=== PATIENT | female | born 1940 | race Caucasian/White ===

== ENCOUNTER 2016-04-16 18:49 | Inpatient (IN) | payer OTHER ==
[~2016-04-16] VITALS: Ht 165.1 cm; Wt 101.0 kg
[2016-04-16] MEDS ORDERED: ONDANSETRON INJ 2 MG/ML 2 ML VIAL IV STA (20:57)
[2016-04-16] MEDS ORDERED: SIMETHICONE 80 MG CHEW PO ONE (21:00)
[2016-04-16] MEDS ORDERED: OXYC-57 PO (21:07)
[2016-04-16] MEDS ORDERED: CYAN10004 PO (21:07)
[2016-04-16] MEDS ORDERED: FRRS300 PO (21:07)
[2016-04-16] MEDS ORDERED: ESCI10TA17 PO (21:07)
[2016-04-16] MEDS ORDERED: LEVE500T13 PO (21:07)
[2016-04-16] MEDS ORDERED: PANT40TA PO (21:07)
[2016-04-16] MEDS ORDERED: ATOR-24 PO (21:07)
[2016-04-16] MEDS ORDERED: FLUT0.15 NAE (21:07)
[2016-04-16] MEDS ORDERED: OXYC1TAB3 PO (21:07)
[2016-04-16] MEDS ORDERED: GABA-112 PO (21:07)
[2016-04-16] MEDS ORDERED: MCRK20 PO (21:07)
[2016-04-16] MEDS ORDERED: ASPI81TA28 PO (21:07)
[2016-04-16] MEDS ORDERED: CALC-393 PO (21:07)
[2016-04-16] MEDS ORDERED: DILT240C57 PO (21:07)
[2016-04-16] MEDS ORDERED: CALC0.5C2 PO (21:07)
[2016-04-16] MEDS ORDERED: CHOL100010 PO (21:07)
[2016-04-16] MEDS ORDERED: METO2.5T PO (21:20)
[2016-04-16] MEDS ORDERED: TRAZ50TA35 PO (21:33)
[2016-04-16] MEDS ORDERED: ANT25 PO (21:33)
[2016-04-16] MEDS ORDERED: NYST100010 TOP (21:33)
[2016-04-16] MEDS ORDERED: FRS/40 PO (21:33)
[2016-04-16] MEDS ORDERED: AMOX875T PO (21:33)
[2016-04-16] MEDS ORDERED: LEVO75TA PO (21:33)
[2016-04-16] MEDS ORDERED: NTRGSL/4 UT (21:33)
[2016-04-16] MEDS ORDERED: NITR1CAP33 PO (21:33)
[2016-04-16] MEDS ORDERED: HYDR25SU20 PR (21:33)
[2016-04-16] MEDS ORDERED: LEVO150T PO (21:33)
[2016-04-16] MEDS ORDERED: IPRA1AER2 INH (21:33)
--- NOTE | 2016-04-16 22:16 | DIAGNOSTIC IMAGING REPORT ---
ABDOMEN AND PELVIS CT WITHOUT CONTRAST CT DOSE: 1038.45 mGy.cm HISTORY: bloating, nausea TECHNIQUE: Multiaxial CT images of the abdomen and pelvis were performed without contrast. COMPARISON STUDY: None. FINDINGS: The heart is enlarged. There are poststernotomy changes. There is a trace right and small left pleural effusion. Bibasilar densities likely represent atelectasis. No pneumoperitoneum. No pneumatosis. There is a right hip prosthesis. Mild body wall edema. The unenhanced liver, spleen, adrenal glands, and pancreas are unremarkable. Mild inflammatory change/edema surrounding the gallbladder. No definite gallbladder wall thickening. Trace perihepatic and perisplenic fluid. There are punctate bilateral renal calculi. A 1.2 cm exophytic hypodense lesion within the left kidney. This is incompletely characterized on this noncontrast study but favors a cyst. No hydronephrosis. No retroperitoneal lymphadenopathy. There is engorgement of the right ovarian vein. Mild edema surrounding the bilateral ovaries. There is trace ascites. The visualized bladder and uterus are within normal limits. Suboptimal evaluation for bowel pathology due to the lack of intravenous and oral contrast. However, there is no definite bowel wall thickening or obstruction. Colonic diverticulosis. Normal caliber appendix. Density at the tip of the appendix may be due to old barium contrast. IMPRESSION: 1. Trace right and small left pleural effusions. There is also body wall edema and trace ascites. 2. Mild inflammatory change/edema surrounding the gallbladder. No definite gallbladder wall thickening. This could be due to the patient's edematous state or possibly developing cholecystitis. Clinical correlation recommended to assess for right upper quadrant pain. 3. Bilateral nephrolithiasis. No hydronephrosis. 4. Cardiomegaly. 5. Colonic diverticulosis. 6. No definite bowel wall thickening or obstruction. Electronically signed by: Cristian Vazquez M.D. 04/16/2016 10:14 PM Dictated Date/Time: 04/16/2016 10:03 PM
[2016-04-16 22:34] LABS: BASO % 0.1 %; BASO ABS # 0.01 K/uL (0-0.2); COMPLETE YES; EOS % 0.1 %; HEMATOCRIT 31.9 % (37-47); IG% 0.4 %; LYMPH % 8.9 %; LYMPH ABS # 1.49 K/uL (1.2-3.4); MEAN CELL VOLUME 88.1 fL (80-100); MEAN CORPUSCULAR HEMOGLOBIN 27.9 pg (25-34); MEAN CORPUSCULAR HGB CONC 31.7 g/dl (32-36); MEAN PLATELET VOLUME 11.2 fL (7.4-10.4); MONO % 4.3 %; NEUT % 86.2 %; PLATELET COUNT 363 K/uL (130-400); RED BLOOD COUNT 3.62 M/uL (4.2-5.4); WHITE BLOOD COUNT 16.71 K/uL (4.8-10.8)
[2016-04-16 22:50] LABS: BUN/CREATININE RATIO 29.7 (10-20); CALCIUM 6.5 mg/dl (8.5-10.1); CREATININE 1.4 mg/dl (0.60-1.20); POTASSIUM 4.2 mmol/L (3.5-5.1)
[2016-04-16 22:51] LABS: PARTIAL THROMBOPLASTIN RATIO 1.2; PROTHROMBIN TIME (PATIENT) 42.2 SECONDS (9.0-12.0)
[2016-04-16 22:52] LABS: INR 3.7 (0.9-1.1)
[2016-04-16 22:59] LABS: CKMB/CK RATIO 0.8 (0-3.0); THYROID STIMULATING HORMONE 0.868 uIu/ml (0.300-4.500)
[2016-04-16 23:56] LABS: URINE APPEARANCE CLOUDY (CLEAR); URINE BILIRUBIN NEG (NEG); URINE COLOR DK YELLOW; URINE EPITHELIAL CELL AUTO >30 /lpf (0-5); URINE NITRITE NEG (NEG); URINE SPECIFIC GRAVITY 1.016 (1.000-1.030); UROBILINOGEN NEG (NEG)
[2016-04-16 23:57] LABS: MANUAL MICROSCOPIC REQUIRED? NO; REVIEW REQ? YES
[2016-04-17] VITALS (10 sets, daily range): BP systolic 104–133; BP diastolic 59–76; PULSE 78–96; TEMP 36.5–36.8; O2SAT 94–97; Ht 165.1 cm; Wt 101.0 kg
--- NOTE | 2016-04-17 01:00 | EMERGENCY ROOM VISIT NOTE ---
History Report prepared by Nehemias: Helio Pimentel Under the Supervision of: Dr. Isaac Walker D.O. First contact with patient: 20:32 Chief Complaint: REFERRED BY DOCTOR Stated Complaint: REFERRED BY DOCTOR History of Present Illness The patient is a 76 year old female who presents to the Emergency Room for evaluation of abnormal laboratory studies occurring today. She currently complains of chest pain, nausea, abdominal bloating and shortness of breath. She rates her chest pain as a 6/10 in severity. Per family, the patient has a history of COPD and CHF. She states that the patient has gained 8 or more pounds in a few days this week. The patient was admitted as an inpatient last week for her symptoms and was discharged on Lasix. The patient's family states that the patient was seen by her PCP earlier today for persisting symptoms and had blood work done. The patient was called shortly prior to arrival with the results. The patient's family states that the patient was found to have low potassium levels, elevated INR, elevated white blood cell count, and that her kidneys and liver "are out of whack". She notes that the patient tends to retain fluid in her abdomen rather than her legs. The patient is on Coumadin for a previous stroke. She has persistent aphasia ever since the stroke. She denies any fevers. The patient's family notes that the patient has not been eating much lately. Source of History: patient, family Onset: today Symptom Intensity: elevated INR, elevated white blood cell count, low potassium, abnormal kidney and liver functions Quality: other (abnormal laboratory studies) Associated Symptoms: + SOB, + chest pain (6/10), + nausea, No fevers Note: The patient complains of abdominal bloating. Review of Systems See HPI for pertinent positives & negatives. A total of 10 systems reviewed and were otherwise negative. Past Medical & Surgical Medical Problems: (1) Aphasia (2) CAD (coronary artery disease) (3) CHF (congestive heart failure) (4) COPD (chronic obstructive pulmonary disease) (5) Diabetes (6) GERD (gastroesophageal reflux disease) (7) Hyperlipidemia (8) Hypothyroidism (9) Lumbar degenerative disc disease (10) PAF (paroxysmal atrial fibrillation) (11) Peripheral arterial disease (12) Seizure disorder (13) Stroke Surgical Problems: (1) History of knee replacement (2) S/P aortic valve repair (3) S/P hip replacement Family History No pertinent family history stated. Social History Smoking Status: Former Smoker Housing Status: lives with family Occupation Status: retired Current/Historical Medications Scheduled Amoxicillin & Pot Clavulanate (Augmentin 875-125 mg), 1 TAB PO BID Aspirin (Aspirin Ec), 81 MG PO QAM Atorvastatin (Lipitor), 40 MG PO HS Calcitriol (Rocaltrol), 0.5 MCG PO BID Calcium Carbonate (Calcium), 600 MG PO UD Cholecalciferol (Vitamin D), 1,000 UNIT PO QAM Cyanocobalamin (Vitamin B-12 1000 Mcg), 1,000 MCG PO QAM Diltiazem Hcl Coated Beads (Cardizem Cd), 240 MG PO QAM Escitalopram (Lexapro), 10 MG PO QAM Ferrous Sulfate (Ferrous Sulfate), 325 MG PO BID Furosemide (Lasix), 40 MG PO BID Gabapentin (Neurontin), 100 MG PO UD Ipratropium-Albuterol (Combivent Respimat), 1 PUFFS INH QID Levetiracetam (Keppra), 500 MG PO BID Levothyroxine Sodium (Synthroid), 75 MCG PO THURSDAY Levothyroxine Sodium (Synthroid), 150 MCG PO 6XWK Metolazone (Zaroxolyn), 2.5 MG PO UD Nitrofurantoin Macrocrystals (Macrodantin), 50 MG PO HS Oxycodone Ir (Roxicodone Ir), 5 MG PO Q12 Pantoprazole (Protonix), 40 MG PO QAM Potassium Chloride (Klor-Con M20), 20 MEQ PO QAM Trazodone Hcl (Trazodone), 50 MG PO HS Scheduled PRN Fluticasone Propionate (Nasal) (Flonase Allergy Relief), 2 SPRAYS CASS DAILY PRN for Nasal Congestion Hydrocortisone Acetate (Rectal (Anusol-Hc), 25 MG VT BID PRN for PRN Meclizine HCl (Meclizine HCl), 25 MG PO TID PRN for VERTIGO Nitroglycerin (Nitrostat), 0.4 MG UT PRN PRN for CHEST PAIN Nystatin (Topical) (Nystop), 1 APPLN TOP DAILY PRN for PRN UNDER BREASTS Oxycodone/Acetaminophen 5MG/325MG (Percocet 5MG/325MG), 2 TABLETS PO Q8 PRN for Pain Allergies Coded Allergies: No Known Allergies (Unverified , 04/16/16) Physical Exam Vital Signs Date Time Temp Pulse Resp B/P Pulse Ox O2 Delivery O2 Flow Rate FiO2 04/17/16 01:25 92 20 121/74 97 Nasal Cannula 2.0 04/16/16 23:26 76 16 128/97 95 Nasal Cannula 2.0 04/16/16 22:23 83 16 118/75 96 Nasal Cannula 2.0 04/16/16 21:31 77 20 118/64 92 Nasal Cannula 2.0 04/16/16 21:00 76 16 121/78 92 Nasal Cannula 2.0 04/16/16 20:55 95 Nasal Cannula 2.0 04/16/16 20:43 80 04/16/16 19:34 78 16 116/78 95 Nasal Cannula 2.0 04/16/16 18:54 36.4 81 20 118/69 96 Room Air Physical Exam CONSTITUTIONAL/VITAL SIGNS: Reviewed / noted above. GENERAL: Non-toxic in appearance. INTEGUMENTARY: Warm, dry, and [place]. HEAD: Normocephalic. EYES: without scleral icterus or trauma. ENT/OROPHARYNX: clear and moist. LYMPHADENOPATHY/NECK: Is supple without lymphadenopathy or meningismus. RESPIRATORY: Lungs clear and equal. CARDIOVASCULAR: Regular rate and rhythm. GI/ABDOMEN: Distended with hyperactive bowel sounds. No organomegaly or pulsatile mass. No rebound or guarding. EXTREMITIES: Warm and well perfused. BACK: No CVA tenderness. NEUROLOGICAL: Intact without focal deficits. PSYCHIATRIC: normal affect. MUSCULOSKELETAL: Normally developed with good muscle tone. Medical Decision & Procedures ER Provider Diagnostic Interpretation: CT results as stated below per my review and radiologist interpretation: ABDOMEN AND PELVIS CT WITHOUT CONTRAST FINDINGS: The heart is enlarged. There are poststernotomy changes. There is a trace right and small left pleural effusion. Bibasilar densities likely represent atelectasis. No pneumoperitoneum. No pneumatosis. There is a right hip prosthesis. Mild body wall edema. The unenhanced liver, spleen, adrenal glands, and pancreas are unremarkable. Mild inflammatory change/edema surrounding the gallbladder. No definite gallbladder wall thickening. Trace perihepatic and perisplenic fluid. There are punctate bilateral renal calculi. A 1.2 cm exophytic hypodense lesion within the left kidney. This is incompletely characterized on this noncontrast study but favors a cyst. No hydronephrosis. No retroperitoneal lymphadenopathy. There is engorgement of the right ovarian vein. Mild edema surrounding the bilateral ovaries. There is trace ascites. The visualized bladder and uterus are within normal limits. Suboptimal evaluation for bowel pathology due to the lack of intravenous and oral contrast. However, there is no definite bowel wall thickening or obstruction. Colonic diverticulosis. Normal caliber appendix. Density at the tip of the appendix may be due to old barium contrast. IMPRESSION: 1. Trace right and small left pleural effusions. There is also body wall edema and trace ascites. 2. Mild inflammatory change/edema surrounding the gallbladder. No definite gallbladder wall thickening. This could be due to the patient's edematous state or possibly developing cholecystitis. Clinical correlation recommended to assess for right upper quadrant pain. 3. Bilateral nephrolithiasis. No hydronephrosis. 4. Cardiomegaly. 5. Colonic diverticulosis. 6. No definite bowel wall thickening or obstruction. Electronically signed by: Cristian Vazquez M.D. One View Chest X-ray interpreted by me: cardiomegaly. No acute disease. No pneumothorax. US results per statrad and my review. Laboratory Results 04/16/16 21:30 Red Blood Count 3.62, Mean Corpuscular Volume 88.1, Mean Corpuscular Hemoglobin 27.9, Mean Corpuscular Hemoglobin Concent 31.7, Mean Platelet Volume 11.2, Neutrophils (%) (Auto) 86.2, Lymphocytes (%) (Auto) 8.9, Monocytes (%) (Auto) 4.3, Eosinophils (%) (Auto) 0.1, Basophils (%) (Auto) 0.1, Neutrophils # (Auto) 14.42, Lymphocytes # (Auto) 1.49, Monocytes # (Auto) 0.72, Eosinophils # (Auto) 0.01, Basophils # (Auto) 0.01 04/16/16 21:30 Test 04/16/16 21:30 04/16/16 23:02 White Blood Count 16.71 K/uL (4.8-10.8) Red Blood Count 3.62 M/uL (4.2-5.4) Hemoglobin 10.1 g/dL (12.0-16.0) Hematocrit 31.9 % (37-47) Mean Corpuscular Volume 88.1 fL (80-100) Mean Corpuscular Hemoglobin 27.9 pg (25-34) Mean Corpuscular Hemoglobin Concent 31.7 g/dl (32-36) Platelet Count 363 K/uL (130-400) Mean Platelet Volume 11.2 fL (7.4-10.4) Neutrophils (%) (Auto) 86.2 % Lymphocytes (%) (Auto) 8.9 % Monocytes (%) (Auto) 4.3 % Eosinophils (%) (Auto) 0.1 % Basophils (%) (Auto) 0.1 % Neutrophils # (Auto) 14.42 K/uL (1.4-6.5) Lymphocytes # (Auto) 1.49 K/uL (1.2-3.4) Monocytes # (Auto) 0.72 K/uL (0.11-0.59) Eosinophils # (Auto) 0.01 K/uL (0-0.5) Basophils # (Auto) 0.01 K/uL (0-0.2) RDW Standard Deviation 55.2 fL (36.4-46.3) RDW Coefficient of Variation 16.8 % (11.5-14.5) Immature Granulocyte % (Auto) 0.4 % Immature Granulocyte # (Auto) 0.06 K/uL (0.00-0.02) Nucleated RBC Absolute Count (auto) 0.08 K/uL (0-0) Nucleated Red Blood Cells % 0.5 % Prothrombin Time 42.2 SECONDS (9.0-12.0) Prothromb Time International Ratio 3.7 (0.9-1.1) Activated Partial Thromboplast Time 30.8 SECONDS (21.0-31.0) Partial Thromboplastin Ratio 1.2 Anion Gap 14.0 mmol/L (3-11) Est Creatinine Clear Calc Drug Dose 38.0 ml/min Estimated GFR () 41.6 Estimated GFR (Non- 35.9 BUN/Creatinine Ratio 29.7 (10-20) Calcium Level 6.5 mg/dl (8.5-10.1) Total Bilirubin 1.8 mg/dl (0.2-1) Direct Bilirubin 1.3 mg/dl (0-0.2) Aspartate Amino Transf (AST/SGOT) 44 U/L (15-37) Alanine Aminotransferase (ALT/SGPT) 47 U/L (12-78) Alkaline Phosphatase 224 U/L (45-117) Total Creatine Kinase 301 U/L (26-192) Creatine Kinase MB 2.4 ng/ml (0.5-3.6) Creatine Kinase MB Ratio 0.8 (0-3.0) Troponin I 0.022 ng/ml (0-0.045) Pro-B-Type Natriuretic Peptide 32943 pg/ml (0-1800) Total Protein 6.8 gm/dl (6.4-8.2) Albumin 3.6 gm/dl (3.4-5.0) Lipase 991 U/L (73-393) Thyroid Stimulating Hormone (TSH) 0.868 uIu/ml (0.300-4.500) Urine Color DK YELLOW Urine Appearance CLOUDY (CLEAR) Urine pH 5.0 (4.5-7.5) Urine Specific [place] 1.016 (1.000-1.030) Urine Protein 1+ (NEG) Urine Glucose (UA) NEG (NEG) Urine Ketones NEG (NEG) Urine Occult Blood TRACE (NEG) Urine Nitrite NEG (NEG) Urine Bilirubin NEG (NEG) Urine Urobilinogen NEG (NEG) Urine Leukocyte Esterase MODERATE (NEG) Urine WBC (Auto) >30 /hpf (0-5) Urine RBC (Auto) 0-4 /hpf (0-4) Urine Hyaline Casts (Auto) 0 /lpf (0-5) Urine Epithelial Cells (Auto) >30 /lpf (0-5) Urine Bacteria (Auto) NEG (NEG) Urine Pathogenic Casts /lpf (0) Laboratory results as stated above per my review. Medications Administered Medications (Trade) Dose Ordered Sig/Desire Route Start Time Stop Time Status Last Admin Dose Admin Ondansetron HCl (Zofran Inj) 4 mg NOW STAT IV 04/16/16 20:57 04/16/16 20:59 DC 04/16/16 21:38 4 MG Simethicone (Mylicon Chew Tab) 80 mg ONE ONCE PO 04/16/16 21:00 04/16/16 21:01 DC 04/16/16 21:38 80 MG ECG Indication: chest pain Rate (beats per minute): 83 Rhythm: atrial fibrillation Findings: PVC, T-wave inversion (Anterior) ED Course 2034: Previous medical records were reviewed. The patient was evaluated in room C6. A complete history and physical examination was performed. 2056: Ordered Zofran Inj 4 mg IV. 2099: Ordered Mylicon Chew Tab 80 mg PO. 0036: On reevaluation, the patient is resting comfortably. I discussed the results and findings with her. She verbalized agreement of the treatment plan. [facility] The patient will be evaluated for further management and care. Medical Decision Differential considered: pancreatitis, hepatitis, or acute cholecystitis, AAA, UTI, pyelonephritis, kidney stones, appendicitis, diverticulitis, shingles, bowel obstruction mesenteric ischemia, intussusception,hernia. This is a 76-year-old female who presents to the ED with a chief complaint of abnormal laboratory studies as an outpatient. The patient states that her symptoms started last week. She has had some weight gain. She apparently has a history of abdominal edema and ascites. The patient was admitted to [facility] last week for the symptoms. The patient was discharged. The patient was seen by her PCP today who ran some laboratory studies and a chest x-ray. The laboratory studies were abnormal and the patient was referred here. The patient had an elevated INR of 5. The BUN was 43 and a creatinine was 1.3. The glucose was 199 and hemoglobin was 9.8. White blood cell count was 17.1. Bilirubin was 2. The patient does have some baseline anemia with a previous hemoglobin of 9.6 on April 11. The white blood cell count on April 11 was 14. Previous bilirubin was not available. The patient's evaluation included some tenderness the epigastric area. The patient's white blood cell count here today was 16.7. Her hemoglobin is 10.1. INR is 3.7. BUN is 42 and creatinine is 1.4. Calcium is low at 6.5. This has been lower on previous labs in April 11. It was 6.1 at that time. Urine appears to be contaminated but does not show obvious infection. Total bilirubin is 1.8 tonight. This is slightly lower than it was earlier today. Lipase is 991. CT scan of the abdomen and pelvis reveals some body wall edema as well some mild infiltrate around the gallbladder. Clinical correlation was required. She does not have tenderness over the gallbladder at this time. Chest x-ray did not show any acute disease. I spoke with the hospitalist, who will see the patient for further inpatient care. Consults Time Called: 32 Consulting Physician: Dr. Erika Contreras Returned Call: [phone] Discussed the patient's case. The patient will be evaluated for further treatment and disposition. Impression Primary Impression: Pancreatitis Additional Impression: Nausea Scribe Attestation The scribe's documentation has been prepared under my direction and personally reviewed by me in its entirety. I confirm that the note above accurately reflects all work, treatment, procedures, and medical decision making performed by me. Departure Information Dispostion Being Evaluated By Hospitalist Referrals Gene Belcher (PCP) Patient Instructions A Signature Page, My [facility] Problem Qualifiers
[2016-04-17] MEDS ORDERED: ONDANSETRON INJ 2 MG/ML 2 ML VIAL IV PRN (01:45)
[2016-04-17] MEDS ORDERED: OXYCODONE/ACETAMINOPHEN 5-325 TAB PO PRN (02:00)
[2016-04-17] MEDS ORDERED: NITROGLYCERIN 0.4 MG SL PER TAB CHARGE UT PRN (02:00)
[2016-04-17] MEDS ORDERED: FLUTICASONE PROPIONATE NA SPR 16 GM BTL NAE PRN (02:00)
[2016-04-17] MEDS ORDERED: PIPERACILL/TAZOBAC IV 4.5 GM in DEXTROSE 5% 100ML 100 ML IV ONE (02:03)
[2016-04-17] MEDS ORDERED: PIPERACILLIN/TAZOBACTAM 4.5 GM/100ML D5W IV STA (02:07)
[2016-04-17] MEDS ORDERED: GLUCOSE 10 TABS/TUBE PO PRN (02:45)
[2016-04-17] MEDS ORDERED: GLUCOSE 40% GEL 15 GM TUBE PO PRN (02:45)
[2016-04-17] MEDS ORDERED: GLUCAGON FOR INJ 1 MG VIAL SQ PRN (02:45)
[2016-04-17] MEDS ORDERED: DEXTROSE 50% 50 ML SYR IV PRN (02:45)
[2016-04-17] MEDS: SODIUM CHLORIDE 0.9% 1000ML 1,000 ML IV SCH ×2 (03:00→16:52)
[2016-04-17] MEDS ORDERED: PIPERACILL/TAZOBAC CONSULT ACTIVE PRN (03:15)
--- NOTE | 2016-04-17 05:59 | HISTORY & PHYSICAL EXAMINATION ---
DATE OF ADMISSION: 04/17/2016 PRIMARY CARE PHYSICIAN: Dr. Belchre from [place]. CHIEF COMPLAINT: Epigastric burning pain with tightness, nausea for the last few days. HISTORY OF PRESENT COMPLAINT: She is a 76-year-old female with significant complicated past medical history including chronic AFib, status post aortic valve replacement, esophageal reflux, seizure disorder with history of stroke in the past, CHF, obesity, hyperlipidemia and also history of recurrent UTI. Apparently has been complaining of increasing weight gain that happened about 2 weeks ago. She saw her primary care physician and was given diuretics including metolazone and Lasix to improve the weight. Following that, she has had abnormality in the labs and with that she was admitted to [facility] from 07 of April to 11 of April. She was treated for acute on chronic congestive heart failure with electrolyte imbalance and also she was noted to have rectal bleeding due to hemorrhoids. She went home on and since discharge, her symptoms have been there. She feels generally weak and lethargic, occasional shortness of breath and abdominal bloatiness and also epigastric discomfort and pain has been there. She was seen by her primary care physician today and again she was noted to have abnormality in the labs including high BNP and high creatinine and also high white count. From that point, she was advised to come to the Emergency Room at [facility] for continuation of care. In the ER, she was still having epigastric burning pain, moderate shortness of breath at rest and apparent test showed that her white count was elevated to 17,000. Her creatinine was 1.40 with abnormal liver function tests and also ProBNP was elevated to 16,000 and lipase noted to be 991. From that point, she was admitted to telemetry unit for continuation of care. She denies to have any fever, chills or rigors. She denies to have any burning during micturition, does not have any problem with her bowel habit. No chest pain and no palpitation. Does have shortness of breath on exertion. She does not have any swelling of the legs and no rash and/or enlargement of lymph nodes. No headache, no blurred vision, no numbness or tingling involving any of the extremities. PAST MEDICAL HISTORY: Significant for history of stroke with mild aphasia, atrial fibrillation status post aortic valve replacement, on anticoagulation, CAD, diastolic heart failure, esophageal reflux, impaired glucose tolerance, chronic back pain, seizure disorder, hyperlipidemia,Hypothyroidism, obesity, vitamin D deficiency and also history of recurrent UTI. PAST SURGICAL HISTORY: Ablation for AFib, angioplasty and stenting of the right superficial femoral and popliteal arteries, aortic valve replacement in 2006 with #23 Barber II valve, CABG with prosthetic valve, delivery, thyroid surgery, cataract surgery on both sides, total knee replacement and shoulder surgery and also total hip replacement on the right side. FAMILY HISTORY: Father had heart disorder. Mother had heart disorder. Sister with hypertension. Daughter has thyroid disorder. SOCIAL HISTORY: She is a . She has 6 children. She lives with her granddaughter. She does not smoke. She drinks very occasionally and she has been reasonably ambulant. ALLERGIES: NKDA. MEDICATIONS: She has been on Augmentin 1 tablet twice daily, aspirin 81 mg daily, Lipitor 40 mg at night, vitamin D 1000 units daily, Vitamin B12 1000 mcg daily, diltiazem 240 mg daily, Lexapro 10 mg daily, ferrous sulfate 325 mg daily, nasal spray 2 sprays as directed, Lasix 40 mg twice daily, Neurontin 100 mg as directed, Anusol-HC 25 mg suppository twice daily as directed, Combivent Respules 2 puffs q.i.d., Keppra 500 mg b.i.d., Synthroid 75 mcg daily on Sundays and 150 mcg on other days, meclizine 25 mg t.i.d. as needed, Zaroxolyn 2.5 mg daily as directed, nitrofurantoin 50 mg at night, Nitrostat 0.4 mg as directed, nystatin topical powder as directed, oxycodone IR 5 mg q. 12 hours, oxycodone 5 mg/325 two tablets q. 8 hourly as needed, Protonix 40 mg daily, Klor-Con 20 mEq daily, trazodone 50 mg at night, Rocaltrol 0.5 mcg twice daily and calcium carbonate 600 mg as directed. Coumadin dose is unknown. REVIEW OF SYSTEMS: As in history of present illness and other review of systems unremarkable. PHYSICAL EXAMINATION: GENERAL: On examination in the Emergency Room, she was having minimal shortness of breath at rest but no acute distress. VITAL SIGNS: Temperature afebrile, pulse of 92, blood pressure 121/74, saturation 97% on 2 liters nasal cannula. HEENT: Unremarkable. NECK: Supple. No JVD. No bruit. CHEST: Decreased breath sounds with minimal bibasilar crackles, more on the right side than the left. HEART: S1, S2 with prosthetic valve sounds and 2/6 systolic murmur over aortic area. ABDOMEN: Distended, soft. Tender in the epigastrium and right upper quadrant nontender. Taylor sign negative. Bowel sounds present. EXTREMITIES: 1+ edema bilaterally. MUSCULOSKELETAL SYSTEM: Examination did not show any acute arthritis. CENTRAL NERVOUS SYSTEM: She was alert, awake, oriented x3. No focal sensory deficit appreciated. She has aphasia. LABORATORY DATA: Noted today, white count was 16.71, H\T\H 10.1/31.9, platelet was 363. Sodium 133, potassium 4.2, chloride 94, carbon dioxide 25, BUN 42, creatinine 1.40. On 6th, her creatinine was 1.22, random glucose 192, total bilirubin 1.8, AST 44, ALT 47, alkaline phosphatase 224, total CK 301, troponin 0.022. BNP was 16,678. Lipase was 991. TSH 0.868, INR was 3.7. UA examination is moderate leuk esterase, white count more than 30 and bacteria negative. Chest x-ray not been reported yet but shows cardiomegaly with congestive changes. Gallbladder ultrasound pending. CT scan of the abdomen and pelvis without contrast, trace right and small left pleural effusion. There is also body wall edema and trace ascites, mild inflammatory change, edema surrounding the gallbladder but no definite gallbladder wall thickening, possibility of cholecystitis, bilateral nephrolithiasis but no hydronephrosis, cardiomegaly, chronic diverticulosis. No definite bowel wall thickening or obstruction. EKG was in atrial fibrillation, rate of 83 per minute, partial right bundle branch block with associated T-wave changes and with very few PVCs, no significant change compared with prior EKG. IMPRESSION AND PLAN: 1. Acute pancreatitis. The patient presented with epigastric burning pain and abdominal bloating. The pancreatitis is most likely secondary to edema of the gut and surrounding areas. The patient will be kept n.p.o except oral Medications. Minimal amount of IV fluid given with caution as the patient has CHF. Ultrasound of the gallbladder has been done to R/O Gallstones pancreatitis as LFTs are mildly elevated, though this could be due to hepatic congestion as well.Continue Oral Protonix. May need HIDA scan to r/o Gall bladder disease.Monitor LFTs. 2. Acute on chronic diastolic heart failure. She had an echo done in 2016 that did show EF of 60%, LV wall thickening, diastolic dysfunction, enlarged left and right atria. We will hold her Lasix and metolazone for the time being and check her PRP.Will need to put back on Diuretics. 3. Acute renal failure may be secondary to intravascular dehydration from Lasix and metolazone use. We will hold Lasix and metolazone for now and administer small amount of IV fluid and monitor PRP. 4. Atrial fibrillation. Status post aortic valve replacement. No acute issues at this time. Continue with current medications of Cardizem and continue with anticoagulation. 5. Glucose intolerance. We will put her on diabetic diet and blood sugar check with sliding scale insulin coverage. 6. History of chronic obstructive pulmonary disease. Continue with her bronchodilators, no acute exacerbation at this time. 7. Leukocytosis that could be secondary to pancreatitis or ongoing infection, especially urinary tract. We will send urine for culture. The patient has been on Augmentin and nitrofurantoin.Will start IV Zosyn for now. 8. Esophageal reflux. Continue PPI. 9. Deep venous thrombosis prophylaxis, has been on Coumadin. 10. History of cerebrovascular accident with aphasia, but no other acute deficiency at this time. 11.Hypothyroidism-continue replacement 12. Code status. Discussed with the granddaughter. She will be a full code. In my clinical judgment, the beneficiary meets criteria as per CMS for 2-midnight stay in the hospital. QUAN
[2016-04-17] MEDS: PIPERACILL/TAZOBAC IV 4.5 GM in DEXTROSE 5% 100ML 100 ML IV SCH ×3 (06:13→21:30)
[2016-04-17] MEDS: LEVOTHYROXINE 150 MCG TAB PO SCH (06:13)
--- NOTE | 2016-04-17 07:08 | DIAGNOSTIC IMAGING REPORT ---
ABDOMINAL ULTRASOUND, RIGHT UPPER QUADRANT HISTORY: Abdominal pain.. COMPARISON: CT of the abdomen and pelvis April 16, 2016. FINDINGS: There is slight coarsening of hepatic echotexture. No hepatic lesions are identified. There is a small amount of perihepatic ascites. There is mild gallbladder wall thickening. A 5 mm suspected gallbladder polyp is noted. No definite gallstones are identified. There is sludge within the gallbladder and suspected adenomyomatosis. No sonographic Taylor sign was elicited. No biliary ductal dilatation was present. There is no right hydronephrosis. There is trace pericholecystic fluid. IMPRESSION: 1. Mild nonspecific gallbladder wall thickening. Gallbladder sludge with no definite stones. Suspected gallbladder polyp. No sonographic Taylor's sign. A hepatobiliary scan could be obtained as indicated. 2. No biliary ductal dilatation. 3. Trace perihepatic ascites. 4. Slight coarsening of hepatic echotexture. Electronically signed by: Zach Garvin M.D. 04/17/2016 7:06 AM Dictated Date/Time: 04/17/2016 7:00 AM
--- NOTE | 2016-04-17 07:11 | DIAGNOSTIC IMAGING REPORT ---
CHEST ONE VIEW PORTABLE CLINICAL HISTORY: Abdominal pain. COMPARISON STUDY: No previous studies for comparison. FINDINGS: There are median sternotomy wires. Moderate to marked cardiomegaly is noted. There is a small left pleural effusion. There may be a trace right pleural effusion. Mild interstitial thickening suggest pulmonary edema. Left basilar opacity favors atelectasis. There is no pneumothorax. IMPRESSION: 1. Suspected mild pulmonary edema. 2. Moderate to marked cardiomegaly with trace bilateral pleural effusions. Electronically signed by: Zach Garvin M.D. 04/17/2016 7:09 AM Dictated Date/Time: 04/17/2016 7:08 AM
[2016-04-17] MEDS: ASPIRIN 81 MG ECTAB PO SCH (07:48)
[2016-04-17] MEDS: IPRATROPIUM BROMIDE/ALBUTEROL respimat INH INH SCH ×4 (07:50→21:23)
[2016-04-17] MEDS: GABAPENTIN 100 MG CAP PO SCH ×3 (07:51→21:24)
[2016-04-17] MEDS: LEVETIRACETAM 500 MG TAB PO SCH ×2 (07:52→21:25)
[2016-04-17] MEDS: CALCIUM 600MG + VIT D 400 IU TAB PO SCH ×2 (07:52→13:48)
[2016-04-17] MEDS: ESCITALOPRAM OXALATE 10 MG TAB PO SCH (07:53)
[2016-04-17] MEDS: CHOLECALCIFEROL 1000 INTER.UNIT TAB PO SCH (07:53)
[2016-04-17] MEDS: CYANOCOBALAMIN 500 MCG TAB (VIT B-12) PO SCH (07:54)
[2016-04-17] MEDS: FERROUS SULFATE 325 MG TAB PO SCH ×2 (07:54→21:25)
[2016-04-17] MEDS: DILTIAZEM HCL 240 MG CAPCR PO SCH (07:55)
[2016-04-17] MEDS: PANTOprazole SOD 40 MG TAB PO SCH (07:55)
[2016-04-17] MEDS: POTASSIUM CHLORIDE 20 MEQ TABCR PO SCH (07:56)
[2016-04-17] MEDS: CALCITRIOL 0.25 MCG CAP PO SCH ×2 (07:56→21:26)
[2016-04-17] MEDS: INSULIN ASPART 100 UNITS/ML 3 ML PEN SC SCH ×4 (08:02→21:30)
[2016-04-17] MEDS: CALCIUM GLUCONATE 10% 1,000 MG in SODIUM CHLORIDE 0.9% 50ML 50 ML IV SCH ×4 (08:44→20:11)
[2016-04-17] MEDS ORDERED: FUROSEMIDE 40 MG TAB PO SCH (09:00)
[2016-04-17 10:45] LABS: HEMATOCRIT 30.7 % (37-47); MEAN CORPUSCULAR HEMOGLOBIN 28.1 pg (25-34); MEAN CORPUSCULAR HGB CONC 31.9 g/dl (32-36); MEAN PLATELET VOLUME 10.6 fL (7.4-10.4); PLATELET COUNT 312 K/uL (130-400); RED BLOOD COUNT 3.49 M/uL (4.2-5.4); WHITE BLOOD COUNT 14.08 K/uL (4.8-10.8)
--- NOTE | 2016-04-17 11:07 | ECHOCARDIOGRAM REPORT ---
*NOTICE TO RECEIVING CONSTITUTION PARTY AGENCY This information is strictly Confidential and protected under [place] law. [place] law prohibits you from making any further disclosure of this information unless further disclosure is expressly permitted by the written consent of the person to whom it pertains or is authorized by law. A general authorization for the release of medical or other information is not sufficient for this purpose. Hospital accepts no responsibility if the information is made available to any other person, INCLUDING THE PATIENT. Interpretation Summary * Name: CIRO OMER Study Date: 04/17/2016 10:07 AM BP: 120/76 mmHg * Patient Location: C.2T\S\S237\S\1 HR: 80 * : 1940 (M/d/yyy) Gender: Female Height: 65 in * Age: 76 yrs Ethnicity: CA Weight: 205 lb * Ordering Physician: Vita James * Referring Physician: Gene Belcher * Performed By: Li Mccarthy RCS * * Reason For Study: CHF * BSA: 2.0 m2 * -- Conclusions -- * Flattened septum is consistent with RV pressure/volume overload. * The LV wall motion is otherwise normal. * The right ventricle is moderately dilated. * The right ventricular systolic function is moderate to severely reduced. * The left atrium is severely dilated. * The right atrium is moderately dilated. * Aortic valve sclerosis mild, without significant aortic valvular stenosis. * There is severe mitral annular calcification. * There is mild mitral regurgitation. * There is mild mitral stenosis. * There is mild tricuspid regurgitation. * The pulmonary artery systolci pressure is calculated to be 37 mm Hg (upper limit of normal). * Compared to the report of the outpatient study performed at [facility], on 09/10/15, there has been interval development of right ventricular chamber enlargement and RV pressure volume overload, RV systolic dysfunction. Procedure Details * A complete two-dimensional transthoracic echocardiogram was performed (2D, M-mode, Doppler and color flow Doppler). Left Ventricle * The left ventricle is normal in size. * There is normal left ventricular wall thickness. * Flattened septum is consistent with RV pressure/volume overload. * The LV wall motion is otherwise normal. Right Ventricle * The right ventricle is moderately dilated. * The right ventricular systolic function is moderate to severely reduced. Atria * The left atrium is severely dilated. * The right atrium is moderately dilated. * There is no evidence of atrial septal defect, but resolution does not allow assessment for a patent foramen ovale. Mitral Valve * There is severe mitral annular calcification. * Calcified mitral apparatus. * There is mild mitral stenosis. * There is mild mitral regurgitation. Tricuspid Valve * The tricuspid valve is normal. * There is no tricuspid stenosis. * There is mild tricuspid regurgitation. Aortic Valve * The aortic valve is trileaflet. * Aortic valve sclerosis mild, without significant aortic valvular stenosis. * Aortic stenosis is absent. * There is no significant aortic regurgitation. Pulmonic Valve * The pulmonary valve is not well seen, but the Doppler examination is normal without significant regurgitation or stenosis. Great Vessels * The aortic root and proximal ascending aorta are normal sized. Pericardium/Pleural * There is no pericardial effusion. Great Vessels * The inferior vena cava is midly dilated, but collapses with inspiration , consisent with an intermediate right atrial pressure of 8 mm Hg. MMode 2D Measurements and Calculations IVSd 1.3 cm IVSs 1.8 cm LVIDd 5.7 cm LVIDs 4.1 cm LVPWd 1.4 cm LVPWs 1.4 cm IVS/LVPW 0.93 FS 28.3 % EDV(Teich) 162.8 ml ESV(Teich) 75.0 ml EF(Teich) 53.9 % EDV(cubed) 189.3 ml ESV(cubed) 69.8 ml EF(cubed) 63.1 % % IVS thick 42.9 % % LVPW thick 2.7 % LV mass(C)d 330.3 grams LV mass(C)dI 165.2 grams/m\S\2 LV mass(C)s 269.0 grams LV mass(C)sI 134.6 grams/m\S\2 SV(Teich) 87.8 ml SI(Teich) 43.9 ml/m\S\2 SV(cubed) 119.5 ml SI(cubed) 59.8 ml/m\S\2 LVOT diam 2.0 cm LVOT area 3.3 cm\S\2 LVAd ap4 28.4 cm\S\2 LVLd ap4 7.0 cm EDV(MOD-sp4) 92.4 ml EDV(sp4-el) 97.4 ml LVAs ap4 20.5 cm\S\2 LVLs ap4 6.5 cm ESV(MOD-sp4) 53.1 ml ESV(sp4-el) 54.3 ml EF(MOD-sp4) 42.6 % EF(sp4-el) 44.3 % LVAd ap2 33.3 cm\S\2 LVLd ap2 7.2 cm EDV(MOD-sp2) 126.5 ml EDV(sp2-el) 131.1 ml LVAs ap2 21.5 cm\S\2 LVLs ap2 6.5 cm ESV(MOD-sp2) 59.5 ml ESV(sp2-el) 60.1 ml EF(MOD-sp2) 53.0 % EF(sp2-el) 54.2 % LVLd %diff 2.3 % EDV(MOD-bp) 109.1 ml LVLs %diff -0.08 % ESV(MOD-bp) 55.6 ml EF(MOD-bp) 49.0 % SV(MOD-sp4) 39.4 ml SI(MOD-sp4) 19.7 ml/m\S\2 SV(MOD-sp2) 67.0 ml SI(MOD-sp2) 33.5 ml/m\S\2 SV(MOD-bp) 53.5 ml SI(MOD-bp) 26.8 ml/m\S\2 SV(sp4-el) 43.2 ml SI(sp4-el) 21.6 ml/m\S\2 SV(sp2-el) 71.0 ml SI(sp2-el) 35.5 ml/m\S\2 Doppler Measurements and Calculations MV E max lane 215.5 cm/sec MV P1/2t max lane 228.3 cm/sec MV P1/2t 77.7 msec MVA(P1/2t) 2.8 cm\S\2 MV dec slope 860.9 cm/sec\S\2 MV dec time 0.[address] 509[address]4 cm/sec MR max PG 104.3 mmHg PA V2 max 101.2 cm/sec PA max PG 4.[address] 236.6 cm/sec PI max PG 22.4 mmHg PI dec slope 302.9 cm/sec\S\2 PI P1/2t 228.[address] 284.3 cm/sec
[2016-04-17 11:13] LABS: ESTIMATED AVERAGE GLUCOSE 157 mg/dl; HA1C FLAG Normal (Normal)
[2016-04-17 11:48] LABS: BUN/CREATININE RATIO 29.3 (10-20); CALCIUM 6.9 mg/dl (8.5-10.1); CREATININE 1.3 mg/dl (0.60-1.20); MAGNESIUM 2.4 mg/dl (1.8-2.4); POTASSIUM 4.2 mmol/L (3.5-5.1)
--- NOTE | 2016-04-17 11:57 | Progress Note ---
Medicine Progress Note Date & Time of Visit: Apr 17, 2016 at 11:30. Subjective 76 yo F presents with weakness and a persistent burning in her chest with epigastric abdominal pain. Recently discharged after hospitalization in [place] for diastolic CHF exacerbation. She also describes some nonspecific malaise, and reports not feeling well when leaving the hospital a few days ago. She initially denied vomiting and diarrhea, reporting only low appetite. She also has had some epigastric discomfort "with certain foods" which is also related to the burning pain in her esophagus. I was called later tonight to assess her for hand cramping that spontaneously resolved, and then moved to her hips and calves. Ca was notably low on admission and she was already given 2gm IV today and taking Caltrate. However, she reported some vomiting earlier and it is unclear how much of anything she was able to keep down. Another 2gm IV was ordered along with morphine which took her pain to a 1/10 and she was able to fall asleep. Calcium gluconate infusion was ordered overnight, and will continue until she is reliably taking oral supplementation. Objective Last 8 Hrs Date Time Temp Pulse Resp B/P Pulse Ox O2 Delivery O2 Flow Rate FiO2 04/17/16 07:35 36.7 90 20 120/76 95 Nasal Cannula 2.0 04/17/16 04:00 95 Nasal Cannula 2.0 04/17/16 04:00 36.8 96 20 122/74 95 Nasal Cannula 2.0 Physical Exam: GEN: WNWD, appears emotionally stressed, alert and appropriate, sitting in a chair at bedside HEENT: NC/AT, normal sclerae CARDIO: reg rate, S1/2 heard without m/g/r LUNGS: CTA bilaterally, no crackles, rales or wheezes, good diaphragmatic excursion ABD: soft, TTP in epigastric region only, non-distended, +BS EXTREMITY: RP and DP palpable 2+ bilat, no LE swelling or edema, extremities are warm and well-perfused NEURO: CN 2-12 intact, sensation intact throughout MUSC: moves all extremities equally, no gross focal deficits. SKIN: warm and dry Laboratory Results: Last 24 Hours Test 04/16/16 21:30 04/16/16 23:02 04/17/16 06:38 04/17/16 10:25 White Blood Count 16.71 K/uL 14.08 K/uL Red Blood Count 3.62 M/uL 3.49 M/uL Hemoglobin 10.1 g/dL 9.8 g/dL Hematocrit 31.9 % 30.7 % Mean Corpuscular Volume 88.1 fL 88.0 fL Mean Corpuscular Hemoglobin 27.9 pg 28.1 pg Mean Corpuscular Hemoglobin Concent 31.7 g/dl 31.9 g/dl Platelet Count 363 K/uL 312 K/uL Mean Platelet Volume 11.2 fL 10.6 fL Neutrophils (%) (Auto) 86.2 % Lymphocytes (%) (Auto) 8.9 % Monocytes (%) (Auto) 4.3 % Eosinophils (%) (Auto) 0.1 % Basophils (%) (Auto) 0.1 % Neutrophils # (Auto) 14.42 K/uL Lymphocytes # (Auto) 1.49 K/uL Monocytes # (Auto) 0.72 K/uL Eosinophils # (Auto) 0.01 K/uL Basophils # (Auto) 0.01 K/uL RDW Standard Deviation 55.2 fL 54.4 fL RDW Coefficient of Variation 16.8 % 16.9 % Immature Granulocyte % (Auto) 0.4 % Immature Granulocyte # (Auto) 0.06 K/uL Nucleated RBC Absolute Count (auto) 0.08 K/uL 0.06 K/uL Nucleated Red Blood Cells % 0.5 % 0.4 % Prothrombin Time 42.2 SECONDS Prothromb Time International Ratio 3.7 Activated Partial Thromboplast Time 30.8 SECONDS Partial Thromboplastin Ratio 1.2 Sodium Level 133 mmol/L Potassium Level 4.2 mmol/L Chloride Level 94 mmol/L Carbon Dioxide Level 25 mmol/L Anion Gap 14.0 mmol/L Blood Urea Nitrogen 42 mg/dl Creatinine 1.40 mg/dl Est Creatinine Clear Calc Drug Dose 38.0 ml/min Estimated GFR () 41.6 Estimated GFR (Non- 35.9 BUN/Creatinine Ratio 29.7 Random Glucose 192 mg/dl Calcium Level 6.5 mg/dl Total Bilirubin 1.8 mg/dl Direct Bilirubin 1.3 mg/dl Aspartate Amino Transf (AST/SGOT) 44 U/L Alanine Aminotransferase (ALT/SGPT) 47 U/L Alkaline Phosphatase 224 U/L Total Creatine Kinase 301 U/L Creatine Kinase MB 2.4 ng/ml Creatine Kinase MB Ratio 0.8 Troponin I 0.022 ng/ml Pro-B-Type Natriuretic Peptide 01814 pg/ml Total Protein 6.8 gm/dl Albumin 3.6 gm/dl Lipase 991 U/L Thyroid Stimulating Hormone (TSH) 0.868 uIu/ml Urine Color DK YELLOW Urine Appearance CLOUDY Urine pH 5.0 Urine Specific [place] 1.016 Urine Protein 1+ Urine Glucose (UA) NEG Urine Ketones NEG Urine Occult Blood TRACE Urine Nitrite NEG Urine Bilirubin NEG Urine Urobilinogen NEG Urine Leukocyte Esterase MODERATE Urine WBC (Auto) >30 /hpf Urine RBC (Auto) 0-4 /hpf Urine Hyaline Casts (Auto) 0 /lpf Urine Epithelial Cells (Auto) >30 /lpf Urine Bacteria (Auto) NEG Urine Pathogenic Casts /lpf Bedside Glucose 190 mg/dl Estimated Average Glucose 157 mg/dl Hemoglobin A1c 7.1 % Ionized Calcium 0.84 mmol/l 25-Hydroxy Vitamin D Total 44.1 ng/ml Parathyroid Hormone (Intact) 30.7 pg/mL Assessment & Plan 76 yo F with multiple medical problems presents with some nonspecific issues including a burning sensation in her chest that is worse with exertion and with certain types of food. Also, she has some weakness. She was recently hospitalized and discharged just a few days ago-she doesn't report feeling any better at discharge. 1. Acute pancreatitis-symptoms of abdominal pain, intolerance to PO, lipase all consistent with pancreatitis. Uncertain etiology at this point-some GB sludging seen on imaging but no stones, may be 2/2 edema in gut/body wall seen on imaging?. Supportive care with IVF overnight, hold diuretics, NPO. Denies nausea or vomiting. Her pain is very central/epigastric-no hayes sign. Will try TUMS with lunch and GI cocktail if that doesn't work. She states this pain is controlled with antacids and has been ongoing for several weeks. Will cont IVF for now until she is reliably able to tolerate PO. Clears ordered for lunch. Cont Protonix 2. Acute right heart failure-recent admission to [facility] for acute decompensation with recent discharge. She had an echo done in 2016 that did show EF of 60%, LV wall thickening, diastolic dysfunction, enlarged left and right atria. Appears compensated, however, RV systolic function is decreased on TTE today which is an acute difference from recent TTE at the outside hospital. Hold diuretics while giving IVF. Consult Cardiology for assistance with management. 3. 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 She is on calcitriol and Ca supplementation and has been long-term since her thyroid removal 30 years ago. Was 6.1 at recent discharge a few days ago, is 6.5 today. Symptoms are nonspecific but does report some intermittent facial numbness? She appears to be emotionally distressed, and later in the day she had severe cramping and spasming in her skeletal muscles. IV infusion CA gluconate ordered until she is reliably tolerating the PO supplementation. Last seen by Endo in 2013. 4. Chronic UTI-reports 6 months of antibiotics recently and was supposed to go for re-evaluation to see if changes could be made. She is not familiar with her meds and tells me to speak with her granddaughter about those. She reports chronic dysuria, incomplete voiding and chronic urinary urgency. Denies flank pain (no CVA tenderness), suprapubic pain (corroborated with exam), flank pain, fevers or chills and UA revealed no bact, however, did have some mod LE and WBC> 30 (epis>30, also-contaminated sample?). On Zosyn empirically. 5. WILLIAM-held metolazone, Lasix continued but will hold this now. Trend PRP. 6. Chronic atrial fibrillation-warfarin on hold for INR 3.5. Trend INR daily for goal 2-3. S/p AV replacements. Cont Cardizem which was increased during recent hospitalization. Pt also noted to be on Toprol XL 50 BID but this is not on her profile. Will discuss with granddaughter. 7. Glucose intolerance. -ISS with coverage, A1C ordered 8. History of chronic obstructive pulmonary disease. Continue with her bronchodilators, no acute exacerbation at this time. Cont home oxygen at 2L NC 9. Leukocytosis that could be secondary to pancreatitis or ongoing infection, especially urinary tract. We will send urine for culture. The patient has been on Augmentin and nitrofurantoin. Will cont IV Zosyn for now. 10. Esophageal reflux. Continue PPI. 11. History of cerebrovascular accident with aphasia, but no other acute deficiency at this time. 12. Hypothyroidism-iatrogenic, continue replacement DVT proph-coumadin Full code DO Tamiko Hickman Hospitalist Current Inpatient Medications: Current Inpatient Medications Medications (Trade) Dose Ordered Sig/Desire Route Start Time Stop Time Status Last Admin Dose Admin Sodium Chloride (Nss 1000ml) 1,000 ml @ 75 mls/hr [id number] IV 04/17/16 03:00 04/17/16 16:19 04/17/16 03:00 75 MLS/HR Ondansetron HCl (Zofran Inj) 4 mg Q6H PRN IV 04/17/16 01:45 05/17/16 01:44 Aspirin (Ecotrin Tab) 81 mg QAM PO 04/17/16 09:00 05/17/16 08:59 04/17/16 07:48 81 MG Atorvastatin Calcium (Lipitor Tab) 40 mg HS PO 04/17/16 21:00 05/17/16 20:59 Cholecalciferol (Vitamin D Tab) 1,000 inter.unit QAM PO 04/17/16 09:00 05/17/16 08:59 04/17/16 07:53 1,000 INTER.UNIT Cyanocobalamin (Vitamin B-12 Tab) 1,000 mcg QAM PO 04/17/16 09:00 05/17/16 08:59 04/17/16 07:54 1,000 MCG Diltiazem HCl (Cardizem Cd Cap) 240 mg QAM PO 04/17/16 09:00 05/17/16 08:59 04/17/16 07:55 240 MG Escitalopram Oxalate (Lexapro Tab) 10 mg QAM PO 04/17/16 09:00 05/17/16 08:59 04/17/16 07:53 10 MG Ferrous Sulfate (Feosol Tab) 325 mg BID PO 04/17/16 09:00 05/17/16 08:59 04/17/16 07:54 325 MG Fluticasone Propionate (Flonase Nasal [place]) 2 sprays DAILY PRN CASS 04/17/16 02:00 05/17/16 01:59 Furosemide (Lasix tab) 40 mg BID17 PO 04/17/16 09:00 05/17/16 08:59 04/17/16 07:54 40 MG Gabapentin (Neurontin Cap) 100 mg BID@0800,1400 PO 04/17/16 08:00 05/17/16 07:59 04/17/16 07:51 100 MG Albuterol/ Ipratropium (Combivent Respimat Inh) 1 puffs QID INH 04/17/16 09:00 05/17/16 08:59 04/17/16 07:50 1 PUFFS Levetiracetam (Keppra Tab) 500 mg BID PO 04/17/16 09:00 05/17/16 08:59 04/17/16 07:52 500 MG Levothyroxine Sodium (Synthroid Tab) 150 mcg DAILYBB PO 04/17/16 06:00 05/17/16 06:59 04/17/16 06:13 150 MCG Nitroglycerin (Nitrostat Tab) 0.4 mg PRN PRN UT 04/17/16 02:00 05/17/16 01:59 Oxycodone/ Acetaminophen (Percocet 5-325MG Tab) 1 tab Q6H PRN PO 04/17/16 02:00 05/01/16 01:59 Pantoprazole Sodium (Protonix Tab) 40 mg QAM PO 04/17/16 09:00 05/17/16 08:59 04/17/16 07:55 40 MG Potassium Chloride (Klor-Con Tab) 20 meq QAM PO 04/17/16 09:00 05/17/16 08:59 04/17/16 07:56 20 MEQ Trazodone HCl (Desyrel Tab) 50 mg HS PO 04/17/16 21:00 05/17/16 20:59 Calcitriol (Rocaltrol Cap) 0.5 mcg BID PO 04/17/16 09:00 05/17/16 08:59 04/17/16 07:56 0.5 MCG Calcium/Vitamin D 1 tab 1 tab BID@0800,1400 PO 04/17/16 08:00 05/17/16 07:59 04/17/16 07:52 1 TAB Piperacillin Sod/ Tazobactam Sod/ Dextrose (Zosyn Iv/D5 100ml) 120 ml @ 28 mls/hr Q8H IV 04/17/16 06:30 04/22/16 06:29 04/17/16 06:13 28 MLS/HR Insulin Aspart (novoLOG ASPART) SLIDING SCALE G... ACHS SC 04/17/16 07:00 05/17/16 06:59 04/17/16 08:02 3 UNITS Glucose (Glucose 40% Gel) 15-30 GRAMS 15 GRAMS... UD PRN PO 04/17/16 02:45 05/17/16 02:44 Glucose (Glucose Chew Tab) 4-8 Tablets 4 Tabl... UD PRN PO 04/17/16 02:45 05/17/16 02:44 Dextrose (Dextrose 50% 50ML Syringe) 25-50ML OF 50% DW IV FOR... UD PRN IV 04/17/16 02:45 05/17/16 02:44 Glucagon (Glucagon Inj) 1 mg UD PRN SQ 04/17/16 02:45 05/17/16 02:44 Gabapentin (Neurontin Cap) 200 mg HS PO 04/17/16 21:00 05/17/16 20:59 Calcium/Vitamin D (Caltrate Plus Tab) 2 tab HS PO 04/17/16 21:00 05/17/16 20:59 Piperacillin Sod/ Tazobactam Sod (Consult) 1 ea UD PRN N/A 04/17/16 03:15 05/17/16 03:14
[2016-04-17] MEDS ORDERED: MoRPHine SULFATE 4 MG/ML 1 ML CARP\\VIAL IV STA (18:36)
[2016-04-17] MEDS ORDERED: MoRPHine SULFATE 2 MG/ML CARP IV PRN (18:45)
[2016-04-17] MEDS ORDERED: CALCIUM 600MG + VIT D 400 IU TAB PO SCH (21:00)
[2016-04-17] MEDS: TRAZODONE HCL 50 MG TAB PO SCH (21:25)
[2016-04-17] MEDS: ATORVASTATIN 20 MG TAB PO SCH (21:26)
[2016-04-17] MEDS ORDERED: NURSING VERBAL MED ORDER ONE (21:45)
[2016-04-17] MEDS ORDERED: CALCIUM GLUCONATE 10% 11,000 MG in SODIUM CHLORIDE 0.9% 1000ML 1,000 ML IV SCH (22:00)
[2016-04-17 22:27] LABS: URINE APPEARANCE CLOUDY (CLEAR); URINE BILIRUBIN NEG (NEG); URINE COLOR YELLOW; URINE EPITHELIAL CELL AUTO >30 /lpf (0-5); URINE NITRITE NEG (NEG); URINE SPECIFIC GRAVITY 1.015 (1.000-1.030); UROBILINOGEN NEG (NEG)
[2016-04-17 22:33] LABS: MANUAL MICROSCOPIC REQUIRED? NO; REVIEW REQ? YES
[2016-04-17 22:54] LABS: ZZUR CULT IF INDIC CLEAN CATCH YES
[2016-04-18] VITALS (12 sets, daily range): BP systolic 106–157; BP diastolic 58–84; PULSE 79–135; TEMP 36.6–36.8; O2SAT 92–98
[2016-04-18] MEDS: PIPERACILL/TAZOBAC IV 4.5 GM in DEXTROSE 5% 100ML 100 ML IV SCH ×3 (06:05→23:22)
[2016-04-18] MEDS: LEVOTHYROXINE 150 MCG TAB PO SCH (06:05)
[2016-04-18 06:19] LABS: COMPLETE YES; EOS % 0.2 %; HEMATOCRIT 29.6 % (37-47); IG% 0.2 %; LYMPH % 9.3 %; LYMPH ABS # 1.18 K/uL (1.2-3.4); MEAN CELL VOLUME 87.6 fL (80-100); MEAN CORPUSCULAR HEMOGLOBIN 27.5 pg (25-34); MEAN CORPUSCULAR HGB CONC 31.4 g/dl (32-36); MONO % 5.1 %; NEUT % 85.2 %; PLATELET COUNT 273 K/uL (130-400); RED BLOOD COUNT 3.38 M/uL (4.2-5.4); WHITE BLOOD COUNT 12.67 K/uL (4.8-10.8)
[2016-04-18 06:24] LABS: INR 2.9 (0.9-1.1); PROTHROMBIN TIME (PATIENT) 32.4 SECONDS (9.0-12.0)
[2016-04-18 06:54] LABS: BUN/CREATININE RATIO 20.9 (10-20); CALCIUM 7.6 mg/dl (8.5-10.1); POTASSIUM 3.2 mmol/L (3.5-5.1)
[2016-04-18] MEDS: ASPIRIN 81 MG ECTAB PO SCH (07:07)
[2016-04-18] MEDS: DILTIAZEM HCL 240 MG CAPCR PO SCH (07:07)
[2016-04-18] MEDS: IPRATROPIUM BROMIDE/ALBUTEROL respimat INH INH SCH ×4 (07:07→20:49)
[2016-04-18] MEDS: GABAPENTIN 100 MG CAP PO SCH ×3 (07:07→20:51)
[2016-04-18] MEDS: CHOLECALCIFEROL 1000 INTER.UNIT TAB PO SCH (07:08)
[2016-04-18] MEDS: FERROUS SULFATE 325 MG TAB PO SCH ×2 (07:08→20:51)
[2016-04-18] MEDS: ESCITALOPRAM OXALATE 10 MG TAB PO SCH (07:08)
[2016-04-18] MEDS: PANTOprazole SOD 40 MG TAB PO SCH (07:08)
[2016-04-18] MEDS: CALCITRIOL 0.25 MCG CAP PO SCH ×2 (07:08→20:51)
[2016-04-18] MEDS: LEVETIRACETAM 500 MG TAB PO SCH ×2 (07:08→20:51)
[2016-04-18] MEDS: POTASSIUM CHLORIDE 20 MEQ TABCR PO SCH (07:08)
[2016-04-18] MEDS: CYANOCOBALAMIN 500 MCG TAB (VIT B-12) PO SCH (07:08)
[2016-04-18] MEDS: CALCIUM CARBONATE 1250MG TAB PO SCH ×3 (07:08→20:51)
[2016-04-18] MEDS: INSULIN ASPART 100 UNITS/ML 3 ML PEN SC SCH ×4 (08:28→20:58)
[2016-04-18] MEDS ORDERED: POTASSIUM CHLORIDE 20 MEQ TABCR PO ONE (09:45)
[2016-04-18] MEDS: POTASSIUM CHLR 10 MEQ / WTR 10 MEQ in PREMIXED WATER 100 ML IV SCH ×4 (10:35→16:12)
[2016-04-18 10:59] LABS: CKMB/CK RATIO 1.9 (0-3.0)
--- NOTE | 2016-04-18 11:42 | CARDIOLOGY CONSULTATION ---
DATE OF CONSULTATION: 04/18/2016 HISTORY OF PRESENT ILLNESS: Yandy Hussein is a 76-year-old female, seen in cardiology consultation per the request of Dr. Atkinson for the evaluation of acute on chronic biventricular heart failure with a history of coronary artery disease and bioprosthetic aortic valve replacement. Based on records, it appears that her primary digital technician is Dr. Sunday Velasquez, whom she had last seen as an outpatient on 03/24/2016. She has also been followed by [facility] cardiology during her recent hospital stay and followup has already been arranged in their office. The patient's recent history is notable for admission to [facility] from 04/07/2016 until 04/11/2016 with complaints including paresthesias and epigastric burning discomfort. She was found to have hypocalcemia and had received replacement during that hospital stay. It was also felt that she had an acute on chronic decompensation of diastolic heart failure and she received IV diuretic therapy. Per review of her outside records, it appears that her chronic furosemide dose has been 40 mg 1 tablet by mouth 2 times per day. She was ultimately discharged on this dose. Other medications included a previous dose of diltiazem at 180 mg by mouth daily as noted in her March 2016 outpatient cardiology notes and this has been increased to 240 mg daily for further rate control of atrial fibrillation. She has also been on metoprolol succinate 50 mg b.i.d. per her March 2016 cardiology note, but it appears that this medication was not on her recent medication list and she is not on metoprolol here in the hospital at this time. She has an apparent history of past thyroidectomy that took place in 1994 and suspected resultant hypoparathyroidism with chronic hypocalcemia. Review of her outpatient records reveals that she had had convulsions in the past dating back to 2003 and had initially been treated for seizure disorder and then it was felt that these events were due to hypocalcemia. The patient presented to [facility] on 04/16/2016 with complaints of epigastric burning as well as paresthesias in her legs, face and arms. Her initial calcium on her presenting chemistry panel was low at 6.5 mg/dL. A subsequent ionized calcium was low at 0.84 mmol/L. The patient has received IV and oral calcium replacement. Most recently, her calcium has improved to 7.6. Dryness calcium has improved to 0.99 mmol/L. Last evening, the patient had significant problems with muscle spasm, cramping, and paresthesias in her lower legs and face that improved with calcium supplementation. Serial EKGs were performed overnight and one included a QT interval that was over 500 milliseconds, which subsequently normalized after additional calcium supplementation. PAST MEDICAL HISTORY: 1. Two-vessel coronary artery disease on last cardiac catheterization dated 09/11/2014 at [facility], at which time she received a 2.5 x 23 mm bare-metal stent to the right coronary artery. 2. She had an 80% residual circumflex stenosis identified, for which medical management was recommended. 3. History of aortic valve disease with bioprosthetic aortic valve replacement on 2 separate occasions. The most recent was a #21 Barber II bioprosthetic aortic valve performed in 2012 at [facility]. 4. Heavy mitral annular calcification and calcified mitral apparatus with resultant moderate mitral stenosis by previous echoes in [place]. 5. History of paroxysmal atrial fibrillation with a history of ablation. In March 2016, she was apparently in sinus rhythm, but has reverted to atrial fibrillation this month and it was noted in the discharge summary from [place] in April 2016 that her diltiazem dose had been increased due to need for better rate control of her atrial fibrillation. 6. Hypertension. 7. Dyslipidemia. 8. Chronic diastolic heart failure. 9. Peripheral vascular disease, for which the patient underwent a femoral popliteal stenting and angioplasty performed at [facility] in 2013. 10. Hypothyroidism. 11. Chronic low calcium as outlined above. SURGICAL HISTORY: 1. Aortic valve replacement on 2 separate occasions, most recent of which took place in 2012 with prior Bio-AVR on 04/14/2016. Cardiac catheterization, most recently 2014 with stenting as noted above. 2. Atrial fibrillation ablation in 2000. 3. Total hip replacement in 2004 for the right side. 4. Right total knee replacement in 2000. 5. Peripheral angiogram with stenting of the right superficial femoral and popliteal arteries in 2013. FAMILY HISTORY: Father with heart disease, details unknown. Otherwise noncontributory. SOCIAL HISTORY: The patient is . She has 6 children. She lives with her granddaughter. She does not smoke. ALLERGIES: No known drug allergies. CURRENT INPATIENT MEDICATIONS: Include, 1. Albuterol/ipratropium 1 puff q.i.d. 2. Aspirin 81 mg daily. 3. Atorvastatin 40 mg daily. 4. Calcitriol 0.5 mg p.o. b.i.d. 5. Calcium carbonate 1250 mg p.o. t.i.d. 6. Calcium gluconate infusion 50 mL per hour. 7. Vitamin B12 at 1000 mg p.o. daily. 8. Diltiazem CD 240 mg daily. 9. Lexapro 10 mg by mouth daily. 10. Neurontin 100 mg p.o. b.i.d. and 200 mg at bedtime. 11. Insulin aspart sliding scale. 12. Keppra 500 mg p.o. b.i.d. 13. Levothyroxine daily. 14. Piperacillin/tazobactam 4.5 mg IV q. 8 hours. 15. Potassium chloride 20 mEq p.o. daily. 16. Desyrel 50 mg by mouth daily. Her home dose of furosemide 40 mg b.i.d. has been placed on hold. Recently added metolazone has been placed on hold. She has not been receiving these during this hospital stay. COMPREHENSIVE REVIEW OF SYSTEMS: Negative with the exception of that noted in HPI. PHYSICAL EXAMINATION: VITAL SIGNS: Temperature 36.6, heart rate 81, blood pressure 112/61, and pulse oximetry 98% on 2 liters nasal cannula. GENERAL APPEARANCE: Awake and oriented x3, chronically ill. NECK: No bruits. CARDIOVASCULAR: Irregular rhythm. No murmurs. ABDOMEN: Mildly distended, nontender on palpation, EXTREMITIES: No edema. NEUROLOGIC: No focal deficits. DIAGNOSTIC DATA: EKG performed on presentation on 04/12/2016 at 2104 hours revealed atrial fibrillation with incomplete right bundle-branch block and T-wave inversions with ST depression noted specifically in lead V2, which has compared to prior EKG tracings performed at [facility] on 04/01/2016 and again on 04/07/2016. The atrial fibrillation is a chronic finding ,right bundle-branch block is a chronic finding, no ST changes; however, noted in leads V1 and V2. Corrected QT interval had been in excess of 500 milliseconds, but has improved on the most recent EKG tracing performed 04/18/2016 at 06:45, which includes a corrected QT interval of 459 milliseconds and the previously noted ST changes in the anteroseptal leads have resolved. A single set of cardiac enzymes was performed thus far in this hospital stay including a troponin of 0.022 on 04/16/2016. Echocardiogram performed yesterday on 04/17/2016 reviewed independently by the undersigned: The interventricular septum was flat and inconsistent with right ventricular pressure/volume overload. The left ventricular wall motion was otherwise normal. The right ventricle was noted to be moderately dilated. The right ventricular systolic function was moderately to severely reduced. The left atrium was severely dilated. The right atrium was severely dilated. No hemodynamically significant aortic valve stenosis was noted. Severe mitral annular calcification was noted with mild mitral stenosis by Doppler criteria and mild mitral regurgitation. Tricuspid regurgitation was present with a pulmonary artery systolic pressure calculated to be 37 mmHg, which is the upper limit of normal. Compared to the report of the prior outpatient stay performed at the [facility] dated 09/10/2015, there has been interval development of right ventricular chamber enlargement and RV pressure volume overload consistent with RV systolic dysfunction. FINAL IMPRESSION: A 76-year-old female with. 1. Chronic biventricular heart failure including left ventricular diastolic dysfunction, right ventricular systolic and diastolic dysfunction with new right ventricular dysfunction noted compared to 7 months ago. 2. History of coronary artery disease, status post bare-metal stenting to the complicated mid right coronary artery lesion in 2014, residual 70%-80% circumflex obtuse marginal stenosis was treated medically as the lesion was technically complex. 3. History of bioprosthetic aortic valve replacement x2, most recently 2012. 4. Electrolyte disturbances with hypocalcemia and hypokalemia with resultant transient QT prolongation. DISCUSSION AND RECOMMENDATIONS: When asked the patient what complaint brought to the hospital, she describes an epigastric burning that radiates to under her esophagus and up to her throat. I am not certain what her previous anginal equivalent was. I note that she had a complex RCA intervention performed in 2014 and a repeat stress test was performed in September 2015 with no evidence of inducible ischemia at that time. She had transient EKG changes including QT prolongation as well as anteroseptal repolarization changes in this hospital stay that seem to have improved with improving her electrolytes. I have requested a repeat set of cardiac enzymes. In terms of volume status, her abdomen is slightly distended. I do not think she is overtly volume overloaded. Given her electrolyte abnormalities, I agree with holding her diuretic therapy for the time being as I am not convinced that the acute heart failure decompensation explains her presenting complaint. I think that we need to monitor her to make sure this is not angina. Pancreatitis is of course a possibility, but her lipase was only elevated to somewhat mild degree. We can, however, give her aggressive IV fluid replacement due to she will become volume overloaded. Regarding the atrial fibrillation, It appears that she has reverted to atrial fibrillation in sometime over the last 1 month's time. Recently, her metoprolol was discontinued and the diltiazem was increased. Given her issues with hypocalcemia, I recommend that we discontinue her long acting diltiazem and simplify her regimen. She has already received a diltiazem today. I am going to start metoprolol succinate 50 mg b.i.d., which she had been on in the past, tomorrow with plans to increase that as tolerated. In summary, 1. Continue to hold diuretics. 2. Focus on normalizing her electrolytes. I discussed this with Dr. Atkinson and the calcium and potassium are being addressed. 3. Her epigastric discomfort could be an anginal equivalent given her past history and this needs to be monitored closely. A repeat set of enzymes has been requested and I am going to repeat an EKG tomorrow. Dr. Pimentel will be rounding for the weekend. QUAN
[2016-04-18] MEDS ORDERED: SODIUM CHLORIDE 0.65% NA SOLN 45 ML (OCEAN) ONE (16:15)
[2016-04-18] MEDS ORDERED: WARFARIN SOD 2 MG TAB PO ONE (16:30)
[2016-04-18] MEDS: ATORVASTATIN 20 MG TAB PO SCH (20:51)
[2016-04-18] MEDS: TRAZODONE HCL 50 MG TAB PO SCH (20:51)
--- NOTE | 2016-04-18 22:57 | Progress Note ---
Medicine Progress Note Date & Time of Visit: Apr 18, 2016 at 16:11. Subjective Doing well today-denies any chest pain, epigastric burning pain, shortness fo breath STill some perioral numbness but she is improved Objective Last 8 Hrs Date Time Temp Pulse Resp B/P Pulse Ox O2 Delivery O2 Flow Rate FiO2 04/18/16 16:10 36.8 92 20 130/74 97 Nasal Cannula 2.0 04/18/16 12:37 36.8 79 20 106/58 98 Nasal Cannula 2.0 04/18/16 12:21 96 Nasal Cannula 2.0 04/18/16 09:39 81 22 112/61 98 Physical Exam: GEN: WNWD, in no acute distress, alert and appropriate HEENT: NC/AT, normal sclerae CARDIO: reg rate, S1/2 heard without m/g/r LUNGS: CTA bilaterally, no crackles, rales or wheezes, good diaphragmatic excursion ABD: soft, TTP in epigastric region only, non-distended, +BS EXTREMITY: RP and DP palpable 2+ bilat, no LE swelling or edema, extremities are warm and well-perfused NEURO: CN 2-12 intact, sensation intact throughout MUSC: moves all extremities equally, no gross focal deficits. SKIN: warm and dry Laboratory Results: Last 24 Hours Test 04/17/16 19:59 04/18/16 05:31 04/18/16 06:54 04/18/16 09:50 Bedside Glucose 146 mg/dl 164 mg/dl White Blood Count 12.67 K/uL Red Blood Count 3.38 M/uL Hemoglobin 9.3 g/dL Hematocrit 29.6 % Mean Corpuscular Volume 87.6 fL Mean Corpuscular Hemoglobin 27.5 pg Mean Corpuscular Hemoglobin Concent 31.4 g/dl Platelet Count 273 K/uL Mean Platelet Volume 11.0 fL Neutrophils (%) (Auto) 85.2 % Lymphocytes (%) (Auto) 9.3 % Monocytes (%) (Auto) 5.1 % Eosinophils (%) (Auto) 0.2 % Basophils (%) (Auto) 0.0 % Neutrophils # (Auto) 10.79 K/uL Lymphocytes # (Auto) 1.18 K/uL Monocytes # (Auto) 0.65 K/uL Eosinophils # (Auto) 0.02 K/uL Basophils # (Auto) 0.00 K/uL RDW Standard Deviation 53.4 fL RDW Coefficient of Variation 16.6 % Immature Granulocyte % (Auto) 0.2 % Immature Granulocyte # (Auto) 0.03 K/uL Nucleated RBC Absolute Count (auto) 0.02 K/uL Nucleated Red Blood Cells % 0.2 % Prothrombin Time 32.4 SECONDS Prothromb Time International Ratio 2.9 Sodium Level 138 mmol/L Potassium Level 3.2 mmol/L Chloride Level 98 mmol/L Carbon Dioxide Level 27 mmol/L Anion Gap 13.0 mmol/L Blood Urea Nitrogen 21 mg/dl Creatinine 1.00 mg/dl Est Creatinine Clear Calc Drug Dose 52.3 ml/min Estimated GFR () 62.5 Estimated GFR (Non- 53.9 BUN/Creatinine Ratio 20.9 Random Glucose 136 mg/dl Calcium Level 7.6 mg/dl Ionized Calcium 0.99 mmol/l Creatine Kinase MB Ratio Test 04/18/16 10:22 04/18/16 10:52 Total Creatine Kinase 119 U/L Creatine Kinase MB 2.3 ng/ml Creatine Kinase MB Ratio 1.9 Troponin I 0.030 ng/ml Bedside Glucose 153 mg/dl Assessment & Plan 76 yo F with multiple medical problems presents with some nonspecific issues including a burning sensation in her chest that is worse with exertion and with certain types of food. Also, she has some weakness, paresthesias and muscle cramping consistent with symptomatic hypocalcemia. She was recently hospitalized and discharged just a few days ago-she doesn't report feeling any better at discharge. 1. Symptomatic Hypocalcemia-chronic 2/2 surgical hypoparathyroidism after benign goiter removal in 1994. Recent intolerance of PO with vomiting, Lasix use 40mg BID and intolerance of PO supplementation in setting of some vomiting today. She is on calcitriol and Ca supplementation and has been long-term since her thyroid removal 30 years ago. Was 6.1 at recent discharge a few days ago, is 6.5 on admission to this hospital. Symptoms were initially unclear, however, overnight she has had facial numbness and tetany/spasms in her hands and legs that has improved with the calcium infusion overnight. IV infusion CA gluconate ordered until she is reliably tolerating the PO supplementation. Last seen by [facility] in 2013. 1. Acute pancreatitis-appears to be resolving with the ability to tolerate clears and no epigatric tenderness on exam today. Uncertain etiology at this point-some GB sludging seen on imaging but no stones, may be 2/2 edema in gut/ body wall seen on imaging?. Cont to hold diuretics. Advance to full liquid diet 2. Reports no chest pain/heartburn with walking around the room today or resting in bed. Cont Protonix. Troponin ordered and ACS definitively ruled out. h/o CABG but uncertain if this is her anginal equivalent. She has has this pain intermittently for the past 5 years since her valve replacement surgery. Appreciate Cards recs. 4. Acute right heart failure-recent admission to [facility] [address] for acute decompensation with recent discharge. She had an echo done in 2016 that did show EF of 60%, LV wall thickening, diastolic dysfunction, enlarged left and right atria. Appears compensated, however, RV systolic function is decreased on TTE today which is an acute difference from recent TTE at the outside hospital. Hold diuretics while giving IVF. Consult Cardiology for assistance with management. 5. Chronic UTI-reports 6 months of antibiotics recently and was supposed to go for re-evaluation to see if changes could be made. She is not familiar with her meds and tells me to speak with her granddaughter about those. She reports chronic dysuria, incomplete voiding and chronic urinary urgency. Denies flank pain (no CVA tenderness), suprapubic pain (corroborated with exam), flank pain, fevers or chills and UA revealed no bact, however, did have some mod LE and WBC> 30 (epis>30, also-contaminated sample?). On Zosyn empirically. Stopped this on 04/18 and switched to Macrobid. 6. WILLIAM-held metolazone, Lasix continued but will hold this now. Trend PRP. 7. Chronic atrial fibrillation-Warfarin 2mg started today Trend INR daily for goal 2-3. S/p AV replacements. Cont Cardizem which was increased during recent hospitalization. Pt also noted to be on Toprol XL 50 BID but this is not on her profile. Will discuss with granddaughter. 7. Glucose intolerance. -ISS with coverage, A1C ordered 8. History of chronic obstructive pulmonary disease. Continue with her bronchodilators, no acute exacerbation at this time. Cont home oxygen at 2L NC 9. Leukocytosis that could be secondary to pancreatitis or ongoing infection, especially urinary tract. We will send urine for culture. The patient has been on Augmentin and nitrofurantoin. Will cont IV Zosyn for now. 10. Esophageal reflux. Continue PPI. 11. History of cerebrovascular accident with aphasia, but no other acute deficiency at this time. 12. Hypothyroidism-iatrogenic, continue replacement 13. Hemorrhoids-new report of hemorrhoids that cause some rectal bleeding; this has gone on for about 1 year. Last time she saw blood was 4 days ago. DVT proph-coumadin Full code Tessie Atkinson DO [facility] Hospitalist Current Inpatient Medications: Current Inpatient Medications Medications (Trade) Dose Ordered Sig/Desire Route Start Time Stop Time Status Last Admin Dose Admin Ondansetron HCl (Zofran Inj) 4 mg Q6H PRN IV 04/17/16 01:45 05/17/16 01:44 Aspirin (Ecotrin Tab) 81 mg QAM PO 04/17/16 09:00 05/17/16 08:59 04/18/16 07:07 81 MG Atorvastatin Calcium (Lipitor Tab) 40 mg HS PO 04/17/16 21:00 05/17/16 20:59 04/17/16 21:26 40 MG Cholecalciferol (Vitamin D Tab) 1,000 inter.unit QAM PO 04/17/16 09:00 05/17/16 08:59 04/18/16 07:08 1,000 INTER.UNIT Cyanocobalamin (Vitamin B-12 Tab) 1,000 mcg QAM PO 04/17/16 09:00 05/17/16 08:59 04/18/16 07:08 1,000 MCG Escitalopram Oxalate (Lexapro Tab) 10 mg QAM PO 04/17/16 09:00 05/17/16 08:59 04/18/16 07:08 10 MG Ferrous Sulfate (Feosol Tab) 325 mg BID PO 04/17/16 09:00 05/17/16 08:59 04/18/16 07:08 325 MG Fluticasone Propionate (Flonase Nasal [place]) 2 sprays DAILY PRN CASS 04/17/16 02:00 05/17/16 01:59 Furosemide (Lasix tab) 40 mg BID17 PO 04/17/16 09:00 05/17/16 08:59 Future Hold 04/17/16 07:54 40 MG Gabapentin (Neurontin Cap) 100 mg BID@0800,1400 PO 04/17/16 08:00 05/17/16 07:59 04/18/16 12:28 100 MG Albuterol/ Ipratropium (Combivent Respimat Inh) 1 puffs QID INH 04/17/16 09:00 05/17/16 08:59 04/18/16 12:28 1 PUFFS Levetiracetam (Keppra Tab) 500 mg BID PO 04/17/16 09:00 05/17/16 08:59 04/18/16 07:08 500 MG Levothyroxine Sodium (Synthroid Tab) 150 mcg DAILYBB PO 04/17/16 06:00 05/17/16 06:59 04/18/16 06:05 150 MCG Nitroglycerin (Nitrostat Tab) 0.4 mg PRN PRN UT 04/17/16 02:00 05/17/16 01:59 Oxycodone/ Acetaminophen (Percocet 5-325MG Tab) 1 tab Q6H PRN PO 04/17/16 02:00 05/01/16 01:59 Pantoprazole Sodium (Protonix Tab) 40 mg QAM PO 04/17/16 09:00 05/17/16 08:59 04/18/16 07:08 40 MG Potassium Chloride (Klor-Con Tab) 20 meq QAM PO 04/17/16 09:00 05/17/16 08:59 04/18/16 07:08 20 MEQ Trazodone HCl (Desyrel Tab) 50 mg HS PO 04/17/16 21:00 05/17/16 20:59 04/17/16 21:25 50 MG Calcitriol 0.5 mcg 0.5 mcg BID PO 04/17/16 09:00 05/17/16 08:59 04/18/16 07:08 0.5 MCG Piperacillin Sod/ Tazobactam Sod/ Dextrose (Zosyn Iv/D5 100ml) 120 ml @ 28 mls/hr Q8H IV 04/17/16 06:30 04/22/16 06:29 04/18/16 06:05 28 MLS/HR Insulin Aspart (novoLOG ASPART) SLIDING SCALE G... ACHS SC 04/17/16 07:00 05/17/16 06:59 04/18/16 12:34 7 UNITS Glucose (Glucose 40% Gel) 15-30 GRAMS 15 GRAMS... UD PRN PO 04/17/16 02:45 05/17/16 02:44 Glucose (Glucose Chew Tab) 4-8 Tablets 4 Tabl... UD PRN PO 04/17/16 02:45 05/17/16 02:44 Dextrose (Dextrose 50% 50ML Syringe) 25-50ML OF 50% DW IV FOR... UD PRN IV 04/17/16 02:45 05/17/16 02:44 Glucagon (Glucagon Inj) 1 mg UD PRN SQ 04/17/16 02:45 05/17/16 02:44 Gabapentin (Neurontin Cap) 200 mg HS PO 04/17/16 21:00 05/17/16 20:59 04/17/16 21:24 200 MG Piperacillin Sod/ Tazobactam Sod (Consult) 1 ea UD PRN N/A 04/17/16 03:15 05/17/16 03:14 Morphine Sulfate (MoRPHine SULFATE INJ) 2 mg Q2H PRN IV 04/17/16 18:45 05/01/16 18:44 Calcium Carbonate 1250 mg 1,250 mg TID PO 04/18/16 09:00 05/18/16 08:59 04/18/16 12:28 1,250 MG Calcium Gluconate/ Sodium Chloride (Calcium Gluconate 10%/Nss 1000ml) 1,110 ml @ 50 mls/hr [id number] IV 04/17/16 22:00 04/18/16 20:11 04/17/16 22:45 50 MLS/HR Metoprolol Succinate (Toprol Xl Tab) 50 mg BID PO 04/19/16 09:00 05/19/16 08:59 Warfarin Sodium (Coumadin Tab) 2 mg DAILY@16 PO 04/19/16 16:00 05/19/16 15:59 UNV Warfarin Sodium (Coumadin Tab) 2 mg TODAY@1630 ONCE PO 04/18/16 16:30 04/18/16 16:31
[2016-04-19] VITALS (11 sets, daily range): BP systolic 105–146; BP diastolic 57–78; PULSE 98–122; TEMP 36.5–37.2; O2SAT 91–96
[2016-04-19] MEDS ORDERED: ALBUTEROL 0.083% NEBU SOLN 3 ML VIAL INH STA (03:46)
--- NOTE | 2016-04-19 03:52 | Progress Note ---
Progress Note Attended Code Purple Patient became less responsive Denies any pain Not conversing -very tired Hemodynamically stable Chest -decreased breath sound bilaterally with bibasilar crackles Heart-Irregular Abdomen-benign Labs -Pending EKG -AF, rate controlled CXR-Pulmonary Edema Plan-Lasix 20mg IV now Albuterol Nebs x1 Follow labs. Dr James
[2016-04-19 04:07] LABS: HEMATOCRIT 30.1 % (37-47); MEAN CELL VOLUME 87.5 fL (80-100); MEAN CORPUSCULAR HEMOGLOBIN 27.9 pg (25-34); MEAN CORPUSCULAR HGB CONC 31.9 g/dl (32-36); MEAN PLATELET VOLUME 10.6 fL (7.4-10.4); PLATELET COUNT 264 K/uL (130-400); RED BLOOD COUNT 3.44 M/uL (4.2-5.4); WHITE BLOOD COUNT 14.86 K/uL (4.8-10.8)
[2016-04-19] MEDS ORDERED: FUROSEMIDE INJ 20 MG in SYRINGE 0 ML IV STA (04:26)
[2016-04-19 04:37] LABS: BUN/CREATININE RATIO 12.2 (10-20); CALCIUM 9.2 mg/dl (8.5-10.1); CREATININE 0.82 mg/dl (0.60-1.20); MAGNESIUM 2.2 mg/dl (1.8-2.4); POTASSIUM 3.8 mmol/L (3.5-5.1)
[2016-04-19] MEDS: LEVOTHYROXINE 150 MCG TAB PO SCH (06:12)
[2016-04-19] MEDS: PIPERACILL/TAZOBAC IV 4.5 GM in DEXTROSE 5% 100ML 100 ML IV SCH ×2 (06:18→13:12)
[2016-04-19 06:49] LABS: PROTHROMBIN TIME (PATIENT) 34.1 SECONDS (9.0-12.0)
[2016-04-19] MEDS: IPRATROPIUM BROMIDE/ALBUTEROL respimat INH INH SCH ×4 (07:04→20:59)
[2016-04-19] MEDS: ASPIRIN 81 MG ECTAB PO SCH (07:04)
[2016-04-19] MEDS: GABAPENTIN 100 MG CAP PO SCH ×3 (07:04→21:00)
[2016-04-19] MEDS: FERROUS SULFATE 325 MG TAB PO SCH ×2 (07:04→21:00)
[2016-04-19] MEDS: LEVETIRACETAM 500 MG TAB PO SCH ×2 (07:05→21:01)
[2016-04-19] MEDS: PANTOprazole SOD 40 MG TAB PO SCH (07:05)
[2016-04-19] MEDS: POTASSIUM CHLORIDE 20 MEQ TABCR PO SCH (07:05)
[2016-04-19] MEDS: ESCITALOPRAM OXALATE 10 MG TAB PO SCH (07:05)
[2016-04-19] MEDS: CALCIUM CARBONATE 1250MG TAB PO SCH ×3 (07:05→21:00)
[2016-04-19] MEDS: CALCITRIOL 0.25 MCG CAP PO SCH ×2 (07:06→21:10)
[2016-04-19] MEDS: CHOLECALCIFEROL 1000 INTER.UNIT TAB PO SCH (07:06)
[2016-04-19] MEDS: METOPROLOL SUCC 50MG EXT REL TAB PO SCH ×2 (07:06→21:01)
[2016-04-19] MEDS: CYANOCOBALAMIN 500 MCG TAB (VIT B-12) PO SCH (07:06)
--- NOTE | 2016-04-19 08:02 | DIAGNOSTIC IMAGING REPORT ---
CHEST ONE VIEW PORTABLE CLINICAL HISTORY: Shortness of breath. COMPARISON STUDY: 04/17/2016 FINDINGS: There are postsurgical changes of a midline sternotomy. The cardiac silhouette remains enlarged. There is radiographic evidence of congestive failure and pulmonary edema. Small pleural effusions are suspected. There is a persistent left basilar opacity, likely atelectatic.[ There is splaying of the malina suggesting left atrial enlargement. IMPRESSION: Persistent enlargement of the cardiac silhouette. Radiographic evidence of congestive failure with mild interstitial edema. Small pleural effusions are suspected. Electronically signed by: Hector Venegas M.D. 04/19/2016 8:00 AM Dictated Date/Time: 04/19/2016 7:59 AM
--- NOTE | 2016-04-19 08:25 | DIAGNOSTIC IMAGING REPORT ---
CT HEAD WITHOUT CONTRAST (CT) CLINICAL HISTORY: Acute change in neurological status. Suspected stroke. COMPARISON STUDY: 08/21/2012 TECHNIQUE: Axial CT of the brain is performed from the vertex to the skull base. IV contrast was not administered for this examination. CT DOSE: 614.27 mGy.cm FINDINGS: No intra or extra-axial mass lesions are visualized. There is no CT evidence of acute cortical infarction. There is no evidence of midline shift. There is no acute hemorrhage. No calvarial fractures are visualized. There are patchy white matter hypodensities likely on a small vessel basis. There is an old left parietal lobe infarct. There is no evidence of pathologic ventricular dilatation. There is no evidence of acute sinusitis IMPRESSION: Old left posterior parietal lobe infarct. No acute intracranial findings. Electronically signed by: Hector Venegas M.D. 04/19/2016 8:23 AM Dictated Date/Time: 04/19/2016 8:22 AM
[2016-04-19] MEDS: INSULIN ASPART 100 UNITS/ML 3 ML PEN SC SCH ×4 (08:37→21:06)
[2016-04-19] MEDS ORDERED: NITROFURANTOIN MONOHYDRATE 100 MG CAP PO SCH (09:00)
--- NOTE | 2016-04-19 12:29 | PROGRESS NOTE ---
DATE: 04/19/2016 SUBJECTIVE: Yandy Hussein is a 76-year-old female who usually follows with the cardiology practice in [place] where she has received most of her medical care. She has a very complex medical and cardiac history as outlined in Dr. Flor's original consult. Since her hospital admission her epigastric discomfort has resolved and she is now sitting in a chair today eating lunch. She did have an event earlier this morning when she was found unresponsive for a brief time. She was hemodynamically stable at that time and I do note in medical record that she did receive an OxyContin around the time of this event. It is hard to say what happened, but she is fully recovered at this point. I do not believe from the record that it appeared to be a seizure, although she has been noted to have this problem in the past with low calcium levels. OBJECTIVE: VITAL SIGNS: Blood pressure is 105/60, pulse is regular at 90 beats per minute. She is afebrile. GENERAL: She is alert and oriented in no acute distress. HEENT: She is normocephalic. Pupils are equal and reactive to light. Extraocular muscles are intact bilaterally. NECK: The neck veins are flat. Carotids have good upstrokes bilaterally without bruits. Thyroid is nonpalpable. RESPIRATORY: Breath sounds equal bilaterally and clear to auscultation. CARDIOVASCULAR: Heart has a regular rhythm. Normal S1, S2. No S3, S4. No cardiac rubs or murmurs. GASTROINTESTINAL: Abdomen is soft, nontender without organomegaly. EXTREMITIES: Free of edema, digit clubbing, or cyanosis. NEUROLOGIC: Grossly intact. SKIN: Warm to touch. LYMPH NODES: Negative to palpation. LABORATORY DATA: Potassium is 3.8, magnesium is 2.2, calcium is 9.2. IMPRESSION: 1. Medically complex patient. 2. Atypical epigastric discomfort. 3. Known ischemic heart disease. 4. A bioprosthetic aortic valve. 5. Paroxysmal atrial fibrillation. RECOMMENDATIONS: The patient's cardiac troponins have been negative, which would lead us away from acute coronary syndrome. At this point, the patient appears to be medically stable. Since she had her events earlier this morning which may have been related to medications. I would at least keep her 1 more night and then if she is medically stable, we could discharge her to outpatient followup. The GI service is also going to see her prior to discharge. We can also while we keep her, monitor her calcium levels 1 more day.
[2016-04-19] MEDS ORDERED: FUROSEMIDE 40 MG TAB PO ONE (13:30)
--- NOTE | 2016-04-19 14:04 | GASTROINTESTINAL CONSULTATION ---
DATE OF CONSULTATION: 04/19/2016 DATE OF CONSULTATION: 04/19/2016. PROVIDER: Dr. Tessie Atkinson. CHIEF COMPLAINT: History of hematochezia. HISTORY OF PRESENT ILLNESS: Yandy Hussein is a 76-year-old female who has a history of chronic atrial fibrillation, aortic valve replacement who presented to the Emergency Room for problems with weight gain going ongoing for approximately 2 weeks. She has been in the hospital for several days for management of electrolyte disturbance. Gastroenterology is consulted for a history of hematochezia. The patient states that approximately 5 days ago she had a single episode of hematochezia with bowel movement. She reports that she does have hard bowel movements over the past few months. She did have a prior admission to [facility] about 2 months ago for hematochezia. At that time they had deferred colonoscopy as she had had a prior examination 1.5 years ago notable for diverticulosis of the colon and hemorrhoids. At that time her blood count remained stable and she did have a significant hypercoagulable state, which was thought to be the etiology to her bleeding. Today, the patient denies having any bleeding or abdominal discomfort. She states that her last hematochezia was about 4-5 days ago. She describes having intermittent bowel movements that are hard and somewhat difficult to pass. PAST MEDICAL HISTORY: 1. Prior CVA. 2. Atrial fibrillation. 3. Aortic valve replacement. 4. Diastolic heart failure. 5. Gastroesophageal reflux. 6. Diabetes. 7. Chronic back pain. 8. Seizure disorder. 9. Hypercholesterolemia. 10. Hypothyroidism. 11. Obesity. PAST SURGICAL HISTORY: 1. Ablation for Afib. 2. Angioplasty. 3. Aortic valve replacement in 2006. 4. CABG. 5. section. 6. Thyroidectomy. 7. Total knee replacement. 8. Total hip replacement on the right. FAMILY HISTORY: Father with heart disease. Mother with heart disease. Sister has hypertension. SOCIAL HISTORY: The patient is a , has 6 children and lives with her granddaughter. She does not smoke. Denies drinking alcohol currently. ALLERGIES: No drug allergies. OUTPATIENT MEDICATIONS: 1. Aspirin 81 mg per day. 2. Lipitor 40 mg at bedtime. 3. Vitamin D. 4. Vitamin B12. 5. Diltiazem 240 mg daily. 6. Lexapro 10 mg daily. 7. Iron sulfate 325 mg daily. 8. Lasix 40 mg twice daily. 9. Neurontin 100 mg daily. 10. Anusol suppositories twice daily. 11. Combivent 2 puffs q.i.d. 12. Keppra 500 mg twice daily. 13. Synthroid 75 mcg daily. 14. Meclizine 25 mg t.i.d. as needed. 15. Zaroxolyn 2.5 mg daily. 16. Nitroglycerin 50 mg at bedtime. 17. Hydrostatic p.r.n. 18. Oxycodone IR 5 mg q. 12 hours. 19. Oxycodone 2 tablets q. 8 hours p.r.n. 20. Protonix 40 mg per day. 21. Potassium chloride 20 mEq daily. 22. Trazodone 50 mg daily. 23. Calcium carbonate 600 mg daily. REVIEW OF SYSTEMS: GENERAL: The patient denies fever or chills. CARDIAC: The patient does have intermittent chest discomfort. PULMONARY: The patient does note having some shortness of breath with minimal exertion. GASTROINTESTINAL: The patient with history of hematochezia several days ago. No recurrence. GENITOURINARY: No dysuria noted today. MUSCULOSKELETAL: No muscle pains noted by patient. NEUROLOGIC: The patient with no headache today. No double vision. PSYCHIATRIC: The patient without a history of depression. EARS, NOSE, THROAT: No difficulty swallowing or pain with swallowing. DERMATOLOGY: No rashes. No itching. PHYSICAL EXAMINATION: GENERAL: Pleasant appearing female in no obvious distress. VITAL SIGNS: Temperature 36.9, pulse 98, blood pressure is 105/57, pulse ox is 94% on room air. HEAD, EYES, EARS, NOSE, AND THROAT: No scleral icterus noted. No JVD noted. PULMONARY: Clear to auscultation bilaterally without crackles or wheezes today. CARDIAC: Mechanical sounds heard. Systolic murmur heard, regular rhythm today. ABDOMEN: Soft, nontender, no Taylor signs. No peritoneal signs. EXTREMITIES: Trace edema bilaterally. NEUROLOGICAL: Cranial nerves grossly intact, motor grossly intact. LABORATORY DATA: White blood cell count 14.8 today, hemoglobin is 9.6, hematocrit 30.1, platelet count is 264. PT is 34.1, INR 3.0. Chemistries: Sodium is 139, potassium 3.8, chloride is 101, bicarbonate is 29, BUN 10, creatinine is 0.82, glucose is 134. IMPRESSION: A 76-year-old female with a history of hematochezia on several different occasions. This is most likely anorectal in etiology given her prior colonoscopy. As it has recurred several times, we could plan for an outpatient colonoscopy in 4-6 weeks after the patient has recovered from her present cardiac problem. RECOMMENDATIONS FOR THE PRESENT: 1. MiraLax 17 grams per day. 2. Add a fiber supplement. 3. Outpatient colonoscopy to be scheduled. 4. Please call with any questions or concerns. If the patient has overt bleeding she may need to have her anticoagulation discontinued and we could plan for inpatient endoscopy. Please call with any questions.
[2016-04-19] MEDS: WARFARIN SOD 2 MG TAB PO SCH (17:53)
[2016-04-19] MEDS: TRAZODONE HCL 50 MG TAB PO SCH (20:59)
[2016-04-19] MEDS: ATORVASTATIN 20 MG TAB PO SCH (21:00)
[2016-04-19] MEDS: CEPHALEXIN MONOHYDRATE 500 MG CAP PO SCH (21:01)
[2016-04-20] VITALS (12 sets, daily range): BP systolic 106–124; BP diastolic 55–75; PULSE 89–112; TEMP 36.5–37.2; O2SAT 91–98
[2016-04-20] MEDS: LEVOTHYROXINE 150 MCG TAB PO SCH (06:09)
[2016-04-20 06:36] LABS: BASO % 0.1 %; BASO ABS # 0.01 K/uL (0-0.2); COMPLETE YES; EOS % 1.7 %; HEMATOCRIT 31.2 % (37-47); IG% 0.5 %; LYMPH % 4.8 %; LYMPH ABS # 0.64 K/uL (1.2-3.4); MEAN CELL VOLUME 89.7 fL (80-100); MEAN CORPUSCULAR HGB CONC 30.1 g/dl (32-36); MEAN PLATELET VOLUME 10.6 fL (7.4-10.4); MONO % 10.7 %; NEUT % 82.2 %; PLATELET COUNT 273 K/uL (130-400); RED BLOOD COUNT 3.48 M/uL (4.2-5.4); WHITE BLOOD COUNT 13.27 K/uL (4.8-10.8)
[2016-04-20 06:54] LABS: INR 2.8 (0.9-1.1); PROTHROMBIN TIME (PATIENT) 31.6 SECONDS (9.0-12.0)
[2016-04-20] MEDS: ASPIRIN 81 MG ECTAB PO SCH (07:02)
[2016-04-20] MEDS: FERROUS SULFATE 325 MG TAB PO SCH ×2 (07:02→21:37)
[2016-04-20] MEDS: CEPHALEXIN MONOHYDRATE 500 MG CAP PO SCH ×2 (07:02→20:56)
[2016-04-20] MEDS: GABAPENTIN 100 MG CAP PO SCH ×3 (07:02→20:56)
[2016-04-20] MEDS: CALCIUM POLYCARBOPHIL 1 TAB PO SCH (07:02)
[2016-04-20] MEDS: LEVETIRACETAM 500 MG TAB PO SCH ×2 (07:02→20:57)
[2016-04-20] MEDS: IPRATROPIUM BROMIDE/ALBUTEROL respimat INH INH SCH ×4 (07:02→20:51)
[2016-04-20 07:03] LABS: BUN/CREATININE RATIO 10.7 (10-20); CALCIUM 8.7 mg/dl (8.5-10.1); CREATININE 0.89 mg/dl (0.60-1.20); POTASSIUM 3.6 mmol/L (3.5-5.1)
[2016-04-20] MEDS: PANTOprazole SOD 40 MG TAB PO SCH (07:03)
[2016-04-20] MEDS: CALCITRIOL 0.25 MCG CAP PO SCH ×2 (07:03→20:56)
[2016-04-20] MEDS: ESCITALOPRAM OXALATE 10 MG TAB PO SCH (07:03)
[2016-04-20] MEDS: FUROSEMIDE 40 MG TAB PO SCH (07:03)
[2016-04-20] MEDS: POTASSIUM CHLORIDE 20 MEQ TABCR PO SCH (07:03)
[2016-04-20] MEDS: CALCIUM CARBONATE 1250MG TAB PO SCH ×3 (07:03→20:56)
[2016-04-20] MEDS: CHOLECALCIFEROL 1000 INTER.UNIT TAB PO SCH (07:04)
[2016-04-20] MEDS: METOPROLOL SUCC 50MG EXT REL TAB PO SCH (07:04)
[2016-04-20] MEDS: CYANOCOBALAMIN 500 MCG TAB (VIT B-12) PO SCH (07:04)
[2016-04-20] MEDS: POLYETHYLENE (MIRALAX) 17 GM PACK PO SCH (07:08)
[2016-04-20] MEDS: INSULIN ASPART 100 UNITS/ML 3 ML PEN SC SCH ×4 (08:14→21:06)
--- NOTE | 2016-04-20 08:25 | Progress Note ---
Medicine Progress Note Date & Time of Visit: Apr 19, 2016 at 12:21. Subjective Feels back to baseline today Denies perioral numbness today Some bilateral hand cramping, but also has chronic joint pains No rectal bleeding overnight No chest pain overnight Tolerating full liquids. Objective Last 8 Hrs Date Time Temp Pulse Resp B/P Pulse Ox O2 Delivery O2 Flow Rate FiO2 04/19/16 11:39 36.9 98 18 105/57 94 Nasal Cannula 04/19/16 08:37 91 Nasal Cannula 2.0 04/19/16 07:17 36.6 122 19 120/68 91 Nasal Cannula 3.0 Physical Exam: GEN: WNWD, in no acute distress, alert and appropriate HEENT: NC/AT, normal sclerae CARDIO: reg rate, S1/2 heard without m/g/r LUNGS: CTA bilaterally, no crackles, rales or wheezes, good diaphragmatic excursion ABD: soft, non-tender, non-distended, +BS EXTREMITY: RP and DP palpable 2+ bilat, no LE swelling or edema, extremities are warm and well-perfused NEURO: CN 2-12 intact, sensation intact throughout MUSC: moves all extremities equally, no gross focal deficits. SKIN: warm and dry Laboratory Results: Last 24 Hours Test 04/18/16 17:29 04/18/16 20:45 04/19/16 03:39 04/19/16 03:50 Bedside Glucose 254 mg/dl 101 mg/dl 132 mg/dl White Blood Count 14.86 K/uL Red Blood Count 3.44 M/uL Hemoglobin 9.6 g/dL Hematocrit 30.1 % Mean Corpuscular Volume 87.5 fL Mean Corpuscular Hemoglobin 27.9 pg Mean Corpuscular Hemoglobin Concent 31.9 g/dl RDW Standard Deviation 53.2 fL RDW Coefficient of Variation 16.6 % Platelet Count 264 K/uL Mean Platelet Volume 10.6 fL Sodium Level 139 mmol/L Potassium Level 3.8 mmol/L Chloride Level 101 mmol/L Carbon Dioxide Level 29 mmol/L Anion Gap 9.0 mmol/L Blood Urea Nitrogen 10 mg/dl Creatinine 0.82 mg/dl Est Creatinine Clear Calc Drug Dose 63.8 ml/min Estimated GFR () 79.4 Estimated GFR (Non- 68.5 BUN/Creatinine Ratio 12.2 Random Glucose 134 mg/dl Calcium Level 9.2 mg/dl Magnesium Level 2.2 mg/dl Test 04/19/16 06:18 04/19/16 06:38 04/19/16 11:15 04/19/16 11:55 Prothrombin Time 34.1 SECONDS Prothromb Time International Ratio 3.0 Ionized Calcium 1.20 mmol/l Bedside Glucose 156 mg/dl 224 mg/dl 158 mg/dl Assessment & Plan 76 yo F with multiple medical problems presents with some nonspecific issues including a burning sensation in her chest that is worse with exertion and with certain types of food. Also, she has some weakness, paresthesias and muscle cramping consistent with symptomatic hypocalcemia. She was recently hospitalized and discharged just a few days ago-she doesn't report feeling any better at discharge. 1. Symptomatic Hypocalcemia-resolved. 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 Recent intolerance of PO with vomiting, Lasix use 40mg BID and intolerance of PO supplementation in setting of some vomiting today. She is on calcitriol and Ca supplementation and has been long- term since her thyroid removal 30 years ago. Was 6.1 at recent discharge a few days ago, is 6.5 on admission to this hospital. Symptoms were initially unclear , however, overnight she has had facial numbness and tetany/spasms in her hands and legs that has improved with the calcium infusion overnight. IV infusion CA gluconate ordered until she is reliably tolerating the PO supplementation. Last seen by Endo in 2013. -numbness has resolved. -Ca level is 9.2 -tolerating PO supplementation -restart Lasix at 50% -monitor Ca in am to ensure stable levels 2. Acute pancreatitis- resolved. tolerating PO, epigastric pain and burning sensation has not returned. Advancing diet to regular now. Diuretics restarted at 50%. 3. CAD- Reports no chest pain/heartburn with walking around the room today or resting in bed. Cont Protonix. Troponin ordered and ACS definitively ruled out. h/o CABG but uncertain if this is her anginal equivalent. She has has this pain intermittently for the past 5 years since her valve replacement surgery. Appreciate Cards recs. 4. Acute right heart failure-recent admission to [facility] for acute decompensation with recent discharge. She had an echo done in 2015 that did show EF of 60%, LV wall thickening, diastolic dysfunction, enlarged left and right atria. Appears compensated, however, RV systolic function is decreased on TTE this admission which is an acute difference from recent TTE at the outside hospital. Restart diuretics at 50%. Consult Cardiology for assistance with management. 5. Chronic UTI-reports 6 months of antibiotics recently and was supposed to go for re-evaluation to see if changes could be made. She is not familiar with her meds and tells me to speak with her granddaughter about those. She reports chronic dysuria, incomplete voiding and chronic urinary urgency. Denies flank pain (no CVA tenderness), suprapubic pain (corroborated with exam), flank pain, fevers or chills and UA revealed no bact, however, did have some mod LE and WBC> 30 (epis>30, also-contaminated sample?). On Zosyn empirically. Stopped this on 04/18 and switched to Macrobid. Switched to Keflex per pharmacy recs 04/19. 6. WILLIAM-resolved 7. Chronic atrial fibrillation-cont warfarin at 2mg PO daily, Trend INR daily for goal 2-3. S/p AV replacement x 2. Per cards, diltiazem was stopped and ToprolXL 50 BID was restarted, however, her HR appears to be higher now. Appreciate Cards recs for improved HR control. 7. Glucose intolerance. -ISS with coverage, A1C 7.1 8. History of chronic obstructive pulmonary disease. Continue with her bronchodilators, no acute exacerbation at this time. Cont home oxygen at 2L NC 9. Leukocytosis that could be secondary to pancreatitis or ongoing infection, especially urinary tract. Still elevated at 15K, clinically improved. Trend CBC in am. 10. Esophageal reflux. Continue PPI. 11. History of cerebrovascular accident with aphasia, but no other acute deficiency at this time. 12. Hypothyroidism-iatrogenic, continue replacement 13. Hemorrhoids-new report of hemorrhoids that cause some rectal bleeding; this has gone on for about 1 year. Last time she saw blood was one week ago. She was admitted for rectal bleeding at [facility] in Feb 2016 and was seen by GI (Dr. Danielson) who thought her bleeding was more significant than just hemorrhoids (diverticular bleed) and at the time colonoscopy was deferred because of elevated INR. He opted for conservative management with the caveat that if further bleeding occurs, she would need a repeat scope. Will consult GI for recs at this point. Of note, mildly anemia but no bleeding since she has been in the hospital, so will cont coumadin at this time. DVT proph-coumadin Full code Tessie Atkinson DO [facility] Hospitalist Current Inpatient Medications: Current Inpatient Medications Medications (Trade) Dose Ordered Sig/Desire Route Start Time Stop Time Status Last Admin Dose Admin Ondansetron HCl (Zofran Inj) 4 mg Q6H PRN IV 04/17/16 01:45 05/17/16 01:44 Aspirin (Ecotrin Tab) 81 mg QAM PO 04/17/16 09:00 05/17/16 08:59 04/19/16 07:04 81 MG Atorvastatin Calcium (Lipitor Tab) 40 mg HS PO 04/17/16 21:00 05/17/16 20:59 04/18/16 20:51 40 MG Cholecalciferol (Vitamin D Tab) 1,000 inter.unit QAM PO 04/17/16 09:00 05/17/16 08:59 04/19/16 07:06 1,000 INTER.UNIT Cyanocobalamin (Vitamin B-12 Tab) 1,000 mcg QAM PO 04/17/16 09:00 05/17/16 08:59 04/19/16 07:06 1,000 MCG Escitalopram Oxalate (Lexapro Tab) 10 mg QAM PO 04/17/16 09:00 05/17/16 08:59 04/19/16 07:05 10 MG Ferrous Sulfate (Feosol Tab) 325 mg BID PO 04/17/16 09:00 05/17/16 08:59 04/19/16 07:04 325 MG Fluticasone Propionate (Flonase Nasal [place]) 2 sprays DAILY PRN CASS 04/17/16 02:00 05/17/16 01:59 Furosemide (Lasix tab) 40 mg BID17 PO 04/17/16 09:00 05/17/16 08:59 Future Hold 04/17/16 07:54 40 MG Gabapentin (Neurontin Cap) 100 mg BID@0800,1400 PO 04/17/16 08:00 05/17/16 07:59 04/19/16 07:04 100 MG Albuterol/ Ipratropium (Combivent Respimat Inh) 1 puffs QID INH 04/17/16 09:00 05/17/16 08:59 04/19/16 07:04 1 PUFFS Levetiracetam (Keppra Tab) 500 mg BID PO 04/17/16 09:00 05/17/16 08:59 04/19/16 07:05 500 MG Levothyroxine Sodium (Synthroid Tab) 150 mcg DAILYBB PO 04/17/16 06:00 05/17/16 06:59 04/19/16 06:12 150 MCG Nitroglycerin (Nitrostat Tab) 0.4 mg PRN PRN UT 04/17/16 02:00 05/17/16 01:59 Oxycodone/ Acetaminophen (Percocet 5-325MG Tab) 1 tab Q6H PRN PO 04/17/16 02:00 05/01/16 01:59 04/19/16 04:01 1 TAB Pantoprazole Sodium (Protonix Tab) 40 mg QAM PO 04/17/16 09:00 05/17/16 08:59 04/19/16 07:05 40 MG Potassium Chloride (Klor-Con Tab) 20 meq QAM PO 04/17/16 09:00 05/17/16 08:59 04/19/16 07:05 20 MEQ Trazodone HCl (Desyrel Tab) 50 mg HS PO 04/17/16 21:00 05/17/16 20:59 04/18/16 20:51 50 MG Calcitriol 0.5 mcg 0.5 mcg BID PO 04/17/16 09:00 05/17/16 08:59 04/19/16 07:06 0.5 MCG Piperacillin Sod/ Tazobactam Sod/ Dextrose (Zosyn Iv/D5 100ml) 120 ml @ 28 mls/hr Q8H IV 04/17/16 06:30 04/22/16 06:29 04/19/16 06:18 28 MLS/HR Insulin Aspart (novoLOG ASPART) SLIDING SCALE G... ACHS SC 04/17/16 07:00 05/17/16 06:59 04/19/16 08:37 12 UNITS Glucose (Glucose 40% Gel) 15-30 GRAMS 15 GRAMS... UD PRN PO 04/17/16 02:45 05/17/16 02:44 Glucose (Glucose Chew Tab) 4-8 Tablets 4 Tabl... UD PRN PO 04/17/16 02:45 05/17/16 02:44 Dextrose (Dextrose 50% 50ML Syringe) 25-50ML OF 50% DW IV FOR... UD PRN IV 04/17/16 02:45 05/17/16 02:44 Glucagon (Glucagon Inj) 1 mg UD PRN SQ 04/17/16 02:45 05/17/16 02:44 Gabapentin (Neurontin Cap) 200 mg HS PO 04/17/16 21:00 05/17/16 20:59 04/18/16 20:51 200 MG Piperacillin Sod/ Tazobactam Sod (Consult) 1 ea UD PRN N/A 04/17/16 03:15 05/17/16 03:14 Morphine Sulfate (MoRPHine SULFATE INJ) 2 mg Q2H PRN IV 04/17/16 18:45 05/01/16 18:44 Calcium Carbonate (oS-Darrin 500 TAB) 1,250 mg TID PO 04/18/16 09:00 05/18/16 08:59 04/19/16 07:05 1,250 MG Metoprolol Succinate (Toprol Xl Tab) 50 mg BID PO 04/19/16 09:00 05/19/16 08:59 04/19/16 07:06 50 MG Warfarin Sodium (Coumadin Tab) 2 mg DAILY@16 PO 04/19/16 16:00 05/19/16 15:59 Nitrofurantoin Macrocrystals (Macrobid Cap) 100 mg BID PO 04/19/16 09:00 04/24/16 08:59 04/19/16 07:05 100 MG
--- NOTE | 2016-04-20 11:16 | Progress Note ---
Medicine Progress Note Date & Time of Visit: Apr 20, 2016 at 11:07. Subjective Doing well today Toelrating regular diet HR in low 100s-asymptomatic Denies chest pain or abdominal pain Denies SOB New nonproductive cough overnight No fevers or chills. Denies any numbness or cramps Some persistent joint pain in her hands that is improved from yesterday Objective Last 8 Hrs Date Time Temp Pulse Resp B/P Pulse Ox O2 Delivery O2 Flow Rate FiO2 04/20/16 08:22 91 Nasal Cannula 2.0 04/20/16 07:57 36.8 105 18 111/67 96 Nasal Cannula 2.0 04/20/16 04:00 91 Nasal Cannula 2.0 04/20/16 04:00 36.5 93 20 106/55 91 Room Air Physical Exam: GEN: WNWD, in no acute distress, alert and appropriate HEENT: NC/AT, normal sclerae CARDIO: reg rate, irreg rhythm, S1/2 heard without m/g/r LUNGS: CTA bilaterally, no crackles, rales or wheezes, good diaphragmatic excursion ABD: soft, non-tender, non-distended, +BS EXTREMITY: RP and DP palpable 2+ bilat, no LE swelling or edema, extremities are warm and well-perfused NEURO: CN 2-12 grossly intact, sensation intact throughout MUSC: moves all extremities equally, no gross focal deficits. SKIN: warm and dry Laboratory Results: Last 24 Hours Test 04/19/16 11:15 04/19/16 11:55 04/19/16 16:00 04/19/16 19:52 Bedside Glucose 224 mg/dl 158 mg/dl 125 mg/dl 152 mg/dl Test 04/20/16 04:42 04/20/16 06:15 04/20/16 06:37 Bedside Glucose 144 mg/dl 161 mg/dl White Blood Count 13.27 K/uL Red Blood Count 3.48 M/uL Hemoglobin 9.4 g/dL Hematocrit 31.2 % Mean Corpuscular Volume 89.7 fL Mean Corpuscular Hemoglobin 27.0 pg Mean Corpuscular Hemoglobin Concent 30.1 g/dl Platelet Count 273 K/uL Mean Platelet Volume 10.6 fL Neutrophils (%) (Auto) 82.2 % Lymphocytes (%) (Auto) 4.8 % Monocytes (%) (Auto) 10.7 % Eosinophils (%) (Auto) 1.7 % Basophils (%) (Auto) 0.1 % Neutrophils # (Auto) 10.91 K/uL Lymphocytes # (Auto) 0.64 K/uL Monocytes # (Auto) 1.42 K/uL Eosinophils # (Auto) 0.23 K/uL Basophils # (Auto) 0.01 K/uL RDW Standard Deviation 55.5 fL RDW Coefficient of Variation 16.7 % Immature Granulocyte % (Auto) 0.5 % Immature Granulocyte # (Auto) 0.06 K/uL Prothrombin Time 31.6 SECONDS Prothromb Time International Ratio 2.8 Sodium Level 137 mmol/L Potassium Level 3.6 mmol/L Chloride Level 95 mmol/L Carbon Dioxide Level 33 mmol/L Anion Gap 9.0 mmol/L Blood Urea Nitrogen 10 mg/dl Creatinine 0.89 mg/dl Est Creatinine Clear Calc Drug Dose 59.3 ml/min Estimated GFR () 71.9 Estimated GFR (Non- 62.1 BUN/Creatinine Ratio 10.7 Random Glucose 155 mg/dl Calcium Level 8.7 mg/dl Ionized Calcium 1.18 mmol/l Assessment & Plan 76 yo F with multiple medical problems presents with some nonspecific issues including a burning sensation in her chest that is worse with exertion and with certain types of food. Also, she has some weakness, paresthesias and muscle cramping consistent with symptomatic hypocalcemia. She was recently hospitalized and discharged just a few days ago-multiple hospitalizations in the past 3-4 months. 1. Chronic atrial fibrillation-cont warfarin at 2mg PO daily, Trend INR daily for goal 2-3. S/p AV replacement x 2. Per cards, diltiazem was stopped and ToprolXL 50 BID was restarted, however, her HR appears to be higher now. Will change to Lopressor and increase to 50mg PO TID-reviewed plan with Cards who is ok with this. Consider adding Diltiazem back in am if uncontrolled. 2. Symptomatic Hypocalcemia-resolved. 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 Recent intolerance of PO with vomiting, Lasix use 40mg BID and intolerance of PO supplementation in setting of some vomiting today. She is on calcitriol and Ca supplementation and has been long- term since her thyroid removal 30 years ago. Was 6.1 at recent discharge a few days ago, is 6.5 on admission to this hospital. Symptoms were initially unclear , however, overnight she has had facial numbness and tetany/spasms in her hands and legs that has improved with the calcium infusion overnight. IV infusion CA gluconate ordered until she is reliably tolerating the PO supplementation. Last seen by Endo in 2013. -numbness has resolved. -Ca level is 9.2 yest-->8.7 today -tolerating PO supplementation -restart Lasix 04/19 at 50% -monitor Ca in am to ensure stable levels 3. Acute right heart failure-recent admission to [facility] for acute decompensation with recent discharge. She had an echo done in 2015 that did show EF of 60%, LV wall thickening, diastolic dysfunction, enlarged left and right atria. Appears compensated, however, RV systolic function is decreased on TTE this admission which is an acute difference from recent TTE at the outside hospital. Restart diuretics at 50% on 04/19. Consult Cardiology for assistance with management. 4. Acute pancreatitis- resolved. tolerating PO, epigastric pain and burning sensation has not returned. Advancing diet to regular now. Diuretics restarted at 50%. 5. Acute on Chronic UTI-reports 6 months of antibiotics recently and was supposed to go for re-evaluation to see if changes could be made. She is not familiar with her meds and tells me to speak with her granddaughter about those. She reports chronic dysuria, incomplete voiding and chronic urinary urgency. Denies flank pain (no CVA tenderness), suprapubic pain (corroborated with exam), flank pain, fevers or chills and UA revealed no bact, however, did have some mod LE and WBC>30 (epis>30, also-contaminated sample?). On Zosyn empirically. Stopped this on 04/18 and switched to Macrobid. Switched to Keflex per pharmacy recs 04/19. 6. Cough-new overnight, no increased work of breathing, nonproductive. Flu PCR and CXR ordered. 7. Hemorrhoids-new report of hemorrhoids that cause some rectal bleeding; this has gone on for about 1 year. Last time she saw blood was one week ago. She was admitted for rectal bleeding at [facility] in Feb 2016 and was seen by GI (Dr. Danielson) who thought her bleeding was more significant than just hemorrhoids (diverticular bleed) and at the time colonoscopy was deferred because of elevated INR. He opted for conservative management with the caveat that if further bleeding occurs, she would need a repeat scope. Will consult GI for recs at this point. Of note, mildly anemia but no bleeding since she has been in the hospital, so will cont coumadin at this time 8. CAD- Reports no chest pain/heartburn with walking around the room today or resting in bed. Cont Protonix. Troponin ordered and ACS definitively ruled out. h/o CABG but uncertain if this is her anginal equivalent. She has has this pain intermittently for the past 5 years since her valve replacement surgery. Appreciate Cards recs. 9. Glucose intolerance. -ISS with coverage, A1C 7.1 10. History of chronic obstructive pulmonary disease. Continue with her bronchodilators, no acute exacerbation at this time. Cont home oxygen at 2L NC 11. Leukocytosis that could be secondary to pancreatitis or ongoing infection, especially urinary tract. Improved, clinically improved. Trend CBC in am. 12. Esophageal reflux. Continue PPI. 13. History of cerebrovascular accident with aphasia, but no other acute deficiency at this time. 14. Hypothyroidism-iatrogenic, continue replacement DVT proph-coumadin Full code Tessie Atkinson DO [facility] Hospitalist Current Inpatient Medications: Current Inpatient Medications Medications (Trade) Dose Ordered Sig/Desire Route Start Time Stop Time Status Last Admin Dose Admin Ondansetron HCl (Zofran Inj) 4 mg Q6H PRN IV 04/17/16 01:45 05/17/16 01:44 Aspirin (Ecotrin Tab) 81 mg QAM PO 04/17/16 09:00 05/17/16 08:59 04/20/16 07:02 81 MG Atorvastatin Calcium (Lipitor Tab) 40 mg HS PO 04/17/16 21:00 05/17/16 20:59 04/19/16 21:00 40 MG Cholecalciferol (Vitamin D Tab) 1,000 inter.unit QAM PO 04/17/16 09:00 05/17/16 08:59 04/20/16 07:04 1,000 INTER.UNIT Cyanocobalamin (Vitamin B-12 Tab) 1,000 mcg QAM PO 04/17/16 09:00 05/17/16 08:59 04/20/16 07:04 1,000 MCG Escitalopram Oxalate (Lexapro Tab) 10 mg QAM PO 04/17/16 09:00 05/17/16 08:59 04/20/16 07:03 10 MG Ferrous Sulfate (Feosol Tab) 325 mg BID PO 04/17/16 09:00 05/17/16 08:59 04/20/16 07:02 325 MG Fluticasone Propionate (Flonase Nasal [place]) 2 sprays DAILY PRN CASS 04/17/16 02:00 05/17/16 01:59 Furosemide (Lasix tab) 40 mg BID17 PO 04/17/16 09:00 05/17/16 08:59 Future Hold 04/17/16 07:54 40 MG Gabapentin (Neurontin Cap) 100 mg BID@0800,1400 PO 04/17/16 08:00 05/17/16 07:59 04/20/16 07:02 100 MG Albuterol/ Ipratropium (Combivent Respimat Inh) 1 puffs QID INH 04/17/16 09:00 05/17/16 08:59 04/20/16 07:02 1 PUFFS Levetiracetam (Keppra Tab) 500 mg BID PO 04/17/16 09:00 05/17/16 08:59 04/20/16 07:02 500 MG Levothyroxine Sodium (Synthroid Tab) 150 mcg DAILYBB PO 04/17/16 06:00 05/17/16 06:59 04/20/16 06:09 150 MCG Nitroglycerin (Nitrostat Tab) 0.4 mg PRN PRN UT 04/17/16 02:00 05/17/16 01:59 Oxycodone/ Acetaminophen (Percocet 5-325MG Tab) 1 tab Q6H PRN PO 04/17/16 02:00 05/01/16 01:59 04/19/16 04:01 1 TAB Pantoprazole Sodium (Protonix Tab) 40 mg QAM PO 04/17/16 09:00 05/17/16 08:59 04/20/16 07:03 40 MG Potassium Chloride (Klor-Con Tab) 20 meq QAM PO 04/17/16 09:00 05/17/16 08:59 04/20/16 07:03 20 MEQ Trazodone HCl (Desyrel Tab) 50 mg HS PO 04/17/16 21:00 05/17/16 20:59 04/19/16 20:59 50 MG Calcitriol (Rocaltrol Cap) 0.5 mcg BID PO 04/17/16 09:00 05/17/16 08:59 04/20/16 07:03 0.5 MCG Insulin Aspart (novoLOG ASPART) SLIDING SCALE G... ACHS SC 04/17/16 07:00 05/17/16 06:59 04/20/16 08:14 11 UNITS Glucose (Glucose 40% Gel) 15-30 GRAMS 15 GRAMS... UD PRN PO 04/17/16 02:45 05/17/16 02:44 Glucose (Glucose Chew Tab) 4-8 Tablets 4 Tabl... UD PRN PO 04/17/16 02:45 05/17/16 02:44 Dextrose (Dextrose 50% 50ML Syringe) 25-50ML OF 50% DW IV FOR... UD PRN IV 04/17/16 02:45 05/17/16 02:44 Glucagon (Glucagon Inj) 1 mg UD PRN SQ 04/17/16 02:45 05/17/16 02:44 Gabapentin (Neurontin Cap) 200 mg HS PO 04/17/16 21:00 05/17/16 20:59 04/19/16 21:00 200 MG Morphine Sulfate (MoRPHine SULFATE INJ) 2 mg Q2H PRN IV 04/17/16 18:45 05/01/16 18:44 Calcium Carbonate (oS-Darrin 500 TAB) 1,250 mg TID PO 04/18/16 09:00 05/18/16 08:59 04/20/16 07:03 1,250 MG Metoprolol Succinate (Toprol Xl Tab) 50 mg BID PO 04/19/16 09:00 05/19/16 08:59 04/20/16 07:04 50 MG Warfarin Sodium (Coumadin Tab) 2 mg DAILY@16 PO 04/19/16 16:00 05/19/16 15:59 04/19/16 17:53 2 MG Furosemide (Lasix tab) 40 mg QAM PO 04/20/16 09:00 05/20/16 08:59 04/20/16 07:03 40 MG Cephalexin Monohydrate (Keflex Cap) 500 mg BID PO 04/19/16 21:00 04/29/16 20:59 04/20/16 07:02 500 MG Polyethylene (Miralax Powder Packet) 17 gm DAILY PO 04/20/16 09:00 05/20/16 08:59 04/20/16 07:08 17 GM Calcium Polycarbophil (Fibercon Tab) 1 tab QAM PO 04/20/16 09:00 05/20/16 08:59 04/20/16 07:02 1 TAB
[2016-04-20] MEDS: METOPROLOL TARTRATE 50 MG TAB PO SCH ×2 (12:43→20:56)
--- NOTE | 2016-04-20 13:33 | PROGRESS NOTE ---
DATE: 04/20/2016 FOLLOWUP VISIT SUBJECTIVE: The patient is a 76-year-old with a complex medical and cardiac history. She has been stable the last several days. Her diltiazem was discontinued and her heart rates have been a little bit high. She is difficult to manage due to low blood pressures. The metoprolol has been increased and will be increased again today. OBJECTIVE: GENERAL: She is alert and oriented, in no acute distress. VITAL SIGNS: Blood pressure is 100/60, pulse is regular at 90 beats per minute. She is afebrile. HEENT: She is normocephalic. Pupils are equal and reactive to light. Extraocular muscles are intact bilaterally. NECK: The neck veins are flat. Carotids have good upstrokes bilaterally without bruits. Thyroid is nonpalpable. RESPIRATORY: Breath sounds equal bilaterally and clear to auscultation. CARDIOVASCULAR: Heart has a regular rhythm. Normal S1, S2. No S3, S4. No cardiac rubs or murmurs. GASTROINTESTINAL: Abdomen is soft, nontender without organomegaly. EXTREMITIES: Free of edema, digital clubbing, or cyanosis. NEUROLOGIC: Grossly intact. SKIN: Warm to touch. LYMPH NODES: Negative to palpation. IMPRESSION: 1. Atypical epigastric discomfort. 2. Status post aortic valve replacement. 3. Atrial fibrillation. RECOMMENDATIONS: As outlined above, the patient will have her beta michelle increased again today. Hopefully, her heart rate will be controlled and then she will be able to be discharged to outpatient followup.
--- NOTE | 2016-04-20 13:56 | DIAGNOSTIC IMAGING REPORT ---
TWO VIEW CHEST CLINICAL HISTORY: Cough. FINDINGS: PA and lateral chest radiographs are compared to study dated 04/19/2016. The PA view is degraded by patient rotation. The patient is status post midline sternotomy and cardiac valve surgery. The heart is enlarged and there is atherosclerotic calcification of the thoracic aorta. There is pulmonary vascular congestion. Mild interstitial edema is suspected. Linear atelectasis is noted in the left midlung. There are small pleural effusions with bibasilar consolidative change. There is no pneumothorax. The skeletal structures are osteopenic. Degenerative changes noted throughout the thoracic spine. IMPRESSION: 1. Cardiomegaly with evidence of congestive failure and mild interstitial edema. This is similar in appearance to yesterday. 2. Small pleural effusions and bibasilar consolidation. This likely represents atelectasis. Clinical correlation will be required. Electronically signed by: Italo Gutierrez M.D. 04/20/2016 1:54 PM Dictated Date/Time: 04/20/2016 1:52 PM
[2016-04-20 14:23] LABS: INFLUENZA A PCR Neg for Influ A (NEG); INFLUENZA B PCR Neg for Influ B (NEG)
[2016-04-20] MEDS: WARFARIN SOD 2 MG TAB PO SCH (16:00)
[2016-04-20] MEDS ORDERED: HYDROCODONE/HOMATROPINE SYRUP 5MG/1.5MG 5ML UDP PO STA (20:09)
[2016-04-20] MEDS: TRAZODONE HCL 50 MG TAB PO SCH (20:52)
[2016-04-20] MEDS: ATORVASTATIN 20 MG TAB PO SCH (20:56)
[2016-04-21] VITALS (9 sets, daily range): BP systolic 102–123; BP diastolic 66–88; PULSE 59–115; TEMP 36.4–36.9; O2SAT 91–98
[2016-04-21 06:25] LABS: HEMATOCRIT 33.2 % (37-47); MEAN CORPUSCULAR HEMOGLOBIN 27.1 pg (25-34); MEAN CORPUSCULAR HGB CONC 30.4 g/dl (32-36); MEAN PLATELET VOLUME 10.9 fL (7.4-10.4); PLATELET COUNT 313 K/uL (130-400); RED BLOOD COUNT 3.73 M/uL (4.2-5.4)
[2016-04-21] MEDS: LEVOTHYROXINE 150 MCG TAB PO SCH (06:27)
[2016-04-21 06:39] LABS: INR 2.8 (0.9-1.1); PROTHROMBIN TIME (PATIENT) 31.5 SECONDS (9.0-12.0)
[2016-04-21 06:45] LABS: BUN/CREATININE RATIO 16.1 (10-20); CALCIUM 9.3 mg/dl (8.5-10.1); CREATININE 1.1 mg/dl (0.60-1.20); POTASSIUM 4.5 mmol/L (3.5-5.1)
[2016-04-21] MEDS: CALCIUM CARBONATE 1250MG TAB PO SCH ×3 (08:16→21:20)
[2016-04-21] MEDS: ESCITALOPRAM OXALATE 10 MG TAB PO SCH (08:16)
[2016-04-21] MEDS: CYANOCOBALAMIN 500 MCG TAB (VIT B-12) PO SCH (08:16)
[2016-04-21] MEDS: IPRATROPIUM BROMIDE/ALBUTEROL respimat INH INH SCH (08:16)
[2016-04-21] MEDS: POLYETHYLENE (MIRALAX) 17 GM PACK PO SCH (08:16)
[2016-04-21] MEDS: ASPIRIN 81 MG ECTAB PO SCH (08:17)
[2016-04-21] MEDS: FUROSEMIDE 40 MG TAB PO SCH (08:17)
[2016-04-21] MEDS: CALCITRIOL 0.25 MCG CAP PO SCH ×2 (08:18→21:21)
[2016-04-21] MEDS: METOPROLOL TARTRATE 50 MG TAB PO SCH (08:18)
[2016-04-21] MEDS: PANTOprazole SOD 40 MG TAB PO SCH (08:19)
[2016-04-21] MEDS: GABAPENTIN 100 MG CAP PO SCH ×3 (08:19→21:21)
[2016-04-21] MEDS: LEVETIRACETAM 500 MG TAB PO SCH ×2 (08:19→21:18)
[2016-04-21] MEDS: CHOLECALCIFEROL 1000 INTER.UNIT TAB PO SCH (08:19)
[2016-04-21] MEDS: POTASSIUM CHLORIDE 20 MEQ TABCR PO SCH (08:19)
[2016-04-21] MEDS: CEPHALEXIN MONOHYDRATE 500 MG CAP PO SCH ×2 (08:19→21:18)
[2016-04-21] MEDS: FERROUS SULFATE 325 MG TAB PO SCH ×2 (08:20→21:19)
[2016-04-21] MEDS: CALCIUM POLYCARBOPHIL 1 TAB PO SCH (08:20)
[2016-04-21] MEDS: INSULIN ASPART 100 UNITS/ML 3 ML PEN SC SCH ×4 (08:25→21:25)
--- NOTE | 2016-04-21 08:43 | Gastroenterology Progress Note ---
Progress Note Date of Service: Apr 21, 2016 Subjective Pt evaluation today including: conversation w/ patient, physical exam, chart review, lab review Patient was seen and examined this morning. She was laying down in bed with her breakfast tray next to her. She states that she had a few bites of food but just is not hungry and is slightly nauseated. She denies any vomiting. She reports that she is exhausted and has not slept over the past three nights. She states that she used to take a medication for sleep a while ago but is unsure what it was. She denies any fever, chills, chest pain, SOB, abdominal pain, diarrhea, black/bloody stools. Review of Systems Constitutional: No chills, No fever Respiratory: No cough, No shortness of breath Cardiac: No chest pain, No edema Abdomen: + nausea, No GI bleeding, No constipation, No diarrhea, No pain, No vomiting Medications Current Inpatient Medications Medications (Trade) Dose Ordered Sig/Desire Route Start Time Stop Time Status Last Admin Dose Admin Ondansetron HCl (Zofran Inj) 4 mg Q6H PRN IV 04/17/16 01:45 05/17/16 01:44 Aspirin (Ecotrin Tab) 81 mg QAM PO 04/17/16 09:00 05/17/16 08:59 04/21/16 08:17 81 MG Atorvastatin Calcium (Lipitor Tab) 40 mg HS PO 04/17/16 21:00 05/17/16 20:59 04/20/16 20:56 40 MG Cholecalciferol (Vitamin D Tab) 1,000 inter.unit QAM PO 04/17/16 09:00 05/17/16 08:59 04/21/16 08:19 1,000 INTER.UNIT Cyanocobalamin (Vitamin B-12 Tab) 1,000 mcg QAM PO 04/17/16 09:00 05/17/16 08:59 04/21/16 08:16 1,000 MCG Escitalopram Oxalate (Lexapro Tab) 10 mg QAM PO 04/17/16 09:00 05/17/16 08:59 04/21/16 08:16 10 MG Ferrous Sulfate (Feosol Tab) 325 mg BID PO 04/17/16 09:00 05/17/16 08:59 04/21/16 08:20 325 MG Fluticasone Propionate (Flonase Nasal [place]) 2 sprays DAILY PRN CASS 04/17/16 02:00 05/17/16 01:59 Furosemide (Lasix tab) 40 mg BID17 PO 04/17/16 09:00 05/17/16 08:59 Future Hold 04/17/16 07:54 40 MG Gabapentin (Neurontin Cap) 100 mg BID@0800,1400 PO 04/17/16 08:00 05/17/16 07:59 04/21/16 08:19 100 MG Albuterol/ Ipratropium (Combivent Respimat Inh) 1 puffs QID INH 04/17/16 09:00 05/17/16 08:59 04/21/16 08:16 1 PUFFS Levetiracetam (Keppra Tab) 500 mg BID PO 04/17/16 09:00 05/17/16 08:59 04/21/16 08:19 500 MG Levothyroxine Sodium (Synthroid Tab) 150 mcg DAILYBB PO 04/17/16 06:00 05/17/16 06:59 04/21/16 06:27 150 MCG Nitroglycerin (Nitrostat Tab) 0.4 mg PRN PRN [place] 04/17/16 02:00 05/17/16 01:59 Oxycodone/ Acetaminophen (Percocet 5-325MG Tab) 1 tab Q6H PRN PO 04/17/16 02:00 05/01/16 01:59 04/19/16 04:01 1 TAB Pantoprazole Sodium (Protonix Tab) 40 mg QAM PO 04/17/16 09:00 05/17/16 08:59 04/21/16 08:19 40 MG Potassium Chloride (Klor-Con Tab) 20 meq QAM PO 04/17/16 09:00 05/17/16 08:59 04/21/16 08:19 20 MEQ Trazodone HCl (Desyrel Tab) 50 mg HS PO 04/17/16 21:00 05/17/16 20:59 04/19/16 20:59 50 MG Calcitriol (Rocaltrol Cap) 0.5 mcg BID PO 04/17/16 09:00 05/17/16 08:59 04/21/16 08:18 0.5 MCG Insulin Aspart (novoLOG ASPART) SLIDING SCALE G... ACHS SC 04/17/16 07:00 05/17/16 06:59 04/21/16 08:25 6 UNITS Glucose (Glucose 40% Gel) 15-30 GRAMS 15 GRAMS... UD PRN PO 04/17/16 02:45 05/17/16 02:44 Glucose (Glucose Chew Tab) 4-8 Tablets 4 Tabl... UD PRN PO 04/17/16 02:45 05/17/16 02:44 Dextrose (Dextrose 50% 50ML Syringe) 25-50ML OF 50% DW IV FOR... UD PRN IV 04/17/16 02:45 05/17/16 02:44 Glucagon (Glucagon Inj) 1 mg UD PRN SQ 04/17/16 02:45 05/17/16 02:44 Gabapentin (Neurontin Cap) 200 mg HS PO 04/17/16 21:00 05/17/16 20:59 04/20/16 20:56 200 MG Morphine Sulfate (MoRPHine SULFATE INJ) 2 mg Q2H PRN IV 04/17/16 18:45 05/01/16 18:44 04/20/16 20:00 2 MG Calcium Carbonate (oS-Darrin 500 TAB) 1,250 mg TID PO 04/18/16 09:00 05/18/16 08:59 04/21/16 08:16 1,250 MG Warfarin Sodium (Coumadin Tab) 2 mg DAILY@16 PO 04/19/16 16:00 05/19/16 15:59 04/20/16 16:00 2 MG Furosemide (Lasix tab) 40 mg QAM PO 04/20/16 09:00 05/20/16 08:59 04/21/16 08:17 40 MG Cephalexin Monohydrate (Keflex Cap) 500 mg BID PO 04/19/16 21:00 04/29/16 20:59 04/21/16 08:19 500 MG Polyethylene (Miralax Powder Packet) 17 gm DAILY PO 04/20/16 09:00 05/20/16 08:59 04/21/16 08:16 17 GM Calcium Polycarbophil (Fibercon Tab) 1 tab QAM PO 04/20/16 09:00 05/20/16 08:59 04/21/16 08:20 1 TAB Metoprolol Tartrate (Lopressor Tab) 50 mg TID PO 04/20/16 14:00 05/20/16 13:59 04/21/16 08:18 50 MG Hydrocodone Bit/ Homatropine Methylb (Hycodan Syrup) 5 ml Q6H PRN PO 04/21/16 02:00 05/05/16 01:59 Objective Vital Signs Date Time Temp Pulse Resp B/P Pulse Ox O2 Delivery O2 Flow Rate FiO2 04/21/16 07:41 36.4 98 22 102/68 93 Nasal Cannula 2.0 04/21/16 04:00 96 Nasal Cannula 2.0 04/21/16 03:06 36.7 115 19 116/88 96 Nasal Cannula 2.0 04/21/16 00:00 92 Nasal Cannula 2.0 04/20/16 23:45 36.8 110 18 106/63 92 Nasal Cannula 2.0 04/20/16 20:00 98 Nasal Cannula 2.0 04/20/16 18:43 36.7 112 22 124/74 98 Nasal Cannula 2.0 Humidified Oxygen 04/20/16 16:01 91 Nasal Cannula 2.0 04/20/16 15:33 37.0 90 20 120/75 91 Nasal Cannula 2.0 Humidified Oxygen 04/20/16 12:35 91 Nasal Cannula 2.0 04/20/16 11:40 37.2 89 20 118/65 94 Nasal Cannula 2.0 Physical Exam General Appearance: + mild distress (patient appears restless in bed) Eyes: PERRL ENT: hearing grossly normal Neck: supple, trachea midline Respiratory/Chest: lungs clear, normal breath sounds, no respiratory distress, no accessory muscle use Cardiovascular: regular rate, rhythm, no edema, no gallop, no JVD, no murmur Abdomen: normal bowel sounds, non tender, soft, no organomegaly Neurologic/Psych: alert, normal mood/affect, oriented x 3 Skin: normal color, no jaundice, warm/dry, no rash Laboratory Results Last 24 Hours Test 04/20/16 11:09 04/20/16 13:00 04/20/16 16:04 04/20/16 20:04 Bedside Glucose 140 mg/dl 194 mg/dl 168 mg/dl Influenza Type A (RT-PCR) Neg for Influ A Influenza Type B (RT-PCR) Neg for Influ B Test 04/21/16 05:40 04/21/16 05:45 04/21/16 06:42 Sodium Level 135 mmol/L Potassium Level 4.5 mmol/L Chloride Level 93 mmol/L Carbon Dioxide Level 33 mmol/L Anion Gap 9.0 mmol/L Blood Urea Nitrogen 18 mg/dl Creatinine 1.10 mg/dl Est Creatinine Clear Calc Drug Dose 48.4 ml/min Estimated GFR () 55.7 Estimated GFR (Non- 48.1 BUN/Creatinine Ratio 16.1 Random Glucose 167 mg/dl Calcium Level 9.3 mg/dl White Blood Count 14.00 K/uL Red Blood Count 3.73 M/uL Hemoglobin 10.1 g/dL Hematocrit 33.2 % Mean Corpuscular Volume 89.0 fL Mean Corpuscular Hemoglobin 27.1 pg Mean Corpuscular Hemoglobin Concent 30.4 g/dl RDW Standard Deviation 55.4 fL RDW Coefficient of Variation 17.0 % Platelet Count 313 K/uL Mean Platelet Volume 10.9 fL Prothrombin Time 31.5 SECONDS Prothromb Time International Ratio 2.8 Ionized Calcium 1.22 mmol/l Bedside Glucose 165 mg/dl Assessment and Plan Patient is a 76 year old female with a history of BRBPR associated with constipation. She has not had any episodes of bloody/black stools during this admission. Her HGB has been stable during admission at 10.1 Repeated LFTs and Bilirubin to assess for any biliary obstruction given continued nausea and recent US imaging suggestive of sludge with mildly elevated lipase (900's) MiraLax 17 grams per day + fiber supplement. Outpatient colonoscopy to be scheduled (4-6 weeks) Monitor stools for black/bloody BM - if bleeding occurs can consider inpatient procedure Patient mentions she is restless and unable to sleep - primary team please work up and consider treatment GI to sign off. Please call with any questions. I performed a history and physical examination of the patient. I have discussed the patient's case, impression and plan with FADI Farris. Her note reflects my findings and plan. Chaka Danielson MD
[2016-04-21] MEDS ORDERED: METOPROLOL SUCC 50MG EXT REL TAB PO STA (09:32)
[2016-04-21] MEDS ORDERED: ONDANSETRON INJ 2 MG/ML 2 ML VIAL IV. SCH (10:33)
[2016-04-21] MEDS ORDERED: LEVOFLOXACIN / D5W 500 MG in PREMIXED IN D5W 100 ML IV ONE (12:00)
[2016-04-21] MEDS: METHYLPREDNISOLONE IV 40 MG in SYRINGE 0 ML IV SCH ×2 (12:26→21:18)
[2016-04-21 13:39] LABS: INFLUENZA A PCR Neg for Influ A (NEG); INFLUENZA B PCR Neg for Influ B (NEG)
--- NOTE | 2016-04-21 13:54 | DIAGNOSTIC IMAGING REPORT ---
CHEST ONE VIEW PORTABLE CLINICAL HISTORY: Wheezing on exam. COMPARISON STUDY: Chest radiograph April 20, 2016. FINDINGS: Median sternotomy wires and a prosthetic cardiac valve are noted. Moderate cardiomegaly is unchanged. There is no pneumothorax. There may be a trace left pleural effusion. There is mild left lower lung opacity. Interstitial thickening has improved. IMPRESSION: 1. Interval improvement in mild edema. 2. Mild left basilar opacities which could reflect atelectasis or less likely consolidation. 3. Trace left pleural effusion. Electronically signed by: Zach Garvin M.D. 04/21/2016 1:52 PM Dictated Date/Time: 04/21/2016 1:51 PM
[2016-04-21] MEDS: IPRATROPIUM BROMIDE NEB SOLN 0.02% 2.5 ML VIAL INH SCH ×2 (14:26→19:47)
[2016-04-21] MEDS: LEVALBUTEROL 1.25MG/0.5ML NEB INH SCH ×2 (14:26→19:47)
--- NOTE | 2016-04-21 14:37 | Cardiology Follow-Up ---
Subjective General Date of Service: Apr 21, 2016. Chief Complaint: follow up CHF, AF Pt evaluation today including: conversation w/ patient, physical exam History of Present Illness The patient is a 76 year old female seen in follow up. Patient note fatigue, very tired. Telemetry reveals AF, mildly elevated rates 110 bpm. Allergies Coded Allergies: No Known Allergies (Unverified , 04/16/16) Social History Smoking Status: Never Smoker Hx Tobacco Use In Past Year?: No Hx Alcohol Use - Type And Amou: No Hx Substance Use - Type And Am: No Physical Exam Vital Signs Last Vital Signs Documentation Date Time Temp Pulse Resp B/P Pulse Ox O2 Delivery O2 Flow Rate FiO2 04/21/16 14:05 85 16 91 Nasal Cannula 2.0 04/21/16 12:17 36.9 115/66 Physical Exam Constitutional: Level of Distress: acutely ill, chronically ill Neck: supple Lungs: Auscultation: no wheezing, no rales/crackles Cardiovascular: Heart Auscultation: no murmurs, tachycardia, irregular rate rhythm Extremities: no edema Neurologic: Gait & Station: pertinent finding (no focal deficit, no somnolence ) Assessment and Plan Assessment and Plan Impression: 76 year old female 1. Epigastric discomfort, negative serial EKGs, occurs at rest atypical for angina 2. h/o CAD, PCI to RCA 3. H/o bio AVR 4. Persistent AF 5. electrolyte abnormalities, hypocalcemia, improved. 6. Chronic diastolic LV heart failure, new RV systolic dysfunction this admit. Plan: change to metoprolol succinate 100 mg BID. Diltiazem CD discontinued due to severe hypocalcemia, to symplify medication therapy. Continue coumadin. Not ready for DC. Does not appear volume overloaded Laboratory Results Last 24 Hours Test 04/20/16 16:04 04/20/16 20:04 04/21/16 00:00 04/21/16 05:40 Bedside Glucose 194 mg/dl 168 mg/dl Influenza Type A (RT-PCR) Neg for Influ A Influenza Type B (RT-PCR) Neg for Influ B Sodium Level 135 mmol/L Potassium Level 4.5 mmol/L Chloride Level 93 mmol/L Carbon Dioxide Level 33 mmol/L Anion Gap 9.0 mmol/L Blood Urea Nitrogen 18 mg/dl Creatinine 1.10 mg/dl Est Creatinine Clear Calc Drug Dose 48.4 ml/min Estimated GFR () 55.7 Estimated GFR (Non- 48.1 BUN/Creatinine Ratio 16.1 Random Glucose 167 mg/dl Calcium Level 9.3 mg/dl Test 04/21/16 05:45 04/21/16 06:42 04/21/16 11:15 04/21/16 11:30 White Blood Count 14.00 K/uL Red Blood Count 3.73 M/uL Hemoglobin 10.1 g/dL Hematocrit 33.2 % Mean Corpuscular Volume 89.0 fL Mean Corpuscular Hemoglobin 27.1 pg Mean Corpuscular Hemoglobin Concent 30.4 g/dl RDW Standard Deviation 55.4 fL RDW Coefficient of Variation 17.0 % Platelet Count 313 K/uL Mean Platelet Volume 10.9 fL Prothrombin Time 31.5 SECONDS Prothromb Time International Ratio 2.8 Ionized Calcium 1.22 mmol/l Bedside Glucose 165 mg/dl 181 mg/dl Total Bilirubin 1.5 mg/dl Direct Bilirubin 0.9 mg/dl Aspartate Amino Transf (AST/SGOT) 35 U/L Alanine Aminotransferase (ALT/SGPT) 47 U/L Alkaline Phosphatase 177 U/L Total Protein 6.4 gm/dl Albumin 3.1 gm/dl
[2016-04-21] MEDS ORDERED: LEVALBUTEROL/IPRATROPIUM NEB INH SCH (15:00)
[2016-04-21] MEDS: WARFARIN SOD 2 MG TAB PO SCH (15:41)
[2016-04-21] MEDS: ONDANSETRON INJ 2 MG/ML 2 ML VIAL IV. SCH ×2 (15:42→21:21)
--- NOTE | 2016-04-21 17:10 | Progress Note ---
Medicine Progress Note Date & Time of Visit: Apr 21, 2016 at 10:27. Subjective feels worse today RE: sore throat, persistent coughing, "i just feel bad" +nausea with vomiting and dry heaves overnight--> schedule Zofran for 24 hours +wheezing on exam-->poss pulm source with symptoms, but also has recent RV dysfunction on TTE. -repeat CXR -repeat flu swab -start methylpred 40 IV q8 -duonebs (Xopenex) q6hR -Levaquin 500mg x 1; then 250mg IV x 6 days -cont Lasix PO-->may need to switch to IV if cannot tolerate PO-->holding on maintenance IVF in heart failure, but may need to start later/bolus PRN tachy-2/2 new infxn? vs stopping dilt the other day-->adjusted Toprol XL to 100BID today not going today Objective Last 8 Hrs Date Time Temp Pulse Resp B/P Pulse Ox O2 Delivery O2 Flow Rate FiO2 04/21/16 07:41 36.4 98 22 102/68 93 Nasal Cannula 2.0 04/21/16 04:00 96 Nasal Cannula 2.0 04/21/16 03:06 36.7 115 19 116/88 96 Nasal Cannula 2.0 Physical Exam: GEN: WNWD, in mild distress, alert and appropriate, lying in bed and doesn't want to sit up. Coughing HEENT: NC/AT, normal sclerae CARDIO: tachy rate, irreg rhythm, S1/2 heard without m/g/r LUNGS: wheezing throughout all lung harper. ABD: soft, non-tender, non-distended, +BS EXTREMITY: RP and DP palpable 2+ bilat, no LE swelling or edema, extremities are warm and well-perfused NEURO: CN 2-12 grossly intact, sensation intact throughout MUSC: moves all extremities equally, no gross focal deficits. SKIN: warm and dry Laboratory Results: Last 24 Hours Test 04/20/16 11:09 04/20/16 13:00 04/20/16 16:04 04/20/16 20:04 Bedside Glucose 140 mg/dl 194 mg/dl 168 mg/dl Influenza Type A (RT-PCR) Neg for Influ A Influenza Type B (RT-PCR) Neg for Influ B Test 04/21/16 05:40 04/21/16 05:45 04/21/16 06:42 Sodium Level 135 mmol/L Potassium Level 4.5 mmol/L Chloride Level 93 mmol/L Carbon Dioxide Level 33 mmol/L Anion Gap 9.0 mmol/L Blood Urea Nitrogen 18 mg/dl Creatinine 1.10 mg/dl Est Creatinine Clear Calc Drug Dose 48.4 ml/min Estimated GFR () 55.7 Estimated GFR (Non- 48.1 BUN/Creatinine Ratio 16.1 Random Glucose 167 mg/dl Calcium Level 9.3 mg/dl White Blood Count 14.00 K/uL Red Blood Count 3.73 M/uL Hemoglobin 10.1 g/dL Hematocrit 33.2 % Mean Corpuscular Volume 89.0 fL Mean Corpuscular Hemoglobin 27.1 pg Mean Corpuscular Hemoglobin Concent 30.4 g/dl RDW Standard Deviation 55.4 fL RDW Coefficient of Variation 17.0 % Platelet Count 313 K/uL Mean Platelet Volume 10.9 fL Prothrombin Time 31.5 SECONDS Prothromb Time International Ratio 2.8 Ionized Calcium 1.22 mmol/l Bedside Glucose 165 mg/dl Assessment & Plan 76 yo F with multiple medical problems presents with some nonspecific issues including a burning sensation in her chest that is worse with exertion and with certain types of food. Also, she has some weakness, paresthesias and muscle cramping consistent with symptomatic hypocalcemia. She was recently hospitalized and discharged just a few days ago-multiple hospitalizations in the past 3-4 months. 1. Cough-new, no increased work of breathing, not requiring higher levels of oxygen from baseline 2L. nonproductive cough. Flu PCR and CXR reordered today. Some atelectasis noted but otherwise no changes. Possibly a developing HAP, however, would wait to treat at this time as may just be a small cold. Repeat flu swab was negative. Ordered am CXR for 04/22. 2. Nausea & vomiting-initially had this on admission, had resolved and she was tolerating a regular diet yesterday. Became acutely nautious overnight-- uncertain etiology. No epigastric tenderness, no diarrhea. Supportive care for now. Cont to monitor. IVF is persistently vomiting but will hold for now in setting of heart failure. 3. COPD- Appears to be having an acute exacerbation at this time. In conjunction with cough, thinking respiratory illness. Started Duonebs and IV steroids for wheezing. Also started Levaquin. Cont home oxygen at 2L NC. 4. Chronic atrial fibrillation-cont warfarin at 2mg PO daily, Trend INR daily for goal 2-3. S/p AV replacement x 2. Per cards, diltiazem was stopped and ToprolXL 50 BID was restarted, however, her HR appears to be higher now. Changed to Lopressor and increase to 50mg PO TID on 04/20, some improvement, however, Cards changed to Toprol 100BID on 04/21-monitor for response in am. 5. Symptomatic Hypocalcemia-resolved, however, with vomiting there is concern she may not keep her levels up and will need IV supplementation again. Cont PO supplementation for now. Check Ca in am. 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 Recent intolerance of PO with vomiting, Lasix use 40mg BID and intolerance of PO supplementation in setting of some vomiting today. She is on calcitriol and Ca supplementation and has been long-term since her thyroid removal 30 years ago. Was 6.1 at recent discharge a few days ago, is 6.5 on admission to this hospital. Symptoms were initially unclear, however, overnight she has had facial numbness and tetany/spasms in her hands and legs that has improved with the calcium infusion-stable on PO supplementation now for several days. Last seen by Karo in 2013. -numbness has resolved. -Ca reliably stable on PO supplementation -restart Lasix 04/19 at 50%-cont at this dose which is 40 once daily instead of BID -monitor Ca in am to ensure stable levels 6. Acute right heart failure-recent admission to [facility] for acute decompensation with recent discharge. She had an echo done in 2016 that did show EF of 60%, LV wall thickening, diastolic dysfunction, enlarged left and right atria. Appears compensated, however, RV systolic function is decreased on TTE this admission which is an acute difference from recent TTE at the outside hospital. Restart diuretics at 50% on 04/19. Consult Cardiology for assistance with management. 7. Acute pancreatitis- resolved. tolerating PO, epigastric pain and burning sensation has not returned. Advancing diet to regular now. Diuretics restarted at 50%. 8. Acute on Chronic UTI-reports 6 months of antibiotics recently and was supposed to go for re-evaluation to see if changes could be made. She is not familiar with her meds and tells me to speak with her granddaughter about those. She reports chronic dysuria, incomplete voiding and chronic urinary urgency. Denies flank pain (no CVA tenderness), suprapubic pain (corroborated with exam), flank pain, fevers or chills and UA revealed no bact, however, did have some mod LE and WBC>30 (epis>30, also-contaminated sample?). On Zosyn empirically. Stopped this on 04/18 and switched to Macrobid. Switched to Keflex per pharmacy recs 04/19. 9. Hemorrhoids-new report of hemorrhoids that cause some rectal bleeding; this has gone on for about 1 year. Last time she saw blood was one week ago. She was admitted for rectal bleeding at [facility] in Feb 2016 and was seen by GI (Dr. Danielson) who thought her bleeding was more significant than just hemorrhoids (diverticular bleed) and at the time colonoscopy was deferred because of elevated INR. He opted for conservative management with the caveat that if further bleeding occurs, she would need a repeat scope. GI saw her- recommended outpatient scope unless bleeding reoccurs. Of note, mildly anemia but no bleeding since she has been in the hospital, so will cont coumadin at this time. 10. CAD- Reports no chest pain/heartburn with walking around the room today or resting in bed. H/o CABG but uncertain if this is her anginal equivalent. Cont Protonix. Serial enzymes negative. She has has this pain intermittently for the past 5 years since her valve replacement surgery. Appreciate Cards recs. 11. Glucose intolerance. -ISS with coverage, A1C 7.1 12. Leukocytosis-2.2 above. 13. Esophageal reflux. Continue PPI. 14. History of cerebrovascular accident with aphasia, but no other acute deficiency at this time. 15. Hypothyroidism-iatrogenic, continue replacement DVT proph-coumadin Full code Tessie Atkinson DO [facility] Hospitalist Continued [facility] stay due to: inadequate po fluid intake, multiple IV medications needed Consultants: Sangeeta PATINO Current Inpatient Medications: Current Inpatient Medications Medications (Trade) Dose Ordered Sig/Desire Route Start Time Stop Time Status Last Admin Dose Admin Ondansetron HCl (Zofran Inj) 4 mg Q6H PRN IV 04/17/16 01:45 05/17/16 01:44 04/21/16 09:10 4 MG Aspirin (Ecotrin Tab) 81 mg QAM PO 04/17/16 09:00 05/17/16 08:59 04/21/16 08:17 81 MG Atorvastatin Calcium (Lipitor Tab) 40 mg HS PO 04/17/16 21:00 05/17/16 20:59 04/20/16 20:56 40 MG Cholecalciferol (Vitamin D Tab) 1,000 inter.unit QAM PO 04/17/16 09:00 05/17/16 08:59 04/21/16 08:19 1,000 INTER.UNIT Cyanocobalamin (Vitamin B-12 Tab) 1,000 mcg QAM PO 04/17/16 09:00 05/17/16 08:59 04/21/16 08:16 1,000 MCG Escitalopram Oxalate (Lexapro Tab) 10 mg QAM PO 04/17/16 09:00 05/17/16 08:59 04/21/16 08:16 10 MG Ferrous Sulfate (Feosol Tab) 325 mg BID PO 04/17/16 09:00 05/17/16 08:59 04/21/16 08:20 325 MG Fluticasone Propionate (Flonase Nasal [place]) 2 sprays DAILY PRN ACSS 04/17/16 02:00 05/17/16 01:59 Furosemide (Lasix tab) 40 mg BID17 PO 04/17/16 09:00 05/17/16 08:59 Future Hold 04/17/16 07:54 40 MG Gabapentin (Neurontin Cap) 100 mg BID@0800,1400 PO 04/17/16 08:00 05/17/16 07:59 04/21/16 08:19 100 MG Albuterol/ Ipratropium (Combivent Respimat Inh) 1 puffs QID INH 04/17/16 09:00 05/17/16 08:59 04/21/16 08:16 1 PUFFS Levetiracetam (Keppra Tab) 500 mg BID PO 04/17/16 09:00 05/17/16 08:59 04/21/16 08:19 500 MG Levothyroxine Sodium (Synthroid Tab) 150 mcg DAILYBB PO 04/17/16 06:00 05/17/16 06:59 04/21/16 06:27 150 MCG Nitroglycerin (Nitrostat Tab) 0.4 mg PRN PRN UT 04/17/16 02:00 05/17/16 01:59 Oxycodone/ Acetaminophen (Percocet 5-325MG Tab) 1 tab Q6H PRN PO 04/17/16 02:00 05/01/16 01:59 04/19/16 04:01 1 TAB Pantoprazole Sodium (Protonix Tab) 40 mg QAM PO 04/17/16 09:00 05/17/16 08:59 04/21/16 08:19 40 MG Potassium Chloride (Klor-Con Tab) 20 meq QAM PO 04/17/16 09:00 05/17/16 08:59 04/21/16 08:19 20 MEQ Trazodone HCl (Desyrel Tab) 50 mg HS PO 04/17/16 21:00 05/17/16 20:59 04/19/16 20:59 50 MG Calcitriol (Rocaltrol Cap) 0.5 mcg BID PO 04/17/16 09:00 05/17/16 08:59 04/21/16 08:18 0.5 MCG Insulin Aspart (novoLOG ASPART) SLIDING SCALE G... ACHS SC 04/17/16 07:00 05/17/16 06:59 04/21/16 08:25 6 UNITS Glucose (Glucose 40% Gel) 15-30 GRAMS 15 GRAMS... UD PRN PO 04/17/16 02:45 05/17/16 02:44 Glucose (Glucose Chew Tab) 4-8 Tablets 4 Tabl... UD PRN PO 04/17/16 02:45 05/17/16 02:44 Dextrose (Dextrose 50% 50ML Syringe) 25-50ML OF 50% DW IV FOR... UD PRN IV 04/17/16 02:45 05/17/16 02:44 Glucagon (Glucagon Inj) 1 mg UD PRN SQ 04/17/16 02:45 05/17/16 02:44 Gabapentin (Neurontin Cap) 200 mg HS PO 04/17/16 21:00 05/17/16 20:59 04/20/16 20:56 200 MG Morphine Sulfate (MoRPHine SULFATE INJ) 2 mg Q2H PRN IV 04/17/16 18:45 05/01/16 18:44 04/20/16 20:00 2 MG Calcium Carbonate (oS-Darrin 500 TAB) 1,250 mg TID PO 04/18/16 09:00 05/18/16 08:59 04/21/16 08:16 1,250 MG Warfarin Sodium (Coumadin Tab) 2 mg DAILY@16 PO 04/19/16 16:00 05/19/16 15:59 04/20/16 16:00 2 MG Furosemide (Lasix tab) 40 mg QAM PO 04/20/16 09:00 05/20/16 08:59 04/21/16 08:17 40 MG Cephalexin Monohydrate (Keflex Cap) 500 mg BID PO 04/19/16 21:00 04/29/16 20:59 04/21/16 08:19 500 MG Polyethylene (Miralax Powder Packet) 17 gm DAILY PO 04/20/16 09:00 05/20/16 08:59 04/21/16 08:16 17 GM Calcium Polycarbophil (Fibercon Tab) 1 tab QAM PO 04/20/16 09:00 05/20/16 08:59 04/21/16 08:20 1 TAB Hydrocodone Bit/ Homatropine Methylb (Hycodan Syrup) 5 ml Q6H PRN PO 04/21/16 02:00 05/05/16 01:59 Metoprolol Succinate (Toprol Xl Tab) 100 mg BID PO 04/21/16 21:00 05/21/16 20:59
[2016-04-21] MEDS: TRAZODONE HCL 50 MG TAB PO SCH (21:18)
[2016-04-21] MEDS: ATORVASTATIN 20 MG TAB PO SCH (21:19)
[2016-04-21] MEDS: METOPROLOL SUCC 50MG EXT REL TAB PO SCH (21:20)
[2016-04-22] VITALS (12 sets, daily range): BP systolic 103–127; BP diastolic 61–85; PULSE 85–106; TEMP 36.4–37; O2SAT 91–100
[2016-04-22] MEDS: LEVALBUTEROL 1.25MG/0.5ML NEB INH SCH ×4 (01:44→20:24)
[2016-04-22] MEDS: IPRATROPIUM BROMIDE NEB SOLN 0.02% 2.5 ML VIAL INH SCH ×4 (01:44→20:24)
[2016-04-22] MEDS: LEVOTHYROXINE 150 MCG TAB PO SCH (05:07)
[2016-04-22] MEDS: ONDANSETRON INJ 2 MG/ML 2 ML VIAL IV. SCH ×4 (05:08→20:31)
[2016-04-22] MEDS: METHYLPREDNISOLONE IV 40 MG in SYRINGE 0 ML IV SCH ×3 (05:08→20:30)
[2016-04-22 06:13] LABS: HEMATOCRIT 31.9 % (37-47); MEAN CELL VOLUME 89.6 fL (80-100); MEAN CORPUSCULAR HEMOGLOBIN 27.5 pg (25-34); MEAN CORPUSCULAR HGB CONC 30.7 g/dl (32-36); MEAN PLATELET VOLUME 10.7 fL (7.4-10.4); PLATELET COUNT 242 K/uL (130-400); RED BLOOD COUNT 3.56 M/uL (4.2-5.4); WHITE BLOOD COUNT 8.98 K/uL (4.8-10.8)
[2016-04-22 06:52] LABS: BUN/CREATININE RATIO 23.6 (10-20); CALCIUM 9.5 mg/dl (8.5-10.1); CREATININE 0.84 mg/dl (0.60-1.20); MAGNESIUM 2.1 mg/dl (1.8-2.4); POTASSIUM 4.5 mmol/L (3.5-5.1)
--- NOTE | 2016-04-22 07:02 | DIAGNOSTIC IMAGING REPORT ---
CHEST ONE VIEW PORTABLE CLINICAL HISTORY: Suspected pneumonia COMPARISON STUDY: 04/21/2016 FINDINGS: The heart remains enlarged. There is mild pulmonary edema, similar to the prior study given the differences in technique. There is no lobar consolidation. There is no significant pleural fluid.[ IMPRESSION: Cardiomegaly and mild interstitial edema. Electronically signed by: Hector Venegas M.D. 04/22/2016 7:00 AM Dictated Date/Time: 04/22/2016 6:59 AM
[2016-04-22] MEDS: CALCIUM CARBONATE 1250MG TAB PO SCH ×3 (08:10→20:31)
[2016-04-22] MEDS: INSULIN ASPART 100 UNITS/ML 3 ML PEN SC SCH ×4 (08:10→20:45)
[2016-04-22] MEDS: POLYETHYLENE (MIRALAX) 17 GM PACK PO SCH (08:10)
[2016-04-22] MEDS: FUROSEMIDE 40 MG TAB PO SCH (08:11)
[2016-04-22] MEDS: FERROUS SULFATE 325 MG TAB PO SCH ×2 (08:11→20:30)
[2016-04-22] MEDS: CHOLECALCIFEROL 1000 INTER.UNIT TAB PO SCH (08:11)
[2016-04-22] MEDS: ESCITALOPRAM OXALATE 10 MG TAB PO SCH (08:12)
[2016-04-22] MEDS: CALCIUM POLYCARBOPHIL 1 TAB PO SCH (08:12)
[2016-04-22] MEDS: POTASSIUM CHLORIDE 20 MEQ TABCR PO SCH (08:12)
[2016-04-22] MEDS: CALCITRIOL 0.25 MCG CAP PO SCH ×2 (08:12→20:31)
[2016-04-22] MEDS: GABAPENTIN 100 MG CAP PO SCH ×3 (08:13→20:31)
[2016-04-22] MEDS: PANTOprazole SOD 40 MG TAB PO SCH (08:13)
[2016-04-22] MEDS: CYANOCOBALAMIN 500 MCG TAB (VIT B-12) PO SCH (08:14)
[2016-04-22] MEDS: METOPROLOL SUCC 50MG EXT REL TAB PO SCH ×2 (08:14→20:31)
[2016-04-22] MEDS: ASPIRIN 81 MG ECTAB PO SCH (08:14)
[2016-04-22] MEDS: LEVETIRACETAM 500 MG TAB PO SCH ×2 (08:15→20:30)
[2016-04-22] MEDS: CEPHALEXIN MONOHYDRATE 500 MG CAP PO SCH ×2 (08:15→20:30)
[2016-04-22] MEDS ORDERED: BISACODYL 10 MG SUPP PR STA (09:45)
--- NOTE | 2016-04-22 10:14 | Gastrointestinal Consultation ---
Gastrointestinal Consultation Date of Consultation: Apr 22, 2016 Consulting Physician: Dr. Danielson Reason for Consultation: elevated LFT History of Present Illness Patient is a 76 year old female who was seen and evaluated this morning following a repeat LFT Panel. She has no GI complaints today. Pertinent labs are as follows TB: 1.5, DB: 0.9, AST: 35, ALT: 47. AlkP: 177. These values were elevated on previous screening on 04/16/16. Gallbladder US : There is slight coarsening of hepatic echotexture. No hepatic lesions are identified. There is a small amount of perihepatic ascites. There is mild gallbladder wall thickening. A 5 mm suspected gallbladder polyp is noted. No definite gallstones are identified. There is sludge within the gallbladder and suspected adenomyomatosis. No sonographic Taylor sign was elicited. No biliary ductal dilatation was present. There is no right hydronephrosis. There is trace pericholecystic fluid. Social History Smoking Status: Never Smoker Housing Status: lives with family Occupation Status: retired Allergies Coded Allergies: No Known Allergies (Unverified , 04/16/16) Current Medications Home Meds and Scripts Medications Dose Route/Sig Max Daily Dose Days Date Category Dose Instructions Anusol-Hc (Hydrocortisone Acetate (Rectal) 25 Mg Sup 25 Mg OK BID PRN 04/16/16 Reported Meclizine HCl 25 Mg Tab 25 Mg PO TID PRN 04/16/16 Reported Nystop (Nystatin (Topical)) 100,000 Unit/Gm Pow 1 Appln TOP DAILY PRN 04/16/16 Reported Nitrostat (Nitroglycerin) 0.4 Mg Tab 0.4 Mg UT PRN PRN 04/16/16 Reported Synthroid (Levothyroxine Sodium) 150 Mcg Tab 150 Mcg PO [id number] 04/16/16 Reported EXCEPT THURSDAY Synthroid (Levothyroxine Sodium) 75 Mcg Tab 75 Mcg PO CLYDE 04/16/16 Reported Macrodantin (Nitrofurantoin Macrocrystals) 50 Mg Cap 50 Mg PO HS 04/16/16 Reported Combivent Respimat (Ipratropium-Albuterol) 1 Aer Aer 1 Puffs INH QID 04/16/16 Reported Lasix (Furosemide) 40 Mg Tab 40 Mg PO BID 04/16/16 Reported Trazodone (Trazodone HCl) 50 Mg Tab 50 Mg PO HS 04/16/16 Reported Augmentin 875-125 mg (Amoxicillin & Pot Clavulanate) 1 Tab Tab 1 Tab PO BID 04/16/16 Reported Zaroxolyn (Metolazone) 2.5 Mg Tab 2.5 Mg PO UD 04/16/16 Reported 4 hours after the first furosemide dose of the day Flonase Allergy Relief (Fluticasone Propionate (Nasal)) 50 Mcg/Act Spr 2 Sprays CASS DAILY PRN 04/16/16 Reported Aspirin Ec (Aspirin) 81 Mg Tab 81 Mg PO QAM 04/16/16 Reported Cardizem Cd (Diltiazem Hcl Coated Beads) 240 Mg Cap 240 Mg PO QAM 04/16/16 Reported Protonix (Pantoprazole Sodium) 40 Mg Tab 40 Mg PO QAM 04/16/16 Reported Neurontin (Gabapentin) 100 Mg Cap 100 Mg PO UD 04/16/16 Reported TAKE 1 CAP IN THE MORNING, 1 CAP IN THE AFTERNOON, AND 2 CAPS AT NIGHT Lipitor (Atorvastatin Calcium) 40 Mg Tab 40 Mg PO HS 04/16/16 Reported Calcium (Calcium Carbonate) 600 Mg Tab 600 Mg PO UD 04/16/16 Reported TAKE 1 TAB IN THE MORNING, 1 TAB IN THE AFTERNOON, AND 2 TABS AT NIGHT Rocaltrol (Calcitriol) 0.5 Mcg Cap 0.5 Mcg PO BID 04/16/16 Reported Roxicodone Ir (Oxycodone HCl) 5 Mg Tab 5 Mg PO Q12 04/16/16 Reported Percocet 5MG/325MG (Oxycodone/Acetaminophen) Tab 2 Tablets PO Q8 PRN 04/16/16 Reported PAIN Keppra (Levetiracetam) 500 Mg Tab 500 Mg PO BID 04/16/16 Reported Lexapro (Escitalopram Oxalate) 10 Mg Tab 10 Mg PO QAM 04/16/16 Reported Klor-Con M20 (Potassium Chloride) 20 Meq Tabcr 20 Meq PO QAM 04/16/16 Reported Vitamin D (Cholecalciferol) 1,000 Unit Tab 1,000 Unit PO QAM 04/16/16 Reported Ferrous Sulfate 325 Mg Tab 325 Mg PO BID 04/16/16 Reported Vitamin B-12 1000 Mcg (Cyanocobalamin) 1,000 Mcg Tab 1,000 Mcg PO QAM 04/16/16 Reported Review of Systems Constitutional: No chills, No fever ENT: No hearing loss Respiratory: No cough, No shortness of breath Cardiac: No chest pain, No edema Abdomen: No GI bleeding, No constipation, No diarrhea, No nausea, No pain, No vomiting Physical Exam Date Time Temp Pulse Resp B/P Pulse Ox O2 Delivery O2 Flow Rate FiO2 04/22/16 08:12 36.7 91 20 124/85 100 Nasal Cannula 2.0 04/22/16 08:00 Nasal Cannula 2.0 04/22/16 07:21 85 16 98 Nasal Cannula 2.0 04/22/16 04:15 36.4 90 20 127/76 99 Nasal Cannula 2.0 04/22/16 04:00 Nasal Cannula 2.0 04/22/16 01:44 94 16 98 Nasal Cannula 2.0 04/22/16 00:00 Nasal Cannula 2.0 04/22/16 00:00 36.4 94 18 103/61 95 Nasal Cannula 2.0 04/21/16 20:00 Nasal Cannula 2.0 04/21/16 19:48 36.8 93 16 123/77 95 Nasal Cannula 2.0 04/21/16 19:47 89 16 98 Nasal Cannula 2.0 04/21/16 16:00 Nasal Cannula 2.0 04/21/16 15:55 36.4 78 18 118/75 96 04/21/16 14:05 85 16 91 Nasal Cannula 2.0 04/21/16 12:17 36.9 59 20 115/66 94 Nasal Cannula 2.0 04/21/16 12:00 Nasal Cannula 2.0 General Appearance: no apparent distress (patient is OOB and in chair this morning) Eyes: PERRL ENT: hearing grossly normal Neck: supple, trachea midline Respiratory/Chest: lungs clear, normal breath sounds, no respiratory distress, no accessory muscle use Cardiovascular: regular rate, rhythm, no edema, no gallop, no JVD, no murmur Abdomen: normal bowel sounds, non tender, soft, no organomegaly Neurologic/Psych: alert, normal mood/affect, oriented x 3 Skin: normal color, no jaundice, warm/dry, no rash Laboratory Results Last 24 Hours Test 04/21/16 11:15 04/21/16 11:30 04/21/16 17:04 04/21/16 20:23 Bedside Glucose 181 mg/dl 172 mg/dl 193 mg/dl Total Bilirubin 1.5 mg/dl Direct Bilirubin 0.9 mg/dl Aspartate Amino Transf (AST/SGOT) 35 U/L Alanine Aminotransferase (ALT/SGPT) 47 U/L Alkaline Phosphatase 177 U/L Total Protein 6.4 gm/dl Albumin 3.1 gm/dl Test 04/22/16 05:53 White Blood Count 8.98 K/uL Red Blood Count 3.56 M/uL Hemoglobin 9.8 g/dL Hematocrit 31.9 % Mean Corpuscular Volume 89.6 fL Mean Corpuscular Hemoglobin 27.5 pg Mean Corpuscular Hemoglobin Concent 30.7 g/dl RDW Standard Deviation 56.2 fL RDW Coefficient of Variation 17.3 % Platelet Count 242 K/uL Mean Platelet Volume 10.7 fL Nucleated RBC Absolute Count (auto) 0.02 K/uL Nucleated Red Blood Cells % 0.2 % Sodium Level 137 mmol/L Potassium Level 4.5 mmol/L Chloride Level 96 mmol/L Carbon Dioxide Level 30 mmol/L Anion Gap 11.0 mmol/L Blood Urea Nitrogen 20 mg/dl Creatinine 0.84 mg/dl Est Creatinine Clear Calc Drug Dose 63.3 ml/min Estimated GFR () 77.2 Estimated GFR (Non- 66.6 BUN/Creatinine Ratio 23.6 Random Glucose 178 mg/dl Calcium Level 9.5 mg/dl Ionized Calcium 1.22 mmol/l Magnesium Level 2.1 mg/dl Impression Patient is a 76 year old female with a history of rectal bleeding (planning for outpatient scope) with a mildly elevated liver panel. This is likely secondary to decreased right heart function and impaired blood flow. This is unlikely to be secondary to a GI cause or gallbladder sludge. Plan Continue with current medications. GI to sign off. Please call with any questions. I have personally seen and examined this patient with FADI Farris. Her note reflects my findings. I agree with her impression and plan. Mild liver enzymes elevation most consistent with right sided heart failure. Chaka Danielson M.D.
[2016-04-22] MEDS ORDERED: LEVOFLOXACIN / D5W 250 MG in PREMIXED IN D5W 50 ML IV SCH (12:00)
--- NOTE | 2016-04-22 15:39 | Cardiology Follow-Up ---
Subjective General Date of Service: Apr 22, 2016. Chief Complaint: follow up CHF, AF Pt evaluation today including: conversation w/ patient, physical exam History of Present Illness The patient is a 76 year old female seen in follow up. Patient with more energy today. Denies chest pain or shortness of breath. Telemetry reveals continued AF, V -rates improved to the 90 bpm range. Allergies Coded Allergies: No Known Allergies (Unverified , 04/16/16) Social History Smoking Status: Never Smoker Hx Tobacco Use In Past Year?: No Hx Alcohol Use - Type And Amou: No Hx Substance Use - Type And Am: No Physical Exam Vital Signs Last Vital Signs Documentation Date Time Temp Pulse Resp B/P Pulse Ox O2 Delivery O2 Flow Rate FiO2 04/22/16 14:13 94 16 98 Nasal Cannula 2.0 04/22/16 11:26 36.9 115/71 Physical Exam Constitutional: Level of Distress: acutely ill, chronically ill Neck: supple Lungs: Auscultation: no wheezing, no rales/crackles Cardiovascular: Heart Auscultation: no murmurs, tachycardia, irregular rate rhythm Extremities: no edema Neurologic: Gait & Station: pertinent finding (no focal deficit, no somnolence ) Assessment and Plan Assessment and Plan Impression: 76 year old female 1. Epigastric discomfort, negative serial EKGs, occurs at rest atypical for angina 2. h/o CAD, PCI to RCA 3. H/o bio AVR 4. Persistent AF 5. electrolyte abnormalities, hypocalcemia, improved. 6. Chronic diastolic LV heart failure, new RV systolic dysfunction this admit. Plan: Continue metoprolol succinate 100 mg BID. Diltiazem CD discontinued due to severe hypocalcemia, to simplify medication therapy. Continue coumadin. Not ready for DC. Does not appear volume overloaded. Epigastric discomfort for which pt reported on admission and during recent stay at [facility] still present. Associated with supine position and taking her medications. I discussed this with Dr Danielson of GI. Apparently patient did no express this complaint to him. We agree to make the patient NPO after MN tonight to consider EGD for tomorrow if indicated. Pt is optimized from a volume standpoint, stable for sedation from cardio perspective. An Flor DO Laboratory Results Last 24 Hours Test 04/21/16 17:04 04/21/16 20:23 04/22/16 05:53 04/22/16 06:54 Bedside Glucose 172 mg/dl 193 mg/dl 166 mg/dl White Blood Count 8.98 K/uL Red Blood Count 3.56 M/uL Hemoglobin 9.8 g/dL Hematocrit 31.9 % Mean Corpuscular Volume 89.6 fL Mean Corpuscular Hemoglobin 27.5 pg Mean Corpuscular Hemoglobin Concent 30.7 g/dl RDW Standard Deviation 56.2 fL RDW Coefficient of Variation 17.3 % Platelet Count 242 K/uL Mean Platelet Volume 10.7 fL Nucleated RBC Absolute Count (auto) 0.02 K/uL Nucleated Red Blood Cells % 0.2 % Sodium Level 137 mmol/L Potassium Level 4.5 mmol/L Chloride Level 96 mmol/L Carbon Dioxide Level 30 mmol/L Anion Gap 11.0 mmol/L Blood Urea Nitrogen 20 mg/dl Creatinine 0.84 mg/dl Est Creatinine Clear Calc Drug Dose 63.3 ml/min Estimated GFR () 77.2 Estimated GFR (Non- 66.6 BUN/Creatinine Ratio 23.6 Random Glucose 178 mg/dl Calcium Level 9.5 mg/dl Ionized Calcium 1.22 mmol/l Magnesium Level 2.1 mg/dl Test 04/22/16 10:54 Bedside Glucose 223 mg/dl
[2016-04-22] MEDS: WARFARIN SOD 2 MG TAB PO SCH (15:51)
[2016-04-22 16:36] LABS: INR 2.8 (0.9-1.1); PROTHROMBIN TIME (PATIENT) 31.5 SECONDS (9.0-12.0)
--- NOTE | 2016-04-22 18:21 | Progress Note ---
Internal Med Progress Note Date of Service: Apr 22, 2016. Provider Documentation: SUBJECTIVE: resting comfortably 'afebrile ambulated ok has some cough denies sob no nausea today tolerated diet OBJECTIVE: Vital Signs-as noted below Exam: General-alert and oriented ENT-normal hearing Neck-no neck masses Lungs-cta b/l mild b/l exp wheezing no crackles Heart-s1 and s2 heard regular rate and rhythm no murmurs Abdomen-soft bowel sounds present non tender no distension Extremities-no erythema mild pedal edema present Neuro-alert and awake moves extremities Lab data as noted below. ASSESSMENT & PLAN: 76 yo F with multiple medical problems presents with vague symptoms and tretaed for symptomatic hypocalcemia. She was recently hospitalized and discharged just a few days ago-multiple hospitalizations in the past 3-4 months. 1. COPD. mild exacerbation.Cough-new, improved today. continue steroid and Levaquin.Cxr no infiltrate. 2. Nausea & vomiting improved. Appreciate GI inoputs. 4. Chronic atrial fibrillation-. S/p AV replacement x 2. Cardiology stopped diltiazem(hypocalcemia) and cahnged to toprol xl 100mg bid. On coumadin. Inr 2.8 today. 5. 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 Was 6.1 at recent discharge a few days ago, is 6.5 on admission to this hospital. Symptoms on presentations unclear, however, overnight she has had facial numbness and tetany/spasms in her hands and legs that has improved with the calcium infusion-stable on PO supplementation now for several days. Last seen by [facility] in 2013.Needs followup. 6. Acute right heart failure-recent admission to [facility] for acute decompensation with recent discharge. Diuretics held initially. Restart diuretics at 50% on 04/19. Consult Cardiology for assistance with management. . 7. Acute pancreatitis- resolved. tSeen by GI. Advancing diet to regular now. Diuretics restarted at 50%. 8. Acute on Chronic UTI-r Switched to Keflex per pharmacy recs 04/19.F/u with pcp. 9. Hemorrhoids-new report of hemorrhoids that cause some rectal bleeding; this has gone on for about 1 year. Seen by GI -recommended outpatient scope unless bleeding reoccurs. On Coumadin. Will monitor. 10. CAD- H/o CABG . Appreciate Cards recs. 11. Glucose intolerance. -ISS with coverage, A1C 7.1 12.. Esophageal reflux. Continue PPI. 14. History of cerebrovascular accident with aphasia, but no other acute deficiency at this time. 15. Hypothyroidism-iatrogenic, continue replacement DVT proph-Coumadin Full code DISPOSITION pt/ot to be determined Vital Signs: Date Time Temp Pulse Resp B/P Pulse Ox O2 Delivery O2 Flow Rate FiO2 04/22/16 16:05 91 Nasal Cannula 2.0 04/22/16 15:22 36.7 100 24 122/68 97 Nasal Cannula 2.0 04/22/16 14:13 94 16 98 Nasal Cannula 2.0 04/22/16 12:00 Nasal Cannula 2.0 04/22/16 11:26 36.9 85 20 115/71 97 Room Air 04/22/16 08:12 36.7 91 20 124/85 100 Nasal Cannula 2.0 04/22/16 08:00 Nasal Cannula 2.0 04/22/16 07:21 85 16 98 Nasal Cannula 2.0 04/22/16 04:15 36.4 90 20 127/76 99 Nasal Cannula 2.0 04/22/16 04:00 Nasal Cannula 2.0 04/22/16 01:44 94 16 98 Nasal Cannula 2.0 04/22/16 00:00 Nasal Cannula 2.0 04/22/16 00:00 36.4 94 18 103/61 95 Nasal Cannula 2.0 04/21/16 20:00 Nasal Cannula 2.0 04/21/16 19:48 36.8 93 16 123/77 95 Nasal Cannula 2.0 04/21/16 19:47 89 16 98 Nasal Cannula 2.0 Lab Results: Results Past 24 Hours Test 04/21/16 20:23 04/22/16 05:53 04/22/16 06:54 04/22/16 10:54 Range/Units Bedside Glucose 193 166 223 70-90 mg/dl White Blood Count 8.98 4.8-10.8 K/uL Red Blood Count 3.56 4.2-5.4 M/uL Hemoglobin 9.8 12.0-16.0 g/dL Hematocrit 31.9 37-47 % Mean Corpuscular Volume 89.6 80-100 fL Mean Corpuscular Hemoglobin 27.5 25-34 pg Mean Corpuscular Hemoglobin Concent 30.7 32-36 g/dl RDW Standard Deviation 56.2 36.4-46.3 fL RDW Coefficient of Variation 17.3 11.5-14.5 % Platelet Count 242 130-400 K/uL Mean Platelet Volume 10.7 7.4-10.4 fL Nucleated RBC Absolute Count (auto) 0.02 0-0 K/uL Nucleated Red Blood Cells % 0.2 % Sodium Level 137 136-145 mmol/L Potassium Level 4.5 3.5-5.1 mmol/L Chloride Level 96 98-107 mmol/L Carbon Dioxide Level 30 21-32 mmol/L Anion Gap 11.0 3-11 mmol/L Blood Urea Nitrogen 20 7-18 mg/dl Creatinine 0.84 0.60-1.20 mg/dl Est Creatinine Clear Calc Drug Dose 63.3 ml/min Estimated GFR () 77.2 Estimated GFR (Non- 66.6 BUN/Creatinine Ratio 23.6 10-20 Random Glucose 178 70-99 mg/dl Calcium Level 9.5 8.5-10.1 mg/dl Ionized Calcium 1.22 1.12-1.32 mmol/l Magnesium Level 2.1 1.8-2.4 mg/dl Test 04/22/16 15:59 04/22/16 16:15 Range/Units Bedside Glucose 248 70-90 mg/dl Prothrombin Time 31.5 9.0-12.0 SECONDS Prothromb Time International Ratio 2.8 0.9-1.1
[2016-04-22] MEDS: TRAZODONE HCL 50 MG TAB PO SCH (20:30)
[2016-04-22] MEDS: ATORVASTATIN 20 MG TAB PO SCH (20:31)
[2016-04-23] VITALS (17 sets, daily range): BP systolic 101–146; BP diastolic 56–90; PULSE 82–120; TEMP 36.3–36.7; O2SAT 92–99
[2016-04-23] MEDS: HYDROCODONE/HOMATROPINE SYRUP 5MG/1.5MG 5ML UDP PO PRN (01:58)
[2016-04-23] MEDS: IPRATROPIUM BROMIDE NEB SOLN 0.02% 2.5 ML VIAL INH SCH ×4 (03:03→20:12)
[2016-04-23] MEDS: LEVALBUTEROL 1.25MG/0.5ML NEB INH SCH ×4 (03:03→20:12)
[2016-04-23] MEDS: ONDANSETRON INJ 2 MG/ML 2 ML VIAL IV. SCH ×2 (04:15→11:22)
[2016-04-23] MEDS: METHYLPREDNISOLONE IV 40 MG in SYRINGE 0 ML IV SCH ×2 (04:15→11:22)
[2016-04-23] MEDS: LEVOTHYROXINE 150 MCG TAB PO SCH ×2 (05:52→07:39)
[2016-04-23 07:20] LABS: HEMATOCRIT 33.1 % (37-47); MEAN CELL VOLUME 89.7 fL (80-100); MEAN CORPUSCULAR HEMOGLOBIN 27.1 pg (25-34); MEAN CORPUSCULAR HGB CONC 30.2 g/dl (32-36); PLATELET COUNT 283 K/uL (130-400); RED BLOOD COUNT 3.69 M/uL (4.2-5.4); WHITE BLOOD COUNT 14.84 K/uL (4.8-10.8)
[2016-04-23 07:26] LABS: INR 2.5 (0.9-1.1); PROTHROMBIN TIME (PATIENT) 27.7 SECONDS (9.0-12.0)
[2016-04-23] MEDS: INSULIN ASPART 100 UNITS/ML 3 ML PEN SC SCH ×4 (07:35→21:25)
[2016-04-23] MEDS: CALCIUM CARBONATE 1250MG TAB PO SCH ×3 (07:36→21:18)
[2016-04-23] MEDS: CALCITRIOL 0.25 MCG CAP PO SCH ×2 (07:37→21:17)
[2016-04-23] MEDS: CHOLECALCIFEROL 1000 INTER.UNIT TAB PO SCH (07:37)
[2016-04-23] MEDS: CEPHALEXIN MONOHYDRATE 500 MG CAP PO SCH ×2 (07:37→21:16)
[2016-04-23] MEDS: ASPIRIN 81 MG ECTAB PO SCH (07:38)
[2016-04-23] MEDS: GABAPENTIN 100 MG CAP PO SCH ×3 (07:38→21:17)
[2016-04-23] MEDS: LEVETIRACETAM 500 MG TAB PO SCH ×2 (07:38→21:16)
[2016-04-23] MEDS: CALCIUM POLYCARBOPHIL 1 TAB PO SCH (07:38)
[2016-04-23] MEDS: METOPROLOL SUCC 50MG EXT REL TAB PO SCH ×2 (07:39→21:18)
[2016-04-23] MEDS: FUROSEMIDE 40 MG TAB PO SCH (07:39)
[2016-04-23] MEDS: PANTOprazole SOD 40 MG TAB PO SCH (07:39)
[2016-04-23] MEDS: FERROUS SULFATE 325 MG TAB PO SCH ×2 (07:39→21:18)
[2016-04-23] MEDS: ESCITALOPRAM OXALATE 10 MG TAB PO SCH (07:40)
[2016-04-23] MEDS: CYANOCOBALAMIN 500 MCG TAB (VIT B-12) PO SCH (07:40)
[2016-04-23] MEDS: POTASSIUM CHLORIDE 20 MEQ TABCR PO SCH (07:40)
[2016-04-23 07:55] LABS: BUN/CREATININE RATIO 28.6 (10-20); CALCIUM 10.6 mg/dl (8.5-10.1); CREATININE 1.1 mg/dl (0.60-1.20); MAGNESIUM 2.4 mg/dl (1.8-2.4); POTASSIUM 4.9 mmol/L (3.5-5.1)
[2016-04-23] MEDS: POLYETHYLENE (MIRALAX) 17 GM PACK PO SCH (08:35)
--- NOTE | 2016-04-23 09:12 | Progress Note ---
Progress Note Pt is a 76 y/o female previously seen by our service for BRBPR after a constipation episode (resolved) and elevated LFTs suspected to be related to congestive hepatopathy as she has hx of Right HF. She is c/o epigastric abd pain , w/o certain time of the day. Also occasional dysphagia, no n/v. She is currently on Protonix 40mg daily. After discussion between Dr. Flor and Dr. Danielson yesterday, it is decided that pt will undergo EGD evaluation today. Pls keep her NPO. Noted that she did receive Coumadin 2mg and ASA 81mg yesterday , INR 2.5. Dr. Danielson aware. VS, labs reviewed. Pt laying in bed, awake, alert. Bilateral lungs diminished, she is on O2 2L per NC, HR regular, + TTP over epigastric area only. Abd otherwise soft, BS hypoactive. (Antonina Nelson, LEAD [employer]DELING [employer]ER)
[2016-04-23] MEDS ORDERED: LIDOCAINE HCL 2% 2 ML VIAL (20MG/ML) ONE (09:55)
[2016-04-23] MEDS ORDERED: PROPOFOL IV EMULSION 10 MG/ML 20 ML VIAL IV ONE (09:55)
--- NOTE | 2016-04-23 10:26 | GI REPORT ---
Procedure Date: 04/23/2016 9:59 AM Procedure: Upper GI endoscopy Indications: Epigastric abdominal pain Medicines: See the Anesthesia note for documentation of the administered medications Complications: No immediate complications. Estimated Blood Loss: Estimated blood loss: none. Procedure: Pre-Anesthesia Assessment: - Prior to the procedure, a History and Physical was performed, and patient medications, allergies and sensitivities were reviewed. The patient's tolerance of previous anesthesia was reviewed. - The risks and benefits of the procedure and the sedation options and risks were discussed with the patient. All questions were answered and informed consent was obtained. - Patient identification and proposed procedure were verified prior to the procedure by the physician and the nurse. The procedure was verified in the pre-procedure area. - Pre-procedure physical examination revealed no contraindications to sedation. - After reviewing the risks and benefits, the patient was deemed in satisfactory condition to undergo the procedure. After obtaining informed consent, the endoscope was passed under direct vision. Throughout the procedure, the patient's blood pressure, pulse, and oxygen saturations were monitored continuously. The scope was introduced through the mouth, and advanced to the third part of duodenum. The upper GI endoscopy was accomplished without difficulty. The patient tolerated the procedure well. Findings: The esophagus was normal. A small amount of food (residue) was found in the gastric body. The examined duodenum was normal. The cardia and gastric fundus were normal on retroflexion. Impression: - Normal esophagus. - A small amount of food (residue) in the stomach. - No ulcers seen. - Normal examined duodenum. - No specimens collected. Recommendation: - [facility] care. Chaka Danielson M.D. Chaka Danielson MD 04/23/2016 10:25:25 AM This report has been signed electronically. Note Initiated On: 04/23/2016 9:59 AM
[2016-04-23] MEDS: LEVOFLOXACIN 250 MG TAB PO SCH (11:22)
--- NOTE | 2016-04-23 11:56 | Anesthesiology Progress Note ---
Anesthesia Post Op Note Date & Time Apr 23, 2016 at 11:56 Vital Signs Pain Intensity: 0.0 Vital Signs Past 12 Hours Date Time Temp Pulse Resp B/P Pulse Ox O2 Delivery O2 Flow Rate FiO2 04/23/16 11:40 100 20 120/75 96 Nasal Cannula 2.0 04/23/16 11:25 36.7 109 22 118/78 96 Nasal Cannula 2.0 04/23/16 11:04 92 22 148/91 98 Nasal Cannula 2 04/23/16 10:35 90 22 138/90 94 Room Air 3 04/23/16 10:20 90 20 130/67 97 Mask 10 04/23/16 09:49 36.7 90 20 129/71 96 Nasal Cannula 2 04/23/16 08:37 36.6 104 20 132/82 97 Nasal Cannula 2.0 04/23/16 08:00 Nasal Cannula 2.0 04/23/16 07:50 36.6 104 20 132/82 97 2.0 04/23/16 07:18 97 16 97 Nasal Cannula 2.0 04/23/16 04:42 36.4 100 20 113/76 97 Nasal Cannula 2.0 04/23/16 04:00 Nasal Cannula 2.0 04/23/16 03:03 112 16 94 Nasal Cannula 2.0 04/23/16 00:02 36.6 120 18 146/90 93 Nasal Cannula 2.0 04/22/16 23:59 Nasal Cannula 2.0 Notes Mental Status: alert / awake / arousable, participated in evaluation Pt Amnestic to Procedure: Yes Nausea / Vomiting: adequately controlled Pain: adequately controlled Airway Patency, RR, SpO2: stable & adequate BP & HR: stable & adequate Hydration State: stable & adequate Anesthetic Complications: no major complications apparent
--- NOTE | 2016-04-23 15:14 | Cardiology Follow-Up ---
Subjective General Date of Service: Apr 23, 2016. Chief Complaint: follow up CHF, AF Pt evaluation today including: conversation w/ patient, physical exam History of Present Illness The patient is a 76 year old female seen in follow up. Patient tolerated EGD well this am. Allergies Coded Allergies: No Known Allergies (Unverified , 04/16/16) Social History Smoking Status: Never Smoker Hx Tobacco Use In Past Year?: No Hx Alcohol Use - Type And Amou: No Hx Substance Use - Type And Am: No Physical Exam Vital Signs Last Vital Signs Documentation Date Time Temp Pulse Resp B/P Pulse Ox O2 Delivery O2 Flow Rate FiO2 04/23/16 14:19 88 16 97 Nasal Cannula 2.0 04/23/16 12:55 36.7 122/79 Physical Exam Constitutional: Level of Distress: acutely ill, chronically ill Neck: supple Lungs: Auscultation: no wheezing, no rales/crackles Cardiovascular: Heart Auscultation: no murmurs, tachycardia, irregular rate rhythm Extremities: no edema Neurologic: Gait & Station: pertinent finding (no focal deficit, no somnolence ) Assessment and Plan Assessment and Plan Impression: 76 year old female 1. Epigastric discomfort, negative serial EKGs, occurs at rest atypical for angina, negative EGD 2. h/o CAD, PCI to RCA 3. H/o bio AVR 4. Persistent AF 5. electrolyte abnormalities, hypocalcemia, improved. 6. Chronic diastolic LV heart failure, new RV systolic dysfunction this admit. Plan: Continue metoprolol succinate 100 mg BID. Diltiazem CD discontinued due to severe hypocalcemia, to simplify medication therapy. Continue coumadin. Not ready for DC. Not overtly volume overloaded. Continue furosemide 40 mg PO daily. An Flor DO Laboratory Results Last 24 Hours Test 04/22/16 15:59 04/22/16 16:15 04/22/16 20:40 04/23/16 06:30 Bedside Glucose 248 mg/dl 248 mg/dl Prothrombin Time 31.5 SECONDS Prothromb Time International Ratio 2.8 Sodium Level 133 mmol/L Potassium Level 4.9 mmol/L Chloride Level 93 mmol/L Carbon Dioxide Level 33 mmol/L Anion Gap 7.0 mmol/L Blood Urea Nitrogen 32 mg/dl Creatinine 1.10 mg/dl Est Creatinine Clear Calc Drug Dose 48.3 ml/min Estimated GFR () 55.7 Estimated GFR (Non- 48.1 BUN/Creatinine Ratio 28.6 Random Glucose 288 mg/dl Calcium Level 10.6 mg/dl Magnesium Level 2.4 mg/dl Test 04/23/16 06:39 04/23/16 06:48 04/23/16 11:36 White Blood Count 14.84 K/uL Red Blood Count 3.69 M/uL Hemoglobin 10.0 g/dL Hematocrit 33.1 % Mean Corpuscular Volume 89.7 fL Mean Corpuscular Hemoglobin 27.1 pg Mean Corpuscular Hemoglobin Concent 30.2 g/dl RDW Standard Deviation 57.0 fL RDW Coefficient of Variation 17.5 % Platelet Count 283 K/uL Mean Platelet Volume 11.0 fL Prothrombin Time 27.7 SECONDS Prothromb Time International Ratio 2.5 Ionized Calcium 1.32 mmol/l Bedside Glucose 296 mg/dl 248 mg/dl
[2016-04-23] MEDS: WARFARIN SOD 2 MG TAB PO SCH (17:04)
--- NOTE | 2016-04-23 17:55 | Progress Note ---
Internal Med Progress Note Date of Service: Apr 23, 2016. Provider Documentation: SUBJECTIVE: sitting on the chair comfortably s/p egd today denies sob or chest pain has some lower abdominal pain on coughing OBJECTIVE: Vital Signs-as noted below Exam: General-alert and oriented ENT-normal hearing Neck-no neck masses Lungs-cta b/l no wheezing no crackles Heart-s1 and s2 heard regular rate and rhythm no murmurs Abdomen-soft bowel sounds present non tender no distension Extremities-no erythema pedal edema present Neuro-alert and awake moves extremities Lab data as noted below. ASSESSMENT & PLAN: 76 yo F with multiple medical problems presents with vague symptoms and tretaed for symptomatic hypocalcemia. She was recently hospitalized and discharged just a few days ago-multiple hospitalizations in the past 3-4 months. 1. COPD. mild exacerbation.Cough-new, improved today. continue steroid and Levaquin.Cxr no infiltrate.Will taper the steroids 2. Nausea & vomiting improved. Appreciate GI inputs.s/p egd today- unremarkable 4. Chronic atrial fibrillation-. S/p AV replacement x 2. Cardiology stopped diltiazem(hypocalcemia) and changed to Toprol xl 100mg bid. On Coumadin. Inr 2.5 today. 5. 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 Was 6.1 at recent discharge a few days ago, is 6.5 on admission to this hospital. Symptoms on presentations unclear, however, overnight she has had facial numbness and tetany/spasms in her hands and legs that has improved with the calcium infusion-stable on PO supplementation now for several days. Last seen by Karo in 2013.Needs followup.Ca levels somewhat high today. will f/u labs 6. Acute right heart failure-recent admission to [facility] for acute decompensation with recent discharge. Diuretics held initially. Restart diuretics at 50% on 04/19. Consult Cardiology for assistance with management. Labs some hat on dehydration side. will d/w cardiology. 7. Acute pancreatitis- resolved. tSeen by GI. Tolerating regular diet to regular now. Diuretics restarted at 50%. 8. Acute on Chronic UTI-r Switched to Keflex per pharmacy recs 04/19.F/u with pcp. 9. Hemorrhoids-new report of hemorrhoids that cause some rectal bleeding; this has gone on for about 1 year. Seen by GI -recommended outpatient scope unless bleeding reoccurs. On Coumadin. Will monitor. 10. CAD- H/o CABG . Appreciate Cards recs. 11. Glucose intolerance. -ISS with coverage, A1C 7.1 12.. Esophageal reflux. Continue PPI. 14. History of cerebrovascular accident with aphasia, but no other acute deficiency at this time. 15. Hypothyroidism-iatrogenic, continue replacement DVT proph-Coumadin Full code DISPOSITION pt/ot to be determined Vital Signs: Date Time Temp Pulse Resp B/P Pulse Ox O2 Delivery O2 Flow Rate FiO2 04/23/16 16:14 Nasal Cannula 2.0 04/23/16 15:42 36.7 96 24 119/73 95 Nasal Cannula 2.0 04/23/16 14:19 88 16 97 Nasal Cannula 2.0 04/23/16 12:55 36.7 93 20 122/79 99 Nasal Cannula 2.0 04/23/16 12:25 95 20 109/67 95 Nasal Cannula 2.0 04/23/16 12:10 96 20 111/74 97 Nasal Cannula 2.0 04/23/16 12:00 Nasal Cannula 2.0 04/23/16 11:55 98 20 110/72 96 Nasal Cannula 2.0 04/23/16 11:40 100 20 120/75 96 Nasal Cannula 2.0 04/23/16 11:25 36.7 109 22 118/78 96 Nasal Cannula 2.0 04/23/16 11:04 92 22 148/91 98 Nasal Cannula 2 04/23/16 10:35 90 22 138/90 94 Room Air 3 04/23/16 10:20 90 20 130/67 97 Mask 10 04/23/16 09:49 36.7 90 20 129/71 96 Nasal Cannula 2 04/23/16 08:37 36.6 104 20 132/82 97 Nasal Cannula 2.0 04/23/16 08:00 Nasal Cannula 2.0 04/23/16 07:50 36.6 104 20 132/82 97 2.0 04/23/16 07:18 97 16 97 Nasal Cannula 2.0 04/23/16 04:42 36.4 100 20 113/76 97 Nasal Cannula 2.0 04/23/16 04:00 Nasal Cannula 2.0 04/23/16 03:03 112 16 94 Nasal Cannula 2.0 04/23/16 00:02 36.6 120 18 146/90 93 Nasal Cannula 2.0 04/22/16 23:59 Nasal Cannula 2.0 04/22/16 20:24 106 16 97 Nasal Cannula 2.0 04/22/16 20:10 91 Nasal Cannula 2.0 04/22/16 19:45 37.0 100 20 120/67 95 Nasal Cannula 2.0 Lab Results: Results Past 24 Hours Test 04/22/16 20:40 04/23/16 06:30 04/23/16 06:39 04/23/16 06:48 Range/Units Bedside Glucose 248 296 70-90 mg/dl Sodium Level 133 136-145 mmol/L Potassium Level 4.9 3.5-5.1 mmol/L Chloride Level 93 98-107 mmol/L Carbon Dioxide Level 33 21-32 mmol/L Anion Gap 7.0 3-11 mmol/L Blood Urea Nitrogen 32 7-18 mg/dl Creatinine 1.10 0.60-1.20 mg/dl Est Creatinine Clear Calc Drug Dose 48.3 ml/min Estimated GFR () 55.7 Estimated GFR (Non- 48.1 BUN/Creatinine Ratio 28.6 10-20 Random Glucose 288 70-99 mg/dl Calcium Level 10.6 8.5-10.1 mg/dl Magnesium Level 2.4 1.8-2.4 mg/dl White Blood Count 14.84 4.8-10.8 K/uL Red Blood Count 3.69 4.2-5.4 M/uL Hemoglobin 10.0 12.0-16.0 g/dL Hematocrit 33.1 37-47 % Mean Corpuscular Volume 89.7 80-100 fL Mean Corpuscular Hemoglobin 27.1 25-34 pg Mean Corpuscular Hemoglobin Concent 30.2 32-36 g/dl RDW Standard Deviation 57.0 36.4-46.3 fL RDW Coefficient of Variation 17.5 11.5-14.5 % Platelet Count 283 130-400 K/uL Mean Platelet Volume 11.0 7.4-10.4 fL Prothrombin Time 27.7 9.0-12.0 SECONDS Prothromb Time International Ratio 2.5 0.9-1.1 Ionized Calcium 1.32 1.12-1.32 mmol/l Test 04/23/16 11:36 Range/Units Bedside Glucose 248 70-90 mg/dl
[2016-04-23] MEDS: TRAZODONE HCL 50 MG TAB PO SCH (21:15)
[2016-04-23] MEDS: ATORVASTATIN 20 MG TAB PO SCH (21:19)
[2016-04-24] VITALS (15 sets, daily range): BP systolic 114–136; BP diastolic 68–88; PULSE 82–110; TEMP 36.5–36.8; O2SAT 91–98
[2016-04-24] MEDS: LEVALBUTEROL 1.25MG/0.5ML NEB INH SCH ×4 (01:32→19:26)
[2016-04-24] MEDS: IPRATROPIUM BROMIDE NEB SOLN 0.02% 2.5 ML VIAL INH SCH ×4 (01:32→19:26)
[2016-04-24] MEDS: ESCITALOPRAM OXALATE 10 MG TAB PO SCH (07:53)
[2016-04-24] MEDS: FUROSEMIDE 40 MG TAB PO SCH (07:53)
[2016-04-24] MEDS: ASPIRIN 81 MG ECTAB PO SCH (07:54)
[2016-04-24] MEDS: CYANOCOBALAMIN 500 MCG TAB (VIT B-12) PO SCH (07:54)
[2016-04-24] MEDS: CALCIUM CARBONATE 1250MG TAB PO SCH ×2 (07:54→14:24)
[2016-04-24] MEDS: FERROUS SULFATE 325 MG TAB PO SCH ×2 (07:54→20:57)
[2016-04-24] MEDS: POTASSIUM CHLORIDE 20 MEQ TABCR PO SCH (07:55)
[2016-04-24] MEDS: PANTOprazole SOD 40 MG TAB PO SCH (07:55)
[2016-04-24] MEDS: CHOLECALCIFEROL 1000 INTER.UNIT TAB PO SCH (07:55)
[2016-04-24] MEDS: LEVOFLOXACIN 250 MG TAB PO SCH (07:55)
[2016-04-24] MEDS: CALCIUM POLYCARBOPHIL 1 TAB PO SCH (07:55)
[2016-04-24] MEDS: METOPROLOL SUCC 50MG EXT REL TAB PO SCH ×2 (07:55→20:57)
[2016-04-24] MEDS: LEVETIRACETAM 500 MG TAB PO SCH ×2 (07:56→20:57)
[2016-04-24] MEDS: CEPHALEXIN MONOHYDRATE 500 MG CAP PO SCH ×2 (07:56→20:56)
[2016-04-24] MEDS: GABAPENTIN 100 MG CAP PO SCH ×3 (07:57→20:53)
[2016-04-24] MEDS: CALCITRIOL 0.25 MCG CAP PO SCH ×2 (07:58→20:55)
[2016-04-24] MEDS: POLYETHYLENE (MIRALAX) 17 GM PACK PO SCH (08:08)
[2016-04-24] MEDS: INSULIN ASPART 100 UNITS/ML 3 ML PEN SC SCH ×4 (08:11→20:51)
[2016-04-24 10:15] LABS: BLOOD UREA NITROGEN 33 mg/dl (7-18); BUN/CREATININE RATIO 29.7 (10-20); CALCIUM 10.6 mg/dl (8.5-10.1); CARBON DIOXIDE 27 mmol/L (21-32); CHLORIDE 95 mmol/L (98-107); GLUCOSE 271 mg/dl (70-99); SODIUM 132 mmol/L (136-145)
--- NOTE | 2016-04-24 12:12 | DIAGNOSTIC IMAGING REPORT ---
CHEST ONE VIEW PORTABLE CLINICAL HISTORY: Pulmonary vascular congestion COMPARISON STUDY: 04/22/2016 FINDINGS: There are postsurgical changes of a midline sternotomy. The heart is enlarged. There is resolving pulmonary vascular congestion. There is no lobar consolidation. The examination is somewhat limited from a technical standpoint due to the portable nature and body habitus.[ IMPRESSION: Cardiomegaly and resolving interstitial edema. No evidence of focal pulmonary consolidation Electronically signed by: Hector Venegas M.D. 04/24/2016 12:10 PM Dictated Date/Time: 04/24/2016 12:09 PM
--- NOTE | 2016-04-24 15:36 | Progress Note ---
Internal Med Progress Note Date of Service: Apr 24, 2016. Provider Documentation: SUBJECTIVE: sitting on the chair comfortably says have lot of cough lower abdomen hurts when she coughs afebrile eating ok moved bowels OBJECTIVE: Vital Signs-as noted below Exam: General-alert and oriented ENT-normal hearing Neck-no neck masses Lungs-cta b/l no wheezing mild bibasilar crackles Heart-s1 and s2 heard regular rate and rhythm no murmurs Abdomen-soft bowel sounds present non tender no distension Extremities-no erythema pedal edema present Neuro-alert and awake moves extremities Lab data as noted below. ASSESSMENT & PLAN: 76 yo F with multiple medical problems presents with vague symptoms and tretaed for symptomatic hypocalcemia. She was recently hospitalized and discharged just a few days ago-multiple hospitalizations in the past 3-4 months. 1. COPD. mild exacerbation.Cough-new, . continue steroid and Levaquin.repeat Cxr today no infiltrate.Will monitor 2. Nausea & vomiting improved. Appreciate GI inputs.s/p egd - unremarkable 4. Chronic atrial fibrillation-. S/p AV replacement x 2. Cardiology stopped diltiazem(hypocalcemia) and changed to Toprol xl 100mg bid. On Coumadin. Inr 2.5 today. 5. 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 Was 6.1 at recent discharge a few days ago, is 6.5 on admission to this hospital. Symptoms on presentations unclear, however, overnight she has had facial numbness and tetany/spasms in her hands and legs that has improved with the calcium infusion-stable on PO supplementation now for several days. Last seen by Karo in 2013.Needs followup.Ca levels somewhat high now.Will hold supplementaion for now. Discussed and consulted nephrology-await inputs 6. Acute right heart failure-recent admission to [facility] for acute decompensation with recent discharge. Diuretics held initially. Restart diuretics at 50% on 04/19. Consult Cardiology for assistance with management. Labs some hat on dehydration side. will d/w cardiology.To continue current diuretics 7. Acute pancreatitis- resolved. tSeen by GI. Tolerating regular diet to regular now. stable 8. Acute on Chronic UTI-r Switched to Keflex per pharmacy recs 04/19.F/u with pcp. 9. Hemorrhoids-new report of hemorrhoids that cause some rectal bleeding; this has gone on for about 1 year. Seen by GI -recommended outpatient scope unless bleeding reoccurs. On Coumadin. Will monitor. 10. CAD- H/o CABG . Appreciate Cards recs. 11. Glucose intolerance. -ISS with coverage, A1C 7.1 12.. Esophageal reflux. Continue PPI. 14. History of cerebrovascular accident with aphasia, but no other acute deficiency at this time. 15. Hypothyroidism-iatrogenic, continue replacement DVT proph-Coumadin Full code DISPOSITION pt/ot to be determined Vital Signs: Date Time Temp Pulse Resp B/P Pulse Ox O2 Delivery O2 Flow Rate FiO2 04/24/16 12:00 Nasal Cannula 2.0 04/24/16 11:10 36.7 110 24 114/68 92 Nasal Cannula 2.0 04/24/16 08:00 Nasal Cannula 2.0 04/24/16 07:46 36.5 108 24 124/81 91 2.0 04/24/16 07:43 104 16 98 Nasal Cannula 2.0 04/24/16 04:20 36.5 100 18 116/71 95 Nasal Cannula 2.0 04/24/16 04:00 Nasal Cannula 2.0 04/24/16 01:33 82 16 96 Nasal Cannula 2.0 04/24/16 00:00 Nasal Cannula 2.0 04/23/16 23:50 36.3 108 18 122/78 96 Nasal Cannula 04/23/16 20:12 82 16 97 Nasal Cannula 2.0 04/23/16 20:00 Nasal Cannula 04/23/16 19:13 36.4 106 24 101/56 92 Nasal Cannula 2.0 04/23/16 16:14 Nasal Cannula 2.0 04/23/16 15:42 36.7 96 24 119/73 95 Nasal Cannula 2.0 Lab Results: Results Past 24 Hours Test 04/23/16 16:23 04/23/16 20:56 04/24/16 06:45 04/24/16 09:18 Range/Units Bedside Glucose 257 274 235 70-90 mg/dl Sodium Level 132 136-145 mmol/L Potassium Level 3.5-5.1 mmol/L Chloride Level 95 98-107 mmol/L Carbon Dioxide Level 27 21-32 mmol/L Anion Gap 10.0 3-11 mmol/L Blood Urea Nitrogen 33 7-18 mg/dl Creatinine 1.10 0.60-1.20 mg/dl Est Creatinine Clear Calc Drug Dose 48.6 ml/min Estimated GFR () 55.7 Estimated GFR (Non- 48.1 BUN/Creatinine Ratio 29.7 10-20 Random Glucose 271 70-99 mg/dl Calcium Level 10.6 8.5-10.1 mg/dl Test 04/24/16 10:30 04/24/16 11:06 Range/Units Potassium Level 5.3 3.5-5.1 mmol/L Bedside Glucose 250 70-90 mg/dl Microbiology Results 04/24/16 MRSA DNA Surveillance Screen - Final, Complete Specimen Negative for MRSA by DNA Probe
[2016-04-24] MEDS: WARFARIN SOD 2 MG TAB PO SCH (15:43)
--- NOTE | 2016-04-24 18:10 | NEPHROLOGY CONSULTATION ---
DATE OF CONSULTATION: 04/24/2016 ATTENDING OF RECORD: Dr. Cabrera. REASON FOR CONSULTATION: Calcium issues. HISTORY OF PRESENT ILLNESS: This is a 76-year-old female who has significant history of thyroid surgery secondary to goiter, many, many years ago afterwards was placed on thyroid replacement and also was given calcium and calcitriol. The patient was being followed by endocrinology in [place]; however, last seen about 3 years ago. The patient also has atrial fibrillation with an aortic valve replacement as well as signs of right-sided heart failure with worsening lower extremity edema and abdominal bloating and does have underlying seizure disorder as well with a previous stroke causing memory issues. The patient was last seen by Dr. 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 She became hypocalcemic due to surgical hypoparathyroidism shortly after surgery which has persisted over time. Notes indicate previously when she was seeing Dr. Ogden that she absolutely must be on a calcium supplement and calcitriol in order to keep her calcium levels normal. She had been off calcium vitamin D, then restarted in [id number]. She is also on levothyroxine for the surgical hypothyroidism. The patient's calciums were routinely in the 8 and 9s in 2014 and 2015 and then 03/17/2016 went down to 7.2, on April 04 went down to 6.2, April 07 6.1, April 08 6, April 09 6.1, April 16 up to 6.5. The patient's vitamin D levels last checked were 35 on February 2016 with a PTH that is always chronically low secondary to the surgical hypoparathyroidism. Last PTH checked was in 2013, which was low at 17. The patient was recently in [facility] in the beginning of April with shortness of breath and had a calcium level of 6.1 while there. The patient was on calcitriol 0.5 mcg twice a day and calcium 600 mg 3 times a day and vitamin D 1000 units a day. The patient was given calcitriol half mcg p.o. b.i.d. starting on the and calcium carbonate 1250 mg p.o. t.i.d., also received 3 grams of IV calcium gluconate on the and calcium levels on this admission went from 6.5 on the , 6.9 on the 12th to 7.6 on the 13, to 9.2 on the 14 and now recently has been elevated at 10.6 on the 18th and 19. The patient's weights, though unclear how accurate were 93 kilograms on the 12th and now currently 97 kilograms despite being on Lasix 40 mg a day. PAST MEDICAL HISTORY: Stroke with mild aphagia and poor memory, underlying AFib, status post aortic valve replacement on anticoagulation; coronary artery disease, diastolic heart failure, esophageal reflux, impaired glucose tolerance, underlying seizure disorder, hypothyroidism, surgical hypoparathyroidism, vitamin D deficiency. PAST SURGICAL HISTORY: Ablation for AFib, stenting of the femoral and popliteal arteries, aortic valve replacement in 2006, CABG with prosthetic valve, , cataract surgeries, goiter removal resulting in surgical hypothyroidism and surgical hypoparathyroidism, total knee and hip replacement on the right side. FAMILY HISTORY: Significant for heart disease. SOCIAL HISTORY: No tobacco. Occasional alcohol. Lives with granddaughter who takes care of her medications. CURRENT MEDICATIONS: Aspirin 81 mg daily, Lipitor 40 mg at night, calcitriol 0.5 mcg b.i.d., calcium carbonate 1250 mg p.o. t.i.d., Keflex 500 mg p.o. b.i.d., vitamin D 1000 units daily, vitamin B12 1000 mcg daily, Lexapro 10 mg daily, iron 325 mg p.o. b.i.d., Lasix 40 mg daily, Neurontin 100 mg p.o. b.i.d. and 200 mg at night, sliding-scale insulin,, Atrovent and Xopenex inhalers, Keppra 500 mg p.o. b.i.d., Levaquin 250 mg p.o. daily, Synthroid 150 mcg daily, Toprol-XL 100 mg p.o. b.i.d., Protonix 40 mg p.o. daily, MiraLax 17 grams daily, prednisone 40 mg daily, Coumadin 2 mg daily, trazodone 50 mg at night. REVIEW OF SYSTEMS: Significant for abdominal bloating, fatigue, shortness of breath, worsening swelling in the lower extremities. Denies chest pain. Denies nausea, vomiting. Denies headaches. Denies blurry vision. Denies rash or itching. Denies dysuria. No difficulty swallowing. No significant weight gains or weight losses. All other review of systems is otherwise negative. PHYSICAL EXAMINATION: VITAL SIGNS: Temperature is 36.7, pulse 110, respiratory rate is 24, blood pressure is 114/68, satting 92% on 2 liters. GENERAL: Awake, alert, oriented x3 with a poor memory. EYES: No scleral icterus. ENT: Moist mucous membranes. NECK: Supple. PULMONARY: Decreased breath sounds at the bases. CARDIAC: 2/6 systolic murmur, irregularly irregular and tachy. ABDOMEN: Bowel sounds positive, soft. Mild distention. EXTREMITIES: +1 to 2 edema. NEUROLOGICALLY: Nonfocal walks with a walker. DERM: No rash or ulcers noted. LABORATORIES: Sodium level is 132, potassium is 5.3, chloride is 95, bicarbonate is 27, BUN is 33, creatinine is 1.1. Glucose is 271, calcium is 10.6, white count is 14, H\T\H 10 and 33, platelet count is 283 Urine with a pH of 5, specific gravity 1.015, 1+ protein, trace blood, trace leukocyte esterase. INR is 2.5. Urine cultures negative. Chest x-ray shows cardiomegaly with resolving interstitial edema. No evidence of focal pulmonary consolidation. Abdominal pelvis CT on admission showed mild inflammatory changes, edema surrounding the gallbladder with no definite gallbladder wall thickening, bilateral nephrolithiasis with no hydro, cardiomegaly and diverticulosis. CLINICAL COURSE: The patient did undergo an EGD which showed a normal esophagus. No ulcers seen and normal duodenum. IMPRESSION AND PLAN: 1. Hypocalcemia. The patient did have low calcium levels of 6.5 on admission. Unclear if the patient was taking her medications appropriately, although there has been no significant changes to her medications. She had not been feeling well and calcium levels were low at outside hospital as well. Given 3 grams of IV calcium gluconate and restarted on her home medications and calcium levels have improved nicely and now are elevated at 10.6. The patient does need calcitriol, vitamin D and calcium to keep the calcium levels up and they should not be stopped. However, in the setting of a sedentary lifestyle with diuresis may have confounding factors to raise the calcium, I would like to adjust medications, i.e., decrease the calcium carbonate to one a day and continue the calcitriol twice a day and continue the vitamin D as well with a goal calcium of 8-10. Feel worthwhile for the patient to reestablish with endocrinology, last seen by Dr. Dawkins in 2013. The patient does have a complicated clinical course with signs of right-sided heart failure with abdominal bloating and edema of the lower extremities, question if there is any benefit for initiating CPAP or BiPAP. Greatly appreciate cardiology's help in the management of right-sided heart failure as well as GI's help in doing an EGD. The patient has several symptoms. Question if related to morbid obesity/right-sided heart failure. We will defer to cardiology and the primary hospitalist to further investigate the causes. Patient with hypocalcemia from surgical hypoparathyroidism. I feel the patient definitely needs calcitriol, which should not be stopped. However, we can adjust the oral calcium and/or calcitriol doses as needed. For now we will lower the oral calcium to once a day and follow calcium levels. If calcium levels continue to go up, could temporarily stop the oral calcium supplement, but feel the patient would benefit from the continued calcitriol. Appreciate consultation. QUAN
[2016-04-24] MEDS: TRAZODONE HCL 50 MG TAB PO SCH (20:52)
[2016-04-24] MEDS: ATORVASTATIN 20 MG TAB PO SCH (20:53)
[2016-04-25] VITALS (12 sets, daily range): BP systolic 104–131; BP diastolic 65–90; PULSE 77–114; TEMP 36.3–36.5; O2SAT 93–97
[2016-04-25] MEDS: IPRATROPIUM BROMIDE NEB SOLN 0.02% 2.5 ML VIAL INH SCH ×4 (01:45→19:37)
[2016-04-25] MEDS: LEVALBUTEROL 1.25MG/0.5ML NEB INH SCH ×4 (01:45→19:37)
[2016-04-25] MEDS: LEVOTHYROXINE 150 MCG TAB PO SCH (05:58)
[2016-04-25 06:19] LABS: COMPLETE YES; HEMATOCRIT 32.3 % (37-47); IG% 0.4 %; LYMPH % 9.6 %; LYMPH ABS # 1.06 K/uL (1.2-3.4); MEAN CELL VOLUME 89.2 fL (80-100); MEAN CORPUSCULAR HEMOGLOBIN 27.3 pg (25-34); MEAN CORPUSCULAR HGB CONC 30.7 g/dl (32-36); MONO % 5.2 %; NEUT % 84.8 %; PLATELET COUNT 219 K/uL (130-400); RED BLOOD COUNT 3.62 M/uL (4.2-5.4); WHITE BLOOD COUNT 11.08 K/uL (4.8-10.8)
[2016-04-25 06:28] LABS: INR 2.7 (0.9-1.1)
[2016-04-25 06:52] LABS: BUN/CREATININE RATIO 25.7 (10-20); CALCIUM 10.3 mg/dl (8.5-10.1); CREATININE 1.1 mg/dl (0.60-1.20); MAGNESIUM 2.3 mg/dl (1.8-2.4); POTASSIUM 4.6 mmol/L (3.5-5.1)
[2016-04-25] MEDS: CYANOCOBALAMIN 500 MCG TAB (VIT B-12) PO SCH (07:50)
[2016-04-25] MEDS: PANTOprazole SOD 40 MG TAB PO SCH (07:51)
[2016-04-25] MEDS: CALCIUM CARBONATE 1250MG TAB PO SCH (07:51)
[2016-04-25] MEDS: ASPIRIN 81 MG ECTAB PO SCH (07:51)
[2016-04-25] MEDS: POLYETHYLENE (MIRALAX) 17 GM PACK PO SCH (07:52)
[2016-04-25] MEDS: FERROUS SULFATE 325 MG TAB PO SCH ×2 (07:52→20:35)
[2016-04-25] MEDS: METOPROLOL SUCC 50MG EXT REL TAB PO SCH ×2 (07:53→20:34)
[2016-04-25] MEDS: CALCITRIOL 0.25 MCG CAP PO SCH ×2 (07:53→20:35)
[2016-04-25] MEDS: CEPHALEXIN MONOHYDRATE 500 MG CAP PO SCH ×2 (07:54→20:33)
[2016-04-25] MEDS: LEVETIRACETAM 500 MG TAB PO SCH ×2 (07:54→20:32)
[2016-04-25] MEDS: GABAPENTIN 100 MG CAP PO SCH ×3 (07:55→20:34)
[2016-04-25] MEDS: ESCITALOPRAM OXALATE 10 MG TAB PO SCH (07:57)
[2016-04-25] MEDS: CHOLECALCIFEROL 1000 INTER.UNIT TAB PO SCH (07:57)
[2016-04-25] MEDS: CALCIUM POLYCARBOPHIL 1 TAB PO SCH (07:57)
[2016-04-25] MEDS: FUROSEMIDE 40 MG TAB PO SCH (07:58)
[2016-04-25] MEDS: INSULIN ASPART 100 UNITS/ML 3 ML PEN SC SCH ×4 (08:13→20:38)
[2016-04-25 09:28] LABS: URINE APPEARANCE CLEAR (CLEAR); URINE BILIRUBIN NEG (NEG); URINE COLOR YELLOW; URINE NITRITE NEG (NEG); URINE PH 5.5 (4.5-7.5); URINE SPECIFIC GRAVITY 1.016 (1.000-1.030); UROBILINOGEN NEG (NEG); ZZUR CULT IF INDIC CLEAN CATCH NO
[2016-04-25 09:45] LABS: MANUAL MICROSCOPIC REQUIRED? NO; REVIEW REQ? NO
[2016-04-25 10:12] LABS: COMPLETE YES; HEMATOCRIT 31.4 % (37-47); IG% 0.2 %; LYMPH % 9.4 %; LYMPH ABS # 0.97 K/uL (1.2-3.4); MEAN CELL VOLUME 89.7 fL (80-100); MEAN CORPUSCULAR HEMOGLOBIN 27.7 pg (25-34); MEAN CORPUSCULAR HGB CONC 30.9 g/dl (32-36); MEAN PLATELET VOLUME 10.1 fL (7.4-10.4); NEUT % 85.4 %; PLATELET COUNT 185 K/uL (130-400)
[2016-04-25 10:53] LABS: BUN/CREATININE RATIO 25.8 (10-20); CALCIUM 10.1 mg/dl (8.5-10.1); CREATININE 1.1 mg/dl (0.60-1.20); POTASSIUM 4.4 mmol/L (3.5-5.1)
[2016-04-25 10:54] LABS: ALB/GLOB RATIO 1.1 (0.9-2)
[2016-04-25 11:52] LABS: MAGNESIUM 2.3 mg/dl (1.8-2.4)
--- NOTE | 2016-04-25 12:02 | Cardiology Follow-Up ---
Subjective General Date of Service: Apr 25, 2016. Chief Complaint: follow up sustained VT , CHF, AF Pt evaluation today including: conversation w/ patient, physical exam History of Present Illness The patient is a 76 year old female seen in follow up. Patient confused this am, says she is at [facility]. On telemetry , predominant rhythm is AF with occasional isolated PVCs. However this am, 04/25/16 at 7:15 am , a 40 second run of sustained ventricular tachycardia was recorded with rate of 235 bpm. Pt was apparently asymptomatic at time of event and the VT terminated spontaneously. Allergies Coded Allergies: No Known Allergies (Unverified , 04/16/16) Social History Smoking Status: Never Smoker Hx Tobacco Use In Past Year?: No Hx Alcohol Use - Type And Amou: No Hx Substance Use - Type And Am: No Physical Exam Vital Signs Last Vital Signs Documentation Date Time Temp Pulse Resp B/P Pulse Ox O2 Delivery O2 Flow Rate FiO2 04/25/16 11:42 36.3 92 20 104/65 96 04/25/16 08:00 Room Air 04/25/16 07:22 2.0 Physical Exam Constitutional: Level of Distress: acutely ill, chronically ill Neck: supple Lungs: Auscultation: no wheezing, no rales/crackles Cardiovascular: Heart Auscultation: no murmurs, tachycardia, irregular rate rhythm Extremities: no edema Neurologic: Gait & Station: pertinent finding (no focal deficit, no somnolence ) Assessment and Plan Assessment and Plan Impression: 76 year old female 1. Newly recognized 40 second run of sustained rapid ventricular tachycardia at 7:15 am- one isolated event observed with pt having been on telemetry for several days 2. h/o CAD, PCI to RCA 3. H/o bio AVR 4. Persistent AF 5. electrolyte abnormalities, hypocalcemia, improved. 6. Chronic diastolic LV heart failure, new RV systolic dysfunction this admit. 7. Epigastric discomfort, negative serial EKGs, occurs at rest atypical for angina, negative EGD 8. Hypocalcemia on presentation due to undersupplementation of surgical hypoparathyroidism, stemming from remote thyroidectomy Plan: Continue metoprolol succinate 100 mg BID. Add amiodarone 200 Mg TID for VT. Diltiazem CD discontinued earlier this stay due to severe hypocalcemia, to simplify medication therapy. Continue coumadin. Not ready for DC. Not overtly volume overloaded. Continue furosemide 40 mg PO daily. An Flor DO Laboratory Results Last 24 Hours Test 04/24/16 16:06 04/24/16 16:17 04/24/16 20:22 04/25/16 05:43 Bedside Glucose 214 mg/dl 308 mg/dl Potassium Level 5.0 mmol/L 4.6 mmol/L White Blood Count 11.08 K/uL Red Blood Count 3.62 M/uL Hemoglobin 9.9 g/dL Hematocrit 32.3 % Mean Corpuscular Volume 89.2 fL Mean Corpuscular Hemoglobin 27.3 pg Mean Corpuscular Hemoglobin Concent 30.7 g/dl Platelet Count 219 K/uL Mean Platelet Volume 11.0 fL Neutrophils (%) (Auto) 84.8 % Lymphocytes (%) (Auto) 9.6 % Monocytes (%) (Auto) 5.2 % Eosinophils (%) (Auto) 0.0 % Basophils (%) (Auto) 0.0 % Neutrophils # (Auto) 9.40 K/uL Lymphocytes # (Auto) 1.06 K/uL Monocytes # (Auto) 0.58 K/uL Eosinophils # (Auto) 0.00 K/uL Basophils # (Auto) 0.00 K/uL RDW Standard Deviation 57.2 fL RDW Coefficient of Variation 17.7 % Immature Granulocyte % (Auto) 0.4 % Immature Granulocyte # (Auto) 0.04 K/uL Prothrombin Time 30.0 SECONDS Prothromb Time International Ratio 2.7 Sodium Level 134 mmol/L Chloride Level 93 mmol/L Carbon Dioxide Level 32 mmol/L Anion Gap 9.0 mmol/L Blood Urea Nitrogen 28 mg/dl Creatinine 1.10 mg/dl Est Creatinine Clear Calc Drug Dose 48.7 ml/min Estimated GFR () 55.7 Estimated GFR (Non- 48.1 BUN/Creatinine Ratio 25.7 Random Glucose 204 mg/dl Calcium Level 10.3 mg/dl Magnesium Level 2.3 mg/dl Troponin I 0.033 ng/ml Test 04/25/16 07:31 04/25/16 08:00 04/25/16 09:59 04/25/16 11:35 Bedside Glucose 199 mg/dl 202 mg/dl Urine Color YELLOW Urine Appearance CLEAR Urine pH 5.5 Urine Specific [place] 1.016 Urine Protein NEG Urine Glucose (UA) NEG Urine Ketones NEG Urine Occult Blood NEG Urine Nitrite NEG Urine Bilirubin NEG Urine Urobilinogen NEG Urine Leukocyte Esterase NEG White Blood Count 10.30 K/uL Red Blood Count 3.50 M/uL Hemoglobin 9.7 g/dL Hematocrit 31.4 % Mean Corpuscular Volume 89.7 fL Mean Corpuscular Hemoglobin 27.7 pg Mean Corpuscular Hemoglobin Concent 30.9 g/dl Platelet Count 185 K/uL Mean Platelet Volume 10.1 fL Neutrophils (%) (Auto) 85.4 % Lymphocytes (%) (Auto) 9.4 % Monocytes (%) (Auto) 5.0 % Eosinophils (%) (Auto) 0.0 % Basophils (%) (Auto) 0.0 % Neutrophils # (Auto) 8.79 K/uL Lymphocytes # (Auto) 0.97 K/uL Monocytes # (Auto) 0.52 K/uL Eosinophils # (Auto) 0.00 K/uL Basophils # (Auto) 0.00 K/uL RDW Standard Deviation 57.6 fL RDW Coefficient of Variation 17.8 % Immature Granulocyte % (Auto) 0.2 % Immature Granulocyte # (Auto) 0.02 K/uL Sodium Level 135 mmol/L Potassium Level 4.4 mmol/L Chloride Level 94 mmol/L Carbon Dioxide Level 35 mmol/L Anion Gap 6.0 mmol/L Blood Urea Nitrogen 28 mg/dl Creatinine 1.10 mg/dl Est Creatinine Clear Calc Drug Dose 48.7 ml/min Estimated GFR () 55.7 Estimated GFR (Non- 48.1 BUN/Creatinine Ratio 25.8 Random Glucose 233 mg/dl Calcium Level 10.1 mg/dl Magnesium Level 2.3 mg/dl Total Bilirubin 1.2 mg/dl Aspartate Amino Transf (AST/SGOT) 45 U/L Alanine Aminotransferase (ALT/SGPT) 55 U/L Alkaline Phosphatase 188 U/L Troponin I 0.035 ng/ml Total Protein 5.8 gm/dl Albumin 3.0 gm/dl Globulin 2.8 gm/dl Albumin/Globulin Ratio 1.1
[2016-04-25] MEDS: AMIODARONE 200 MG TAB PO SCH ×2 (12:17→18:02)
[2016-04-25] MEDS: LEVOFLOXACIN 250 MG TAB PO SCH (12:17)
--- NOTE | 2016-04-25 16:56 | Progress Note ---
Internal Med Progress Note Date of Service: Apr 25, 2016. Provider Documentation: SUBJECTIVE: patient was confused in the morning had a 40second sustained v tach soon she came back to baseline denies chest pain or sob no nausea did not know what happened afebrile OBJECTIVE: Vital Signs-as noted below Exam: General-alert and oriented ENT-normal hearing Neck-no neck masses Lungs-cta b/l no wheezing mild bibasilar crackles Heart-s1 and s2 heard regular rate and rhythm no murmurs Abdomen-soft bowel sounds present non tender no distension Extremities-no erythema pedal edema present Neuro-alert and awake moves extremities Lab data as noted below. ASSESSMENT & PLAN: 76 yo F with multiple medical problems presents with vague symptoms and tretaed for symptomatic hypocalcemia. She was recently hospitalized and discharged just a few days ago-multiple hospitalizations in the past 3-4 months. 1. COPD. mild exacerbation.Cough-new, . continue steroid and Levaquin.repeat Cxr 04/24/16 no infiltrate.Will monitor 2. Nausea & vomiting improved. Appreciate GI inputs.s/p egd 04/23/16- unremarkable 4. Chronic atrial fibrillation-. S/p AV replacement x 2. Cardiology stopped diltiazem(hypocalcemia) and changed to Toprol xl 100mg bid. On Coumadin. Inr 2.7 today. 5. 40 sec sustained v tach resolved cardiology started on amiodarone labs ok will monitor 6. 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 Was 6.1 at recent discharge a few days ago, is 6.5 on admission to this hospital. Symptoms on presentations unclear, however, overnight she has had facial numbness and tetany/spasms in her hands and legs that has improved with the calcium infusion-stable on PO supplementation now for several days. Last seen by Endo in 2013.Needs followup.Ca levels somewhat high now.Will hold supplementation for now. Discussed and consulted nephrology-appreciate inputs. Will f/u labs 7. Acute right heart failure-recent admission to [facility] for acute decompensation with recent discharge. Diuretics held initially. Restart diuretics at 50% on 04/19. Consult Cardiology for assistance with management.To continue current diuretics as per cardiology. 7. Acute pancreatitis- resolved. Seen by GI. Tolerating regular diet to regular now. stable 8. Acute on Chronic UTI-r Switched to Keflex per pharmacy recs 04/19.F/u with pcp. 9. Hemorrhoids-new report of hemorrhoids that cause some rectal bleeding; this has gone on for about 1 year. Seen by GI -recommended outpatient scope unless bleeding reoccurs. On Coumadin. Will monitor. 10. CAD- H/o CABG . Appreciate Cards recs. 11. Glucose intolerance. -ISS with coverage, A1C 7.1 12.. Esophageal reflux. Continue PPI. 14. History of cerebrovascular accident with aphasia, but no other acute deficiency at this time. 15. Hypothyroidism-iatrogenic, continue replacement DVT proph-Coumadin Full code DISPOSITION pt/ot monitor in tele to be determined Vital Signs: Date Time Temp Pulse Resp B/P Pulse Ox O2 Delivery O2 Flow Rate FiO2 04/25/16 16:00 95 Room Air 04/25/16 15:41 36.3 114 18 129/86 93 Room Air 04/25/16 14:35 90 18 96 Nasal Cannula 2.0 04/25/16 12:00 95 Room Air 04/25/16 11:42 36.3 92 20 104/65 96 04/25/16 08:00 95 Room Air 04/25/16 07:22 93 18 97 Nasal Cannula 2.0 04/25/16 07:07 36.3 100 18 131/90 95 Nasal Cannula 2.0 04/25/16 04:01 Nasal Cannula 2.0 04/25/16 02:55 36.5 77 18 122/72 96 Nasal Cannula 1.0 04/25/16 01:45 100 18 96 Nasal Cannula 2.0 04/25/16 00:00 Nasal Cannula 2.0 04/24/16 23:35 36.6 82 20 120/77 95 Nasal Cannula 1.0 04/24/16 22:39 Nasal Cannula 2.0 04/24/16 22:31 36.8 89 20 120/80 96 Nasal Cannula 2.0 04/24/16 22:04 36.7 101 18 98 2.0 04/24/16 20:58 101 134/73 04/24/16 20:00 98 Nasal Cannula 2.0 04/24/16 19:49 36.7 104 18 122/78 98 Nasal Cannula 2.0 04/24/16 19:27 96 16 96 Nasal Cannula 2.0 Lab Results: Results Past 24 Hours Test 04/24/16 20:22 04/25/16 05:43 04/25/16 07:31 04/25/16 08:00 Range/Units Bedside Glucose 308 199 70-90 mg/dl White Blood Count 11.08 4.8-10.8 K/uL Red Blood Count 3.62 4.2-5.4 M/uL Hemoglobin 9.9 12.0-16.0 g/dL Hematocrit 32.3 37-47 % Mean Corpuscular Volume 89.2 80-100 fL Mean Corpuscular Hemoglobin 27.3 25-34 pg Mean Corpuscular Hemoglobin Concent 30.7 32-36 g/dl Platelet Count 219 130-400 K/uL Mean Platelet Volume 11.0 7.4-10.4 fL Neutrophils (%) (Auto) 84.8 % Lymphocytes (%) (Auto) 9.6 % Monocytes (%) (Auto) 5.2 % Eosinophils (%) (Auto) 0.0 % Basophils (%) (Auto) 0.0 % Neutrophils # (Auto) 9.40 1.4-6.5 K/uL Lymphocytes # (Auto) 1.06 1.2-3.4 K/uL Monocytes # (Auto) 0.58 0.11-0.59 K/uL Eosinophils # (Auto) 0.00 0-0.5 K/uL Basophils # (Auto) 0.00 0-0.2 K/uL RDW Standard Deviation 57.2 36.4-46.3 fL RDW Coefficient of Variation 17.7 11.5-14.5 % Immature Granulocyte % (Auto) 0.4 % Immature Granulocyte # (Auto) 0.04 0.00-0.02 K/uL Prothrombin Time 30.0 9.0-12.0 SECONDS Prothromb Time International Ratio 2.7 0.9-1.1 Sodium Level 134 136-145 mmol/L Potassium Level 4.6 3.5-5.1 mmol/L Chloride Level 93 98-107 mmol/L Carbon Dioxide Level 32 21-32 mmol/L Anion Gap 9.0 3-11 mmol/L Blood Urea Nitrogen 28 7-18 mg/dl Creatinine 1.10 0.60-1.20 mg/dl Est Creatinine Clear Calc Drug Dose 48.7 ml/min Estimated GFR () 55.7 Estimated GFR (Non- 48.1 BUN/Creatinine Ratio 25.7 10-20 Random Glucose 204 70-99 mg/dl Calcium Level 10.3 8.5-10.1 mg/dl Magnesium Level 2.3 1.8-2.4 mg/dl Troponin I 0.033 0-0.045 ng/ml Urine Color YELLOW Urine Appearance CLEAR CLEAR Urine pH 5.5 4.5-7.5 Urine Specific [place] 1.016 1.000-1.030 Urine Protein NEG NEG Urine Glucose (UA) NEG NEG Urine Ketones NEG NEG Urine Occult Blood NEG NEG Urine Nitrite NEG NEG Urine Bilirubin NEG NEG Urine Urobilinogen NEG NEG Urine Leukocyte Esterase NEG NEG Test 04/25/16 09:59 04/25/16 11:35 04/25/16 16:27 Range/Units White Blood Count 10.30 4.8-10.8 K/uL Red Blood Count 3.50 4.2-5.4 M/uL Hemoglobin 9.7 12.0-16.0 g/dL Hematocrit 31.4 37-47 % Mean Corpuscular Volume 89.7 80-100 fL Mean Corpuscular Hemoglobin 27.7 25-34 pg Mean Corpuscular Hemoglobin Concent 30.9 32-36 g/dl Platelet Count 185 130-400 K/uL Mean Platelet Volume 10.1 7.4-10.4 fL Neutrophils (%) (Auto) 85.4 % Lymphocytes (%) (Auto) 9.4 % Monocytes (%) (Auto) 5.0 % Eosinophils (%) (Auto) 0.0 % Basophils (%) (Auto) 0.0 % Neutrophils # (Auto) 8.79 1.4-6.5 K/uL Lymphocytes # (Auto) 0.97 1.2-3.4 K/uL Monocytes # (Auto) 0.52 0.11-0.59 K/uL Eosinophils # (Auto) 0.00 0-0.5 K/uL Basophils # (Auto) 0.00 0-0.2 K/uL RDW Standard Deviation 57.6 36.4-46.3 fL RDW Coefficient of Variation 17.8 11.5-14.5 % Immature Granulocyte % (Auto) 0.2 % Immature Granulocyte # (Auto) 0.02 0.00-0.02 K/uL Sodium Level 135 136-145 mmol/L Potassium Level 4.4 3.5-5.1 mmol/L Chloride Level 94 98-107 mmol/L Carbon Dioxide Level 35 21-32 mmol/L Anion Gap 6.0 3-11 mmol/L Blood Urea Nitrogen 28 7-18 mg/dl Creatinine 1.10 0.60-1.20 mg/dl Est Creatinine Clear Calc Drug Dose 48.7 ml/min Estimated GFR () 55.7 Estimated GFR (Non- 48.1 BUN/Creatinine Ratio 25.8 10-20 Random Glucose 233 70-99 mg/dl Calcium Level 10.1 8.5-10.1 mg/dl Magnesium Level 2.3 1.8-2.4 mg/dl Total Bilirubin 1.2 0.2-1 mg/dl Aspartate Amino Transf (AST/SGOT) 45 15-37 U/L Alanine Aminotransferase (ALT/SGPT) 55 12-78 U/L Alkaline Phosphatase 188 45-117 U/L Troponin I 0.035 0-0.045 ng/ml Total Protein 5.8 6.4-8.2 gm/dl Albumin 3.0 3.4-5.0 gm/dl Globulin 2.8 2.5-4.0 gm/dl Albumin/Globulin Ratio 1.1 0.9-2 Bedside Glucose 202 261 70-90 mg/dl
[2016-04-25] MEDS: WARFARIN SOD 2 MG TAB PO SCH (18:02)
--- NOTE | 2016-04-25 20:22 | Nephrology Progress Note ---
Nephrology Progress Note Date of Service: Apr 25, 2016. Subjective 76 yo female with chronic afib, right sided heart failure, hypoparathyroidism with hypocalcemia who had 40 second run of Bango this morning and doing much better now. no specific complaints for me. Objective Date Time Temp Pulse Resp B/P Pulse Ox O2 Delivery O2 Flow Rate FiO2 04/25/16 20:11 Nasal Cannula 2.0 04/25/16 19:47 36.4 100 16 123/79 96 Nasal Cannula 2.0 04/25/16 19:37 100 16 94 Nasal Cannula 2.0 04/25/16 16:00 95 Room Air 04/25/16 15:41 36.3 114 18 129/86 93 Room Air 04/25/16 14:35 90 18 96 Nasal Cannula 2.0 04/25/16 12:00 95 Room Air 04/25/16 11:42 36.3 92 20 104/65 96 04/25/16 08:00 95 Room Air 04/25/16 07:22 93 18 97 Nasal Cannula 2.0 04/25/16 07:07 36.3 100 18 131/90 95 Nasal Cannula 2.0 04/25/16 04:01 Nasal Cannula 2.0 04/25/16 02:55 36.5 77 18 122/72 96 Nasal Cannula 1.0 04/25/16 01:45 100 18 96 Nasal Cannula 2.0 04/25/16 00:00 Nasal Cannula 2.0 04/24/16 23:35 36.6 82 20 120/77 95 Nasal Cannula 1.0 04/24/16 22:39 Nasal Cannula 2.0 04/24/16 22:31 36.8 89 20 120/80 96 Nasal Cannula 2.0 04/24/16 22:04 36.7 101 18 98 2.0 04/24/16 20:58 101 134/73 Physical Exam: General-aaox3 although memory not great Eyes-no scleral icterus ENT-mmm Neck-supple Lungs-decreased at bases Heart-irregular and tachy Abdomen-bs+, mild bloating, mild distention Extremities-mild edema Neuro-nonfocal Current Inpatient Medications Medications (Trade) Dose Ordered Sig/Desire Route Start Time Stop Time Status Last Admin Dose Admin Aspirin (Ecotrin Tab) 81 mg QAM PO 04/17/16 09:00 05/17/16 08:59 04/25/16 07:51 81 MG Atorvastatin Calcium (Lipitor Tab) 40 mg HS PO 04/17/16 21:00 05/17/16 20:59 04/24/16 20:53 40 MG Cholecalciferol (Vitamin D Tab) 1,000 inter.unit QAM PO 04/17/16 09:00 05/17/16 08:59 04/25/16 07:57 1,000 INTER.UNIT Cyanocobalamin (Vitamin B-12 Tab) 1,000 mcg QAM PO 04/17/16 09:00 05/17/16 08:59 04/25/16 07:50 1,000 MCG Escitalopram Oxalate (Lexapro Tab) 10 mg QAM PO 04/17/16 09:00 05/17/16 08:59 04/25/16 07:57 10 MG Ferrous Sulfate (Feosol Tab) 325 mg BID PO 04/17/16 09:00 05/17/16 08:59 04/25/16 07:52 325 MG Fluticasone Propionate (Flonase Nasal [place]) 2 sprays DAILY PRN CASS 04/17/16 02:00 05/17/16 01:59 Gabapentin (Neurontin Cap) 100 mg BID@0800,1400 PO 04/17/16 08:00 05/17/16 07:59 04/25/16 14:10 100 MG Albuterol/ Ipratropium (Combivent Respimat Inh) 1 puffs QID INH 04/17/16 09:00 05/17/16 08:59 Future Hold 04/21/16 08:16 1 PUFFS Levetiracetam (Keppra Tab) 500 mg BID PO 04/17/16 09:00 05/17/16 08:59 04/25/16 07:54 500 MG Levothyroxine Sodium (Synthroid Tab) 150 mcg DAILYBB PO 04/17/16 06:00 05/17/16 06:59 04/25/16 05:58 150 MCG Nitroglycerin (Nitrostat Tab) 0.4 mg PRN PRN [place] 04/17/16 02:00 05/17/16 01:59 Oxycodone/ Acetaminophen (Percocet 5-325MG Tab) 1 tab Q6H PRN PO 04/17/16 02:00 05/01/16 01:59 1/14/17 04:01 1 TAB Pantoprazole Sodium (Protonix Tab) 40 mg QAM PO 04/17/16 09:00 05/17/16 08:59 04/25/16 07:51 40 MG Potassium Chloride (Klor-Con Tab) 20 meq QAM PO 04/17/16 09:00 05/17/16 08:59 Future Hold 04/24/16 07:55 20 MEQ Trazodone HCl (Desyrel Tab) 50 mg HS PO 04/17/16 21:00 05/17/16 20:59 04/24/16 20:52 50 MG Calcitriol (Rocaltrol Cap) 0.5 mcg BID PO 04/17/16 09:00 05/17/16 08:59 04/25/16 07:53 0.5 MCG Insulin Aspart (novoLOG ASPART) SLIDING SCALE G... ACHS SC 04/17/16 07:00 05/17/16 06:59 04/25/16 18:06 9 UNITS Glucose (Glucose 40% Gel) 15-30 GRAMS 15 GRAMS... UD PRN PO 04/17/16 02:45 05/17/16 02:44 Glucose (Glucose Chew Tab) 4-8 Tablets 4 Tabl... UD PRN PO 04/17/16 02:45 05/17/16 02:44 Dextrose (Dextrose 50% 50ML Syringe) 25-50ML OF 50% DW IV FOR... UD PRN IV 04/17/16 02:45 05/17/16 02:44 Glucagon (Glucagon Inj) 1 mg UD PRN SQ 04/17/16 02:45 05/17/16 02:44 Gabapentin (Neurontin Cap) 200 mg HS PO 04/17/16 21:00 05/17/16 20:59 04/24/16 20:53 200 MG Morphine Sulfate (MoRPHine SULFATE INJ) 2 mg Q2H PRN IV 04/17/16 18:45 05/01/16 18:44 04/20/16 20:00 2 MG Warfarin Sodium (Coumadin Tab) 2 mg DAILY@16 PO 04/19/16 16:00 05/19/16 15:59 04/25/16 18:02 2 MG Furosemide (Lasix tab) 40 mg QAM PO 04/20/16 09:00 05/20/16 08:59 04/25/16 07:58 40 MG Cephalexin Monohydrate (Keflex Cap) 500 mg BID PO 04/19/16 21:00 04/29/16 20:59 04/25/16 07:54 500 MG Polyethylene (Miralax Powder Packet) 17 gm DAILY PO 04/20/16 09:00 05/20/16 08:59 04/25/16 07:52 17 GM Calcium Polycarbophil (Fibercon Tab) 1 tab QAM PO 04/20/16 09:00 05/20/16 08:59 04/25/16 07:57 1 TAB Hydrocodone Bit/ Homatropine Methylb (Hycodan Syrup) 5 ml Q6H PRN PO 04/21/16 02:00 05/05/16 01:59 04/23/16 01:58 5 ML Metoprolol Succinate (Toprol Xl Tab) 100 mg BID PO 04/21/16 21:00 05/21/16 20:59 04/25/16 07:53 100 MG Ipratropium [place] (Atrovent 0.02% 0.5MG/2.5ML Neb) 0.5 mg Q6R INH 04/21/16 15:00 05/21/16 14:59 04/25/16 19:37 0.5 MG Levalbuterol (Xopenex 1.25MG/ 0.5ML Neb) 1.25 mg Q6R INH 04/21/16 15:00 05/21/16 14:59 04/25/16 19:37 1.25 MG Levofloxacin (Levaquin Tab) 250 mg DAILY@11 PO 04/23/16 11:00 04/28/16 10:59 04/25/16 12:17 250 MG Prednisone (PredniSONE TAB) 40 mg DAILY PO 04/24/16 09:00 05/24/16 08:59 04/25/16 07:51 40 MG Calcium Carbonate (oS-Darrin 500 TAB) 1,250 mg DAILY PO 04/25/16 09:00 05/25/16 08:59 04/25/16 07:51 1,250 MG Amiodarone HCl (Cordarone Tab) 200 mg TIDM PO 04/25/16 12:00 05/25/16 11:59 04/25/16 18:02 200 MG Last 24 Hours Test 04/24/16 20:22 04/25/16 05:43 04/25/16 07:31 04/25/16 08:00 Bedside Glucose 308 mg/dl 199 mg/dl White Blood Count 11.08 K/uL Red Blood Count 3.62 M/uL Hemoglobin 9.9 g/dL Hematocrit 32.3 % Mean Corpuscular Volume 89.2 fL Mean Corpuscular Hemoglobin 27.3 pg Mean Corpuscular Hemoglobin Concent 30.7 g/dl Platelet Count 219 K/uL Mean Platelet Volume 11.0 fL Neutrophils (%) (Auto) 84.8 % Lymphocytes (%) (Auto) 9.6 % Monocytes (%) (Auto) 5.2 % Eosinophils (%) (Auto) 0.0 % Basophils (%) (Auto) 0.0 % Neutrophils # (Auto) 9.40 K/uL Lymphocytes # (Auto) 1.06 K/uL Monocytes # (Auto) 0.58 K/uL Eosinophils # (Auto) 0.00 K/uL Basophils # (Auto) 0.00 K/uL RDW Standard Deviation 57.2 fL RDW Coefficient of Variation 17.7 % Immature Granulocyte % (Auto) 0.4 % Immature Granulocyte # (Auto) 0.04 K/uL Prothrombin Time 30.0 SECONDS Prothromb Time International Ratio 2.7 Sodium Level 134 mmol/L Potassium Level 4.6 mmol/L Chloride Level 93 mmol/L Carbon Dioxide Level 32 mmol/L Anion Gap 9.0 mmol/L Blood Urea Nitrogen 28 mg/dl Creatinine 1.10 mg/dl Est Creatinine Clear Calc Drug Dose 48.7 ml/min Estimated GFR () 55.7 Estimated GFR (Non- 48.1 BUN/Creatinine Ratio 25.7 Random Glucose 204 mg/dl Calcium Level 10.3 mg/dl Magnesium Level 2.3 mg/dl Troponin I 0.033 ng/ml Urine Color YELLOW Urine Appearance CLEAR Urine pH 5.5 Urine Specific [place] 1.016 Urine Protein NEG Urine Glucose (UA) NEG Urine Ketones NEG Urine Occult Blood NEG Urine Nitrite NEG Urine Bilirubin NEG Urine Urobilinogen NEG Urine Leukocyte Esterase NEG Test 04/25/16 09:59 04/25/16 11:35 04/25/16 16:27 White Blood Count 10.30 K/uL Red Blood Count 3.50 M/uL Hemoglobin 9.7 g/dL Hematocrit 31.4 % Mean Corpuscular Volume 89.7 fL Mean Corpuscular Hemoglobin 27.7 pg Mean Corpuscular Hemoglobin Concent 30.9 g/dl Platelet Count 185 K/uL Mean Platelet Volume 10.1 fL Neutrophils (%) (Auto) 85.4 % Lymphocytes (%) (Auto) 9.4 % Monocytes (%) (Auto) 5.0 % Eosinophils (%) (Auto) 0.0 % Basophils (%) (Auto) 0.0 % Neutrophils # (Auto) 8.79 K/uL Lymphocytes # (Auto) 0.97 K/uL Monocytes # (Auto) 0.52 K/uL Eosinophils # (Auto) 0.00 K/uL Basophils # (Auto) 0.00 K/uL RDW Standard Deviation 57.6 fL RDW Coefficient of Variation 17.8 % Immature Granulocyte % (Auto) 0.2 % Immature Granulocyte # (Auto) 0.02 K/uL Sodium Level 135 mmol/L Potassium Level 4.4 mmol/L Chloride Level 94 mmol/L Carbon Dioxide Level 35 mmol/L Anion Gap 6.0 mmol/L Blood Urea Nitrogen 28 mg/dl Creatinine 1.10 mg/dl Est Creatinine Clear Calc Drug Dose 48.7 ml/min Estimated GFR () 55.7 Estimated GFR (Non- 48.1 BUN/Creatinine Ratio 25.8 Random Glucose 233 mg/dl Calcium Level 10.1 mg/dl Magnesium Level 2.3 mg/dl Total Bilirubin 1.2 mg/dl Aspartate Amino Transf (AST/SGOT) 45 U/L Alanine Aminotransferase (ALT/SGPT) 55 U/L Alkaline Phosphatase 188 U/L Troponin I 0.035 ng/ml Total Protein 5.8 gm/dl Albumin 3.0 gm/dl Globulin 2.8 gm/dl Albumin/Globulin Ratio 1.1 Bedside Glucose 202 mg/dl 261 mg/dl Assessment & Plan Surgical hypoparathyroidism following thyroidectomy many years ago for a goiter- followed by endocrinology in [place] last seen in 2013. on calcitriol, vitamin d and calcium chronically and needs to always be on it. however did decrease dose of calcium to once a day from tid with the calcium in the 10s. calcium mildly better today. if worsens again, may need to reduce calcitriol dose. for now, no further changes and will continue to follow calcium levels daily.
[2016-04-25] MEDS: ATORVASTATIN 20 MG TAB PO SCH (20:33)
[2016-04-25] MEDS: TRAZODONE HCL 50 MG TAB PO SCH (20:35)
[2016-04-26] VITALS (17 sets, daily range): BP systolic 112–153; BP diastolic 67–95; PULSE 80–108; TEMP 36.4–36.8; O2SAT 91–100
[2016-04-26] MEDS ORDERED: METOPROLOL TARTRATE 1 MG/ML VIAL IV STA (01:06)
[2016-04-26] MEDS ORDERED: MAGNESIUM SULFATE 1GM / D5W 1 GM in PREMIXED IN D5W 100 ML IV SCH (01:15)
[2016-04-26 02:09] LABS: BASO % 0.1 %; BASO ABS # 0.01 K/uL (0-0.2); COMPLETE YES; IG% 0.3 %; LYMPH % 6.8 %; LYMPH ABS # 0.75 K/uL (1.2-3.4); MEAN CELL VOLUME 88.6 fL (80-100); MEAN CORPUSCULAR HEMOGLOBIN 27.4 pg (25-34); MEAN CORPUSCULAR HGB CONC 30.9 g/dl (32-36); MEAN PLATELET VOLUME 10.2 fL (7.4-10.4); MONO % 2.6 %; NEUT % 90.2 %; PLATELET COUNT 168 K/uL (130-400); RED BLOOD COUNT 3.61 M/uL (4.2-5.4); WHITE BLOOD COUNT 11.03 K/uL (4.8-10.8)
[2016-04-26 02:24] LABS: INR 2.6 (0.9-1.1); PROTHROMBIN TIME (PATIENT) 28.7 SECONDS (9.0-12.0)
[2016-04-26 02:37] LABS: CALCIUM 10.1 mg/dl (8.5-10.1); MAGNESIUM 2.3 mg/dl (1.8-2.4); POTASSIUM 4.6 mmol/L (3.5-5.1)
[2016-04-26] MEDS: LEVALBUTEROL 1.25MG/0.5ML NEB INH SCH ×4 (03:09→19:14)
[2016-04-26] MEDS: IPRATROPIUM BROMIDE NEB SOLN 0.02% 2.5 ML VIAL INH SCH ×4 (03:09→19:14)
[2016-04-26] MEDS: LEVOTHYROXINE 150 MCG TAB PO SCH (06:07)
[2016-04-26] MEDS: CYANOCOBALAMIN 500 MCG TAB (VIT B-12) PO SCH (08:12)
[2016-04-26] MEDS: ASPIRIN 81 MG ECTAB PO SCH (08:12)
[2016-04-26] MEDS: CALCIUM CARBONATE 1250MG TAB PO SCH (08:12)
[2016-04-26] MEDS: CHOLECALCIFEROL 1000 INTER.UNIT TAB PO SCH (08:13)
[2016-04-26] MEDS: FERROUS SULFATE 325 MG TAB PO SCH ×2 (08:13→22:27)
[2016-04-26] MEDS: GABAPENTIN 100 MG CAP PO SCH ×3 (08:14→22:34)
[2016-04-26] MEDS: POLYETHYLENE (MIRALAX) 17 GM PACK PO SCH (08:14)
[2016-04-26] MEDS: METOPROLOL SUCC 50MG EXT REL TAB PO SCH ×2 (08:14→22:35)
[2016-04-26] MEDS: LEVETIRACETAM 500 MG TAB PO SCH ×2 (08:15→22:29)
[2016-04-26] MEDS: CALCITRIOL 0.25 MCG CAP PO SCH ×2 (08:15→22:35)
[2016-04-26] MEDS: PANTOprazole SOD 40 MG TAB PO SCH (08:15)
[2016-04-26] MEDS: ESCITALOPRAM OXALATE 10 MG TAB PO SCH (08:15)
[2016-04-26] MEDS: CEPHALEXIN MONOHYDRATE 500 MG CAP PO SCH ×2 (08:16→22:28)
[2016-04-26] MEDS: AMIODARONE 200 MG TAB PO SCH ×2 (08:16→12:47)
[2016-04-26] MEDS: FUROSEMIDE 40 MG TAB PO SCH (08:16)
[2016-04-26] MEDS: INSULIN ASPART 100 UNITS/ML 3 ML PEN SC SCH ×4 (08:22→22:39)
[2016-04-26] MEDS: CALCIUM POLYCARBOPHIL 1 TAB PO SCH (08:23)
[2016-04-26] MEDS: LEVOFLOXACIN 250 MG TAB PO SCH (12:47)
[2016-04-26] MEDS ORDERED: AMIODARONE IV BOLUS / DRIP IV STA (12:48)
[2016-04-26] MEDS ORDERED: AMIODARONE / D5W 100 ML IV SCH ×2 (13:15→13:30)
[2016-04-26] MEDS ORDERED: AMIODARONE / D5W 200 ML IV SCH ×3 (13:15→14:00)
--- NOTE | 2016-04-26 13:44 | Progress Note ---
Internal Med Progress Note Date of Service: Apr 26, 2016. Provider Documentation: SUBJECTIVE: The patient was seen and examined Remains generally weak and lethargic No more V Tach OBJECTIVE: Vital Signs-as noted below Exam: General-No distress at rest Eyes-Normal ENT-normal Neck-supple Lungs-Decreased breath sound bilaterally Minimal crackles at the bases Heart-Irregular Abdomen-Benign Extremities-Trace edema bilaterally Neuro-AA Generally weak No focal Neuro deficit Lab data as noted below. ASSESSMENT & PLAN: Chronic atrial fibrillation-.Runs of V tach on 04/25/16 S/p AV replacement x 2. Cardiology stopped diltiazem(hypocalcemia) and changed to Toprol xl 100mg bid. Started on Amiodarone No more V Tach Appreciate Cardiology input Acute right heart failure-recent admission to [facility] for acute decompensation with recent discharge. CAD- H/o CABG . Appreciate Cards recs Diuretics held initially. Restart diuretics at 50% on 04/19. Appreciate Cardiology in put Acute Pancreatitis-resolved Symptomatic Hypocalcemia-resolved Likely complicated by Acute pancreatitis Received IV calcium Appreciate GI input for ongoing Nausea and Vomiting S/P Negative EGD COPD. Mild exacerbation.Cough-new, . continue steroid and Levaquin.repeat Cxr 04/24/16 no infiltrate.Will monitor Acute on Chronic UTI-r Switched to Keflex per pharmacy recs 04/19.F/u with pcp. Hemorrhoids-new report of hemorrhoids that cause some rectal bleeding; this has gone on for about 1 year. Seen by GI -recommended outpatient scope unless bleeding reoccurs. On Coumadin. Will monitor. . Glucose intolerance. -ISS with coverage, A1C 7.1 Esophageal reflux. Continue PPI. History of cerebrovascular accident with aphasia, but no other acute deficiency at this time. Hypothyroidism-iatrogenic, continue replacement DVT proph-Coumadin Full code DISPOSITION PT/OT evaluation Vital Signs: Date Time Temp Pulse Resp B/P Pulse Ox O2 Delivery O2 Flow Rate FiO2 04/26/16 12:37 36.6 105 16 125/68 100 Nasal Cannula 2.0 04/26/16 08:00 Room Air 04/26/16 07:47 36.5 89 16 130/79 99 Room Air 04/26/16 07:23 87 18 97 Nasal Cannula 2.0 04/26/16 04:00 95 Nasal Cannula 2.0 04/26/16 03:25 36.4 108 20 144/95 95 Nasal Cannula 2.0 04/26/16 03:09 82 18 96 Nasal Cannula 2.0 04/26/16 02:55 126/67 04/26/16 01:34 97 125/82 04/26/16 00:50 107 20 153/88 91 Room Air 04/26/16 00:13 36.4 99 20 112/69 92 2.0 04/26/16 00:10 94 Nasal Cannula 2.0 04/25/16 20:11 Nasal Cannula 2.0 04/25/16 19:47 36.4 100 16 123/79 96 Nasal Cannula 2.0 04/25/16 19:37 100 16 94 Nasal Cannula 2.0 04/25/16 16:00 95 Room Air 04/25/16 15:41 36.3 114 18 129/86 93 Room Air 04/25/16 14:35 90 18 96 Nasal Cannula 2.0 Lab Results: Results Past 24 Hours Test 04/25/16 16:27 04/25/16 20:10 04/26/16 01:55 04/26/16 07:37 Range/Units Bedside Glucose 261 269 210 70-90 mg/dl White Blood Count 11.03 4.8-10.8 K/uL Red Blood Count 3.61 4.2-5.4 M/uL Hemoglobin 9.9 12.0-16.0 g/dL Hematocrit 32.0 37-47 % Mean Corpuscular Volume 88.6 80-100 fL Mean Corpuscular Hemoglobin 27.4 25-34 pg Mean Corpuscular Hemoglobin Concent 30.9 32-36 g/dl Platelet Count 168 130-400 K/uL Mean Platelet Volume 10.2 7.4-10.4 fL Neutrophils (%) (Auto) 90.2 % Lymphocytes (%) (Auto) 6.8 % Monocytes (%) (Auto) 2.6 % Eosinophils (%) (Auto) 0.0 % Basophils (%) (Auto) 0.1 % Neutrophils # (Auto) 9.95 1.4-6.5 K/uL Lymphocytes # (Auto) 0.75 1.2-3.4 K/uL Monocytes # (Auto) 0.29 0.11-0.59 K/uL Eosinophils # (Auto) 0.00 0-0.5 K/uL Basophils # (Auto) 0.01 0-0.2 K/uL RDW Standard Deviation 56.2 36.4-46.3 fL RDW Coefficient of Variation 17.4 11.5-14.5 % Immature Granulocyte % (Auto) 0.3 % Immature Granulocyte # (Auto) 0.03 0.00-0.02 K/uL Prothrombin Time 28.7 9.0-12.0 SECONDS Prothromb Time International Ratio 2.6 0.9-1.1 Sodium Level 135 136-145 mmol/L Potassium Level 4.6 3.5-5.1 mmol/L Chloride Level 93 98-107 mmol/L Carbon Dioxide Level 33 21-32 mmol/L Anion Gap 9.0 3-11 mmol/L Blood Urea Nitrogen 31 7-18 mg/dl Creatinine 1.00 0.60-1.20 mg/dl Est Creatinine Clear Calc Drug Dose 53.5 ml/min Estimated GFR () 62.5 Estimated GFR (Non- 53.9 BUN/Creatinine Ratio 31.0 10-20 Random Glucose 214 70-99 mg/dl Calcium Level 10.1 8.5-10.1 mg/dl Magnesium Level 2.3 1.8-2.4 mg/dl Test 04/26/16 11:37 04/26/16 12:48 Range/Units Bedside Glucose 214 70-90 mg/dl
--- NOTE | 2016-04-26 13:56 | PROGRESS NOTE ---
DATE: 04/26/2016 The patient seen and examined. Chart, medications, telemetry reviewed. SUBJECTIVE: The patient once again notes no abrupt complaints or changes in functional capacity, though it was observed once again to have some extensive run of nonsustained ventricular tachycardia, 45 seconds in duration just prior to 1:00 a.m. this morning. She had had similar episodes day prior and was begun on oral amiodarone. Treatment last night included a single dose of IV metoprolol and 1 gram of IV magnesium. Today the patient denies any current complaints. Notes no dizziness or lightheadedness. Notes no syncope or near syncope. Notes no worsening orthopnea or peripheral edema. Appetite is only fair. Does get wheezy with cough. PHYSICAL EXAMINATION: VITAL SIGNS: Heart rates 90-100, blood pressure is 125/68. NECK: Thick. There is no distinct jugular venous distention. LUNGS: Reveal few scattered wheezes, worse with forced cough. CARDIOVASCULAR: Irregular, irregular with a grade 2/6 systolic murmur. There is no diastolic murmur. ABDOMEN: Obese, soft, nontender. EXTREMITIES: Without cyanosis or clubbing. There is no edema of significance. LABORATORY STUDIES: Sodium is 135, potassium is 4.6, chloride is 93, bicarbonate is 33, BUN is 31, creatinine is 1.0. INR is 2.6. White cell count is 11.0, hemoglobin is 9.9, hematocrit is 32.0. EKG this morning reveals atrial fibrillation with incomplete right bundle-branch block, poor R-wave progression across the anterior precordial leads with more pronounced Q-waves in V2 in comparison to prior studies. The prior tracings are of poor technical quality and in comparison directly to prior studies to earlier this admission, no abrupt change. Chest x-ray was last performed on 04/24/2016 which demonstrated cardiomegaly with improving interstitial edema. INR is 2.6. IMPRESSION: Complex 76-year-old female who per review of records carries a history of aortic valve replacement in 2006 and then repeat 2012, receiving at that time a 21 mm Barber II bioprosthesis. She has a history of ischemic heart disease and has undergone prior coronary intervention to the right coronary artery in September 2014. Underlying medical problems include hypertension, dyslipidemia, hypoparathyroidism and recent hospitalization with diastolic heart failure in early April 2016 at [facility]. At that time she was noted to be in atrial fibrillation of uncertain duration. She remains chronically anticoagulated. Issues as concern right now include recurrent nonsustained ventricular tachycardia very rapid ventricular response. PLAN: The patient will be moved to central telemetries unit, begun on IV amiodarone, electrophysiology will be consulted, electrolytes and magnesium had already been supplemented and optimized. Cardiac enzymes will be ordered, though acute ischemia is not observed by EKG and the patient is asymptomatic. Repeat echocardiogram will be ordered to reassess valve structures. Upon personal review of studies done on 04/17/2016 LV systolic function was preserved, bioprosthesis of the aortic valve was not well visualized but appeared functionally normal. There is heavy calcification of mitral valve annulus with associated mild mitral stenosis and insufficiency, significant right ventricular strain pattern present. Overall goal will be stabilization of rhythms, diltiazem has been discontinued, IV amiodarone initiated, will hold oral amiodarone until IV amiodarone low dose been completed. May ultimately need to reduce metoprolol dosing, but will follow as clinical course progresses. MTDD
--- NOTE | 2016-04-26 14:07 | Cardiology Consultation ---
Cardiology Consultation Date of Consultation: Apr 26, 2016. Requesting Physician: Dr. Weaver Reason for Consultation: WCT Pt evaluation today including: conversation w/ patient, conversation w/ family , physical exam, lab review, review of studies, conversation w/ it consultant, review of inpatient medication list History of Present Illness 76 yo woman with aortic valve replacement X2, last 2012, and long-standing atrial fibrillation with ablation 2000 and recent recurrence, currently in AF. She was admitted with and on telemetry had recurrent wide complex tachycardia, the first episode was around 0714 04/26/2016 and lasted about 40 secondes, very regular, rate of about 160 BPM. She was started on oral amiodarone, but during the night at 0048 she had another episode, very similar, lasting about the same amount of time. Cardiac enzymes negative X2 after her episode 04/25/2016. Echo on 04/17/2016 showed normal LV function, decreased RV function. No significant electrolyte imbalance. Past Medical/Surgical History PAST MEDICAL HISTORY: 1. Two-vessel CAD 09/11/2014 at [facility], with bare-metal stent to the right coronary artery. 2. 80% residual circumflex stenosis identified, medical management 3. Boprosthetic aortic valve replacement X2. Most recent was a #21 Barber II bioprosthetic aortic valve in 2012 at [facility]. 4. Moderate mitral stenosis 5. Atrial fibrillation 6. Hypertension. 7. Dyslipidemia. 8. Chronic diastolic heart failure. 9. Peripheral vascular disease 10. Hypothyroidism. 11. Hypocalcemia SURGICAL HISTORY: 1. Aortic valve replacement 04/14/06 and 2012 2. Atrial fibrillation ablation in 2000. 3. Total hip replacement in 2004 for the right side. 4. Right total knee replacement in 2000. 5. Peripheral angiogram with stenting of the right superficial femoral and popliteal arteries in 2013. Family History Father with heart disease, details unknown. . Social History Smoking Status: Never Smoker History of Alcohol Use: No The patient is . She has 6 children. She lives with her granddaughter. She does not smoke. Review of Systems Respiratory: No cough, No shortness of breath Cardiac: No chest pain, No edema All Other Systems: Reviewed and Negative Allergies Coded Allergies: No Known Allergies (Unverified , 04/16/16) Medications Current Inpatient Medications Medications (Trade) Dose Ordered Sig/Desire Route Start Time Stop Time Status Last Admin Dose Admin Aspirin (Ecotrin Tab) 81 mg QAM PO 04/17/16 09:00 05/17/16 08:59 04/26/16 08:12 81 MG Atorvastatin Calcium (Lipitor Tab) 40 mg HS PO 04/17/16 21:00 05/17/16 20:59 04/25/16 20:33 40 MG Cholecalciferol (Vitamin D Tab) 1,000 inter.unit QAM PO 04/17/16 09:00 05/17/16 08:59 04/26/16 08:13 1,000 INTER.UNIT Cyanocobalamin (Vitamin B-12 Tab) 1,000 mcg QAM PO 04/17/16 09:00 05/17/16 08:59 04/26/16 08:12 1,000 MCG Escitalopram Oxalate (Lexapro Tab) 10 mg QAM PO 04/17/16 09:00 05/17/16 08:59 04/26/16 08:15 10 MG Ferrous Sulfate (Feosol Tab) 325 mg BID PO 04/17/16 09:00 05/17/16 08:59 04/26/16 08:13 325 MG Fluticasone Propionate (Flonase Nasal [place]) 2 sprays DAILY PRN CASS 04/17/16 02:00 05/17/16 01:59 Gabapentin (Neurontin Cap) 100 mg BID@0800,1400 PO 04/17/16 08:00 05/17/16 07:59 04/26/16 08:14 100 MG Albuterol/ Ipratropium (Combivent Respimat Inh) 1 puffs QID INH 04/17/16 09:00 05/17/16 08:59 Future Hold 04/21/16 08:16 1 PUFFS Levetiracetam (Keppra Tab) 500 mg BID PO 04/17/16 09:00 05/17/16 08:59 04/26/16 08:15 500 MG Levothyroxine Sodium (Synthroid Tab) 150 mcg DAILYBB PO 04/17/16 06:00 05/17/16 06:59 04/26/16 06:07 150 MCG Nitroglycerin (Nitrostat Tab) 0.4 mg PRN PRN UT 04/17/16 02:00 05/17/16 01:59 Oxycodone/ Acetaminophen (Percocet 5-325MG Tab) 1 tab Q6H PRN PO 04/17/16 02:00 05/01/16 01:59 04/19/16 04:01 1 TAB Pantoprazole Sodium (Protonix Tab) 40 mg QAM PO 04/17/16 09:00 05/17/16 08:59 04/26/16 08:15 40 MG Potassium Chloride (Klor-Con Tab) 20 meq QAM PO 04/17/16 09:00 05/17/16 08:59 Future Hold 04/24/16 07:55 20 MEQ Trazodone HCl (Desyrel Tab) 50 mg HS PO 04/17/16 21:00 05/17/16 20:59 04/25/16 20:35 50 MG Calcitriol (Rocaltrol Cap) 0.5 mcg BID PO 04/17/16 09:00 05/17/16 08:59 04/26/16 08:15 0.5 MCG Insulin Aspart (novoLOG ASPART) SLIDING SCALE G... ACHS SC 04/17/16 07:00 05/17/16 06:59 04/26/16 12:52 8 UNITS Glucose (Glucose 40% Gel) 15-30 GRAMS 15 GRAMS... UD PRN PO 04/17/16 02:45 05/17/16 02:44 Glucose (Glucose Chew Tab) 4-8 Tablets 4 Tabl... UD PRN PO 04/17/16 02:45 05/17/16 02:44 Dextrose (Dextrose 50% 50ML Syringe) 25-50ML OF 50% DW IV FOR... UD PRN IV 04/17/16 02:45 05/17/16 02:44 Glucagon (Glucagon Inj) 1 mg UD PRN SQ 04/17/16 02:45 05/17/16 02:44 Gabapentin (Neurontin Cap) 200 mg HS PO 04/17/16 21:00 05/17/16 20:59 04/25/16 20:34 200 MG Morphine Sulfate (MoRPHine SULFATE INJ) 2 mg Q2H PRN IV 04/17/16 18:45 05/01/16 18:44 04/20/16 20:00 2 MG Warfarin Sodium (Coumadin Tab) 2 mg DAILY@16 PO 04/19/16 16:00 05/19/16 15:59 04/25/16 18:02 2 MG Furosemide (Lasix tab) 40 mg QAM PO 04/20/16 09:00 05/20/16 08:59 04/26/16 08:16 40 MG Cephalexin Monohydrate (Keflex Cap) 500 mg BID PO 04/19/16 21:00 04/29/16 20:59 04/26/16 08:16 500 MG Polyethylene (Miralax Powder Packet) 17 gm DAILY PO 04/20/16 09:00 05/20/16 08:59 04/26/16 08:14 17 GM Calcium Polycarbophil (Fibercon Tab) 1 tab QAM PO 04/20/16 09:00 05/20/16 08:59 04/26/16 08:23 1 TAB Hydrocodone Bit/ Homatropine Methylb (Hycodan Syrup) 5 ml Q6H PRN PO 04/21/16 02:00 05/05/16 01:59 04/23/16 01:58 5 ML Metoprolol Succinate (Toprol Xl Tab) 100 mg BID PO 04/21/16 21:00 05/21/16 20:59 04/26/16 08:14 100 MG Ipratropium [place] (Atrovent 0.02% 0.5MG/2.5ML Neb) 0.5 mg Q6R INH 04/21/16 15:00 05/21/16 14:59 04/26/16 07:23 0.5 MG Levalbuterol (Xopenex 1.25MG/ 0.5ML Neb) 1.25 mg Q6R INH 04/21/16 15:00 05/21/16 14:59 04/26/16 07:23 1.25 MG Levofloxacin (Levaquin Tab) 250 mg DAILY@11 PO 04/23/16 11:00 04/28/16 10:59 04/26/16 12:47 250 MG Prednisone (PredniSONE TAB) 40 mg DAILY PO 04/24/16 09:00 05/24/16 08:59 04/26/16 08:13 40 MG Calcium Carbonate (oS-Darrin 500 TAB) 1,250 mg DAILY PO 04/25/16 09:00 05/25/16 08:59 04/26/16 08:12 1,250 MG Amiodarone HCl 200 mg 200 mg TIDM PO 04/25/16 12:00 05/25/16 11:59 Future Hold 04/26/16 12:47 200 MG Amiodarone HCL/ Dextrose 100 ml @ 600 mls/hr TODAY@1330 IV 04/26/16 13:30 04/26/16 15:00 Amiodarone HCL/ Dextrose 200 ml @ 33.3 mls/hr Q6H1M IV 04/26/16 14:00 04/26/16 20:00 Amiodarone HCL/ Dextrose (Nexterone / D5w) 200 ml @ 16.7 mls/hr [id number] IV 04/26/16 20:00 05/26/16 19:59 Physical Exam Vital Signs Past 12 Hours Date Time Temp Pulse Resp B/P Pulse Ox O2 Delivery O2 Flow Rate FiO2 04/26/16 12:37 36.6 105 16 125/68 100 Nasal Cannula 2.0 04/26/16 08:00 Room Air 04/26/16 07:47 36.5 89 16 130/79 99 Room Air 04/26/16 07:23 87 18 97 Nasal Cannula 2.0 04/26/16 04:00 95 Nasal Cannula 2.0 04/26/16 03:25 36.4 108 20 144/95 95 Nasal Cannula 2.0 04/26/16 03:09 82 18 96 Nasal Cannula 2.0 04/26/16 02:55 126/67 04/26/16 01:34 97 125/82 Constitutional: Level of Distress: acutely ill, chronically ill Lungs: Auscultation: no wheezing, no rales/crackles Cardiovascular: Heart Auscultation: no murmurs, tachycardia, irregular rate rhythm Extremities: no edema Neurologic: Gait & Station: pertinent finding (no focal deficit, no somnolence ) Data Laboratory Results: Last 24 Hours Test 04/25/16 16:27 04/25/16 20:10 04/26/16 01:55 04/26/16 07:37 Bedside Glucose 261 mg/dl 269 mg/dl 210 mg/dl White Blood Count 11.03 K/uL Red Blood Count 3.61 M/uL Hemoglobin 9.9 g/dL Hematocrit 32.0 % Mean Corpuscular Volume 88.6 fL Mean Corpuscular Hemoglobin 27.4 pg Mean Corpuscular Hemoglobin Concent 30.9 g/dl Platelet Count 168 K/uL Mean Platelet Volume 10.2 fL Neutrophils (%) (Auto) 90.2 % Lymphocytes (%) (Auto) 6.8 % Monocytes (%) (Auto) 2.6 % Eosinophils (%) (Auto) 0.0 % Basophils (%) (Auto) 0.1 % Neutrophils # (Auto) 9.95 K/uL Lymphocytes # (Auto) 0.75 K/uL Monocytes # (Auto) 0.29 K/uL Eosinophils # (Auto) 0.00 K/uL Basophils # (Auto) 0.01 K/uL RDW Standard Deviation 56.2 fL RDW Coefficient of Variation 17.4 % Immature Granulocyte % (Auto) 0.3 % Immature Granulocyte # (Auto) 0.03 K/uL Prothrombin Time 28.7 SECONDS Prothromb Time International Ratio 2.6 Sodium Level 135 mmol/L Potassium Level 4.6 mmol/L Chloride Level 93 mmol/L Carbon Dioxide Level 33 mmol/L Anion Gap 9.0 mmol/L Blood Urea Nitrogen 31 mg/dl Creatinine 1.00 mg/dl Est Creatinine Clear Calc Drug Dose 53.5 ml/min Estimated GFR () 62.5 Estimated GFR (Non- 53.9 BUN/Creatinine Ratio 31.0 Random Glucose 214 mg/dl Calcium Level 10.1 mg/dl Magnesium Level 2.3 mg/dl Test 04/26/16 11:37 04/26/16 12:48 Bedside Glucose 214 mg/dl An echocardiogram done 04/17/2016 shows normal overall left ventricular function with a flattened septum consistent with right ventricular pressure or volume overload, the right ventricle is moderately dilated with moderate to severe right ventricular dysfunction. An electrocardiogram done this morning demonstrates atrial fibrillation with a heart rate of 79 bpm, incomplete right bundle branch block pattern. There is a probable septal infarct of indeterminate age. Telemetry monitoring demonstrates atrial fibrillation with periods of very rapid ventricular tachycardia, rate approaching 300 bpm. Spontaneously terminating. Assessment & Plan 1. WCT: Sustained, very rapid, not at all consistent with supraventricular origin. Almost certainly VT, could be bundle branch re-entry, but that would require LV mapping to identify and probably is not appropriate. It does not seem to be an ischemic arrhythmia, although she had CAD. She has too frequent episodes to use an ICD alone. I would recommend IV amiodarone with transition to oral if it is suppressed, and ICD implant if appropriate. Discussed with patient and family. Thank You
[2016-04-26] MEDS: WARFARIN SOD 2 MG TAB PO SCH (16:02)
[2016-04-26] MEDS: TRAZODONE HCL 50 MG TAB PO SCH (22:26)
[2016-04-26] MEDS: ATORVASTATIN 20 MG TAB PO SCH (22:33)
[2016-04-26] MEDS: AMIODARONE / D5W 200 ML IV SCH (22:49)
[2016-04-27] VITALS (17 sets, daily range): BP systolic 105–134; BP diastolic 69–92; PULSE 74–113; TEMP 36.3–37; O2SAT 81–98
[2016-04-27] MEDS: IPRATROPIUM BROMIDE NEB SOLN 0.02% 2.5 ML VIAL INH SCH ×4 (02:00→19:42)
[2016-04-27] MEDS: LEVALBUTEROL 1.25MG/0.5ML NEB INH SCH ×4 (02:00→19:42)
[2016-04-27] MEDS: LEVOTHYROXINE 150 MCG TAB PO SCH (05:28)
[2016-04-27 06:38] LABS: BASO % 0.1 %; BASO ABS # 0.01 K/uL (0-0.2); COMPLETE YES; EOS % 0.1 %; HEMATOCRIT 36.1 % (37-47); IG% 0.3 %; LYMPH % 10.1 %; LYMPH ABS # 1.82 K/uL (1.2-3.4); MEAN CELL VOLUME 89.6 fL (80-100); MEAN CORPUSCULAR HEMOGLOBIN 27.3 pg (25-34); MEAN CORPUSCULAR HGB CONC 30.5 g/dl (32-36); MEAN PLATELET VOLUME 11.3 fL (7.4-10.4); MONO % 3.5 %; NEUT % 85.9 %; PLATELET COUNT 189 K/uL (130-400); RED BLOOD COUNT 4.03 M/uL (4.2-5.4); WHITE BLOOD COUNT 17.95 K/uL (4.8-10.8)
[2016-04-27 06:51] LABS: INR 2.3 (0.9-1.1)
[2016-04-27] MEDS: INSULIN ASPART 100 UNITS/ML 3 ML PEN SC SCH ×4 (07:00→21:46)
[2016-04-27 07:10] LABS: BUN/CREATININE RATIO 34.2 (10-20); CALCIUM 9.5 mg/dl (8.5-10.1); CREATININE 1.3 mg/dl (0.60-1.20); MAGNESIUM 2.4 mg/dl (1.8-2.4); POTASSIUM 4.4 mmol/L (3.5-5.1)
[2016-04-27] MEDS: AMIODARONE / D5W 200 ML IV SCH (08:03)
[2016-04-27] MEDS: CALCIUM CARBONATE 1250MG TAB PO SCH (08:04)
[2016-04-27] MEDS: FERROUS SULFATE 325 MG TAB PO SCH ×2 (08:04→21:48)
[2016-04-27] MEDS: ASPIRIN 81 MG ECTAB PO SCH (08:04)
[2016-04-27] MEDS: CYANOCOBALAMIN 500 MCG TAB (VIT B-12) PO SCH (08:04)
[2016-04-27] MEDS: METOPROLOL SUCC 50MG EXT REL TAB PO SCH ×2 (08:04→21:48)
[2016-04-27] MEDS: ESCITALOPRAM OXALATE 10 MG TAB PO SCH (08:04)
[2016-04-27] MEDS: CEPHALEXIN MONOHYDRATE 500 MG CAP PO SCH ×2 (08:05→21:47)
[2016-04-27] MEDS: CALCIUM POLYCARBOPHIL 1 TAB PO SCH (08:05)
[2016-04-27] MEDS: PANTOprazole SOD 40 MG TAB PO SCH (08:05)
[2016-04-27] MEDS: CHOLECALCIFEROL 1000 INTER.UNIT TAB PO SCH (08:06)
[2016-04-27] MEDS: CALCITRIOL 0.25 MCG CAP PO SCH ×2 (08:06→21:48)
[2016-04-27] MEDS: GABAPENTIN 100 MG CAP PO SCH ×3 (08:06→21:47)
[2016-04-27] MEDS: FUROSEMIDE 40 MG TAB PO SCH (08:07)
[2016-04-27] MEDS: LEVETIRACETAM 500 MG TAB PO SCH ×2 (08:07→21:47)
[2016-04-27] MEDS: POLYETHYLENE (MIRALAX) 17 GM PACK PO SCH (08:07)
--- NOTE | 2016-04-27 08:44 | Cardiology Follow-Up ---
Subjective Date of Service: Apr 27, 2016. Pt evaluation today including: conversation w/ patient, physical exam, lab review, review of studies, conversation w/ web development consultant, review of inpatient medication list History of Present Illness 76 yo woman with aortic valve replacement X2, last 2012, and long-standing atrial fibrillation with ablation 2000 and recent recurrence, currently in AF. She was admitted with and on telemetry had recurrent wide complex tachycardia, the first episode was around 0714 04/26/2016 and lasted about 40 secondes, very regular, rate of about 160 BPM. She was started on oral amiodarone, but during the night at 0048 she had another episode, very similar, lasting about the same amount of time. Cardiac enzymes negative X2 after her episode 04/25/2016. Echo on 04/17/2016 showed normal LV function, decreased RV function. No significant electrolyte imbalance. Today she has no complaints, she is resting in bed. Tolerating IV amiodarone well. Social History Smoking Status: Never Smoker History of Alcohol Use: No Review of Systems Respiratory: No cough, No shortness of breath Cardiac: No chest pain, No edema Medications Cardiovascular: Item Value Date Time Amiodarone HCL/ 200 ml @ 16.7 mls/hr 04/26/16 2000 Dextrose .[id number] 04/27/16 0803 Metoprolol 100 mg 04/21/16 2100 Succinate BID/PO 04/27/16 0804 (Toprol Xl Tab) Furosemide 40 mg 04/20/16 0900 (Lasix tab) QAM/PO 04/27/16 0807 Warfarin Sodium 2 mg 04/19/16 1600 (Coumadin Tab) DAILY@16/PO 04/26/16 1602 Atorvastatin 40 mg 04/17/16 2100 Calcium HS/PO 04/26/16 2233 (Lipitor Tab) Aspirin 81 mg 04/17/16 0900 (Ecotrin Tab) QAM/PO 04/27/16 0804 Nitroglycerin 0.4 mg 04/17/16 0200 (Nitrostat Tab) PRN PRN/UT Objective Vital Signs Past 12 Hours Date Time Temp Pulse Resp B/P Pulse Ox O2 Delivery O2 Flow Rate FiO2 04/27/16 08:00 92 Nasal Cannula 2.0 04/27/16 07:49 36.4 80 18 134/92 98 Nasal Cannula 2.0 04/27/16 07:45 92 18 93 Nasal Cannula 2.0 04/27/16 04:07 92 Nasal Cannula 2.0 04/27/16 03:25 36.5 85 19 129/83 96 Nasal Cannula 2.0 04/27/16 02:00 82 18 95 Room Air 04/27/16 00:06 36.4 95 20 132/79 94 Nasal Cannula 2.0 04/27/16 00:00 92 Nasal Cannula 2.0 Last Recorded Weight-Kilograms: 98.200 Intake & Output 8-Hour Column 04/26/16 04/27/16 04/27/16 16:00 00:00 08:00 Intake Total 480 ml 231 ml 315 ml Output Total 350 ml 250 ml 400 ml Balance 130 ml -19 ml -85 ml 24-Hour Column 04/27/16 08:00 Intake Total 1026 ml Output Total 1000 ml Balance 26 ml Physical Exam Constitutional: Level of Distress: acutely ill, chronically ill Lungs: Auscultation: no wheezing, no rales/crackles Cardiovascular: Heart Auscultation: no murmurs, tachycardia, irregular rate rhythm Extremities: no edema Data Laboratory Results: Last 24 Hours Test 04/26/16 11:37 04/26/16 14:31 04/26/16 16:09 04/26/16 20:35 Bedside Glucose 214 mg/dl 279 mg/dl 340 mg/dl Troponin I 0.031 ng/ml Test 04/27/16 06:10 04/27/16 06:51 White Blood Count 17.95 K/uL Red Blood Count 4.03 M/uL Hemoglobin 11.0 g/dL Hematocrit 36.1 % Mean Corpuscular Volume 89.6 fL Mean Corpuscular Hemoglobin 27.3 pg Mean Corpuscular Hemoglobin Concent 30.5 g/dl Platelet Count 189 K/uL Mean Platelet Volume 11.3 fL Neutrophils (%) (Auto) 85.9 % Lymphocytes (%) (Auto) 10.1 % Monocytes (%) (Auto) 3.5 % Eosinophils (%) (Auto) 0.1 % Basophils (%) (Auto) 0.1 % Neutrophils # (Auto) 15.43 K/uL Lymphocytes # (Auto) 1.82 K/uL Monocytes # (Auto) 0.62 K/uL Eosinophils # (Auto) 0.01 K/uL Basophils # (Auto) 0.01 K/uL RDW Standard Deviation 58.2 fL RDW Coefficient of Variation 17.8 % Immature Granulocyte % (Auto) 0.3 % Immature Granulocyte # (Auto) 0.06 K/uL Nucleated RBC Absolute Count (auto) 0.03 K/uL Nucleated Red Blood Cells % 0.2 % Prothrombin Time 26.0 SECONDS Prothromb Time International Ratio 2.3 Sodium Level 134 mmol/L Potassium Level 4.4 mmol/L Chloride Level 92 mmol/L Carbon Dioxide Level 31 mmol/L Anion Gap 11.0 mmol/L Blood Urea Nitrogen 45 mg/dl Creatinine 1.30 mg/dl Est Creatinine Clear Calc Drug Dose 41.4 ml/min Estimated GFR () 45.5 Estimated GFR (Non- 39.3 BUN/Creatinine Ratio 34.2 Random Glucose 268 mg/dl Calcium Level 9.5 mg/dl Magnesium Level 2.4 mg/dl Bedside Glucose 89 mg/dl Telemetry reviewed: Remains in atrial fibrillation with a reasonably well- controlled heart rate, no further VT in the past 24 hours Assessment and Plan 1. WCT: Sustained, very rapid, not at all consistent with supraventricular origin. Almost certainly VT, could be bundle branch re-entry, but that would require LV mapping to identify and probably is not appropriate. It does not seem to be an ischemic arrhythmia, although she had CAD. She has too frequent episodes to use an ICD alone. I agree with continuation of IV amiodarone with transition to oral to suppress frequent events, and ICD implant to guard against future events. Discussed with patient and family yesterday and they are agreeable. Thank You
[2016-04-27] MEDS: HYDROCODONE/HOMATROPINE SYRUP 5MG/1.5MG 5ML UDP PO PRN (11:09)
[2016-04-27] MEDS: LEVOFLOXACIN 250 MG TAB PO SCH (11:10)
[2016-04-27] MEDS: AMIODARONE 200 MG TAB PO SCH ×3 (12:47→21:48)
--- NOTE | 2016-04-27 13:10 | PROGRESS NOTE ---
DATE: 04/27/2016 The patient seen and examined. Chart, medications, telemetry reviewed. SUBJECTIVE: The patient notes no abrupt changes, still feels nauseated after medications and meals. Notes no fevers, chills. Notes no chest pains. Notes no tachypalpitations. OBJECTIVE: Telemetry reveals no further ventricular arrhythmias. VITAL SIGNS: Heart rate is 80, blood pressure is 105/89. HEENT: Normocephalic and atraumatic. NECK: Thick. There is no distinct jugular venous distention. LUNGS: Reveal mildly diminished breath sounds and few scattered wheezes with forced cough. CARDIOVASCULAR: Irregularly irregular. There is no S3 gallop. There is a grade 1-2/6 systolic murmur. ABDOMEN: Soft with mild distention. EXTREMITIES: Without cyanosis or clubbing. There is no significant peripheral edema. LABORATORY DATA: Sodium is 134, potassium is 4.4, chloride 92, bicarb is 31, BUN is 45, creatinine is 1.3, troponin yesterday was 0.031 without elevation. White cell count today is 17.9 but on oral corticosteroids, hemoglobin is 11.0, platelet count is 189. INR is 2.3. IMPRESSION: A 76-year-old female admitted with multiple respiratory and abdominal complaints with acute illnesses as previously outlined, history of past diastolic heart failure, chronic atrial fibrillation, prior aortic valve replacement x2 as well as a coronary intervention in 2014. Since admission, she has asymptomatically manifested nonsustained ventricular tachycardia with rapid rates. RECOMMENDATIONS: The patient has received IV amiodarone, will convert this back to oral. Now a full load administered. Will follow up with electrophysiology, hold anticoagulation. This patient will likely warrant prophylactic defibrillator, depending on clinical course.
--- NOTE | 2016-04-27 13:56 | Progress Note ---
Internal Med Progress Note Date of Service: Apr 27, 2016. Provider Documentation: SUBJECTIVE: The patient was seen and examined Remains generally weak and lethargic Remains stable Will involve PT OBJECTIVE: Vital Signs-as noted below Exam: General-No distress at rest Generally weak and lethargic Eyes-Normal ENT-normal Neck-supple Lungs-Decreased breath sound bilaterally Minimal crackles at the bases Heart-Irregular Abdomen-Benign Extremities-Trace edema bilaterally Neuro-AA Generally weak No focal Neuro deficit Lab data as noted below. ASSESSMENT & PLAN: Chronic atrial fibrillation-.Runs of V tach on 04/25/16 S/p AV replacement x 2. Cardiology stopped diltiazem(hypocalcemia) and changed to Toprol xl 100mg bid. Started on Amiodarone-Loaded with IV and continued on Oral No more V Tach Appreciate Cardiology and Weigher Operator input May need Prophylactic Defibrillator placement Acute right heart failure-recent admission to [facility] for acute decompensation with recent discharge. CAD- H/o CABG . Appreciate Cards recs Diuretics held initially. Restart diuretics at 50% on 04/19. Appreciate Cardiology in put Acute Pancreatitis-resolved Symptomatic Hypocalcemia-resolved Likely complicated by Acute pancreatitis Received IV calcium Appreciate GI input for ongoing Nausea and Vomiting S/P Negative EGD COPD. Mild exacerbation.Cough-new, . Continue steroid and Levaquin.repeat Cxr 04/24/16 no infiltrate.Will monitor Acute on Chronic UTI-r Switched to Keflex per pharmacy recs 04/19.F/u with pcp. Hemorrhoids-new report of hemorrhoids that cause some rectal bleeding; this has gone on for about 1 year. Seen by GI -recommended outpatient scope unless bleeding reoccurs. On Coumadin. Will monitor. . Glucose intolerance. -ISS with coverage, A1C 7.1 Esophageal reflux. Continue PPI. History of cerebrovascular accident with aphasia, but no other acute deficiency at this time. Continue current medications Hypothyroidism-iatrogenic, continue replacement DVT proph-Coumadin Full code DISPOSITION PT/OT evaluation Vital Signs: Date Time Temp Pulse Resp B/P Pulse Ox O2 Delivery O2 Flow Rate FiO2 04/27/16 12:00 92 Nasal Cannula 2.0 04/27/16 11:45 92 Nasal Cannula 2.0 04/27/16 11:00 36.4 88 16 105/69 95 Nasal Cannula 2.0 04/27/16 08:00 92 Nasal Cannula 2.0 04/27/16 07:49 36.4 80 18 134/92 98 Nasal Cannula 2.0 04/27/16 07:45 92 18 93 Nasal Cannula 2.0 04/27/16 04:07 92 Nasal Cannula 2.0 04/27/16 03:25 36.5 85 19 129/83 96 Nasal Cannula 2.0 04/27/16 02:00 82 18 95 Room Air 04/27/16 00:06 36.4 95 20 132/79 94 Nasal Cannula 2.0 04/27/16 00:00 92 Nasal Cannula 2.0 04/26/16 20:00 92 Nasal Cannula 2.0 04/26/16 19:38 36.8 80 22 136/86 92 Nasal Cannula 2.0 04/26/16 19:14 82 18 93 Room Air 04/26/16 16:00 92 Nasal Cannula 2.0 04/26/16 15:33 36.6 86 18 116/74 92 Nasal Cannula 2.0 04/26/16 14:07 84 18 95 Nasal Cannula 2.0 Lab Results: Results Past 24 Hours Test 04/26/16 14:31 04/26/16 16:09 04/26/16 20:35 04/27/16 06:10 Range/Units Troponin I 0.031 0-0.045 ng/ml Bedside Glucose 279 340 70-90 mg/dl White Blood Count 17.95 4.8-10.8 K/uL Red Blood Count 4.03 4.2-5.4 M/uL Hemoglobin 11.0 12.0-16.0 g/dL Hematocrit 36.1 37-47 % Mean Corpuscular Volume 89.6 80-100 fL Mean Corpuscular Hemoglobin 27.3 25-34 pg Mean Corpuscular Hemoglobin Concent 30.5 32-36 g/dl Platelet Count 189 130-400 K/uL Mean Platelet Volume 11.3 7.4-10.4 fL Neutrophils (%) (Auto) 85.9 % Lymphocytes (%) (Auto) 10.1 % Monocytes (%) (Auto) 3.5 % Eosinophils (%) (Auto) 0.1 % Basophils (%) (Auto) 0.1 % Neutrophils # (Auto) 15.43 1.4-6.5 K/uL Lymphocytes # (Auto) 1.82 1.2-3.4 K/uL Monocytes # (Auto) 0.62 0.11-0.59 K/uL Eosinophils # (Auto) 0.01 0-0.5 K/uL Basophils # (Auto) 0.01 0-0.2 K/uL RDW Standard Deviation 58.2 36.4-46.3 fL RDW Coefficient of Variation 17.8 11.5-14.5 % Immature Granulocyte % (Auto) 0.3 % Immature Granulocyte # (Auto) 0.06 0.00-0.02 K/uL Nucleated RBC Absolute Count (auto) 0.03 0-0 K/uL Nucleated Red Blood Cells % 0.2 % Prothrombin Time 26.0 9.0-12.0 SECONDS Prothromb Time International Ratio 2.3 0.9-1.1 Sodium Level 134 136-145 mmol/L Potassium Level 4.4 3.5-5.1 mmol/L Chloride Level 92 98-107 mmol/L Carbon Dioxide Level 31 21-32 mmol/L Anion Gap 11.0 3-11 mmol/L Blood Urea Nitrogen 45 7-18 mg/dl Creatinine 1.30 0.60-1.20 mg/dl Est Creatinine Clear Calc Drug Dose 41.4 ml/min Estimated GFR () 45.5 Estimated GFR (Non- 39.3 BUN/Creatinine Ratio 34.2 10-20 Random Glucose 268 70-99 mg/dl Calcium Level 9.5 8.5-10.1 mg/dl Magnesium Level 2.4 1.8-2.4 mg/dl Test 04/27/16 06:51 Range/Units Bedside Glucose 89 70-90 mg/dl
[2016-04-27] MEDS: TRAZODONE HCL 50 MG TAB PO SCH (21:48)
[2016-04-27] MEDS: ATORVASTATIN 20 MG TAB PO SCH (21:49)
[2016-04-28] VITALS (14 sets, daily range): BP systolic 122–129; BP diastolic 75–86; PULSE 68–92; TEMP 36.3–37.1; O2SAT 80–98
[2016-04-28] MEDS: IPRATROPIUM BROMIDE NEB SOLN 0.02% 2.5 ML VIAL INH SCH ×4 (01:31→19:27)
[2016-04-28] MEDS: LEVALBUTEROL 1.25MG/0.5ML NEB INH SCH ×4 (01:31→19:27)
[2016-04-28] MEDS: LEVOTHYROXINE 150 MCG TAB PO SCH (05:50)
[2016-04-28 06:41] LABS: HEMATOCRIT 35.5 % (37-47); MEAN CELL VOLUME 88.5 fL (80-100); MEAN CORPUSCULAR HEMOGLOBIN 26.7 pg (25-34); MEAN CORPUSCULAR HGB CONC 30.1 g/dl (32-36); MEAN PLATELET VOLUME 11.5 fL (7.4-10.4); PLATELET COUNT 160 K/uL (130-400); RED BLOOD COUNT 4.01 M/uL (4.2-5.4); WHITE BLOOD COUNT 10.49 K/uL (4.8-10.8)
[2016-04-28 07:12] LABS: BUN/CREATININE RATIO 40.2 (10-20); CALCIUM 9.2 mg/dl (8.5-10.1); CREATININE 1.1 mg/dl (0.60-1.20); MAGNESIUM 2.4 mg/dl (1.8-2.4); POTASSIUM 4.1 mmol/L (3.5-5.1)
[2016-04-28] MEDS: CALCIUM CARBONATE 1250MG TAB PO SCH (08:12)
[2016-04-28] MEDS: METOPROLOL SUCC 50MG EXT REL TAB PO SCH ×2 (08:12→20:54)
[2016-04-28] MEDS: FUROSEMIDE 40 MG TAB PO SCH ×2 (08:12→17:16)
[2016-04-28] MEDS: FERROUS SULFATE 325 MG TAB PO SCH ×2 (08:13→21:50)
[2016-04-28] MEDS: AMIODARONE 200 MG TAB PO SCH ×4 (08:13→21:49)
[2016-04-28] MEDS: ESCITALOPRAM OXALATE 10 MG TAB PO SCH (08:13)
[2016-04-28] MEDS: PANTOprazole SOD 40 MG TAB PO SCH (08:13)
[2016-04-28] MEDS: ASPIRIN 81 MG ECTAB PO SCH (08:13)
[2016-04-28] MEDS: CYANOCOBALAMIN 500 MCG TAB (VIT B-12) PO SCH (08:14)
[2016-04-28] MEDS: LEVETIRACETAM 500 MG TAB PO SCH ×2 (08:14→20:51)
[2016-04-28] MEDS: CALCIUM POLYCARBOPHIL 1 TAB PO SCH (08:14)
[2016-04-28] MEDS: CALCITRIOL 0.25 MCG CAP PO SCH ×2 (08:14→20:53)
[2016-04-28] MEDS: CHOLECALCIFEROL 1000 INTER.UNIT TAB PO SCH (08:14)
[2016-04-28] MEDS: POLYETHYLENE (MIRALAX) 17 GM PACK PO SCH (08:15)
[2016-04-28] MEDS: GABAPENTIN 100 MG CAP PO SCH ×3 (08:15→20:51)
[2016-04-28] MEDS: CEPHALEXIN MONOHYDRATE 500 MG CAP PO SCH ×2 (08:15→20:52)
[2016-04-28] MEDS: INSULIN ASPART 100 UNITS/ML 3 ML PEN SC SCH ×4 (08:21→20:56)
--- NOTE | 2016-04-28 15:46 | CARDIOLOGY PROGRESS NOTE ---
DATE: 04/28/2016 SUBJECTIVE: The patient is seen and examined at the bedside. She is sleeping upon arrival to the room. She is easily arousable to verbal stimuli. Denies chest pain or unusual shortness of breath. Mild abdominal distention without discomfort noted. Complains of worsening lower extremity edema. No orthopnea or paroxysmal nocturnal dyspnea. Lasix has been cut back to 40 mg daily during hospitalization. She was initially admitted with pancreatitis. The patient developed sustained ventricular tachycardia during hospitalization. She has been evaluated by electrophysiology. Currently, receiving oral amiodarone load. There is a plan for ICD implantation. REVIEW OF SYSTEMS: The pertinent positives noted above and a 4-system review including cardiovascular, pulmonary, gastroenterologic, and endocrinologic systems otherwise negative. LABORATORY DATA: Sodium 137, potassium 4.1, chloride is 92, CO2 is 35, BUN is 44, creatinine is 1.10, and glucose 159. White blood cell count 10.49, hemoglobin is 10.7, platelet count is 160, and MCV 88.5. INR yesterday 2.3. Telemetry demonstrates rate controlled atrial fibrillation. PHYSICAL EXAMINATION: VITAL SIGNS: Temperature is 36.4 degrees centigrade, pulse 76 beats per minute and regular, respiratory rate is 18 breaths per minute, blood pressure 129/75 and SaO2 is 97% on 2 liters. GENERAL: NAD. Awake and alert. HEENT: Mucous membranes are moist. No scleral icterus. Conjunctivae pink. NECK: Supple without JVD or HJR. No carotid bruit. HEART: Irregular with a normal S1 and S2. No murmur or rub. LUNGS: Clear without rales, rhonchi or wheeze. ABDOMEN: Mildly distended without rebound or guarding. Normal bowel sounds. EXTREMITIES: Warm and dry. There is +2 pretibial edema bilaterally. NEUROLOGIC: Demonstrates no focal deficit. FINAL IMPRESSION: 1. Sustained ventricular tachycardia -- no recurrence over the past 24 hours. Currently, receiving amiodarone load. 2. Chronic coronary artery disease, history of PCI to the RCA. 3. History of bioprosthetic aortic valve replacement. 4. Persistent rate controlled atrial fibrillation -- INR is therapeutic on April 27. 5. Chronic diastolic left ventricular heart failure with newly diagnosed right ventricular dysfunction diagnosed this admission in addition to signs of decompensated right-sided heart failure. PLAN AND RECOMMENDATIONS: Continue oral amiodarone load. Await electrophysiology input today regarding ICD implantation. I discussed the plans for ICD implantation with the patient's granddaughter, who is power of ip technology transactions attorney. She is a physician's assistant distribution manager. She is agreeable; however, she would like to discuss further with electrophysiology. Coumadin will be on hold with plans for ICD. Furosemide will be increased to 40 mg twice daily given worsening lower extremity edema. A repeat basic metabolic panel will be performed in the a.m. I will continue to follow closely during hospitalization.
--- NOTE | 2016-04-28 16:47 | Cardiology Follow-Up ---
Subjective Date of Service: Apr 28, 2016. Pt evaluation today including: chart review, lab review, review of studies, review of inpatient medication list History of Present Illness 76 yo woman with aortic valve replacement X2, last 2012, and long-standing atrial fibrillation with ablation 2000 and recent recurrence, currently in AF. She was admitted with and on telemetry had recurrent wide complex tachycardia, the first episode was around 0714 04/26/2016 and lasted about 40 secondes, very regular, rate of about 160 BPM. She was started on oral amiodarone, but during the night at 0048 she had another episode, very similar, lasting about the same amount of time. Cardiac enzymes negative X2 after her episode 04/25/2016. Echo on 04/17/2016 showed normal LV function, decreased RV function. No significant electrolyte imbalance. No further VT on amiodarone therapy. Social History Smoking Status: Never Smoker History of Alcohol Use: No Review of Systems Respiratory: No cough, No shortness of breath Cardiac: No chest pain, No edema Medications Cardiovascular: Item Value Date Time Amiodarone HCl 200 mg 04/27/16 1300 (Cordarone Tab) QID/PO 04/28/16 1210 Furosemide 40 mg 04/28/16 1700 (Lasix Tab) BID@0900,1700/PO Metoprolol 100 mg 04/21/16 2100 Succinate BID/PO 04/28/16 0812 (Toprol Xl Tab) Atorvastatin 40 mg 04/17/16 2100 Calcium HS/PO 04/27/16 2149 (Lipitor Tab) Aspirin 81 mg 04/17/16 0900 (Ecotrin Tab) QAM/PO 04/28/16 0813 Objective Vital Signs Past 12 Hours Date Time Temp Pulse Resp B/P Pulse Ox O2 Delivery O2 Flow Rate FiO2 04/28/16 15:20 36.3 82 18 128/83 98 2.0 04/28/16 15:03 79 18 80 Room Air 04/28/16 12:00 95 Room Air 04/28/16 11:19 36.4 76 18 129/75 97 2.0 04/28/16 08:00 Nasal Cannula 2.0 04/28/16 07:20 36.4 69 20 127/84 98 2.0 04/28/16 07:06 78 18 98 Nasal Cannula 2.0 Last Recorded Weight-Kilograms: 99.500 Intake & Output 8-Hour Column 04/27/16 04/28/16 04/28/16 16:00 00:00 08:00 Intake Total 0 ml 20 ml 0 ml Output Total 250 ml 300 ml 400 ml Balance -250 ml -280 ml -400 ml 24-Hour Column 04/28/16 08:00 Intake Total 20 ml Output Total 950 ml Balance -930 ml Physical Exam Constitutional: Level of Distress: acutely ill, chronically ill Lungs: Auscultation: no wheezing, no rales/crackles Cardiovascular: Heart Auscultation: no murmurs, tachycardia, irregular rate rhythm Extremities: no edema Data Laboratory Results: Last 24 Hours Test 04/27/16 19:57 04/28/16 06:17 04/28/16 06:52 04/28/16 11:04 Bedside Glucose 266 mg/dl 159 mg/dl 204 mg/dl White Blood Count 10.49 K/uL Red Blood Count 4.01 M/uL Hemoglobin 10.7 g/dL Hematocrit 35.5 % Mean Corpuscular Volume 88.5 fL Mean Corpuscular Hemoglobin 26.7 pg Mean Corpuscular Hemoglobin Concent 30.1 g/dl RDW Standard Deviation 56.6 fL RDW Coefficient of Variation 17.4 % Platelet Count 160 K/uL Mean Platelet Volume 11.5 fL Sodium Level 137 mmol/L Potassium Level 4.1 mmol/L Chloride Level 92 mmol/L Carbon Dioxide Level 35 mmol/L Anion Gap 10.0 mmol/L Blood Urea Nitrogen 44 mg/dl Creatinine 1.10 mg/dl Est Creatinine Clear Calc Drug Dose 49.2 ml/min Estimated GFR () 55.7 Estimated GFR (Non- 48.1 BUN/Creatinine Ratio 40.2 Random Glucose 164 mg/dl Calcium Level 9.2 mg/dl Magnesium Level 2.4 mg/dl Test 04/28/16 16:10 Bedside Glucose 235 mg/dl Telemetry reviewed: Atrial fibrillation, no ventricular tachycardia in the past 24 hours. Assessment and Plan 1. WCT: Sustained, very rapid, not at all consistent with supraventricular origin. Almost certainly VT, could be bundle branch re-entry, but that would require LV mapping to identify and probably is not appropriate. It does not seem to be an ischemic arrhythmia, although she had CAD. She has too frequent episodes to use an ICD alone. I agree with continuation of IV amiodarone with transition to oral to suppress frequent events, and ICD implant to guard against future events. 2. Anticoagulant status: She is now off of warfarin but her INR is still over 2 today. Over the next several days she will probably fall to the point where it is reasonable to consider ICD implantation. This could probably be done Thursday or , schedule permitting. We could reverse her warfarin if desired for Thursday, however she may drop low enough that he can be performed then in any case. Thank you for allowing me to participate in her care.
--- NOTE | 2016-04-28 18:12 | Progress Note ---
Internal Med Progress Note Date of Service: Apr 28, 2016. Provider Documentation: SUBJECTIVE: The patient was seen and examined Remains generally weak and lethargic Remains stable Lack of motivation OBJECTIVE: Vital Signs-as noted below Exam: General-No distress at rest Generally weak and lethargic-a little brighter today Eyes-Normal ENT-normal Neck-supple Lungs-Decreased breath sound bilaterally Minimal crackles at the bases Heart-Irregular Abdomen-Benign Extremities-Trace edema bilaterally Neuro-AA Generally weak No focal Neuro deficit Lab data as noted below. ASSESSMENT & PLAN: Chronic atrial fibrillation-.Runs of V tach on 04/25/16 S/p AV replacement x 2. Cardiology stopped diltiazem(hypocalcemia) and changed to Toprol xl 100mg bid. Started on Amiodarone-Loaded with IV and continued on Oral No more V Tach Appreciate Cardiology and Casting Assistant input Waiting for Prophylactic Defibrillator placement Remains stable Acute right heart failure-recent admission to [facility] for acute decompensation with recent discharge. CAD- H/o CABG . Appreciate Cards recs Diuretics held initially. Restarted diuretics at 50% on 04/19. Appreciate Cardiology in put Acute Pancreatitis-resolved Symptomatic Hypocalcemia-resolved Likely complicated by Acute pancreatitis Received IV calcium Appreciate GI input for ongoing Nausea and Vomiting S/P Negative EGD COPD. Mild exacerbation.Cough-new, . Continue steroid and Levaquin. Repeat Cxr 04/24/16 no infiltrate. Will monitor Acute on Chronic UTI-r Switched to Keflex per pharmacy recs 04/19.F/u with pcp. Hemorrhoids-new report of hemorrhoids that cause some rectal bleeding; this has gone on for about 1 year. Seen by GI -recommended outpatient scope unless bleeding reoccurs. On Coumadin-on hold now Will monitor. . Glucose intolerance. -ISS with coverage, A1C 7.1 Esophageal reflux. Continue PPI. History of cerebrovascular accident with aphasia, but no other acute deficiency at this time. Continue current medications Hypothyroidism-iatrogenic, continue replacement DVT proph-Coumadin On hold now for AICD placement Full code DISPOSITION PT/OT evaluation Discussed with the Daughter in detailed Vital Signs: Date Time Temp Pulse Resp B/P Pulse Ox O2 Delivery O2 Flow Rate FiO2 04/28/16 17:16 80 04/28/16 15:20 36.3 82 18 128/83 98 2.0 04/28/16 15:03 79 18 80 Room Air 04/28/16 12:00 95 Room Air 04/28/16 11:19 36.4 76 18 129/75 97 2.0 04/28/16 08:00 Nasal Cannula 2.0 04/28/16 07:20 36.4 69 20 127/84 98 2.0 04/28/16 07:06 78 18 98 Nasal Cannula 2.0 04/28/16 04:00 Nasal Cannula 2.0 04/28/16 03:36 37.1 78 18 122/81 95 Nasal Cannula 2.0 04/28/16 01:31 68 18 94 Nasal Cannula 2.0 04/28/16 00:00 Nasal Cannula 2.0 04/27/16 23:56 37.0 113 18 128/82 96 Nasal Cannula 2.0 04/27/16 20:00 Nasal Cannula 2.0 04/27/16 19:42 90 18 81 Room Air 04/27/16 19:18 36.9 74 18 126/81 93 Mask Lab Results: Results Past 24 Hours Test 04/27/16 19:57 04/28/16 06:17 04/28/16 06:52 04/28/16 11:04 Range/Units Bedside Glucose 266 159 204 70-90 mg/dl White Blood Count 10.49 4.8-10.8 K/uL Red Blood Count 4.01 4.2-5.4 M/uL Hemoglobin 10.7 12.0-16.0 g/dL Hematocrit 35.5 37-47 % Mean Corpuscular Volume 88.5 80-100 fL Mean Corpuscular Hemoglobin 26.7 25-34 pg Mean Corpuscular Hemoglobin Concent 30.1 32-36 g/dl RDW Standard Deviation 56.6 36.4-46.3 fL RDW Coefficient of Variation 17.4 11.5-14.5 % Platelet Count 160 130-400 K/uL Mean Platelet Volume 11.5 7.4-10.4 fL Sodium Level 137 136-145 mmol/L Potassium Level 4.1 3.5-5.1 mmol/L Chloride Level 92 98-107 mmol/L Carbon Dioxide Level 35 21-32 mmol/L Anion Gap 10.0 3-11 mmol/L Blood Urea Nitrogen 44 7-18 mg/dl Creatinine 1.10 0.60-1.20 mg/dl Est Creatinine Clear Calc Drug Dose 49.2 ml/min Estimated GFR () 55.7 Estimated GFR (Non- 48.1 BUN/Creatinine Ratio 40.2 10-20 Random Glucose 164 70-99 mg/dl Calcium Level 9.2 8.5-10.1 mg/dl Magnesium Level 2.4 1.8-2.4 mg/dl Test 04/28/16 16:10 Range/Units Bedside Glucose 235 70-90 mg/dl
[2016-04-28] MEDS: ATORVASTATIN 20 MG TAB PO SCH (20:53)
[2016-04-28] MEDS ORDERED: FUROSEMIDE 40 MG TAB PO SCH (21:00)
[2016-04-28] MEDS: TRAZODONE HCL 50 MG TAB PO SCH (21:50)
[2016-04-29] VITALS (10 sets, daily range): BP systolic 113–130; BP diastolic 61–84; PULSE 61–104; TEMP 36.4–36.9; O2SAT 90–98
[2016-04-29] MEDS: LEVALBUTEROL 1.25MG/0.5ML NEB INH SCH ×4 (01:47→19:13)
[2016-04-29] MEDS: IPRATROPIUM BROMIDE NEB SOLN 0.02% 2.5 ML VIAL INH SCH ×3 (01:47→19:13)
[2016-04-29] MEDS: LEVOTHYROXINE 150 MCG TAB PO SCH (06:01)
[2016-04-29 07:13] LABS: INR 1.8 (0.9-1.1)
[2016-04-29 07:34] LABS: BUN/CREATININE RATIO 36.5 (10-20); CALCIUM 9.6 mg/dl (8.5-10.1); MAGNESIUM 2.3 mg/dl (1.8-2.4); POTASSIUM 4.3 mmol/L (3.5-5.1)
[2016-04-29] MEDS: CALCIUM CARBONATE 1250MG TAB PO SCH (08:04)
[2016-04-29] MEDS: ESCITALOPRAM OXALATE 10 MG TAB PO SCH (08:04)
[2016-04-29] MEDS: METOPROLOL SUCC 50MG EXT REL TAB PO SCH ×2 (08:04→21:10)
[2016-04-29] MEDS: LEVETIRACETAM 500 MG TAB PO SCH ×2 (08:05→21:11)
[2016-04-29] MEDS: GABAPENTIN 100 MG CAP PO SCH ×3 (08:05→21:10)
[2016-04-29] MEDS: FUROSEMIDE 40 MG TAB PO SCH ×2 (08:05→16:15)
[2016-04-29] MEDS: AMIODARONE 200 MG TAB PO SCH ×4 (08:05→21:11)
[2016-04-29] MEDS: CALCIUM POLYCARBOPHIL 1 TAB PO SCH (08:05)
[2016-04-29] MEDS: CYANOCOBALAMIN 500 MCG TAB (VIT B-12) PO SCH (08:06)
[2016-04-29] MEDS: CHOLECALCIFEROL 1000 INTER.UNIT TAB PO SCH (08:06)
[2016-04-29] MEDS: PANTOprazole SOD 40 MG TAB PO SCH (08:06)
[2016-04-29] MEDS: ASPIRIN 81 MG ECTAB PO SCH (08:06)
[2016-04-29] MEDS: CALCITRIOL 0.25 MCG CAP PO SCH ×2 (08:06→21:13)
[2016-04-29] MEDS: POLYETHYLENE (MIRALAX) 17 GM PACK PO SCH (08:07)
[2016-04-29] MEDS: FERROUS SULFATE 325 MG TAB PO SCH ×2 (08:07→21:10)
[2016-04-29] MEDS: CEPHALEXIN MONOHYDRATE 500 MG CAP PO SCH (08:07)
--- NOTE | 2016-04-29 08:45 | Cardiology Follow-Up ---
Subjective Date of Service: Apr 29, 2016. Pt evaluation today including: conversation w/ patient, physical exam, lab review, review of inpatient medication list History of Present Illness 76 yo woman with aortic valve replacement X2, last 2012, and long-standing atrial fibrillation with ablation 2000 and recent recurrence, currently in AF. She was admitted with and on telemetry had recurrent wide complex tachycardia, the first episode was around 0714 04/26/2016 and lasted about 40 secondes, very regular, rate of about 160 BPM. She was started on oral amiodarone, but during the night at 0048 she had another episode, very similar, lasting about the same amount of time. Cardiac enzymes negative X2 after her episode 04/25/2016. Echo on 04/17/2016 showed normal LV function, decreased RV function. No significant electrolyte imbalance. She has had no further VT on amiodarone therapy. Today she feels well, she has no complaints and is tolerating her medications well. Warfarin is on hold pending ICD implantation. Social History Smoking Status: Never Smoker History of Alcohol Use: No Review of Systems Respiratory: No cough, No shortness of breath Cardiac: No chest pain, No edema Medications Cardiovascular: Item Value Date Time Furosemide 40 mg 04/28/16 1700 (Lasix Tab) BID@0900,1700/PO 04/29/16 0805 Amiodarone HCl 200 mg 04/27/16 1300 (Cordarone Tab) QID/PO 04/29/16 0805 Metoprolol 100 mg 04/21/16 2100 Succinate BID/PO 04/29/16 0804 (Toprol Xl Tab) Atorvastatin 40 mg 04/17/16 2100 Calcium HS/PO 04/28/16 2053 (Lipitor Tab) Aspirin 81 mg 04/17/16 0900 (Ecotrin Tab) QAM/PO 04/29/16 0806 Objective Vital Signs Past 12 Hours Date Time Temp Pulse Resp B/P Pulse Ox O2 Delivery O2 Flow Rate FiO2 04/29/16 07:17 36.9 80 18 130/81 96 2.0 04/29/16 04:00 Nasal Cannula 2.0 04/29/16 03:36 36.4 78 18 123/77 97 Nasal Cannula 2.0 04/29/16 01:47 85 18 98 Nasal Cannula 2.0 04/29/16 00:03 36.7 81 19 124/61 95 Nasal Cannula 2.0 1/24/17 00:00 Nasal Cannula 2.0 04/28/16 20:57 87 125/86 Last Recorded Weight-Kilograms: 101.900 Intake & Output 8-Hour Column 04/28/16 04/29/16 04/29/16 16:00 00:00 08:00 Intake Total 850 ml 100 ml 120 ml Output Total 450 ml 450 ml 350 ml Balance 400 ml -350 ml -230 ml 24-Hour Column 04/29/16 08:00 Intake Total 1070 ml Output Total 1250 ml Balance -180 ml Physical Exam Constitutional: Level of Distress: acutely ill, chronically ill Lungs: Auscultation: no wheezing, no rales/crackles Cardiovascular: Heart Auscultation: no murmurs, irregular rate rhythm Extremities: no edema Data Laboratory Results: Last 24 Hours Test 04/28/16 11:04 04/28/16 16:10 04/28/16 20:21 04/28/16 20:22 Bedside Glucose 204 mg/dl 235 mg/dl 293 mg/dl 239 mg/dl Test 04/29/16 06:29 04/29/16 06:34 Bedside Glucose 181 mg/dl Prothrombin Time 20.0 SECONDS Prothromb Time International Ratio 1.8 Sodium Level 136 mmol/L Potassium Level 4.3 mmol/L Chloride Level 91 mmol/L Carbon Dioxide Level 35 mmol/L Anion Gap 10.0 mmol/L Blood Urea Nitrogen 37 mg/dl Creatinine 1.00 mg/dl Est Creatinine Clear Calc Drug Dose 54.9 ml/min Estimated GFR () 62.5 Estimated GFR (Non- 53.9 BUN/Creatinine Ratio 36.5 Random Glucose 169 mg/dl Calcium Level 9.6 mg/dl Magnesium Level 2.3 mg/dl Telemetry reviewed: Atrial fibrillation with a controlled rate, no further ventricular tachycardia. Assessment and Plan 1. WCT: Sustained, very rapid, not at all consistent with supraventricular origin. Almost certainly VT, could be bundle branch re-entry, but that would require LV mapping to identify and probably is not appropriate. It does not seem to be an ischemic arrhythmia, although she had CAD. She has too frequent episodes to use an ICD alone. I agree with continuation of amiodarone to suppress frequent events, and ICD implant to guard against future events. 2. Anticoagulant status: She is now off of warfarin and her INR is 1.8 today. Overnight she will probably fall to the point where it is safe to consider ICD implantation. This could be done tomorrow morning and I've tentatively scheduled her, I will make arrangements talk to her granddaughter about it this afternoon. Thank you for allowing me to participate in her care.
[2016-04-29] MEDS: INSULIN ASPART 100 UNITS/ML 3 ML PEN SC SCH ×4 (09:24→21:24)
[2016-04-29] MEDS ORDERED: SPIRONOLACTONE 25 MG TAB PO ONE (14:38)
--- NOTE | 2016-04-29 14:38 | Cardiology Follow-Up ---
Subjective General Date of Service: Apr 29, 2016. Chief Complaint: follow up sustained VT , CHF, AF Pt evaluation today including: conversation w/ patient, physical exam, chart review, lab review, review of studies, review of inpatient medication list History of Present Illness The patient is a 76 year old female seen in follow up. Complains of CP associated with cough. Currently receiving nebulizer treatment. Denies palpitations, lightheadedness, dizziness, syncope, or near-syncope. PVC's on telemetry without recurrent VT. Allergies Coded Allergies: No Known Allergies (Unverified , 04/16/16) Social History Smoking Status: Never Smoker Hx Tobacco Use In Past Year?: No Hx Alcohol Use - Type And Amou: No Hx Substance Use - Type And Am: No Review of Systems Respiratory: + cough, + dyspnea on exertion, No dyspnea at rest, No hemoptysis , No shortness of breath, No sputum, No wheezing Cardiac: + chest pain, + edema, No PND, No claudication, No orthopnea, No palpitations Physical Exam Vital Signs Last Vital Signs Documentation Date Time Temp Pulse Resp B/P Pulse Ox O2 Delivery O2 Flow Rate FiO2 04/29/16 14:08 94 18 90 Nasal Cannula 2.0 04/29/16 11:07 36.6 130/84 Physical Exam Constitutional: General Apperance: overweight Level of Distress: acutely ill, chronically ill Neck: supple Lungs: Auscultation: no wheezing, no rales/crackles Cardiovascular: Heart Auscultation: no murmurs, irregular rate rhythm Peripheral Pulses: Bruits: none appreciated Abdomen: Bowel Sounds: normal Extremities: edema (2+ pedal edema) Neurologic: Gait & Station: pertinent finding (no focal deficit) Cranial Nerves: grossly intact Assessment and Plan Assessment and Plan FINAL IMPRESSION: 1. Sustained ventricular tachycardia -- no recurrence over the past 48 hours. Tolerating amiodarone load. 2. Chronic coronary artery disease, history of PCI to the RCA. 3. History of bioprosthetic aortic valve replacement. 4. Persistent rate controlled atrial fibrillation - INR trending down - coumadin on hold 5. Acute on chronic diastolic heart failure and right-sided heart failure. PLAN AND RECOMMENDATIONS: Continue oral amiodarone load. Continue lasix 40mg BID. Add low dose aldactone 12.5mg daily. Hold coumadin. Plan for ICD implant in AM. Laboratory Results Last 24 Hours Test 04/28/16 16:10 04/28/16 20:21 04/28/16 20:22 04/29/16 06:29 Bedside Glucose 235 mg/dl 293 mg/dl 239 mg/dl 181 mg/dl Test 04/29/16 06:34 04/29/16 11:20 Prothrombin Time 20.0 SECONDS Prothromb Time International Ratio 1.8 Sodium Level 136 mmol/L Potassium Level 4.3 mmol/L Chloride Level 91 mmol/L Carbon Dioxide Level 35 mmol/L Anion Gap 10.0 mmol/L Blood Urea Nitrogen 37 mg/dl Creatinine 1.00 mg/dl Est Creatinine Clear Calc Drug Dose 54.9 ml/min Estimated GFR () 62.5 Estimated GFR (Non- 53.9 BUN/Creatinine Ratio 36.5 Random Glucose 169 mg/dl Calcium Level 9.6 mg/dl Magnesium Level 2.3 mg/dl Bedside Glucose 211 mg/dl
--- NOTE | 2016-04-29 15:52 | Progress Note ---
Internal Med Progress Note Date of Service: Apr 29, 2016. Provider Documentation: SUBJECTIVE: The patient was seen and examined Remains generally weak and lethargic Remains stable Denies any symptoms OBJECTIVE: Vital Signs-as noted below Exam: General-No distress at rest Generally weak and lethargic-a little brighter today Eyes-Normal ENT-normal Neck-supple Lungs-Decreased breath sound bilaterally Minimal crackles at the bases Heart-Irregular Abdomen-Benign Extremities-Trace edema bilaterally Neuro-AA Generally weak No focal Neuro deficit Lab data as noted below. ASSESSMENT & PLAN: Chronic atrial fibrillation-.Runs of V tach on 04/25/16 S/p AV replacement x 2. Cardiology stopped diltiazem(hypocalcemia) and changed to Toprol xl 100mg bid. Started on Amiodarone-Loaded with IV and continued on Oral No more V Tach Appreciate Cardiology and Senior Cobol Developer input Waiting for Prophylactic Defibrillator placement Likely to have AID placement tomorrow Acute right heart failure-recent admission to [facility] for acute decompensation with recent discharge. CAD- H/o CABG . Appreciate Cards recs Diuretics held initially. Restarted diuretics at 50% on 04/19. Appreciate Cardiology in put Adjusting medications Acute Pancreatitis-resolved Symptomatic Hypocalcemia-resolved Likely complicated by Acute pancreatitis Received IV calcium Appreciate GI input for ongoing Nausea and Vomiting S/P Negative EGD COPD. Mild exacerbation.Cough-new, . Continue steroid and Levaquin. Repeat Cxr 04/24/16 no infiltrate. Will monitor Acute on Chronic UTI-r Switched to Keflex per pharmacy recs 04/19.F/u with pcp. Hemorrhoids-new report of hemorrhoids that cause some rectal bleeding; this has gone on for about 1 year. Seen by GI -recommended outpatient scope unless bleeding reoccurs. On Coumadin-on hold now Will monitor. No acute issue . Glucose intolerance. -ISS with coverage, A1C 7.1 Esophageal reflux. Continue PPI. History of cerebrovascular accident with aphasia, but no other acute deficiency at this time. Continue current medications Hypothyroidism-iatrogenic, continue replacement DVT proph-Coumadin On hold now for AICD placement INR 1.8 today Full code DISPOSITION PT/OT evaluation Discussed with the Daughter in detailed Vital Signs: Date Time Temp Pulse Resp B/P Pulse Ox O2 Delivery O2 Flow Rate FiO2 04/29/16 15:34 36.4 82 20 116/71 98 2.0 04/29/16 15:33 Nasal Cannula 2.0 04/29/16 14:08 94 18 90 Nasal Cannula 2.0 04/29/16 12:00 Nasal Cannula 2.0 04/29/16 11:07 36.6 62 18 130/84 96 2.0 04/29/16 08:00 Nasal Cannula 2.0 04/29/16 07:17 36.9 80 18 130/81 96 2.0 04/29/16 07:05 80 18 98 Nasal Cannula 2.0 04/29/16 04:00 Nasal Cannula 2.0 04/29/16 03:36 36.4 78 18 123/77 97 Nasal Cannula 2.0 04/29/16 01:47 85 18 98 Nasal Cannula 2.0 04/29/16 00:03 36.7 81 19 124/61 95 Nasal Cannula 2.0 04/29/16 00:00 Nasal Cannula 2.0 04/28/16 20:57 87 125/86 04/28/16 20:00 97 Nasal Cannula 2.0 04/28/16 19:32 92 18 97 Nasal Cannula 2.0 04/28/16 19:12 36.4 73 20 124/84 90 Nasal Cannula 2.0 04/28/16 17:16 80 04/28/16 16:00 98 Nasal Cannula Lab Results: Results Past 24 Hours Test 04/28/16 16:10 04/28/16 20:21 04/28/16 20:22 04/29/16 06:29 Range/Units Bedside Glucose 235 293 239 181 70-90 mg/dl Test 04/29/16 06:34 04/29/16 11:20 Range/Units Prothrombin Time 20.0 9.0-12.0 SECONDS Prothromb Time International Ratio 1.8 0.9-1.1 Sodium Level 136 136-145 mmol/L Potassium Level 4.3 3.5-5.1 mmol/L Chloride Level 91 98-107 mmol/L Carbon Dioxide Level 35 21-32 mmol/L Anion Gap 10.0 3-11 mmol/L Blood Urea Nitrogen 37 7-18 mg/dl Creatinine 1.00 0.60-1.20 mg/dl Est Creatinine Clear Calc Drug Dose 54.9 ml/min Estimated GFR () 62.5 Estimated GFR (Non- 53.9 BUN/Creatinine Ratio 36.5 10-20 Random Glucose 169 70-99 mg/dl Calcium Level 9.6 8.5-10.1 mg/dl Magnesium Level 2.3 1.8-2.4 mg/dl Bedside Glucose 211 70-90 mg/dl
[2016-04-29] MEDS: ATORVASTATIN 20 MG TAB PO SCH (21:09)
[2016-04-29] MEDS: TRAZODONE HCL 50 MG TAB PO SCH (21:09)
[2016-04-30] VITALS (14 sets, daily range): BP systolic 101–126; BP diastolic 67–82; PULSE 69–79; TEMP 36.3–36.6; O2SAT 94–99
[2016-04-30] MEDS: IPRATROPIUM BROMIDE NEB SOLN 0.02% 2.5 ML VIAL INH SCH ×4 (01:21→19:53)
[2016-04-30] MEDS: LEVALBUTEROL 1.25MG/0.5ML NEB INH SCH ×4 (01:21→19:53)
[2016-04-30] MEDS: LEVOTHYROXINE 150 MCG TAB PO SCH (05:23)
[2016-04-30] MEDS ORDERED: FENTANYL CITRATE INJ 50 MCG/1 ML 2 ML VIAL ONE (07:13)
[2016-04-30] MEDS ORDERED: MIDAZOLAM HCL 5 MG/ML 1 ML VIAL ONE (07:14)
[2016-04-30] MEDS ORDERED: BACITRACIN 50000 UNIT VIAL ONE (07:14)
[2016-04-30] MEDS ORDERED: BACITRACIN OINT 0.9 GM PKT ONE (07:14)
[2016-04-30] MEDS ORDERED: LIDOCAINE HCL 1% 20 ML VIAL ONE (07:14)
[2016-04-30 07:20] LABS: INR 1.5 (0.9-1.1); PROTHROMBIN TIME (PATIENT) 16.3 SECONDS (9.0-12.0)
[2016-04-30] MEDS ORDERED: KEFZOL SPECIAL PROCEDURE STOCK 1 GM ADDVIAL IV ONE (07:36)
[2016-04-30] MEDS: INSULIN ASPART 100 UNITS/ML 3 ML PEN SC SCH ×4 (08:00→21:54)
--- NOTE | 2016-04-30 09:21 | Procedure Note ---
Pre-Mod Sedation Assessment General Date of Moderate Sedation: Apr 30, 2016. Vital Signs: Vital Signs Past 12 Hours Date Time Temp Pulse Resp B/P Pulse Ox O2 Delivery O2 Flow Rate FiO2 04/30/16 09:10 80 16 116/88 100 Mask 10 04/30/16 08:55 86 16 125/91 100 Mask 10 04/30/16 07:29 36.5 79 17 119/76 94 Nasal Cannula 2.0 04/30/16 07:04 78 16 98 Nasal Cannula 2.0 04/30/16 07:00 36.5 71 18 113/67 99 2.0 04/30/16 04:00 Nasal Cannula 2.0 04/30/16 03:41 36.5 79 17 119/76 94 Nasal Cannula 2.0 04/30/16 01:22 78 16 98 Nasal Cannula 2.0 04/30/16 00:11 36.6 74 19 126/82 96 Nasal Cannula 2.0 04/29/16 23:59 Nasal Cannula 2.0 Review Cardiovascular: regular rate, rhythm Abdomen: normal bowel sounds Lungs: lungs clear Pre-Sedation Airway Assessment Oral Cavity: Dentures Short Thick Neck: Yes Hx of Sleep Apnea: No Smoking Status: Never Smoker Procedure Planning Contraindications-for Mod Sed: None Yes Notes The planned sedation has been discussed with the patient and consent obtained. I have identified the patient, determined the appropriateness of sedation and have assessed the patient immediately prior to the procedure. All medicine(s) and interventions are by my order.
[2016-04-30] MEDS: CYANOCOBALAMIN 500 MCG TAB (VIT B-12) PO SCH (09:22)
[2016-04-30] MEDS: CALCITRIOL 0.25 MCG CAP PO SCH ×2 (09:22→21:02)
[2016-04-30] MEDS: ESCITALOPRAM OXALATE 10 MG TAB PO SCH (09:22)
[2016-04-30] MEDS: FERROUS SULFATE 325 MG TAB PO SCH ×2 (09:22→21:00)
[2016-04-30] MEDS: SPIRONOLACTONE 25 MG TAB PO SCH (09:22)
[2016-04-30] MEDS: CHOLECALCIFEROL 1000 INTER.UNIT TAB PO SCH (09:23)
[2016-04-30] MEDS: ASPIRIN 81 MG ECTAB PO SCH (09:23)
[2016-04-30] MEDS: PANTOprazole SOD 40 MG TAB PO SCH (09:23)
[2016-04-30] MEDS: CALCIUM POLYCARBOPHIL 1 TAB PO SCH (09:23)
[2016-04-30] MEDS: CALCIUM CARBONATE 1250MG TAB PO SCH (09:23)
[2016-04-30] MEDS: METOPROLOL SUCC 50MG EXT REL TAB PO SCH ×2 (09:23→21:00)
[2016-04-30] MEDS: FUROSEMIDE 40 MG TAB PO SCH ×2 (09:23→16:29)
[2016-04-30] MEDS: LEVETIRACETAM 500 MG TAB PO SCH ×2 (09:23→21:01)
[2016-04-30] MEDS: AMIODARONE 200 MG TAB PO SCH ×4 (09:24→21:02)
[2016-04-30] MEDS: POLYETHYLENE (MIRALAX) 17 GM PACK PO SCH (09:24)
[2016-04-30] MEDS: GABAPENTIN 100 MG CAP PO SCH ×3 (09:24→21:01)
--- NOTE | 2016-04-30 09:26 | Cardiology Procedure Brief Nt ---
Preliminary Cardiology Note Procedure Date Apr 30, 2016. Pre-Procedure Diagnosis Sustained VT Post-Procedure Diagnosis Same Procedure(s) Performed L subclavian venogram Single chamber ICD implant Water Filterer Corporate Analyst(s) None Estimated Blood Loss 100 cc Preliminary Findings Good lead position, good measurements More blood loss than usual due to high venous pressures and INR 1.5, not excessive Recommendations Monitor overnight Specimens None Anesthesia Local with sedation Complication(s) None Disposition PCU
--- NOTE | 2016-04-30 09:26 | Procedure Note ---
Post-Mod Sedation Assessment General Date of Moderate Sedation Apr 30, 2016. Vital Signs: Vital Signs Past 12 Hours Date Time Temp Pulse Resp B/P Pulse Ox O2 Delivery O2 Flow Rate FiO2 04/30/16 09:10 80 16 116/88 100 Mask 10 04/30/16 08:55 86 16 125/91 100 Mask 10 04/30/16 07:29 36.5 79 17 119/76 94 Nasal Cannula 2.0 04/30/16 07:04 78 16 98 Nasal Cannula 2.0 04/30/16 07:00 36.5 71 18 113/67 99 2.0 04/30/16 04:00 Nasal Cannula 2.0 04/30/16 03:41 36.5 79 17 119/76 94 Nasal Cannula 2.0 04/30/16 01:22 78 16 98 Nasal Cannula 2.0 04/30/16 00:11 36.6 74 19 126/82 96 Nasal Cannula 2.0 04/29/16 23:59 Nasal Cannula 2.0 Review - Discharge Criteria Vital Signs Stable: Yes Alert/Oriented/Conversant: Yes Returned to Baseline Mental St: Yes Nausea Absent/Minimal: Yes Pain/Discomfort/Absent/Minimal: Yes Normal/Baseline Respirations: Yes Active Bleeding?: No Specific Proced. D/C Criteria Voided Prior To Discharge: N/A Discharged Patients Adult Escort/Transportation: N/A
[2016-04-30] MEDS ORDERED: KETOROLAC TROMETHAMINE 10 MG TAB PO PRN (09:30)
[2016-04-30] MEDS ORDERED: ACETAMINOPHEN 325 MG TAB PO PRN (09:30)
[2016-04-30] MEDS: CEFAZOLIN IV 2,000 MG in DEXTROSE 5% 50ML 50 ML IV SCH ×2 (11:11→21:10)
--- NOTE | 2016-04-30 13:59 | Cardiology Follow-Up ---
Subjective General Date of Service: Apr 30, 2016. Chief Complaint: follow up sustained VT , CHF, AF Pt evaluation today including: conversation w/ patient, physical exam, chart review, lab review, review of studies, conversation w/ instructional design consultant, review of inpatient medication list History of Present Illness The patient is a 76 year old female seen in follow up. Sedated post-ICD implant. Repeat BMP pending. PVC's on telemetry without recurrent VT. Edema unchanged. Allergies Coded Allergies: No Known Allergies (Unverified , 04/16/16) Social History Smoking Status: Never Smoker Hx Tobacco Use In Past Year?: No Hx Alcohol Use - Type And Amou: No Hx Substance Use - Type And Am: No Review of Systems Respiratory: + dyspnea on exertion, No cough, No dyspnea at rest, No hemoptysis , No shortness of breath, No sputum, No wheezing Cardiac: + edema, No PND, No chest pain, No claudication, No orthopnea, No palpitations Physical Exam Vital Signs Last Vital Signs Documentation Date Time Temp Pulse Resp B/P Pulse Ox O2 Delivery O2 Flow Rate FiO2 04/30/16 12:00 Nasal Cannula 2.0 04/30/16 11:00 36.3 76 18 112/71 98 Physical Exam Constitutional: General Apperance: overweight Level of Distress: acutely ill, chronically ill Neck: supple Lungs: Auscultation: no wheezing, no rales/crackles Cardiovascular: Heart Auscultation: no murmurs, irregular rate rhythm Peripheral Pulses: Bruits: none appreciated Abdomen: Bowel Sounds: normal Extremities: edema (2+ pedal edema) Neurologic: Gait & Station: pertinent finding (no focal deficit) Cranial Nerves: grossly intact Assessment and Plan Assessment and Plan FINAL IMPRESSION: 1. Sustained ventricular tachycardia s/p ICD -tolerating amiodarone load -no recurrent VT on monitor 2. Acute on chronic decompensated diastolic and right sided heart failure. 3. Chronic coronary artery disease, history of PCI to the RCA. 4. History of bioprosthetic aortic valve replacement. 5. Persistent rate controlled atrial fibrillation - INR subtherapeutic - coumadin on hold for ICD PLAN AND RECOMMENDATIONS: Restart coumadin 5mg today then 2mg daily. Repeat BMP pending. Consider transition to IV lasix to augment diuresis. Continue oral amiodarone load. Continue lasix 40mg BID and low dose aldactone 12.5mg daily. Will continue to follow. Laboratory Results Last 24 Hours Test 04/29/16 16:07 04/29/16 20:44 04/30/16 06:39 04/30/16 06:57 Bedside Glucose 224 mg/dl 198 mg/dl 156 mg/dl Prothrombin Time 16.3 SECONDS Prothromb Time International Ratio 1.5 Test 04/30/16 11:10 04/30/16 13:33 Bedside Glucose 221 mg/dl
[2016-04-30 14:17] LABS: BUN/CREATININE RATIO 32.3 (10-20); CALCIUM 8.6 mg/dl (8.5-10.1); CREATININE 1.1 mg/dl (0.60-1.20)
[2016-04-30] MEDS ORDERED: WARFARIN SOD 5 MG TAB PO ONE (15:00)
--- NOTE | 2016-04-30 17:30 | Progress Note ---
Internal Med Progress Note Date of Service: Apr 30, 2016. Provider Documentation: SUBJECTIVE: The patient was seen and examined S/P ICD placement Drowsy following surgery Denies any symptoms OBJECTIVE: Vital Signs-as noted below Exam: General-No distress at rest Very drowsy following surgery Eyes-Normal ENT-normal Neck-supple Lungs-Decreased breath sound bilaterally Minimal crackles at the bases Heart-Irregular Abdomen-Benign Extremities-Trace edema bilaterally Neuro-AA Generally weak No focal Neuro deficit Lab data as noted below. ASSESSMENT & PLAN: S/P ICD placement ::04/30/2016 Chronic atrial fibrillation-.Runs of V tach on 04/25/16 S/p AV replacement x 2. Cardiology stopped diltiazem(hypocalcemia) and changed to Toprol xl 100mg bid. Started on Amiodarone-Loaded with IV and continued on Oral No more V Tach Appreciate Cardiology and Special Education Teacher input Remains drowsy following the procedure Acute right heart failure-recent admission to [facility] for acute decompensation with recent discharge. CAD- H/o CABG . Appreciate Cards recs Diuretics held initially. Restarted diuretics at 50% on 04/19. Appreciate Cardiology in put Adjusting medications Acute Pancreatitis-resolved Symptomatic Hypocalcemia-resolved Likely complicated by Acute pancreatitis Received IV calcium Appreciate GI input for ongoing Nausea and Vomiting S/P Negative EGD COPD. Mild exacerbation.Cough-new, . Continue steroid and Levaquin. Repeat Cxr 04/24/16 no infiltrate. No acute symptoms Acute on Chronic UTI-r Switched to Keflex per pharmacy recs 04/19.F/u with pcp. Hemorrhoids-new report of hemorrhoids that cause some rectal bleeding; this has gone on for about 1 year. Seen by GI -recommended outpatient scope unless bleeding reoccurs. On Coumadin-on hold now Will monitor. No acute issue . Glucose intolerance. -ISS with coverage, A1C 7.1 Esophageal reflux. Continue PPI. History of cerebrovascular accident with aphasia, but no other acute deficiency at this time. Continue current medications Hypothyroidism-iatrogenic, continue replacement DVT proph-Coumadin On hold now for AICD placement Full code DISPOSITION PT/OT evaluation Discussed with the Daughter in detailed Will discuss with her again Vital Signs: Date Time Temp Pulse Resp B/P Pulse Ox O2 Delivery O2 Flow Rate FiO2 04/30/16 16:28 36.3 72 16 117/76 99 Nasal Cannula 3.0 04/30/16 15:48 Nasal Cannula 2.0 04/30/16 14:19 72 16 98 Nasal Cannula 2.0 04/30/16 12:00 Nasal Cannula 2.0 04/30/16 11:00 36.3 76 18 112/71 98 2.0 04/30/16 09:52 36.4 72 18 101/67 97 2.0 04/30/16 09:33 Nasal Cannula 2.0 04/30/16 09:10 80 16 116/88 100 Mask 10 04/30/16 08:55 86 16 125/91 100 Mask 10 04/30/16 07:29 36.5 79 17 119/76 94 Nasal Cannula 2.0 04/30/16 07:04 78 16 98 Nasal Cannula 2.0 04/30/16 07:00 36.5 71 18 113/67 99 2.0 04/30/16 04:00 Nasal Cannula 2.0 04/30/16 03:41 36.5 79 17 119/76 94 Nasal Cannula 2.0 04/30/16 01:22 78 16 98 Nasal Cannula 2.0 04/30/16 00:11 36.6 74 19 126/82 96 Nasal Cannula 2.0 04/29/16 23:59 Nasal Cannula 2.0 04/29/16 20:05 36.8 104 20 113/71 93 2.0 04/29/16 20:00 Nasal Cannula 2.0 04/29/16 19:13 61 16 98 Nasal Cannula 2.0 Lab Results: Results Past 24 Hours Test 04/29/16 20:44 04/30/16 06:39 04/30/16 06:57 04/30/16 11:10 Range/Units Bedside Glucose 198 156 221 70-90 mg/dl Prothrombin Time 16.3 9.0-12.0 SECONDS Prothromb Time International Ratio 1.5 0.9-1.1 Test 04/30/16 13:33 04/30/16 16:08 Range/Units Sodium Level 133 136-145 mmol/L Potassium Level 4.0 3.5-5.1 mmol/L Chloride Level 89 98-107 mmol/L Carbon Dioxide Level 33 21-32 mmol/L Anion Gap 11.0 3-11 mmol/L Blood Urea Nitrogen 36 7-18 mg/dl Creatinine 1.10 0.60-1.20 mg/dl Est Creatinine Clear Calc Drug Dose 49.2 ml/min Estimated GFR () 55.7 Estimated GFR (Non- 48.1 BUN/Creatinine Ratio 32.3 10-20 Random Glucose 254 70-99 mg/dl Calcium Level 8.6 8.5-10.1 mg/dl Bedside Glucose 293 70-90 mg/dl
[2016-04-30] MEDS: ATORVASTATIN 20 MG TAB PO SCH (21:00)
[2016-04-30] MEDS: TRAZODONE HCL 50 MG TAB PO SCH (21:02)
[2016-05-01] VITALS (11 sets, daily range): BP systolic 103–118; BP diastolic 59–73; PULSE 60–92; TEMP 36.3–36.9; O2SAT 93–97
[2016-05-01] MEDS: LEVALBUTEROL 1.25MG/0.5ML NEB INH SCH ×4 (03:28→18:58)
[2016-05-01] MEDS: IPRATROPIUM BROMIDE NEB SOLN 0.02% 2.5 ML VIAL INH SCH ×4 (03:28→18:58)
[2016-05-01] MEDS: CEFAZOLIN IV 2,000 MG in DEXTROSE 5% 50ML 50 ML IV SCH (04:05)
[2016-05-01] MEDS: LEVOTHYROXINE 150 MCG TAB PO SCH (05:17)
[2016-05-01 06:46] LABS: HEMATOCRIT 31.6 % (37-47); MEAN CELL VOLUME 88.3 fL (80-100); MEAN CORPUSCULAR HEMOGLOBIN 26.5 pg (25-34); MEAN CORPUSCULAR HGB CONC 30.1 g/dl (32-36); MEAN PLATELET VOLUME 11.3 fL (7.4-10.4); PLATELET COUNT 148 K/uL (130-400); RED BLOOD COUNT 3.58 M/uL (4.2-5.4); WHITE BLOOD COUNT 11.91 K/uL (4.8-10.8)
[2016-05-01 07:12] LABS: BUN/CREATININE RATIO 36.6 (10-20); CALCIUM 8.7 mg/dl (8.5-10.1); CREATININE 0.88 mg/dl (0.60-1.20); MAGNESIUM 2.3 mg/dl (1.8-2.4); PHOSPHORUS 3.5 mg/dl (2.5-4.9)
--- NOTE | 2016-05-01 07:33 | DIAGNOSTIC IMAGING REPORT ---
CHEST 2 VIEWS ROUTINE CLINICAL HISTORY: Pacemaker insertion COMPARISON STUDY: Chest radiograph April 24, 2016. FINDINGS: Median sternotomy wires and a prosthetic cardiac valve, likely aortic, are again noted. Cardiomegaly is unchanged. There has been interval placement of a left subclavian pacer/AICD. There is no pneumothorax. The lead tip projects over the right ventricle. There may be a small left pleural effusion with hazy left basilar opacity. There is no radiographic evidence of pulmonary edema. IMPRESSION: 1. No pneumothorax following placement of a left subclavian pacer/AICD. 2. Small left pleural effusion with hazy left basilar opacity. Electronically signed by: Zach Garvin M.D. 05/01/2016 7:31 AM Dictated Date/Time: 05/01/2016 7:29 AM
[2016-05-01] MEDS: FUROSEMIDE INJ 40 MG in SYRINGE 0 ML IV SCH ×2 (08:26→16:44)
[2016-05-01] MEDS: CALCIUM POLYCARBOPHIL 1 TAB PO SCH (08:27)
[2016-05-01] MEDS: CALCITRIOL 0.25 MCG CAP PO SCH ×2 (08:27→19:56)
[2016-05-01] MEDS: FERROUS SULFATE 325 MG TAB PO SCH ×2 (08:27→19:54)
[2016-05-01] MEDS: METOPROLOL SUCC 50MG EXT REL TAB PO SCH ×2 (08:27→19:55)
[2016-05-01] MEDS: GABAPENTIN 100 MG CAP PO SCH ×3 (08:28→19:55)
[2016-05-01] MEDS: CHOLECALCIFEROL 1000 INTER.UNIT TAB PO SCH (08:28)
[2016-05-01] MEDS: SPIRONOLACTONE 25 MG TAB PO SCH (08:28)
[2016-05-01] MEDS: POLYETHYLENE (MIRALAX) 17 GM PACK PO SCH (08:29)
[2016-05-01] MEDS: CALCIUM CARBONATE 1250MG TAB PO SCH (08:29)
[2016-05-01] MEDS: LEVETIRACETAM 500 MG TAB PO SCH ×2 (08:29→19:56)
[2016-05-01] MEDS: PANTOprazole SOD 40 MG TAB PO SCH (08:29)
[2016-05-01] MEDS: AMIODARONE 200 MG TAB PO SCH ×4 (08:29→19:55)
[2016-05-01] MEDS: ESCITALOPRAM OXALATE 10 MG TAB PO SCH (08:29)
[2016-05-01] MEDS: ASPIRIN 81 MG ECTAB PO SCH (08:29)
[2016-05-01] MEDS: CYANOCOBALAMIN 500 MCG TAB (VIT B-12) PO SCH (08:30)
[2016-05-01] MEDS: INSULIN ASPART 100 UNITS/ML 3 ML PEN SC SCH ×4 (08:32→20:03)
--- NOTE | 2016-05-01 18:01 | Cardiology Follow-Up ---
Subjective General Date of Service: May 01, 2016. Chief Complaint: follow up sustained VT , CHF, AF Pt evaluation today including: conversation w/ patient, physical exam, chart review, lab review, review of studies, review of inpatient medication list History of Present Illness The patient is a 76 year old female seen in follow up. More alert today. Edema improving with IV diuretic therapy. PVC's on telemetry without recurrent VT. No CP or SOB at rest. Offers no new complaints. Allergies Coded Allergies: No Known Allergies (Unverified , 04/16/16) Social History Smoking Status: Never Smoker Hx Tobacco Use In Past Year?: No Hx Alcohol Use - Type And Amou: No Hx Substance Use - Type And Am: No Review of Systems Respiratory: No cough, No dyspnea at rest, No hemoptysis, No shortness of breath, No wheezing Cardiac: + edema, No PND, No chest pain, No claudication, No orthopnea, No palpitations Physical Exam Vital Signs Last Vital Signs Documentation Date Time Temp Pulse Resp B/P Pulse Ox O2 Delivery O2 Flow Rate FiO2 05/01/16 16:39 36.4 78 18 103/66 96 Nasal Cannula 2.0 Physical Exam Constitutional: General Apperance: overweight Level of Distress: acutely ill, chronically ill Neck: supple Lungs: Auscultation: no wheezing, no rales/crackles Cardiovascular: Heart Auscultation: no murmurs, irregular rate rhythm Peripheral Pulses: Bruits: none appreciated Abdomen: Bowel Sounds: normal Extremities: no clubbing, no ulcers, edema (2+ pedal edema) Neurologic: Gait & Station: pertinent finding (no focal deficit) Cranial Nerves: grossly intact Assessment and Plan Assessment and Plan FINAL IMPRESSION: 1. Sustained ventricular tachycardia s/p ICD -tolerating amiodarone load -no recurrent VT on monitor 2. Acute on chronic decompensated diastolic and right sided heart failure. - improving with IV diuresis and PO aldactone 3. Chronic coronary artery disease, history of PCI to the RCA. 4. History of bioprosthetic aortic valve replacement. 5. Persistent rate controlled atrial fibrillation - INR subtherapeutic - coumadin restarted 04/30 PLAN AND RECOMMENDATIONS: Continue coumadin 2mg daily. Repeat INR in AM. Continue IV lasix. Increase aldactone to 25mg daily. Continue oral amiodarone load. Repeat BMP in AM. Will continue to follow. Laboratory Results Last 24 Hours Test 04/30/16 19:52 05/01/16 06:17 05/01/16 06:57 05/01/16 11:16 Bedside Glucose 212 mg/dl 167 mg/dl 209 mg/dl White Blood Count 11.91 K/uL Red Blood Count 3.58 M/uL Hemoglobin 9.5 g/dL Hematocrit 31.6 % Mean Corpuscular Volume 88.3 fL Mean Corpuscular Hemoglobin 26.5 pg Mean Corpuscular Hemoglobin Concent 30.1 g/dl RDW Standard Deviation 57.0 fL RDW Coefficient of Variation 17.5 % Platelet Count 148 K/uL Mean Platelet Volume 11.3 fL Sodium Level 134 mmol/L Potassium Level 4.0 mmol/L Chloride Level 91 mmol/L Carbon Dioxide Level 35 mmol/L Anion Gap 8.0 mmol/L Blood Urea Nitrogen 32 mg/dl Creatinine 0.88 mg/dl Est Creatinine Clear Calc Drug Dose 61.3 ml/min Estimated GFR () 72.9 Estimated GFR (Non- 62.9 BUN/Creatinine Ratio 36.6 Random Glucose 151 mg/dl Calcium Level 8.7 mg/dl Phosphorus Level 3.5 mg/dl Magnesium Level 2.3 mg/dl Test 05/01/16 16:13 Bedside Glucose 257 mg/dl
--- NOTE | 2016-05-01 18:57 | Progress Note ---
Internal Med Progress Note Date of Service: May 01, 2016. Provider Documentation: SUBJECTIVE: The patient was seen and examined S/P ICD placement Drowsy following surgery Denies any symptoms today except weakness Will need PT/OT and placement OBJECTIVE: Vital Signs-as noted below Exam: General-No distress at rest Very drowsy following surgery Eyes-Normal ENT-normal Neck-supple Lungs-Decreased breath sound bilaterally Minimal crackles at the bases Heart-Irregular Abdomen-Benign Extremities-Trace edema bilaterally Neuro-AA Generally weak No focal Neuro deficit Lab data as noted below. ASSESSMENT & PLAN: S/P ICD placement ::04/30/2016 Chronic atrial fibrillation-.Runs of V tach on 04/25/16 S/p AV replacement x 2. Cardiology stopped diltiazem(hypocalcemia) and changed to Toprol xl 100mg bid. Started on Amiodarone-Loaded with IV and continued on Oral No more V Tach Appreciate Cardiology and Plywood Matcher input Feels better but generally weak Continue Amiodarone,Coumadin ,spironolactone and Lasix Will involve PT/OT Acute right heart failure-recent admission to [facility] for acute decompensation with recent discharge. CAD- H/o CABG . Appreciate Cards recs Diuretics held initially. Restarted diuretics at 50% on 04/19. Appreciate Cardiology in put Adjusting medications Getting Lasix for more diuresis and on Aldactone Acute Pancreatitis-resolved Symptomatic Hypocalcemia-resolved Likely complicated by Acute pancreatitis Received IV calcium Appreciate GI input for ongoing Nausea and Vomiting S/P Negative EGD COPD. Mild exacerbation.Cough-new, . Continue steroid and Levaquin. Repeat Cxr 04/24/16 no infiltrate. No acute symptoms Acute on Chronic UTI-r Switched to Keflex per pharmacy recs 04/19.F/u with pcp. Hemorrhoids-new report of hemorrhoids that cause some rectal bleeding; this has gone on for about 1 year. Seen by GI -recommended outpatient scope unless bleeding reoccurs. On Coumadin-on hold now Will monitor. No acute issue . Glucose intolerance. -ISS with coverage, A1C 7.1 Esophageal reflux. Continue PPI. History of cerebrovascular accident with aphasia, but no other acute deficiency at this time. Continue current medications Hypothyroidism-iatrogenic, continue replacement DVT proph-Coumadin Continue Coumadin 2 mg Monitor INR Full code DISPOSITION PT/OT evaluation Discussed with the Daughter in detailed Will need placement Vital Signs: Date Time Temp Pulse Resp B/P Pulse Ox O2 Delivery O2 Flow Rate FiO2 05/01/16 16:39 36.4 78 18 103/66 96 Nasal Cannula 2.0 05/01/16 16:00 Nasal Cannula 2.0 05/01/16 14:35 66 16 95 Nasal Cannula 3.0 05/01/16 12:25 104/69 05/01/16 12:00 Nasal Cannula 2.0 05/01/16 11:26 36.5 76 18 105/67 95 2.0 05/01/16 08:00 Nasal Cannula 2.0 05/01/16 07:30 36.5 60 16 109/59 96 2.0 05/01/16 06:55 64 16 96 Nasal Cannula 3.0 05/01/16 04:05 Nasal Cannula 2.0 05/01/16 03:41 36.3 76 18 112/71 97 Nasal Cannula 2.0 05/01/16 03:28 64 16 96 Nasal Cannula 3.0 05/01/16 00:00 Nasal Cannula 2.0 04/30/16 23:34 36.4 71 20 124/81 94 Room Air 04/30/16 20:00 98 Nasal Cannula 2.0 04/30/16 19:53 69 16 98 Nasal Cannula 3.0 04/30/16 19:32 36.5 70 18 124/72 96 Nasal Cannula 3.0 Lab Results: Results Past 24 Hours Test 04/30/16 19:52 05/01/16 06:17 05/01/16 06:57 05/01/16 11:16 Range/Units Bedside Glucose 212 167 209 70-90 mg/dl White Blood Count 11.91 4.8-10.8 K/uL Red Blood Count 3.58 4.2-5.4 M/uL Hemoglobin 9.5 12.0-16.0 g/dL Hematocrit 31.6 37-47 % Mean Corpuscular Volume 88.3 80-100 fL Mean Corpuscular Hemoglobin 26.5 25-34 pg Mean Corpuscular Hemoglobin Concent 30.1 32-36 g/dl RDW Standard Deviation 57.0 36.4-46.3 fL RDW Coefficient of Variation 17.5 11.5-14.5 % Platelet Count 148 130-400 K/uL Mean Platelet Volume 11.3 7.4-10.4 fL Sodium Level 134 136-145 mmol/L Potassium Level 4.0 3.5-5.1 mmol/L Chloride Level 91 98-107 mmol/L Carbon Dioxide Level 35 21-32 mmol/L Anion Gap 8.0 3-11 mmol/L Blood Urea Nitrogen 32 7-18 mg/dl Creatinine 0.88 0.60-1.20 mg/dl Est Creatinine Clear Calc Drug Dose 61.3 ml/min Estimated GFR () 72.9 Estimated GFR (Non- 62.9 BUN/Creatinine Ratio 36.6 10-20 Random Glucose 151 70-99 mg/dl Calcium Level 8.7 8.5-10.1 mg/dl Phosphorus Level 3.5 2.5-4.9 mg/dl Magnesium Level 2.3 1.8-2.4 mg/dl Test 05/01/16 16:13 Range/Units Bedside Glucose 257 70-90 mg/dl
[2016-05-01] MEDS ORDERED: WARFARIN SOD 2 MG TAB PO ONE (19:15)
[2016-05-01] MEDS: ATORVASTATIN 20 MG TAB PO SCH (19:54)
[2016-05-01] MEDS: TRAZODONE HCL 50 MG TAB PO SCH (19:56)
[2016-05-02] VITALS (11 sets, daily range): BP systolic 99–119; BP diastolic 67–77; PULSE 76–84; TEMP 36.5–37.3; O2SAT 6–98
[2016-05-02] MEDS: IPRATROPIUM BROMIDE NEB SOLN 0.02% 2.5 ML VIAL INH SCH ×4 (02:16→19:13)
[2016-05-02] MEDS: LEVALBUTEROL 1.25MG/0.5ML NEB INH SCH ×4 (02:16→19:13)
[2016-05-02] MEDS: LEVOTHYROXINE 150 MCG TAB PO SCH (06:10)
[2016-05-02 06:40] LABS: HEMATOCRIT 31.2 % (37-47); MEAN CELL VOLUME 87.4 fL (80-100); MEAN CORPUSCULAR HEMOGLOBIN 27.2 pg (25-34); MEAN CORPUSCULAR HGB CONC 31.1 g/dl (32-36); MEAN PLATELET VOLUME 11.3 fL (7.4-10.4); PLATELET COUNT 142 K/uL (130-400); RED BLOOD COUNT 3.57 M/uL (4.2-5.4); WHITE BLOOD COUNT 13.98 K/uL (4.8-10.8)
[2016-05-02 07:25] LABS: BUN/CREATININE RATIO 37.1 (10-20); CALCIUM 8.6 mg/dl (8.5-10.1); CREATININE 0.88 mg/dl (0.60-1.20); MAGNESIUM 2.3 mg/dl (1.8-2.4); PHOSPHORUS 3.1 mg/dl (2.5-4.9); POTASSIUM 3.9 mmol/L (3.5-5.1)
[2016-05-02] MEDS: CALCIUM POLYCARBOPHIL 1 TAB PO SCH (07:45)
[2016-05-02] MEDS: ASPIRIN 81 MG ECTAB PO SCH (07:45)
[2016-05-02] MEDS: METOPROLOL SUCC 50MG EXT REL TAB PO SCH ×2 (07:45→20:31)
[2016-05-02] MEDS: CALCITRIOL 0.25 MCG CAP PO SCH ×2 (07:46→20:33)
[2016-05-02] MEDS: SPIRONOLACTONE 25 MG TAB PO SCH (07:47)
[2016-05-02] MEDS: PANTOprazole SOD 40 MG TAB PO SCH (07:47)
[2016-05-02] MEDS: AMIODARONE 200 MG TAB PO SCH ×3 (07:47→20:32)
[2016-05-02] MEDS: CALCIUM CARBONATE 1250MG TAB PO SCH ×2 (07:48→20:33)
[2016-05-02] MEDS: CHOLECALCIFEROL 1000 INTER.UNIT TAB PO SCH (07:48)
[2016-05-02] MEDS: ESCITALOPRAM OXALATE 10 MG TAB PO SCH (07:48)
[2016-05-02] MEDS: FERROUS SULFATE 325 MG TAB PO SCH ×2 (07:48→20:31)
[2016-05-02] MEDS: CYANOCOBALAMIN 500 MCG TAB (VIT B-12) PO SCH (07:48)
[2016-05-02] MEDS: FUROSEMIDE INJ 40 MG in SYRINGE 0 ML IV SCH ×2 (07:50→17:09)
[2016-05-02] MEDS: GABAPENTIN 100 MG CAP PO SCH ×3 (07:51→20:30)
[2016-05-02] MEDS: INSULIN ASPART 100 UNITS/ML 3 ML PEN SC SCH ×4 (07:52→20:36)
[2016-05-02] MEDS: POLYETHYLENE (MIRALAX) 17 GM PACK PO SCH (07:55)
[2016-05-02 09:22] LABS: INR 1.3 (0.9-1.1); PROTHROMBIN TIME (PATIENT) 14.5 SECONDS (9.0-12.0)
[2016-05-02] MEDS: LEVETIRACETAM 500 MG TAB PO SCH ×2 (10:53→20:33)
--- NOTE | 2016-05-02 14:19 | Cardiology Follow-Up ---
Subjective General Date of Service: May 02, 2016. Chief Complaint: follow up sustained VT , CHF, AF Pt evaluation today including: conversation w/ patient, physical exam, chart review, lab review, review of studies, conversation w/ pre sales technical consultant, review of inpatient medication list History of Present Illness The patient is a 76 year old female seen in follow up. No changes overnight. INR remains subtherapeutic. Edema slowly improving with IV diuretic therapy. PVC's on telemetry without recurrent VT. No CP or SOB at rest. Offers no new complaints. Allergies Coded Allergies: No Known Allergies (Unverified , 04/16/16) Social History Smoking Status: Never Smoker Hx Tobacco Use In Past Year?: No Hx Alcohol Use - Type And Amou: No Hx Substance Use - Type And Am: No Review of Systems Respiratory: No cough, No dyspnea at rest, No hemoptysis, No problem reported, No shortness of breath, No wheezing Cardiac: No PND, No chest pain, No edema, No orthopnea Physical Exam Vital Signs Last Vital Signs Documentation Date Time Temp Pulse Resp B/P Pulse Ox O2 Delivery O2 Flow Rate FiO2 05/02/16 12:00 Nasal Cannula 2.0 05/02/16 11:32 36.8 78 18 115/77 96 Physical Exam Constitutional: General Apperance: overweight Level of Distress: chronically ill Head: normocephalic, atraumatic Neck: supple Lungs: Auscultation: no wheezing, no rales/crackles Cardiovascular: Heart Auscultation: no murmurs, irregular rate rhythm Peripheral Pulses: Bruits: none appreciated Abdomen: Bowel Sounds: normal Extremities: no clubbing, no ulcers, edema (2+ pedal edema) Neurologic: Gait & Station: pertinent finding (no focal deficit) Cranial Nerves: grossly intact Assessment and Plan Assessment and Plan FINAL IMPRESSION: 1. Sustained ventricular tachycardia s/p ICD -tolerating amiodarone load -no recurrent VT on monitor 2. Acute on chronic decompensated diastolic and right sided heart failure. - improving with IV diuresis and PO aldactone 3. Chronic coronary artery disease, history of PCI to the RCA. 4. History of bioprosthetic aortic valve replacement. 5. Persistent rate controlled atrial fibrillation - INR subtherapeutic - coumadin restarted 04/30 PLAN AND RECOMMENDATIONS: Give 5mg coumadin today. Repeat INR in AM. Continue IV lasix and aldactone 25mg daily. Reduce amiodarone to 200mg BID. Add B/L LE compression stockings. Laboratory Results Last 24 Hours Test 05/01/16 16:13 05/01/16 19:58 05/02/16 06:27 05/02/16 06:28 Bedside Glucose 257 mg/dl 259 mg/dl 165 mg/dl White Blood Count 13.98 K/uL Red Blood Count 3.57 M/uL Hemoglobin 9.7 g/dL Hematocrit 31.2 % Mean Corpuscular Volume 87.4 fL Mean Corpuscular Hemoglobin 27.2 pg Mean Corpuscular Hemoglobin Concent 31.1 g/dl RDW Standard Deviation 55.9 fL RDW Coefficient of Variation 17.3 % Platelet Count 142 K/uL Mean Platelet Volume 11.3 fL Sodium Level 133 mmol/L Potassium Level 3.9 mmol/L Chloride Level 92 mmol/L Carbon Dioxide Level 33 mmol/L Anion Gap 8.0 mmol/L Blood Urea Nitrogen 33 mg/dl Creatinine 0.88 mg/dl Est Creatinine Clear Calc Drug Dose 61.6 ml/min Estimated GFR () 72.9 Estimated GFR (Non- 62.9 BUN/Creatinine Ratio 37.1 Random Glucose 151 mg/dl Calcium Level 8.6 mg/dl Phosphorus Level 3.1 mg/dl Magnesium Level 2.3 mg/dl Test 05/02/16 08:57 05/02/16 11:22 Prothrombin Time 14.5 SECONDS Prothromb Time International Ratio 1.3 Bedside Glucose 222 mg/dl
[2016-05-02] MEDS: WARFARIN SOD 5 MG TAB PO SCH (17:10)
--- NOTE | 2016-05-02 18:03 | Progress Note ---
Internal Med Progress Note Date of Service: May 02, 2016. Provider Documentation: SUBJECTIVE: s/p icd placement has some pain at the site denies any sob or cough ambulating in room ok eating ok want to be discharged OBJECTIVE: Vital Signs-as noted below Exam: General-alert and oriented ENT-normal hearing Neck-no neck masses Lungs-cta b/l no wheezing mild bibasilar crackles Heart-s1 and s2 heard regular rate and rhythm no murmurs Abdomen-soft bowel sounds present non tender no distension Extremities-no erythema pedal edema present Neuro-alert and awake moves extremities Lab data as noted below. ASSESSMENT & PLAN: 76 yo F with multiple medical problems presents with vague symptoms and tretaed for symptomatic hypocalcemia. She was recently hospitalized and discharged just a few days ago-multiple hospitalizations in the past 3-4 months. 1. COPD. mild exacerbation.Cough-new, . continue steroid and Levaquin.repeat Cxr 04/24/16 no infiltrate.Will taper prednisone 2. Nausea & vomiting improved. Appreciate GI inputs.s/p egd 04/23/16- unremarkable. Stable 4. Chronic atrial fibrillation-. S/p AV replacement x 2. Cardiology stopped diltiazem(hypocalcemia) and changed to Toprol xl 100mg bid. On Coumadin which is held for procedure and restarted. Inr 1.5 today. 5. 40 sec sustained v tach resolved cardiology started on amiodarone s/p icd placement amiodarone 200mg bid currently. 6. 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 Was 6.1 at recent discharge a few days ago, is 6.5 on admission to this hospital. Symptoms on presentations unclear, however, overnight she has had facial numbness and tetany/spasms in her hands and legs that has improved with the calcium infusion-stable on PO supplementation now for several days. Last seen by Karo in 2013.Needs followup.Ca levels somewhat high now.Will hold supplementation for now. Discussed and consulted nephrology-appreciate inputs. Will f/u labs. Ca 8.6 today 7. Acute right heart failure-recent admission to [facility] for acute decompensation with recent discharge. Diuretics held initially. Restart diuretics at 50% on 04/19. Consult Cardiology for assistance with management.currently on iv lasix and aldactone. will monitor. 7. Acute pancreatitis- resolved. Seen by GI. Tolerating regular diet to regular now. stable 8. Acute on Chronic UTI-r Switched to Keflex per pharmacy recs 04/19.F/u with pcp. 9. Hemorrhoids-new report of hemorrhoids that cause some rectal bleeding; this has gone on for about 1 year. Seen by GI -recommended outpatient scope unless bleeding reoccurs. On Coumadin. Will monitor. 10. CAD- H/o CABG . Appreciate Cards recs. 11. Glucose intolerance. -ISS with coverage, A1C 7.1 12.. Esophageal reflux. Continue PPI. 14. History of cerebrovascular accident with aphasia, but no other acute deficiency at this time. 15. Hypothyroidism-iatrogenic, continue replacement DVT proph-Coumadin Full code DISPOSITION pt/ot monitor in tele possible d/c in 1-2 days Vital Signs: Date Time Temp Pulse Resp B/P Pulse Ox O2 Delivery O2 Flow Rate FiO2 05/02/16 16:00 Nasal Cannula 2.0 05/02/16 15:32 37.3 83 18 99/67 95 Nasal Cannula 2.0 05/02/16 14:05 76 16 6 Nasal Cannula 2.0 05/02/16 12:00 Nasal Cannula 2.0 05/02/16 11:32 36.8 78 18 115/77 96 Nasal Cannula 2.0 05/02/16 10:54 36.5 77 19 97 2.0 05/02/16 08:00 Nasal Cannula 2.0 05/02/16 07:23 36.5 77 19 112/70 97 Nasal Cannula 2.0 05/02/16 07:05 82 16 97 Nasal Cannula 2.0 05/02/16 04:10 36.5 84 18 118/77 96 Nasal Cannula 3.0 05/02/16 04:00 Nasal Cannula 2.0 05/02/16 02:16 78 16 98 Nasal Cannula 3.0 05/02/16 00:00 Nasal Cannula 2.0 05/01/16 23:43 36.6 75 18 112/73 96 Nasal Cannula 3.0 05/01/16 20:00 Nasal Cannula 2.0 05/01/16 19:14 36.9 88 18 118/71 96 Nasal Cannula 3.0 05/01/16 18:58 92 16 93 Nasal Cannula 3.0 Lab Results: Results Past 24 Hours Test 05/01/16 19:58 05/02/16 06:27 05/02/16 06:28 05/02/16 08:57 Range/Units Bedside Glucose 259 165 70-90 mg/dl White Blood Count 13.98 4.8-10.8 K/uL Red Blood Count 3.57 4.2-5.4 M/uL Hemoglobin 9.7 12.0-16.0 g/dL Hematocrit 31.2 37-47 % Mean Corpuscular Volume 87.4 80-100 fL Mean Corpuscular Hemoglobin 27.2 25-34 pg Mean Corpuscular Hemoglobin Concent 31.1 32-36 g/dl RDW Standard Deviation 55.9 36.4-46.3 fL RDW Coefficient of Variation 17.3 11.5-14.5 % Platelet Count 142 130-400 K/uL Mean Platelet Volume 11.3 7.4-10.4 fL Sodium Level 133 136-145 mmol/L Potassium Level 3.9 3.5-5.1 mmol/L Chloride Level 92 98-107 mmol/L Carbon Dioxide Level 33 21-32 mmol/L Anion Gap 8.0 3-11 mmol/L Blood Urea Nitrogen 33 7-18 mg/dl Creatinine 0.88 0.60-1.20 mg/dl Est Creatinine Clear Calc Drug Dose 61.6 ml/min Estimated GFR () 72.9 Estimated GFR (Non- 62.9 BUN/Creatinine Ratio 37.1 10-20 Random Glucose 151 70-99 mg/dl Calcium Level 8.6 8.5-10.1 mg/dl Phosphorus Level 3.1 2.5-4.9 mg/dl Magnesium Level 2.3 1.8-2.4 mg/dl Prothrombin Time 14.5 9.0-12.0 SECONDS Prothromb Time International Ratio 1.3 0.9-1.1 Test 05/02/16 11:22 05/02/16 16:10 Range/Units Bedside Glucose 222 331 70-90 mg/dl
[2016-05-02] MEDS: ATORVASTATIN 20 MG TAB PO SCH (20:31)
[2016-05-02] MEDS: TRAZODONE HCL 50 MG TAB PO SCH (20:32)
[2016-05-03] VITALS (13 sets, daily range): BP systolic 106–135; BP diastolic 66–83; PULSE 59–93; TEMP 36.6–36.8; O2SAT 93–100
[2016-05-03] MEDS: IPRATROPIUM BROMIDE NEB SOLN 0.02% 2.5 ML VIAL INH SCH ×4 (02:42→20:26)
[2016-05-03] MEDS: LEVALBUTEROL 1.25MG/0.5ML NEB INH SCH ×4 (02:42→20:26)
[2016-05-03] MEDS: LEVOTHYROXINE 150 MCG TAB PO SCH (06:00)
[2016-05-03 06:23] LABS: INR 1.5 (0.9-1.1); PROTHROMBIN TIME (PATIENT) 16.1 SECONDS (9.0-12.0)
[2016-05-03] MEDS: LEVETIRACETAM 500 MG TAB PO SCH ×2 (08:40→21:14)
[2016-05-03] MEDS: SPIRONOLACTONE 25 MG TAB PO SCH (08:40)
[2016-05-03] MEDS: CALCIUM POLYCARBOPHIL 1 TAB PO SCH (08:40)
[2016-05-03] MEDS: ESCITALOPRAM OXALATE 10 MG TAB PO SCH (08:40)
[2016-05-03] MEDS: FUROSEMIDE INJ 40 MG in SYRINGE 0 ML IV SCH ×2 (08:40→17:39)
[2016-05-03] MEDS: GABAPENTIN 100 MG CAP PO SCH ×3 (08:40→21:15)
[2016-05-03] MEDS: ASPIRIN 81 MG ECTAB PO SCH (08:40)
[2016-05-03] MEDS: CALCIUM CARBONATE 1250MG TAB PO SCH ×2 (08:40→21:15)
[2016-05-03] MEDS: POLYETHYLENE (MIRALAX) 17 GM PACK PO SCH (08:40)
[2016-05-03] MEDS: AMIODARONE 200 MG TAB PO SCH ×2 (08:40→21:15)
[2016-05-03] MEDS: METOPROLOL SUCC 50MG EXT REL TAB PO SCH ×2 (08:41→21:14)
[2016-05-03] MEDS: CHOLECALCIFEROL 1000 INTER.UNIT TAB PO SCH (08:41)
[2016-05-03] MEDS: PANTOprazole SOD 40 MG TAB PO SCH (08:41)
[2016-05-03] MEDS: CYANOCOBALAMIN 500 MCG TAB (VIT B-12) PO SCH (08:41)
[2016-05-03] MEDS: CALCITRIOL 0.25 MCG CAP PO SCH ×2 (08:41→21:15)
[2016-05-03] MEDS: INSULIN ASPART 100 UNITS/ML 3 ML PEN SC SCH ×4 (08:49→21:17)
[2016-05-03] MEDS: FERROUS SULFATE 325 MG TAB PO SCH ×2 (09:00→21:13)
--- NOTE | 2016-05-03 09:22 | Cardiology Follow-Up ---
Subjective General Date of Service: May 03, 2016. Chief Complaint: follow up sustained VT , CHF, AF Pt evaluation today including: conversation w/ patient, physical exam, chart review, lab review, review of studies, review of inpatient medication list History of Present Illness The patient is a 76 year old female seen in follow up. No changes overnight. INR remains subtherapeutic. Coumadin increrased to 5mg yesterday. Amiodarone reduced to 200mg BID. Edema unchanged. PVC's on telemetry without recurrent VT. Allergies Coded Allergies: No Known Allergies (Unverified , 04/16/16) Social History Smoking Status: Never Smoker Hx Tobacco Use In Past Year?: No Hx Alcohol Use - Type And Amou: No Hx Substance Use - Type And Am: No Review of Systems Respiratory: + cough, + dyspnea on exertion, No dyspnea at rest, No hemoptysis , No shortness of breath, No sputum, No wheezing Cardiac: + edema, No chest pain, No claudication, No orthopnea Physical Exam Vital Signs Last Vital Signs Documentation Date Time Temp Pulse Resp B/P Pulse Ox O2 Delivery O2 Flow Rate FiO2 05/03/16 07:22 36.8 69 18 112/66 98 Nasal Cannula 2.0 Physical Exam Constitutional: General Apperance: overweight Level of Distress: chronically ill Head: normocephalic, atraumatic Neck: supple Lungs: Auscultation: no wheezing, no rales/crackles Cardiovascular: Heart Auscultation: no murmurs, irregular rate rhythm Peripheral Pulses: Bruits: none appreciated Abdomen: Bowel Sounds: normal Extremities: no clubbing, no ulcers, edema (2+ pedal edema) Neurologic: Gait & Station: pertinent finding (no focal deficit) Cranial Nerves: grossly intact Assessment and Plan Assessment and Plan FINAL IMPRESSION: 1. Sustained ventricular tachycardia s/p ICD -tolerating amiodarone load -no recurrent VT on monitor 2. Acute on chronic decompensated diastolic and right sided heart failure. - improving with IV diuresis and PO aldactone 3. Chronic coronary artery disease, history of PCI to the RCA. 4. History of bioprosthetic aortic valve replacement. 5. Persistent rate controlled atrial fibrillation - INR subtherapeutic - coumadin increased to 5mg daily yesterday PLAN AND RECOMMENDATIONS: Repeat BMP today. Continue 5mg coumadin today. Repeat INR in AM. Continue IV lasix, and aldactone 25mg daily. Follow I/O's daily weights, electrolytes, and BMP. Laboratory Results Last 24 Hours Test 05/02/16 11:22 05/02/16 16:10 05/02/16 19:59 05/03/16 05:40 Bedside Glucose 222 mg/dl 331 mg/dl 255 mg/dl Prothrombin Time 16.1 SECONDS Prothromb Time International Ratio 1.5 Test 05/03/16 06:22 Bedside Glucose 158 mg/dl
[2016-05-03 11:38] LABS: BUN/CREATININE RATIO 35.4 (10-20); CALCIUM 8.8 mg/dl (8.5-10.1); CREATININE 0.78 mg/dl (0.60-1.20); POTASSIUM 3.4 mmol/L (3.5-5.1)
[2016-05-03] MEDS ORDERED: POTASSIUM CHLORIDE 10 MEQ TABCR PO STA (13:24)
--- NOTE | 2016-05-03 14:10 | DIAGNOSTIC IMAGING REPORT ---
CHEST ONE VIEW PORTABLE CLINICAL HISTORY: wheezing COMPARISON STUDY: 05/01/2016 FINDINGS: There are postsurgical changes of a midline sternotomy and aortic valve replacement. There is a left subclavian implantable fibrillator/pacer present. The heart is enlarged. There is mild pulmonary vascular congestion.[ There is no lobar consolidation. IMPRESSION: Cardiomegaly and radiographic evidence of mild pulmonary vascular congestion. No evidence of lobar consolidation. Electronically signed by: Hector Venegas M.D. 05/03/2016 2:09 PM Dictated Date/Time: 05/03/2016 2:08 PM
[2016-05-03] MEDS: WARFARIN SOD 5 MG TAB PO SCH (15:51)
--- NOTE | 2016-05-03 17:20 | Progress Note ---
Internal Med Progress Note Date of Service: May 03, 2016. Provider Documentation: SUBJECTIVE: s/p icd placement complains of cough and sob afebrile no chest pain no nausea OBJECTIVE: Vital Signs-as noted below Exam: General-alert and oriented ENT-normal hearing Neck-no neck masses Lungs-cta b/l mild b/l wheezing mild bibasilar crackles Heart-s1 and s2 heard regular rate and rhythm no murmurs Abdomen-soft bowel sounds present non tender no distension Extremities-no erythema pedal edema present Neuro-alert and awake moves extremities Lab data as noted below. ASSESSMENT & PLAN: 76 yo F with multiple medical problems presents with vague symptoms and tretaed for symptomatic hypocalcemia. She was recently hospitalized and discharged just a few days ago-multiple hospitalizations in the past 3-4 months. 1. COPD. mild exacerbation.Cough-new, . continue steroid and Levaquin.repeat Cxr 04/24/16 no infiltrate.Will taper prednisone. cxr no infiltrate 2. Nausea & vomiting improved. Appreciate GI inputs.s/p egd 04/23/16- unremarkable. Stable 4. Chronic atrial fibrillation-. S/p AV replacement x 2. Cardiology stopped diltiazem(hypocalcemia) and changed to Toprol xl 100mg bid. On Coumadin which is held for procedure and restarted. Inr 1.5 today. 5. 40 sec sustained v tach resolved cardiology started on amiodarone s/p icd placement amiodarone 200mg bid currently. stable 6. 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 Was 6.1 at recent discharge a few days ago, is 6.5 on admission to this hospital. Symptoms on presentations unclear, however, overnight she has had facial numbness and tetany/spasms in her hands and legs that has improved with the calcium infusion-stable on PO supplementation now for several days. Last seen by Karo in 2013.Needs followup.Ca levels somewhat high now.Will hold supplementation for now. Discussed and consulted nephrology-appreciate inputs. Will f/u labs. Ca 8.8 today 7. Acute on chronic diastolic and right heart failure-recent admission to [facility] for acute decompensation with recent discharge. Diuretics held initially. Restart diuretics at 50% on 04/19. Consult Cardiology for assistance with management.currently on iv lasix 40mg bid and Aldactone. cxr still some what congested . will f/u cxr in am.will monitor. 7. Acute pancreatitis- resolved. Seen by GI. Tolerating regular diet to regular now. stable 8. Acute on Chronic UTI-r Switched to Keflex per pharmacy recs 04/19. off of abx.F/u with pcp. 9. Hemorrhoids-new report of hemorrhoids that cause some rectal bleeding; this has gone on for about 1 year. Seen by GI -recommended outpatient scope unless bleeding reoccurs. On Coumadin. Will monitor. 10. CAD- H/o CABG . Appreciate Cards recs. 11. Glucose intolerance. -ISS with coverage, A1C 7.1 12.. Esophageal reflux. Continue PPI. 14. History of cerebrovascular accident with aphasia, but no other acute deficiency at this time. 15. Hypothyroidism-iatrogenic, continue replacement DVT proph-Coumadin Full code DISPOSITION pt/ot monitor in tele plan for rehab possible d/c in 1-2 days Vital Signs: Date Time Temp Pulse Resp B/P Pulse Ox O2 Delivery O2 Flow Rate FiO2 05/03/16 16:25 98 Nasal Cannula 2.0 05/03/16 15:46 36.7 69 19 106/66 93 Nasal Cannula 2.0 05/03/16 14:10 82 16 93 Nasal Cannula 2.0 05/03/16 12:22 98 Nasal Cannula 2.0 05/03/16 11:22 36.6 73 18 129/76 93 Nasal Cannula 2.0 05/03/16 08:01 98 Nasal Cannula 2.0 05/03/16 07:22 36.8 69 18 112/66 98 Nasal Cannula 2.0 05/03/16 07:03 78 16 95 Nasal Cannula 2.0 05/03/16 04:26 Nasal Cannula 2.0 05/03/16 03:31 36.6 82 20 122/68 94 Nasal Cannula 3.0 05/03/16 02:42 78 16 96 Nasal Cannula 2.0 05/03/16 00:00 Nasal Cannula 2.0 05/02/16 23:32 36.5 80 20 117/70 95 Nasal Cannula 3.0 05/02/16 20:00 Nasal Cannula 2.0 05/02/16 19:45 36.9 80 16 119/76 98 Nasal Cannula 2.0 05/02/16 19:13 76 16 96 Nasal Cannula 2.0 Lab Results: Results Past 24 Hours Test 05/02/16 19:59 05/03/16 05:40 05/03/16 06:22 05/03/16 11:03 Range/Units Bedside Glucose 255 158 70-90 mg/dl Prothrombin Time 16.1 9.0-12.0 SECONDS Prothromb Time International Ratio 1.5 0.9-1.1 Sodium Level 135 136-145 mmol/L Potassium Level 3.4 3.5-5.1 mmol/L Chloride Level 88 98-107 mmol/L Carbon Dioxide Level 36 21-32 mmol/L Anion Gap 11.0 3-11 mmol/L Blood Urea Nitrogen 28 7-18 mg/dl Creatinine 0.78 0.60-1.20 mg/dl Est Creatinine Clear Calc Drug Dose 69.4 ml/min Estimated GFR () 84.4 Estimated GFR (Non- 72.8 BUN/Creatinine Ratio 35.4 10-20 Random Glucose 159 70-99 mg/dl Calcium Level 8.8 8.5-10.1 mg/dl Albumin 2.9 3.4-5.0 gm/dl Test 05/03/16 11:10 05/03/16 16:07 Range/Units Bedside Glucose 188 241 70-90 mg/dl
[2016-05-03] MEDS: ATORVASTATIN 20 MG TAB PO SCH (21:13)
[2016-05-03] MEDS: TRAZODONE HCL 50 MG TAB PO SCH (21:14)
[2016-05-04] VITALS (7 sets, daily range): BP systolic 103–120; BP diastolic 67–73; PULSE 60–64; TEMP 36.4; O2SAT 90–100
[2016-05-04] MEDS: IPRATROPIUM BROMIDE NEB SOLN 0.02% 2.5 ML VIAL INH SCH ×2 (02:08→07:07)
[2016-05-04] MEDS: LEVALBUTEROL 1.25MG/0.5ML NEB INH SCH ×2 (02:08→07:07)
[2016-05-04] MEDS: LEVOTHYROXINE 150 MCG TAB PO SCH (06:11)
[2016-05-04 06:27] LABS: PROTHROMBIN TIME (PATIENT) 22.1 SECONDS (9.0-12.0)
[2016-05-04] MEDS: GABAPENTIN 100 MG CAP PO SCH ×2 (07:50→12:36)
[2016-05-04] MEDS: CALCIUM CARBONATE 1250MG TAB PO SCH (07:51)
[2016-05-04] MEDS: SPIRONOLACTONE 25 MG TAB PO SCH (07:51)
[2016-05-04] MEDS: LEVETIRACETAM 500 MG TAB PO SCH (07:51)
[2016-05-04] MEDS: CALCIUM POLYCARBOPHIL 1 TAB PO SCH (07:51)
[2016-05-04] MEDS: ESCITALOPRAM OXALATE 10 MG TAB PO SCH (07:51)
[2016-05-04] MEDS: FUROSEMIDE INJ 40 MG in SYRINGE 0 ML IV SCH (07:51)
[2016-05-04] MEDS: AMIODARONE 200 MG TAB PO SCH (07:51)
[2016-05-04] MEDS: FERROUS SULFATE 325 MG TAB PO SCH (07:51)
[2016-05-04] MEDS: ASPIRIN 81 MG ECTAB PO SCH (07:51)
[2016-05-04] MEDS: PANTOprazole SOD 40 MG TAB PO SCH (07:51)
[2016-05-04] MEDS: METOPROLOL SUCC 50MG EXT REL TAB PO SCH (07:52)
[2016-05-04] MEDS: POLYETHYLENE (MIRALAX) 17 GM PACK PO SCH (07:52)
[2016-05-04] MEDS: CALCITRIOL 0.25 MCG CAP PO SCH (07:52)
[2016-05-04] MEDS: CYANOCOBALAMIN 500 MCG TAB (VIT B-12) PO SCH (07:52)
[2016-05-04] MEDS: CHOLECALCIFEROL 1000 INTER.UNIT TAB PO SCH (07:52)
[2016-05-04] MEDS: INSULIN ASPART 100 UNITS/ML 3 ML PEN SC SCH ×2 (08:01→12:34)
[2016-05-04 10:12] LABS: CALCIUM 8.6 mg/dl (8.5-10.1); CREATININE 0.72 mg/dl (0.60-1.20); MAGNESIUM 2.2 mg/dl (1.8-2.4); POTASSIUM 3.9 mmol/L (3.5-5.1)
--- NOTE | 2016-05-04 10:53 | Cardiology Follow-Up ---
Subjective General Date of Service: May 04, 2016. Chief Complaint: follow up sustained VT , CHF, AF Pt evaluation today including: conversation w/ patient, physical exam, chart review, lab review, review of studies, conversation w/ employee relations consultant, review of inpatient medication list History of Present Illness The patient is a 76 year old female seen in follow up. No changes overnight. INR therapeutic today. Edema improved. Rare PVC's on telemetry without recurrent VT. Allergies Coded Allergies: No Known Allergies (Unverified , 04/16/16) Social History Smoking Status: Never Smoker Hx Tobacco Use In Past Year?: No Hx Alcohol Use - Type And Amou: No Hx Substance Use - Type And Am: No Review of Systems Respiratory: + dyspnea on exertion, No cough, No dyspnea at rest, No hemoptysis , No shortness of breath, No sputum, No wheezing Cardiac: + edema, No PND, No chest pain, No claudication, No orthopnea, No palpitations Physical Exam Vital Signs Last Vital Signs Documentation Date Time Temp Pulse Resp B/P Pulse Ox O2 Delivery O2 Flow Rate FiO2 05/04/16 08:01 98 Nasal Cannula 2.0 05/04/16 07:36 36.4 64 16 103/67 Physical Exam Constitutional: General Apperance: overweight Level of Distress: chronically ill Head: normocephalic, atraumatic Neck: supple Lungs: Auscultation: no wheezing, no rales/crackles Cardiovascular: Heart Auscultation: no murmurs, irregular rate rhythm Peripheral Pulses: Bruits: none appreciated Abdomen: Bowel Sounds: normal Extremities: no clubbing, no ulcers, edema (1+ pedal edema) Neurologic: Gait & Station: pertinent finding (no focal deficit) Cranial Nerves: grossly intact Assessment and Plan Assessment and Plan FINAL IMPRESSION: 1. Sustained ventricular tachycardia s/p ICD -tolerating amiodarone load -no recurrent VT on monitor 2. Acute on chronic decompensated diastolic and right sided heart failure. - improving with IV diuresis and PO aldactone 3. Chronic coronary artery disease, history of PCI to the RCA. 4. History of bioprosthetic aortic valve replacement. 5. Persistent rate controlled atrial fibrillation - INR therapeutic today PLAN AND RECOMMENDATIONS: Reduce coumadin to 2mg today. Transition lasix to 40mg PO BID. Reduce amiodarone to 200mg daily, Continue other medications as previously ordered. I will arrange for outpatient device clinic follow up for threshold testing in 3 weeks. Will sign off. Please call with questions. Laboratory Results Last 24 Hours Test 05/03/16 11:03 05/03/16 11:10 05/03/16 16:07 05/03/16 19:56 Sodium Level 135 mmol/L Potassium Level 3.4 mmol/L Chloride Level 88 mmol/L Carbon Dioxide Level 36 mmol/L Anion Gap 11.0 mmol/L Blood Urea Nitrogen 28 mg/dl Creatinine 0.78 mg/dl Est Creatinine Clear Calc Drug Dose 69.4 ml/min Estimated GFR () 84.4 Estimated GFR (Non- 72.8 BUN/Creatinine Ratio 35.4 Random Glucose 159 mg/dl Calcium Level 8.8 mg/dl Albumin 2.9 gm/dl Bedside Glucose 188 mg/dl 241 mg/dl 225 mg/dl Test 05/04/16 05:54 05/04/16 06:44 Prothrombin Time 22.1 SECONDS Prothromb Time International Ratio 2.0 Sodium Level 138 mmol/L Potassium Level 3.9 mmol/L Chloride Level 93 mmol/L Carbon Dioxide Level 39 mmol/L Anion Gap 6.0 mmol/L Blood Urea Nitrogen 26 mg/dl Creatinine 0.72 mg/dl Est Creatinine Clear Calc Drug Dose 75.8 ml/min Estimated GFR () 93.0 Estimated GFR (Non- 80.2 BUN/Creatinine Ratio 36.0 Random Glucose 139 mg/dl Calcium Level 8.6 mg/dl Magnesium Level 2.2 mg/dl Bedside Glucose 157 mg/dl
[2016-05-04] MEDS ORDERED: SPR25 PO (11:41)
[2016-05-04] MEDS ORDERED: CALC625T13 PO (11:41)
[2016-05-04] MEDS ORDERED: MRLP17 PO (11:41)
[2016-05-04] MEDS ORDERED: HYCUDL5 PO (11:41)
[2016-05-04] MEDS ORDERED: WARF2TAB PO (11:41)
[2016-05-04] MEDS ORDERED: CRD200 PO (11:41)
[2016-05-04] MEDS ORDERED: PRED10TA PO (11:41)
[2016-05-04] MEDS ORDERED: CLCC1250 PO (11:41)
[2016-05-04] MEDS ORDERED: METO1TAB69 PO (11:41)
--- NOTE | 2016-05-04 11:46 | Discharge Instructions ---
Discharge Instructions Admission Reason for Admission: Acute Pancreatitis, Acute Renal Failure, Chf Discharge Discharge Diagnosis / Problem: ARF,CHF,COPD EX, HYPOCALCEMIA, SUSTAINED VTACH S /P ICD. Discharge Goals Goal(s): Decrease discomfort, Improve function Activity Recommendations Activity Level: Assistance Required Therapies: Physical Therapy, Occupational Therapy . Additional Information Patient informed of condition: Yes Advance Directives: Yes DNR: No Level of Care: Acute Rehab Communicable Disease: No Prognosis: Stable Oxygen at (LPM): 2LTS VIA NASAL CANULA Melchor Catheter: Yes (PLEASE TRY TO WEAN OFF OXYGEN) Instructions / Follow-Up Instructions / Follow-Up FOLLOWUP WITH FAMILY DOCTOR IN ONE WEEK. FOLLOWUP WITH CARDIOLOGY IN 3 WEEKS. LAB: BMP WITH MG AND ALBUMIN LEVELS IN ONE WEEK AND FOLLOW RESULTS WITH FAMILY DOCTOR. FOLLOWUP WITH COUMADIN CLINIC FOR COUMADIN DOSING. PLEASE CHECK LAB:PT/INR DAILY WHILE AT REHAB AND ADJUST COUMADIN DOSING. PLEASE ALSO CHECK BLOOD SUGARS AND ADJUST DIABETES MEDICATION. Current Hospital Diet Patient's current hospital diet: AHA Diet (Heart Healthy) Discharge Diet Recommended Diet: AHA Diet (Heart Healthy), Diabetes Type 2 Diet Procedures Procedures Performed: EGD Pending Studies Studies pending at discharge: no Physician Orders On Transfer Special Precautions: FALL AND ASPIRATION PRECAUTIONS Vital Signs: EVERY 8HRS Laboratory Results Hemoglobin A1c Test 04/17/16 10:25 Range/Units Estimated Average Glucose 157 mg/dl Hemoglobin A1c 7.1 H 4.5-5.6 % Medical Emergencies . Who to Call and When: Medical Emergencies: If at any time you feel your situation is an emergency, please call 911 immediately. . Non-Emergent Contact Non-Emergency issues call your: Primary Care Provider . . "Provider Documentation" section prepared by Triston Cabrera. Core Measure Problem Core Measures: None
[2016-05-04] MEDS ORDERED: GLC/500 PO (11:47)
[2016-05-04] MEDS ORDERED: WARFARIN SOD 2 MG TAB PO SCH (16:00)
--- NOTE | 2016-05-04 18:23 | Progress Note ---
Internal Med Progress Note Date of Service: May 04, 2016. Provider Documentation: SUBJECTIVE: resting comfortably denies chest pain or sob 'no cough' afebrile ok for rehab today OBJECTIVE: Vital Signs-as noted below Exam: General-alert and oriented ENT-normal hearing Neck-no neck masses Lungs-cta b/l mild b/l wheezing no crackles Heart-s1 and s2 heard regular rate and rhythm no murmurs Abdomen-soft bowel sounds present non tender no distension Extremities-no erythema pedal edema present Neuro-alert and awake moves extremities Lab data as noted below. ASSESSMENT & PLAN: 76 yo F with multiple medical problems presents with vague symptoms and tretaed for symptomatic hypocalcemia. She was recently hospitalized and discharged just a few days ago-multiple hospitalizations in the past 3-4 months. 1. COPD. mild exacerbation.Cough-new, . continue steroid and Levaquin.repeat Cxr 04/24/16 no infiltrate.Will taper prednisone. cxr no infiltrate stable 2. Nausea & vomiting improved. Appreciate GI inputs.s/p egd 04/23/16- unremarkable. Stable 4. Chronic atrial fibrillation-. S/p AV replacement x 2. Cardiology stopped diltiazem(hypocalcemia) and changed to Toprol xl 100mg bid. On Coumadin which is held for procedure and restarted. Inr 2.0 today.followup with Coumadin clinic 5. 40 sec sustained v tach resolved cardiology started on amiodarone s/p icd placement amiodarone 200mg daily at discharge f/u with cardiology in 3 weeks stable 6. 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 Was 6.1 at recent discharge a few days ago, is 6.5 on admission to this hospital. Symptoms on presentations unclear, however, overnight she has had facial numbness and tetany/spasms in her hands and legs that has improved with the calcium infusion-stable on PO supplementation now for several days. Last seen by Karo in 2013.Needs followup.Ca levels somewhat high now.Will hold supplementation for now. Discussed and consulted nephrology-appreciate inputs. restarted calcium supplements Will f/u labs. Ca 8.8 today. followup labs with pcp 7. 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 Diuretics held initially. Restart diuretics at 50% on 04/19. Consult Cardiology for assistance with management.currently on iv lasix 40mg bid and Aldactone. cxr still some what congested . will f/u cxr in am.will monitor. discharged on lasix 40mg bid and Aldactone 25mg daily. followup with cardiology 7. Acute pancreatitis- resolved. Seen by GI. Tolerating regular diet to regular now. stable 8. Acute on Chronic UTI-r Switched to Keflex per pharmacy recs 04/19. off of abx.F/u with pcp. 9. Hemorrhoids-new report of hemorrhoids that cause some rectal bleeding; this has gone on for about 1 year. Seen by GI -recommended outpatient scope unless bleeding reoccurs. On Coumadin. Will monitor. 10. CAD- H/o CABG . Appreciate Cards recs. 11. Glucose intolerance. -ISS with coverage, A1C 7.1 12.. Esophageal reflux. Continue PPI. 14. History of cerebrovascular accident with aphasia, but no other acute deficiency at this time. 15. Hypothyroidism-iatrogenic, continue replacement Discharged to [facility] Vital Signs: Date Time Temp Pulse Resp B/P Pulse Ox O2 Delivery O2 Flow Rate FiO2 05/04/16 12:16 98 Nasal Cannula 2.0 05/04/16 12:07 36.4 60 18 98 Nasal Cannula 05/04/16 11:28 36.4 60 18 109/67 98 Nasal Cannula 2.0 05/04/16 08:01 98 Nasal Cannula 2.0 05/04/16 07:36 36.4 64 16 103/67 99 Nasal Cannula 2.0 05/04/16 07:07 62 16 100 Nasal Cannula 2.0 05/04/16 04:07 Nasal Cannula 2.0 05/04/16 03:25 36.4 63 16 120/73 100 Nasal Cannula 2.0 Humidified Oxygen 05/04/16 00:00 Nasal Cannula 2.0 05/03/16 23:00 36.8 59 20 113/74 99 Nasal Cannula 2.0 Humidified Oxygen 05/03/16 20:27 82 16 93 Nasal Cannula 2.0 05/03/16 20:00 Nasal Cannula 2.0 05/03/16 19:07 36.7 74 18 135/83 100 Nasal Cannula 2.0 Lab Results: Results Past 24 Hours Test 05/03/16 19:56 05/04/16 05:54 05/04/16 06:44 05/04/16 11:12 Range/Units Bedside Glucose 225 157 196 70-90 mg/dl Prothrombin Time 22.1 9.0-12.0 SECONDS Prothromb Time International Ratio 2.0 0.9-1.1 Sodium Level 138 136-145 mmol/L Potassium Level 3.9 3.5-5.1 mmol/L Chloride Level 93 98-107 mmol/L Carbon Dioxide Level 39 21-32 mmol/L Anion Gap 6.0 3-11 mmol/L Blood Urea Nitrogen 26 7-18 mg/dl Creatinine 0.72 0.60-1.20 mg/dl Est Creatinine Clear Calc Drug Dose 75.8 ml/min Estimated GFR () 93.0 Estimated GFR (Non- 80.2 BUN/Creatinine Ratio 36.0 10-20 Random Glucose 139 70-99 mg/dl Calcium Level 8.6 8.5-10.1 mg/dl Magnesium Level 2.2 1.8-2.4 mg/dl
--- NOTE | 2016-05-04 18:28 | Discharge Summary ---
Discharge Summary Admission Date: Apr 17, 2016 at 01:58 Discharge Date: May 04, 2016 Discharge Disposition: Rehab Principal Diagnosis: HYPOCALCEMIA ACUTE PANCREATITIS NAUSEA AND VOMITING ACUTE ON CHRONIC DIASTOLIC AND RIGHT SIDED HEART FAILURE ACUTE COPD EX SUSTAINED V TACH S/P ICD Secondary Diagnoses/Problems: including chronic AFib, status post aortic valve replacement, esophageal reflux, seizure disorder with history of stroke in the past, CHF, obesity, hyperlipidemia and also history of recurrent UTI. Procedures: CT ABD/PELVIS: 1. Trace right and small left pleural effusions. There is also body wall edema and trace ascites. 2. Mild inflammatory change/edema surrounding the gallbladder. No definite gallbladder wall thickening. This could be due to the patient's edematous state or possibly developing cholecystitis. Clinical correlation recommended to assess for right upper quadrant pain. 3. Bilateral nephrolithiasis. No hydronephrosis. 4. Cardiomegaly. 5. Colonic diverticulosis. 6. No definite bowel wall thickening or obstruction. GALL BLADDER US: 1. Mild nonspecific gallbladder wall thickening. Gallbladder sludge with no definite stones. Suspected gallbladder polyp. No sonographic Taylor's sign. A hepatobiliary scan could be obtained as indicated. 2. No biliary ductal dilatation. 3. Trace perihepatic ascites. 4. Slight coarsening of hepatic echotexture. CHEST XRAY: Persistent enlargement of the cardiac silhouette. Radiographic evidence of congestive failure with mild interstitial edema. Small pleural effusions are suspected. CT HEAD: Old left posterior parietal lobe infarct. No acute intracranial findings. ECHO:Flattened septum is consistent with RV pressure/volume overload. * The LV wall motion is otherwise normal. * The right ventricle is moderately dilated. * The right ventricular systolic function is moderate to severely reduced. * The left atrium is severely dilated. * The right atrium is moderately dilated. * Aortic valve sclerosis mild, without significant aortic valvular stenosis. * There is severe mitral annular calcification. * There is mild mitral regurgitation. * There is mild mitral stenosis. * There is mild tricuspid regurgitation. * The pulmonary artery systolci pressure is calculated to be 37 mm Hg (upper limit of normal). * Compared to the report of the outpatient study performed at [facility], on 09/10/15, there has been interval development of right ventricular chamber enlargement and RV pressure volume overload, RV systolic dysfunction. Consultations: GI, Cards Medication Reconciliation New Medications: Amiodarone HCl (Amiodarone HCl) 200 Mg Tab 200 MG PO DAILY, #30 TAB 2 Refills Metformin Hcl (Glucophage) 500 Mg Tab 500 MG PO UD, #60 TAB 2 Refills METFORMIN 500MG PO ONCE DAILY FOR ONE WEEK AND THEN METFORMIN 500MG PO TWICE DAILY. Metoprolol Succ (Toprol Xl) (Toprol-Xl ) 100 Mg Tabcr 100 MG PO BID, #60 TAB 2 Refills Prednisone Tab (Prednisone) 10 Mg Tab 20 MG PO UD, #10 TAB PREDNISONE 20MG PO DAILY X 3 DAYS THEN PREDNISONE 10MG PO DAILY X 3 DAYS THEN PREDNISONE 5MG PO DAILY X 2 DAYS AND STOP. Warfarin Sodium (Coumadin) 2 Mg Tab 1 TAB PO DAILY for 30 Days, #30 TAB 3 Refills Calcium Carbonate (Oyster Shell Calcium) 1,250 Mg Tab 1250 MG PO BID, #60 TAB 2 Refills Calcium Polycarbophil (Fiber Tabs) 625 Mg Tab 1 TAB PO QAM, #30 TAB 2 Refills Hydrocodone/Homatropine (Hydromet 5-1.5 mg/5Ml) 5 Ml/Cup Syrp 5 ML PO Q6H PRN for Cough for 10 Days Polyethylene (Miralax) 17 Gm Pow 17 GM PO DAILY PRN for Constipation for 30 Days Spironolactone (Spironolactone) 25 Mg Tab 25 MG PO QAM, #30 TAB 2 Refills Continued Medications: Aspirin (Aspirin Ec) 81 Mg Tab 81 MG PO QAM Atorvastatin (Lipitor) 40 Mg Tab 40 MG PO HS, TAB Calcitriol (Rocaltrol) 0.5 Mcg Cap 0.5 MCG PO BID Cholecalciferol (Vitamin D) 1,000 Unit Tab 1000 UNIT PO QAM Cyanocobalamin (Vitamin B-12 1000 Mcg) 1,000 Mcg Tab 1000 MCG PO QAM, TAB Escitalopram (Lexapro) 10 Mg Tab 10 MG PO QAM, TAB Ferrous Sulfate (Ferrous Sulfate) 325 Mg Tab 325 MG PO BID Fluticasone Propionate (Nasal) (Flonase Allergy Relief) 50 Mcg/Act Spr 2 SPRAYS CASS DAILY PRN for Nasal Congestion Furosemide (Lasix) 40 Mg Tab 40 MG PO BID, TAB Gabapentin (Neurontin) 100 Mg Cap 100 MG PO UD, CAP TAKE 1 CAP IN THE MORNING, 1 CAP IN THE AFTERNOON, AND 2 CAPS AT NIGHT Hydrocortisone Acetate (Rectal (Anusol-Hc) 25 Mg Sup 25 MG MT BID PRN for PRN, #7 SUP Ipratropium-Albuterol (Combivent Respimat) 1 Aer Aer 1 PUFFS INH QID, INH Levetiracetam (Keppra) 500 Mg Tab 500 MG PO BID, TAB Levothyroxine Sodium (Synthroid) 75 Mcg Tab 75 MCG PO THURSDAY, TAB Levothyroxine Sodium (Synthroid) 150 Mcg Tab 150 MCG PO 6XWK, TAB EXCEPT THURSDAY Meclizine HCl (Meclizine HCl) 25 Mg Tab 25 MG PO TID PRN for VERTIGO Metolazone (Zaroxolyn) 2.5 Mg Tab 2.5 MG PO UD, TAB 4 hours after the first furosemide dose of the day Nitroglycerin (Nitrostat) 0.4 Mg Tab 0.4 MG UT PRN PRN for CHEST PAIN, BTL Nystatin (Topical) (Nystop) 100,000 Unit/Gm Pow 1 APPLN TOP DAILY PRN for PRN UNDER BREASTS Pantoprazole (Protonix) 40 Mg Tab 40 MG PO QAM, #30 TAB Potassium Chloride (Klor-Con M20) 20 Meq Tabcr 20 MEQ PO QAM Trazodone Hcl (Trazodone) 50 Mg Tab 50 MG PO HS, TAB Discontinued Medications: Amoxicillin & Pot Clavulanate (Augmentin 875-125 mg) 1 Tab Tab 1 TAB PO BID, #14 TAB Calcium Carbonate (Calcium) 600 Mg Tab 600 MG PO UD TAKE 1 TAB IN THE MORNING, 1 TAB IN THE AFTERNOON, AND 2 TABS AT NIGHT Diltiazem Hcl Coated Beads (Cardizem Cd) 240 Mg Cap 240 MG PO QAM, CAP Nitrofurantoin Macrocrystals (Macrodantin) 50 Mg Cap 50 MG PO HS, CAP Oxycodone Ir (Roxicodone Ir) 5 Mg Tab 5 MG PO Q12, TAB Oxycodone/Acetaminophen 5MG/325MG (Percocet 5MG/325MG) Tab 2 TABLETS PO Q8 PRN for Pain, TAB PAIN Admission Information HPI (per Admitting provider): She is a 76-year-old female with significant complicated past medical history including chronic AFib, status post aortic valve replacement, esophageal reflux, seizure disorder with history of stroke in the past, CHF, obesity, hyperlipidemia and also history of recurrent UTI. Apparently has been complaining of increasing weight gain that happened about 2 weeks ago. She saw her primary care physician and was given diuretics including metolazone and Lasix to improve the weight. Following that, she has had abnormality in the labs and with that she was admitted to [facility] from 07 of April to 11 of April. She was treated for acute on chronic congestive heart failure with electrolyte imbalance and also she was noted to have rectal bleeding due to hemorrhoids. She went home on and since discharge, her symptoms have been there. She feels generally weak and lethargic, occasional shortness of breath and abdominal bloatiness and also epigastric discomfort and pain has been there. She was seen by her primary care physician today and again she was noted to have abnormality in the labs including high BNP and high creatinine and also high white count. From that point, she was advised to come to the Emergency Room at [facility] for continuation of care. In the ER, she was still having epigastric burning pain, moderate shortness of breath at rest and apparent test showed that her white count was elevated to 17,000. Her creatinine was 1.40 with abnormal liver function tests and also ProBNP was elevated to 16,000 and lipase noted to be 991. From that point, she was admitted to telemetry unit for continuation of care. She denies to have any fever, chills or rigors. She denies to have any burning during micturition, does not have any problem with her bowel habit. No chest pain and no palpitation. Does have shortness of breath on exertion. She does not have any swelling of the legs and no rash and/or enlargement of lymph nodes. No headache, no blurred vision, no numbness or tingling involving any of the extremities. Physical Exam (per Admitting): GENERAL: On examination in the Emergency Room, she was having minimal shortness of breath at rest but no acute distress. VITAL SIGNS: Temperature afebrile, pulse of 92, blood pressure 121/74, saturation 97% on 2 liters nasal cannula. HEENT: Unremarkable. NECK: Supple. No JVD. No bruit. CHEST: Decreased breath sounds with minimal bibasilar crackles, more on the right side than the left. HEART: S1, S2 with prosthetic valve sounds and 2/6 systolic murmur over aortic area. ABDOMEN: Distended, soft. Tender in the epigastrium and right upper quadrant nontender. Taylor sign negative. Bowel sounds present. EXTREMITIES: 1+ edema bilaterally. MUSCULOSKELETAL SYSTEM: Examination did not show any acute arthritis. CENTRAL NERVOUS SYSTEM: She was alert, awake, oriented x3. No focal sensory deficit appreciated. She has aphasia. Hospital Course 76 yo F with multiple medical problems presents with vague symptoms and tretaed for symptomatic hypocalcemia. She was recently hospitalized and discharged just a few days ago-multiple hospitalizations in the past 3-4 months. 1. COPD. mild exacerbation.Cough-new, . continue steroid and Levaquin.repeat Cxr 04/24/16 no infiltrate.Will taper prednisone. cxr no infiltrate stable 2. Nausea & vomiting improved. Appreciate GI inputs.s/p egd 04/23/16- unremarkable. Stable 4. Chronic atrial fibrillation-. S/p AV replacement x 2. Cardiology stopped diltiazem(hypocalcemia) and changed to Toprol xl 100mg bid. On Coumadin which is held for procedure and restarted. Inr 2.0 today.followup with Coumadin clinic 5. 40 sec sustained v tach resolved cardiology started on amiodarone s/p icd placement amiodarone 200mg daily at discharge f/u with cardiology in 3 weeks stable 6. 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 Was 6.1 at recent discharge a few days ago, is 6.5 on admission to this hospital. Symptoms on presentations unclear, however, overnight she has had facial numbness and tetany/spasms in her hands and legs that has improved with the calcium infusion-stable on PO supplementation now for several days. Last seen by Karo in 2013.Needs followup.Ca levels somewhat high now.Will hold supplementation for now. Discussed and consulted nephrology-appreciate inputs. restarted calcium supplements Will f/u labs. Ca 8.8 today. followup labs with pcp 7. 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 Diuretics held initially. Restart diuretics at 50% on 04/19. Consult Cardiology for assistance with management.currently on iv lasix 40mg bid and Aldactone. cxr still some what congested . will f/u cxr in am.will monitor. discharged on lasix 40mg bid and Aldactone 25mg daily. followup with cardiology 7. Acute pancreatitis- resolved. Seen by GI. Tolerating regular diet to regular now. stable 8. Acute on Chronic UTI-r Switched to Keflex per pharmacy recs 04/19. off of abx.F/u with pcp. 9. Hemorrhoids-new report of hemorrhoids that cause some rectal bleeding; this has gone on for about 1 year. Seen by GI -recommended outpatient scope unless bleeding reoccurs. On Coumadin. Will monitor. 10. CAD- H/o CABG . Appreciate Cards recs. 11. Glucose intolerance. -ISS with coverage, A1C 7.1 12.. Esophageal reflux. Continue PPI. 14. History of cerebrovascular accident with aphasia, but no other acute deficiency at this time. 15. Hypothyroidism-iatrogenic, continue replacement Discharged to [facility] Total time spent on discharge = 40MINUTES This includes examination of the patient, discharge planning, medication reconciliation, and communication with other providers. Discharge Instructions Please take this sheet to every appointment for the next month Discharge Instructions Admission Reason for Admission: Acute Pancreatitis, Acute Renal Failure, Chf Discharge Discharge Diagnosis / Problem: ARF,CHF,COPD EX, HYPOCALCEMIA, SUSTAINED VTACH S /P ICD. Discharge Goals Goal(s): Decrease discomfort, Improve function Activity Recommendations Activity Level: Assistance Required Therapies: Physical Therapy, Occupational Therapy . Additional Information Patient informed of condition: Yes Advance Directives: Yes DNR: No Level of Care: Acute Rehab Communicable Disease: No Prognosis: Stable Oxygen at (LPM): 2LTS VIA NASAL CANULA Melchor Catheter: Yes (PLEASE TRY TO WEAN OFF OXYGEN) Instructions / Follow-Up Instructions / Follow-Up FOLLOWUP WITH FAMILY DOCTOR IN ONE WEEK. FOLLOWUP WITH CARDIOLOGY IN 3 WEEKS. LAB: BMP WITH MG AND ALBUMIN LEVELS IN ONE WEEK AND FOLLOW RESULTS WITH FAMILY DOCTOR. FOLLOWUP WITH COUMADIN CLINIC FOR COUMADIN DOSING. PLEASE CHECK LAB:PT/INR DAILY WHILE AT REHAB AND ADJUST COUMADIN DOSING. PLEASE ALSO CHECK BLOOD SUGARS AND ADJUST DIABETES MEDICATION. Current Hospital Diet Patient's current hospital diet: AHA Diet (Heart Healthy) Discharge Diet Recommended Diet: AHA Diet (Heart Healthy), Diabetes Type 2 Diet Procedures Procedures Performed: EGD Pending Studies Studies pending at discharge: no Physician Orders On Transfer Special Precautions: FALL AND ASPIRATION PRECAUTIONS Vital Signs: EVERY 8HRS Laboratory Results Hemoglobin A1c Test 04/17/16 10:25 Range/Units Estimated Average Glucose 157 mg/dl Hemoglobin A1c 7.1 H 4.5-5.6 % Medical Emergencies . Who to Call and When: Medical Emergencies: If at any time you feel your situation is an emergency, please call 911 immediately. . Non-Emergent Contact Non-Emergency issues call your: Primary Care Provider . . "Provider Documentation" section prepared by Triston Cabrera. Core Measure Problem Core Measures: None
--- NOTE | 2016-06-03 08:44 | OPERATIVE REPORT ---
DATE OF OPERATION: 04/30/2016 PREOPERATIVE DIAGNOSIS: Sustained ventricular tachycardia. POSTOPERATIVE DIAGNOSIS: Same. PROCEDURES: 1. Left subclavian venography. 2. Single-chamber ICD implantation. SURGEON: Marcelo Rowe MD. ANESTHESIA: Local with sedation. HISTORY: This is a 76-year-old woman who has a history of aortic valve replacement twice in the past, longstanding atrial fibrillation with recurrent wide-complex tachycardia. The episodes are sustained, the rate is around 160 beats per minute. On echocardiography, she had normal left ventricular function and no significant electrolyte imbalance. With no reversible cause she is to undergo ICD implantation. She was on warfarin, which was held prior to implantation, although the INR was 1.5, but felt to be acceptable. DESCRIPTION OF PROCEDURE: After obtaining informed consent for the procedure, she was brought to the laboratory on the morning of 04/30/2016. She was identified in the laboratory, prepped and draped in standard sterile manner for a left-sided ICD implantation. The left prepectoral region was anesthetized with 1% lidocaine local anesthetic. Dye was injected via the left arm IV site in order to opacify the left subclavian vein, once accomplished, left subclavian venipuncture was performed by percutaneous technique and a guidewire placed through the left subclavian vein into the superior vena cava. The area was further infiltrated with 1% lidocaine local anesthetic and a 5 cm incision was made parallel to the left clavicle and 2 cm below it and carried down to the anterior pectoralis fascia. An ICD pocket was formed by blunt dissection anterior to the pectoralis fascia. A 10.5-Hungarian Medtronic lead introducer was placed over the guidewire into the left subclavian vein, the dilator and guidewire were removed and a bipolar active fixation steroid-tipped dual coil defibrillator lead was advanced through the introducer into the right atrium. The guidewire was placed back through introducer and introducer stripped away from lead and guidewire. Using a curved stylette, the ventricular lead was advanced through the right ventricular outflow tract into the pulmonary artery and then using a straight stylette was positioned in the right ventricular apex. Once in position, the ventricular pacing threshold was evaluated in bipolar configuration and a pulse width of 0.5 milliseconds. The final ventricular pacing threshold was 0.3 volts with a current of 0.4 milliamp, 5-volt lead impedance was 459 ohms and R-waves were sensed at 7.2 millivolts. Diaphragmatic pacing was not present with a 10 volt bipolar output. Once the lead was in position, it was attached to the anterior pectoralis fascia using 2 sutures of 2-0 silk around the lead collar. The bacitracin-soaked sponge was removed from the pocket, the guidewire was removed from left subclavian vein and hemostasis was obtained. There was more bleeding than general due to high venous pressure and a borderline INR. The ICD was placed in the pocket with the leads coiled beneath it and the incision was closed with a running double subcutaneous closure of 3-0 Vicryl followed by running subcuticular skin closure of 4-0 Vicryl. Bacitracin ointment was placed on incision and a pressure dressing applied. The patient tolerated the procedure well, there were no complications and estimated blood loss was 100 mL. The patient was transferred to the telemetry unit for further monitoring. The ventricular lead is a Medtronic model 6947M, serial # [id number] and is a bipolar active fixation steroid-tipped dual coil MRI compatible lead. The ICD is a Medtronic Visia AF MRI VR SureScan, model WCQW4D6, serial # [id number]. The ICD was reprogrammed in the laboratory to final settings. This is an MRI compatible system. QUAN
== END 2016-05-04 14:39 | DRG 226 ==
LOC: ENRESERVTM → ENRESERVDT → C.EDB 18:50 → C.2T 04-17 01:58 → EEVIPCON 04-17 01:58 → C.MED 04-24 22:17 → C.2T 04-26 13:14
PROVIDERS: ADMIT Internal Medicine; ATTEND Internal Medicine
PROC: 0DJ08ZZ Inspection of Upper Intestinal Tract, Via Natural or Artificial Opening Endoscopic (ICD-10-PCS; 2016-04-23)
PROC: 02H63KZ Insertion of Defibrillator Lead into Right Atrium, Percutaneous Approach (ICD-10-PCS; principal; 2016-04-30 07:30)
PROC: 0JH608Z Insertion of Defibrillator Generator into Chest Subcutaneous Tissue and Fascia, Open Approach (ICD-10-PCS; principal; 2016-04-30 07:30)
PROC: B517YZA Fluoroscopy of Left Subclavian Vein using Other Contrast, Guidance (ICD-10-PCS; principal; 2016-04-30 07:30)
PROC: 02HK3KZ Insertion of Defibrillator Lead into Right Ventricle, Percutaneous Approach (ICD-10-PCS; principal; 2016-04-30 07:30)
DX: I50.43 Acute on chronic combined systolic (congestive) and diastolic (congestive) heart failure (principal); K85.90 Acute pancreatitis without necrosis or infection, unspecified; I47.2 Ventricular tachycardia; N17.9 Acute kidney failure, unspecified; N39.0 Urinary tract infection, site not specified; J44.1 Chronic obstructive pulmonary disease with (acute) exacerbation; I25.10 Atherosclerotic heart disease of native coronary artery without angina pectoris; K57.31 Diverticulosis of large intestine without perforation or abscess with bleeding; E11.9 Type 2 diabetes mellitus without complications; K21.9 Gastro-esophageal reflux disease without esophagitis; I73.9 Peripheral vascular disease, unspecified; Z96.651 Presence of right artificial knee joint; Z87.891 Personal history of nicotine dependence; I48.2 Chronic atrial fibrillation; Z95.2 Presence of prosthetic heart valve; G40.909 Epilepsy, unspecified, not intractable, without status epilepticus; I69.920 Aphasia following unspecified cerebrovascular disease; Z95.1 Presence of aortocoronary bypass graft; Z96.641 Presence of right artificial hip joint; E86.0 Dehydration; E83.51 Hypocalcemia; Z95.5 Presence of coronary angioplasty implant and graft; I48.0 Paroxysmal atrial fibrillation; I36.1 Nonrheumatic tricuspid (valve) insufficiency; E87.6 Hypokalemia; J44.9 Chronic obstructive pulmonary disease, unspecified; E89.2 Postprocedural hypoparathyroidism

== ENCOUNTER → 2016-05-15 | Outpatient (CLI) | payer OTHER ==
[~2016-05-15] MED LIST: ANT25 PO; ASPI81TA28 PO; ATOR-24 PO; CALC0.5C2 PO; CALC625T13 PO; CHOL100010 PO; CLCC1250 PO; CRD200 PO; CYAN10004 PO; ESCI10TA17 PO; FLUT0.15 NAE; FRRS300 PO; FRS/40 PO; GABA-112 PO; GLC/500 PO; HYCUDL5 PO; HYDR25SU20 PR; IPRA1AER2 INH; LEVE500T13 PO; LEVO150T PO; LEVO75TA PO; MCRK20 PO; METO1TAB69 PO; METO2.5T PO; MRLP17 PO; NTRGSL/4 UT; NYST100010 TOP; PANT40TA PO; PRED10TA PO; SPR25 PO; TRAZ50TA35 PO; WARF2TAB PO
--- NOTE | 2016-05-15 14:00 | DIAGNOSTIC IMAGING REPORT ---
HEAD CT NONCONTRAST CT DOSE: 614.27 mGy.cm HISTORY: Mental status change MENTAL STATUS CHANGE TECHNIQUE: Multiaxial CT images of the head were performed without the use of intravenous contrast. Comparison: 04/19/2016 Findings: The paranasal sinuses and mastoid air cells are clear. Old left cerebral infarct. This is unchanged compared to the prior study. There are no new or interval findings. Ventricular system is midline. There is no evidence for acute intracranial hemorrhage. Impression: Old left cerebral infarct. No acute or interval finding Electronically signed by: Pierre Erickson M.D. 05/15/2016 1:58 PM Dictated Date/Time: 05/15/2016 1:54 PM
== END | disposition home or self-care (01) ==
LOC: C.CTS 13:29
PROVIDERS: ATTEND Internal Medicine Critical Care Medicine
DX: R41.82 Altered mental status, unspecified (principal)